=== PATIENT | female | born 1965 | race Caucasian/White ===

== ENCOUNTER 2016-06-09 10:11 | Day surgery (SDC) ==
[2016-06-09] MEDS ORDERED: NS 1,000 ML ONE (10:53)
[2016-06-09] MEDS ORDERED: MYLICON DROPS (DOSE) MISC ONE (14:16)
[2016-06-09] MEDS ORDERED: DIPRIVAN 1% ONE (14:39)
[2016-06-09] MEDS ORDERED: FENTANYL ONE (14:40)
[2016-06-09] MEDS ORDERED: VERSED ONE (14:40)
[2016-06-09] MEDS ORDERED: DEMEROL IV ONE (14:48)
[2016-06-09] MEDS ORDERED: DEMEROL ONE (14:49)
[2016-06-09 15:13] VITALS: BP 123/65
--- NOTE | 2016-06-09 15:57 | OPERATIVE NOTE ---
PROCEDURE DATE: 06/09/2016 DATE OF PROCEDURE: 06/09/2016. PROCEDURE: Colonoscopy and polypectomy. PREOPERATIVE DIAGNOSES: 1. Change in bowel habits. 2. Constipation. 3. Abdominal pain. 4. Weight loss. POSTOPERATIVE DIAGNOSIS: Colon polyp with polypectomy performed. HISTORY: This is a 51-year-old white female who had noticed some change in her bowel habits. She has been constipated. She has also been complaining of diffuse abdominal pain associated with some weight loss. Colonoscopy was done for diagnostic, as well as therapeutic purposes. DESCRIPTION OF PROCEDURE: Informed consent was obtained from the patient. The procedure, risks, benefits, alternatives were explained in layman's terms. She understood and all the pertinent questions were answered. The patient was brought to the endoscopy unit and was premedicated as per anesthesia. After adequate sedation while she was lying in left lateral position, digital rectal exam was done which was normal. The scope was then gently introduced into the rectum and advanced under direct vision through the parts of colon all the way up to the cecum. The cecum was identified by ileocecal valve and the appendiceal orifice. The scope was then withdrawn, paying careful attention to details. Preparation was good. The visualized portion of the colon revealed a polyp in the sigmoid colon around 35 cm from the anal verge. The polyp was sessile, smooth surfaced, and was about 6-8 mm in size. Polypectomy was performed by snare cautery without difficulty. I did not see any polyps, tumors, cancers, or any other pathology in the rest of the colon. The rectum was examined both in straight and retroflexed view, which revealed no pathology either. The scope was then removed. Patient tolerated the procedure well. No complication was noted. The patient was then transferred to the recovery area in a stable condition. IMPRESSION: Colon polyp with polypectomy performed, otherwise normal colon. RECOMMENDATION: I would continue her on Amitiza, but add Movantik 1 p.o. b.i.d. or once a day. I recommended her to continue high-fiber, high-residue diet, and drink plenty of water daily. Follow up with the biopsy report in 2 weeks. Follow up in the office in 4-6 weeks. Advised to follow up with Dr. Griffin as scheduled.
== END 2016-06-09 15:30 | disposition home or self-care (01) ==
LOC: ENDO 10:11
PROVIDERS: ATTEND Internal Medicine Gastroenterology
DX: D12.5 Benign neoplasm of sigmoid colon (principal); E11.9 Type 2 diabetes mellitus without complications; Z95.810 Presence of automatic (implantable) cardiac defibrillator; F17.210 Nicotine dependence, cigarettes, uncomplicated; I50.9 Heart failure, unspecified
CPT/HCPCS: 82948; 88305; 88313; J2175; J2250; J3010; J7030

== ENCOUNTER 2016-09-06 18:27 | Observation (INO) ==
[2016-09-06] MEDS ORDERED: VANCOMYCIN IV PER PHARMACY MISC SCH (19:00)
[2016-09-06] MEDS ORDERED: ZOFRAN IV PRN (19:11)
[2016-09-06 19:35] LABS: MANUAL DIFF NEEDED? NO
[2016-09-06 19:43] LABS: BASO% 0.2 % (0.0-0.8); EOS# 0.15 X1000 (0.0-0.7); EOS% 1.5 % (0.0-10.0); HEMATOCRIT 37.2 % (37.0-47.0); HEMOGLOBIN 13.2 g/dL (12.0-16.0); IMM GRAN# 0.03 X1000 (0.0-0.04); IMM GRAN% 0.3 % (0.0-0.5); LYMPH# 3.28 X1000 (1.2-3.4); LYMPH% 33.1 % (20.5-51.1); MCHC 35.5 g/dL (33-37); MCV 87.3 FL (81-99); MONO# 0.78 X1000 (0.11-0.59); MONO% 7.9 % (1.7-9.3); MPV 9.7 FL (7.4-10.4); PLT 271 X1000 (130-400); RBC 4.26 XMIL (4.2-5.4)
[2016-09-06 20:24] LABS: ALBUMIN 3.9 g/dL (3.5-5.0); CALCIUM 9.2 mg/dL (8.8-10.2); DIGOXIN 1.7 ng/mL (0.9-2.0); POTASSIUM 3.5 mmol/L (3.5-5.1); TOTAL BILIRUBIN 0.3 mg/dL (0.20-1.00); TOTAL PROTEIN 7.1 g/dL (6.3-8.3)
[2016-09-06 20:45] LABS: SED RATE 74 mm/hr (0-20)
[2016-09-06] MEDS ORDERED: NS 500 ML ONE (21:53)
[2016-09-06] MEDS ORDERED: VANCOMYCIN 1 GM/NS 1 GM/250 ML IVPB IV ONE (22:00)
[2016-09-06] MEDS: HUMALOG DOSE (PARKWAY) SUBQ SCH (22:47)
[2016-09-06] MEDS: LEVAQUIN 500 MG/D5W 500 MG/100 ML IVPB IV SCH (22:48)
[2016-09-06] MEDS: MONISTAT 7 VAG SCH (22:49)
[2016-09-06] MEDS: NORCO-5 PO PRN (23:08)
[2016-09-06] MEDS: NICODERM PATCH TD PRN (23:15)
[2016-09-07] MEDS: FLAGYL 500 MG/NS 500 MG/100 ML IVPB IV SCH ×4 (00:45→22:27)
[2016-09-07] MEDS ORDERED: VANCOMYCIN 1 GM/NS 1 GM/250 ML IVPB IV ONE ×3 (03:00→08:00)
[2016-09-07] MEDS: NORCO-5 PO PRN ×4 (03:52→21:25)
[2016-09-07] MEDS: HUMALOG DOSE (PARKWAY) SUBQ SCH ×4 (06:37→21:51)
--- NOTE | 2016-09-07 07:42 | Diag Imaging Result Document ---
PROCEDURE NAME: LOWER LEG-LEFT - 09/07/2016 LEFT TIB/FIB, FOUR VIEWS: FINDINGS: There is a small osteochondroma arising from the proximal medial tibia. No fracture. No dislocation. No periosteal reaction. No lytic lesion. IMPRESSION: No plain film evidence of osteomyelitis. If clinical suspicion persists then a 3- phase bone scan or MRI is recommended.
[2016-09-07] MEDS: MONISTAT 7 VAG SCH ×2 (08:17→21:14)
[2016-09-07 09:47] LABS: HEMOGLOBIN A1C 11.7 % (4.8-6.0)
[2016-09-07 17:27] LABS: AGAP 11; BUN 13 mg/dL (8-22); CHLORIDE 89 mmol/L (98-107); COSMO 273; POTASSIUM 3.9 mmol/L (3.5-5.1); SODIUM 129 mmol/L (136-145); TCO2 28 mmol/L (25-35)
[2016-09-07] MEDS: LEVAQUIN 500 MG/D5W 500 MG/100 ML IVPB IV SCH (21:14)
[2016-09-07] MEDS: NICODERM PATCH TD PRN (21:55)
[2016-09-08] MEDS ORDERED: VANCOMYCIN 1,500 MG in NS 250 ML IV SCH (02:00)
[2016-09-08] MEDS: FLAGYL 500 MG/NS 500 MG/100 ML IVPB IV SCH (05:05)
[2016-09-08] MEDS: HUMALOG DOSE (PARKWAY) SUBQ SCH (06:25)
[2016-09-08 06:29] LABS: HEMATOCRIT 35.2 % (37.0-47.0); HEMOGLOBIN 12.3 g/dL (12.0-16.0); MCH 30.8 PG (27-31); MCHC 34.9 g/dL (33-37); MPV 9.9 FL (7.4-10.4)
[2016-09-08 06:32] VITALS: BP 147/64
[2016-09-08 06:41] LABS: AGAP 9; ALBUMIN 3.3 g/dL (3.5-5.0); ALKALINE PHOSPHATASE 119 U/L (32-104); BUN 11 mg/dL (8-22); CALCIUM 8.8 mg/dL (8.8-10.2); CHLORIDE 93 mmol/L (98-107); COSMO 272; GOT 15 U/L (10-30); GPT 13 U/L (10-36); POTASSIUM 3.9 mmol/L (3.5-5.1); SODIUM 133 mmol/L (136-145); TCO2 31 mmol/L (25-35); TOTAL PROTEIN 5.7 g/dL (6.3-8.3)
[2016-09-08] MEDS: MONISTAT 7 VAG SCH (09:48)
--- NOTE | 2016-09-08 10:08 | HISTORY AND PHYSICAL ---
PRIMARY CARE PHYSICIAN: Dr. Rommel Tejada. CHIEF COMPLAINT: Ulcer left foot. HISTORY OF PRESENT ILLNESS: This is a 51-year-old female with a history of diabetes mellitus, high cholesterol, congestive heart failure, peripheral neuropathy. She presents as a direct admit from Dr. Rommel Tejada's office for nonhealing diabetic ulcer to her left great toe with failed outpatient treatment. PAST MEDICAL HISTORY: Diabetes mellitus, high cholesterol, congestive heart failure with EF of 35 to 40% on echo April 2016, ischemic cardiomyopathy, CAD. PAST SURGICAL HISTORY: Heart catheterization. SOCIAL HISTORY: She lives with her . She continues to smoke daily. She denies alcohol or illicit drug use. ALLERGIES: No known drug allergies. HOME MEDICATIONS: Lasix 80 mg daily, digoxin 250 mcg daily, Robaxin 750 b.i.d., Cozaar 25 daily, Levemir FlexTouch 50 units b.i.d., [place] 10/325 q.6 hours p.r.n., Lyrica 50 mg b.i.d., potassium chloride 10 mEq daily, carvedilol 3.125 b.i.d., Lipitor 40 mg daily, temazepam 30 mg daily, Gralise 600 mg daily, Keflex 500 mg p.o. q.6 hours for 2 weeks. REVIEW OF SYSTEMS: A 14 point review of systems is discussed with the patient with pertinent positives being left foot pain, left foot ulcer. She did denies chest pain, palpitations, dizziness, syncope, any cough, fever, chills, PND, orthopnea, nausea, vomiting, diarrhea, black or bloody vomitus, black or bloody stools, hematuria, dysuria, frequency, urgency. PHYSICAL EXAMINATION: GENERAL: This is a 51-year-old female who is sitting up in the bed with no distress. VITAL SIGNS: Blood pressure is 115/67, with a heart rate of 24, respirations are 69, temperature is 97.6 degrees axillary, with room air saturation of 100%. HEENT: Head is normocephalic, atraumatic. Pupils equal, round, react to light. EOMs are intact. Sclerae anicteric. Mucous membranes are moist. NECK: Supple. Trachea midline. CARDIOVASCULAR: Regular rate and rhythm. S1 and S2 appreciated. PULMONARY: Breath sounds are clear with no increased work of breathing noted. GASTROINTESTINAL: Abdomen is soft, nontender, nondistended with bowel sounds in all 4 quadrants. BACK: No CVAT. No spine tenderness. MUSCULOSKELETAL: Good range of motion of joints. EXTREMITIES: No clubbing, cyanosis, or edema to upper extremities or right lower extremity. Left lower extremity does have a dressing intact to the foot. Pulses are palpable x4. NEUROLOGIC: She is alert and oriented x3. Cranial nerves 2 through 12 grossly intact. ASSESSMENT: 1. Nonhealing diabetic ulcer to her left great toe, failed outpatient treatment. 2. Diabetes mellitus, uncontrolled with a hemoglobin A1c of 11. 3. Hyperglycemia. 4. Congestive heart failure, history of. 5. Ischemic cardiomyopathy. 6. Tobacco use and abuse. PLAN: She will be admitted to the hospital. We will obtain CBC, CMP, hemoglobin A1c, sedimentation rate, CRP, digoxin level. Dr. Amborsio has been contacted. X-ray of the left lower extremity has been ordered. Further x-rays or testing will be per his expertise. Vancomycin and Levaquin at present will be given for antibiotic coverage. Will verify and continue her home medications. Arterial Dopplers will be performed for bilateral lower extremities. Further treatments pending hospital course. Dictated by MERT Strong for Eran Wisdom MD cc: MERT Strong MD
--- NOTE | 2016-09-08 11:54 | DISCHARGE SUMMARY ---
ADMISSION DATE: 09/06/2016 DISCHARGE DATE: 09/08/2016 DIAGNOSES: 1. Nonhealing diabetic ulcer to the left great toe. 2. Dry gangrene left great toe. 3. Diabetes mellitus. 4. Ischemic cardiomyopathy with an EF of 25% in April 2016. 5. Hyperlipidemia. 6. Tobacco use. DIAGNOSTICS: Lower extremity x-ray revealed no plain film evidence of osteomyelitis. No fracture. No dislocation. No lytic lesion. CONSULTS: Dr. Ambrosio in Orthopedics. HOSPITAL COURSE: Ms. Patel presented as a direct admit from Dr. Rommel Tejada [facility] with a gangrenous nonhealing wound to her left great toe. Antibiotic coverage per vancomycin and Levaquin were given. Plain films revealed no osteomyelitis. Arterial indices were obtained. She was evaluated by Dr. Ambrosio in Orthopedics. He does recommend she be discharged on Keflex q.6 hours and follow with him in the wound center with her 1st appointment being . DISCHARGE PHYSICAL EXAMINATION: Cardiovascular: Regular rate and rhythm S1, S2 appreciated. Pulmonary: Breath sounds are clear. No increased work of breathing noted. Gastrointestinal: Abdomen is soft, nontender, nondistended with bowel sounds in all 4 quadrants. Extremities: No clubbing, cyanosis, or edema. Calves nontender. Pulses are palpable. DISCHARGE MEDICATIONS: 1. Furosemide 80 mg daily, digoxin 250 mcg daily, Robaxin 750 b.i.d., Cozaar 25 daily, [place] 10/325 q.6 hours p.r.n. 2. Lyrica 50 b.i.d., potassium 10 mEq daily, carvedilol 3.125 b.i.d. 3. Lipitor 40 daily, temazepam 30 daily. 4. Gralise 600 mg daily. 5. Keflex 500 mg p.o. q.6 hours. FOLLOWUP: He is to see Dr. Ambrosio in the wound center . DISCHARGE ACTIVITY: As tolerated. DISCHARGE DIET: Diabetic. DISPOSITION: She is being discharged home in stable condition with family members. TIME SPENT: This is a greater than 30 minute discharge. Dictated by MERT Strong for Eran Wisdom MD cc: MERT Strong MD
--- NOTE | 2016-09-08 14:29 | CONSULTATION ---
DATE OF CONSULTATION: 09/08/2016 CHIEF COMPLAINT: Ulcer on her left big toe. HISTORY OF THE PRESENT ILLNESS: This is a 51-year-old white female with a history of diabetes, CHF, and peripheral neuropathy. She was admitted to Dr. Tejada due to a nonhealing diabetic ulcer on her left great toe. Orthopedics had been consulted for evaluation of this ulcer. ALLERGIES: Not allergic to any medications. PAST MEDICAL HISTORY: Serious illnesses: Diabetes, congestive heart failure, cardiomyopathy. PAST SURGERIES: Heart catheterization. REGULAR MEDICATIONS: Lasix 80 one a day; digitalis 250 one a day; Robaxin 750 twice a day; Cozaar 25 one a day; Levemir 50 units twice a day; [place] 10 p.r.n. pain; Lyrica 50 twice a day; potassium 10 mEq a day; carvedilol 125 twice a day; Lipitor 40 once a day; temazepam 30 once a day; Gralise 600 once a day; Keflex 500 q.6 hours. REVIEW OF SYSTEMS: HEENT: No history of migraines, dizziness, loss of conscious, or CVA. Respiratory: No history of asthma or emphysema. She is a daily smoker. Heart: Has history of congestive heart failure, ejection fraction of 35% to 40%, with some ischemic cardiomyopathy. Abdomen: No history of ulcers or digestive disorders. PHYSICAL EXAMINATION: General: This is a 51-year-old female, alert and oriented. Vital Signs: Blood pressure 115/67, heart rate 64, respirations 24, temperature 97.6 degrees. HEENT: Pupils equal, round, and reactive. Neck: Good range motion, without adenopathy. Respiratory: Respirations equal and unlabored. Clear bilaterally. Heart: Regular rate and rhythm. Abdomen: Soft, nontender. Bowel sounds present. Extremities: She has ulcer to her left great toe, with some redness and swelling. Complains of severe pain. IMPRESSION: Nonhealing diabetic ulcer on her left great toe. PLAN: She will be discharged on Keflex and she is to follow up at the Wound Center this . cc: Gaetano Ambrosio MD
--- NOTE | 2016-09-08 17:50 | VASCULAR LAB ---
PROCEDURE NAME: Arterial Bilateral Legs - 09/07/2016 BILATERAL LOWER EXTREMITY ARTERIAL STUDY: COLLEGE ADMISSIONS COUNSELOR: Tammy Aggarwal. REFERRING PHYSICIAN: Eran Wisdom MD INDICATION: Patient has had coronary artery stent placement. She is a diabetic. Smoker. She has had 2 nonhealing wounds involving the top of her left foot. ICD 10 L97.509. FINDINGS: The systolic brachial blood pressure on the right is 135 mmHg, on the left 123 mmHg. Right high thigh 165 mmHg, left high thigh 171 mmHg. Right low thigh 153 mmHg, left low thigh 168 mmHg. Right calf 122 mmHg, left calf is 217 mmHg. The right ankle 101 mmHg, left ankle 130 mmHg. There is pulsatile flow in both feet and both great toes at rest. The right ankle-brachial index is 0.75. The left ankle-brachial index is 0.96. INTERPRETATION: The patient has what appears to be normal pulse waveforms throughout both lower extremities. There appears to be some small-vessel disease involving the right lower extremity, but it is mild. I do feel she has enough arterial flow to heal wounds involving her left foot. cc: MD Earn Brand MD
== END 2016-09-08 10:00 | disposition home or self-care (01) ==
LOC: INTOOBSV 18:27 → P.DIRADM 18:27 → P.MEDSURG 18:32
PROVIDERS: ATTEND Family Medicine

== ENCOUNTER 2016-10-27 13:59 | Inpatient (IN) ==
--- NOTE | 2016-10-27 15:38 | Diag Imaging Result Doc PS360 ---
EXAM: FOOT COMPLETE LEFT HISTORY: infection TECHNIQUE: Three views COMMENT: There is apparent soft tissue air around the first metatarsal particularly between the great toe and the second toe. This centers around the metatarsal phalangeal joints. There is apparently is generalized soft tissue swelling in the forefoot. There is plantar and dorsal spurring of the calcaneus. There is been previous amputation of distal phalanx of the great toe. There are no previous studies. IMPRESSION: Soft tissue swelling and a possible soft tissue gas as described. No definite evidence of acute bony disease. The possibility of acute osteomyelitis cannot be excluded. Electronically signed by Benny Tello 10/27/2016 3:36 PM
[2016-10-27 15:40] LABS: MANUAL DIFF NEEDED? NO
[2016-10-27 15:54] LABS: BASO% 0.3 % (0.0-0.8); EOS# 0.03 X1000 (0.0-0.7); EOS% 0.2 % (0.0-10.0); HEMATOCRIT 39.1 % (37.0-47.0); HEMOGLOBIN 13.6 g/dL (12.0-16.0); IMM GRAN# 0.06 X1000 (0.0-0.04); IMM GRAN% 0.5 % (0.0-0.5); LYMPH# 2.33 X1000 (1.2-3.4); LYMPH% 17.8 % (20.5-51.1); MCH 31.1 PG (27-31); MCHC 34.8 g/dL (33-37); MCV 89.3 FL (81-99); MONO# 1.14 X1000 (0.11-0.59); MONO% 8.7 % (1.7-9.3); MPV 10.2 FL (7.4-10.4); NEUT% 72.5 % (42.2-75.2); PLT 408 X1000 (130-400); RBC 4.38 XMIL (4.2-5.4)
[2016-10-27] MEDS ORDERED: NS 2,000 ML ONE (16:02)
[2016-10-27] MEDS ORDERED: ZOSYN 3.375 GM/NS 3.375 GM/50 ML IVPB IV ONE (16:08)
[2016-10-27] MEDS ORDERED: VANCOMYCIN 1 GM/NS 1 GM/250 ML IVPB IV ONE (16:08)
[2016-10-27] MEDS ORDERED: TYLENOL PO ONE (16:08)
[2016-10-27 16:26] LABS: ALBUMIN 3.8 g/dL (3.5-5.0); CALCIUM 9.4 mg/dL (8.8-10.2); POTASSIUM 3.5 mmol/L (3.5-5.1); TOTAL BILIRUBIN 0.49 mg/dL (0.20-1.00); TOTAL PROTEIN 8.7 g/dL (6.3-8.3)
[2016-10-27] MEDS ORDERED: HUMULIN R IV ONE (16:27)
[2016-10-27] MEDS: NS 1,000 ML IV ONE ×2 (16:29→16:32)
[2016-10-27 16:52] LABS: ALLEN TEST YES; BE 2.2 mmoll (-3.0-3.0); BLOOD TYPE ARTERIAL; DRAW SITE L RADIAL; METHB 1.3 % (0.0-1.5); PCO2(98.6) 34 mmHg (35-45); PO2(98.6) 91 mmHg (60-100); SAMPLE BLOOD; SAO2 98.8 % (95.0-100.0); THB 13.4 g/dL (11.5-17.4); pH(98.6) 7.48 (7.35-7.45)
[2016-10-27 16:55] LABS: MODALITY ROOM AIR
--- NOTE | 2016-10-27 17:17 | PROVIDER DOCUMENTATION ---
This chart was entered by Ginny Courtney, acting as scribe for Joe Jacob MD. HPI-Fever - General Chief Complaint: Possible Sepsis-D Stated Complaint: POST OP COMPLAINT Time Seen by Provider: 10/27/16 14:53 Source: patient, family Allergies/Adverse Reactions: Patient Allergies Allergy/AdvReac Type Severity Reaction Status Date / Time No Known Allergies Allergy Verified 06/08/16 09:28 Home Medications: Home Medication List Medication Instructions Recorded Confirmed Last Taken Type Digoxin [Digox] 250 mcg PO DAILY 04/02/16 10/18/16 10/15/16 History Furosemide 80 mg PO DAILY 04/02/16 10/18/16 10/18/16 05:00 History Hydrocodone/Acetaminophen [[place] 1 each PO Q6-8H PRN PRN 04/02/16 10/18/1610/18 05:00 History 10-325 Tablet] Insulin Detemir [Levemir Flextouch] 50 unit SQ BID 04/02/16 10/18/16 10/17/16 09 :00 History Losartan [Cozaar] 25 mg PO DAILY 04/02/16 10/18/16 10/17/16 History Methocarbamol [Robaxin-750] 750 mg PO BID PRN 04/02/16 10/18/16 10/11/16 History Potassium Chloride 10 meq PO DAILY 04/02/16 10/18/16 10/18/16 05:00 History Atorvastatin Calcium [Lipitor] 40 mg PO DAILY 09/07/16 10/18/16 10/18/16 05:00 History Carvedilol 3.125 mg PO BID 09/07/16 10/18/16 10/18/16 05:00 History Temazepam 30 mg PO DAILY 09/07/16 10/18/16 10/15/16 History Gabapentin [Gralise] 600 mg PO BID 10/15/16 10/18/16 10/17/16 20:00 History Cyclobenzaprine [Flexeril] 10 mg PO TID PRN 10/18/16 10/18/16 10/17/16 History Oxycodone HCl/Acetaminophen 1 each PO Q4-6H PRN PRN #40 tablet 10/18/16 Unknown Rx [Percocet 5-325 mg Tablet] - History of Present Illness-Fever Nature of Presenting Problem: pt is a 51 year old female present to the ER with a cc of And ulcer that was on her left big toes that has increased in redness and pain since her surgery x10 days ago. Pt states that she has had this ulcer for over 1 year now and she got it amputated 10 [address] pt states Dr. Ziegler did the amputation of her toe and the color of the tip of the toe was white following surgery. Pt family at bedside. Family states last dressing change was the day of surgery. Fever Severity/Quality: reports: no fever Onset/Duration: reports: other (x10 days) Timing: reports: getting worse Severity: reports: moderate Context: reports: none Recent Illness?: reports: none Cognitive Baseline: alert, oriented x3 Modifying Factors: improves with: nothing Similar Symptoms Previously?: Yes Recently seen or treated by another doctor?: Yes - Gl[place]ow Coma Score Best Eye Response ([place]): (4) open spontaneously Best Verbal Response ([place]): (5) oriented Best Motor Response ([place]): (6) obeys commands [place] Total: 15 Review of Systems - Adult - REVIEW OF SYSTEMS - ADULT Constitutional: reports: no symptoms reported Eyes: reports: no symptoms reported Ears, Nose, Mouth & Throat: denies: ear discharge, hearing loss Cardiovascular: denies: no symptoms reported Respiratory: reports: no symptoms reported Gastrointestinal: denies: abdominal pain, difficulty swallowing, frequent heartburn Genitourinary: denies: dysuria, discharge, frequency Musculoskeletal: reports: bone pain. denies: back pain, joint pain, joint swelling Integumentary: reports: skin sores/ulcer (Left big toe), other (Increased redness on Big toe of left foot). denies: itching, mole changes, nail changes Neurological: denies: dizziness/vertigo, headache/migraines, loss of balance, numbness, seizure Psychiatric: reports: no symptoms reported Endocrine: reports: no symptoms reported Hematologic/Lymphatic: reports: no symptoms reported Allergic/Immunologic: reports: no symptoms reported All Other Systems: Reviewed and Negative Past History - Adult - PAST MEDICAL HISTORY-ADULT Review of Records: reports: Nursing Assessment Review Major Childhood Illnesses: reports: denies history Cardiovascular: reports: CAD, CHF, hyperlipidemia, other (ACID) Respiratory: reports: denies history Gastrointestinal: reports: denies history Obstetrical/Gynecological: reports: denies history Genitourinary: reports: denies history Musculoskeletal: reports: cancer (cervical) Neurological: reports: denies history Endocrine/Immune: reports: Diabetes Other Conditions: reports: denies history - PRIOR SURGERIES/PROCEDURES Surgical/Procedure History: reports: hysterectomy, other (ACID/BREAST REDUCTION/ CERVICAL FUSION) - IMMUNIZATION STATUS Childhood Immunizations: See Nurse Assessment Flu Vaccine: See Nurse Assessment - FAMILY HISTORY Family History: reviewed, not pertinent Physical Exam-General - PHYSICAL EXAM-ADULT Initial Vital Signs Reviewed: Yes - CONSTITUTIONAL General Appearance: appears well, alert, mild distress - EYES Eyes: PERRL/EOMI, pink conjunctivae - HEAD, EARS, NOSE, MOUTH & THROAT HENMT: moist mucous membranes, normal ENT inspection, TMs normal, pharynx normal - NECK Neck: non-tender, full range of motion - RESPIRATORY Respiratory: chest non-tender, lungs clear, normal breath sounds, no pleuratic chest pain, no respiratory distress, no accessory muscle use - CARDIOVASCULAR Cardiovascular: no gallop, no JVD, no murmur, tachycardia - GASTROINTESTINAL (ABDOMEN) Abdominal Exam: normal bowel sounds, non tender, soft - MUSCULOSKELETAL Back Exam: normal inspection, no CVA tenderness Extremity: normal range of motion, non-tender, normal gait, normal inspection, erythema (Redness on anterior portion of foot from big toe to mid area of foot.) , tenderness (TTP Big toe Left foot) - SKIN Integumentary: other (Big toe left foot gangreb) - NEUROLOGIC Neurologic: grossly normal, no motor/sensory deficits - PSYCHIATRIC Psych/Mental Status: normal mood/affect, normal thought content, normal thought process, oriented x 3 Progress - PLAN OF CARE/RESULTS Progress/Plan/Lab Results: Vital Signs - 8 hr 10/27/16 14:16 Temperature 99.3 F Pulse Rate 107 H Respiratory Rate 20 Blood Pressure 100/73 O2 Sat by Pulse Oximetry 100 Laboratory Results - last 24 hr 10/27/16 10/27/16 10/27/16 14:45 14:45 14:45 WBC 13.08 H RBC 4.38 Hgb 13.6 Hct 39.1 MCV 89.3 MCH 31.1 H MCHC 34.8 RDW Std Deviation 12.9 Plt Count 408 H MPV 10.2 Immature Gran % (Auto) 0.5 Neut % (Auto) 72.5 Lymph % (Auto) 17.8 L [place] % (Auto) 8.7 Eos % (Auto) 0.2 Baso % (Auto) 0.3 Immature Gran # (Auto) 0.06 H Neut # (Auto) 9.48 H Lymph # (Auto) 2.33 [place] # (Auto) 1.14 H Eos # (Auto) 0.03 Baso # (Auto) 0.04 Specimen Type Sample Site pH pCO2 pO2 HCO3 Base Excess Oxyhemoglobin ABG O2 Sat (Calculated) ABG O2 Saturation ABG Carboxyhemoglobin ABG Methemoglobin Lyndon Test A-a O2 Difference Total Hemoglobin Lactate Blood Gas Modality FiO2 % Sodium 123 L Potassium 3.5 Chloride 77 L Carbon Dioxide 24 L Anion Gap 22 BUN 8 Creatinine 1.4 H Estimated GFR/1.73 m2 40 BUN/Creatinine Ratio 6 Glucose 622 H* Calculated Osmolality 275 Calcium 9.4 Total Bilirubin 0.49 AST 17 ALT 9 L Alkaline Phosphatase 162 H Total Protein 8.7 H Albumin 3.8 Globulin 4.9 Albumin/Globulin Ratio 0.8 Plasma Lactate 4.6 H 10/27/16 16:38 WBC RBC Hgb Hct MCV MCH MCHC RDW Std Deviation Plt Count MPV Immature Gran % (Auto) Neut % (Auto) Lymph % (Auto) [place] % (Auto) Eos % (Auto) Baso % (Auto) Immature Gran # (Auto) Neut # (Auto) Lymph # (Auto) [place] # (Auto) Eos # (Auto) Baso # (Auto) Specimen Type ARTERIAL Sample Site L RADIAL pH 7.48 H pCO2 34 L pO2 91 HCO3 26.4 H Base Excess 2.2 Oxyhemoglobin 89.8 L* ABG O2 Sat (Calculated) 17.0 ABG O2 Saturation 98.8 ABG Carboxyhemoglobin 7.80 H* ABG Methemoglobin 1.3 Lyndon Test YES A-a O2 Difference 16.0 Total Hemoglobin 13.4 Lactate 2.70 H Blood Gas Modality ROOM AIR FiO2 % 21.0 Sodium Potassium Chloride Carbon Dioxide Anion Gap BUN Creatinine Estimated GFR/1.73 m2 BUN/Creatinine Ratio Glucose Calculated Osmolality Calcium Total Bilirubin AST ALT Alkaline Phosphatase Total Protein Albumin Globulin Albumin/Globulin Ratio Plasma Lactate Orders Category Date Time Status CHEST-PORTABLE [RAD] Stat Exams 10/27/16 16:11 Taken FOOT COMPLETE LEFT [RAD] Stat Exams 10/27/16 14:54 Completed ABG [RESP] Routine Lab 10/27/16 16:38 Completed BLOOD CULTURE [BLDCUL] Stat Lab 10/27/16 14:48 Results CBC WITH ELECTRONIC DIFF [HEME] Stat Lab 10/27/16 14:45 Completed COMPREHENSIVE METABOLIC PANEL [CHEM] Stat Lab 10/27/16 14:45 Completed LACTATE, PLASMA [CHEM] Stat Lab 10/27/16 14:45 Completed LACTATE, PLASMA [CHEM] Timed Lab 10/27/16 17:45 Uncollected UA NIMS W/REFLEX CULT [URINALYSIS] Stat Lab 10/27/16 16:11 Uncollected 0.9% Sodium Chloride Inj [Ns] 1,000 ml Med 10/27/16 16:27 Active IV 999 mls/hr 0.9% Sodium Chloride Inj [Ns] 2,000 ml Med 10/27/16 16:02 Discontinued .ROUTE As Directed Acetaminophen [Tylenol] Med 10/27/16 16:08 Discontinued 1,000 mg PO NOW ONE Insulin Human Regular [Humulin R] Med 10/27/16 16:27 Discontinued 10 unit IV NOW ONE Piperacil/Tazobact 3.375 gm/Ns [Zosyn 3.375 gm/Ns] Med 10/27/16 16:08 Discontinued 3.375 gm in 50 ml IV NOW Vancomycin 1 gm/Ns Med 10/27/16 16:08 Discontinued 1 gm in 250 ml IV NOW Result Diagrams: 10/27/16 14:45 10/27/16 14:45 - XRAY 1 XRAY: Left XRAY Study: Foot Impression: Abnormal (Soft tissue swelling and a possiblr soft tissue gas as described. No definite evidence of acute bony disease. The possibilty of acute acute osteomylitis cannot be excluded ([place])) - CONSULTS/PCP/HOSPITALIST Notification #1 *Consult/PCP/Hospitalist*: Dr. Pryor Time Discussed: 16:35 Reason/Comments: Ampuation/Sepsis Consult Disposition: Admit (admit to hospitalist, Dr Ambrosio on vacation no one will do amputation, if hospitalist needs to amputation call vascular surgeon as needed for amputation evaluation) Time Discussed: 17:15 Reason/Comments: Dr. Burks - will consult both Konstantin and Surgery Consult Disposition: Admit Departure - Departure Time of Disposition Decision: 17:16 DIAGNOSIS: Hyperglycemia Sepsis Qualifiers: Sepsis type: sepsis due to unspecified organism Qualified Code(s): A41.9 - Sepsis, unspecified organism Cellulitis Qualifiers: Site of cellulitis: extremity Site of cellulitis of extremity: toe Laterality: left Qualified Code(s): L03.032 - Cellulitis of left toe Disposition: ADMITTED INPATIENT 09 Certified Medical Emergency: Emergent Condition: Serious Referrals and Follow-Ups: Rommel Tejada MD [Primary Care Provider] - - Critical Care Note This patient required my direct & personal management of CC.: No This chart was documented by the indicated scribe, (Ginny Courtney) and accurately reflects the services I performed and decisions made by me, Joe Jacob MD, as attested by the provider's signature.
--- NOTE | 2016-10-27 18:07 | Diag Imaging Result Doc PS360 ---
EXAM: CHEST-PORTABLE HISTORY: Fever TECHNIQUE: AP portable erect chest at 1647 COMMENT: There is a pacemaker on the left. The appearance of the chest has not changed appreciably since previous study of 04/02/2016. IMPRESSION: Stable chest. Electronically signed by Benny Tello 10/27/2016 6:05 PM
--- NOTE | 2016-10-27 19:38 | HISTORY AND PHYSICAL ---
PRIMARY CARE PHYSICIAN: Rommel Tejada MD. CHIEF COMPLAINT: Pain and ulcer in the right foot. HISTORY OF PRESENT ILLNESS: This is a 51-year-old, female with history of diabetes, CHF, high cholesterol, who recently had an amputation on the right big toe [address] Ambrosio, who presents to the emergency department complaining that she started having more reddening, pain and low-grade temperature. The patient reports that since she left the hospital, she was given Keflex oral that she is still using. She reported a few days after, she noticed reddening around the big toe that was getting worse and worse and since today she was feeling warmth, feeling chills with general malaise, she decided to come to the emergency department. So, she was found here to have a leukocytosis with low-grade temperature. So we were called for admission. PAST MEDICAL HISTORY: 1. Uncontrolled diabetes mellitus with hemoglobin A1c last checked that was 11.4. 2. Hypercholesterolemia. 3. Congestive heart failure with ejection fraction of 30% on April 2016. 4. Ischemic cardiomyopathy. 5. Status post angioplasty with 2 stents placed on February 2015. 6. Status post defibrillator placement in October 2015. PAST SURGICAL HISTORY: Recent right toe amputation done 10 days ago. SOCIAL HISTORY: Patient lives with . Smokes 1 pack per day. Denies drinking alcohol or using illicit drugs. ALLERGIES: Patient denies drug allergies. REVIEW OF SYSTEMS: Eleven systems were reviewed and all symptoms are related to H and P. PHYSICAL EXAMINATION: VITALS: Temperature 99.3, heart rate 89, respiratory rate 18, blood pressure 142/63, O2 saturation 96% on room air. GENERAL EXAMINATION: This is a 51-year-old female lying in bed, in no acute distress. HEENT: Head is normocephalic, atraumatic. Anicteric sclerae and pale conjunctivae. Mucous membranes moist. NECK: Supple. No JVD noted. No carotid bruits. No lymphadenopathy. No thyromegaly. CARDIOVASCULAR: S1, S2 heard. No murmurs, gallops, or rubs. Regular rate and rhythm. RESPIRATORY: Clear bilaterally to auscultation. No work of breathing or using accessory muscles. ABDOMEN: Soft, nontender to palpation. Bowel sounds present. No organomegaly. EXTREMITIES: Right toe partially amputated with reddening along all the toes that goes to the anterior portion of the left foot. It seems that there is some crepitation is next to the right toe and painful and warm to touch. Peripheral pulses present, but faint. NEUROLOGICAL: Patient alert and oriented x3. Able to move 4 extremities. Cranial nerves 2 though 12 grossly normal. LABORATORY DATA: White cell count 13.08, sodium 123, glucose 622. ASSESSMENT: 1. Right toe cellulitis/osteomyelitis. 2. Sepsis secondary to right toe infection. 3. Uncontrolled diabetes mellitus. 4. Ischemic cardiomyopathy. PLAN: 1. The patient is going to be admitted to the hospital for these infections. We are going to use at this time, broad-spectrum antibiotics in this case. Zosyn and because of renal dysfunction and because of the patient using atorvastatin, we can use daptomycin and I prefer to not use vancomycin because of renal dysfunction. So, will be given 600 mg every 12 hours. We are going to continue with all medications for this heart condition including digoxin. We are going to check digoxin levels. 2. Regarding diabetes, we are going to increase the doses of Levemir from 50-65 b.i.d. Considering that this patient had this infection. Her insulin use will go up as well. 3. Regarding congestive heart failure. She is not on any exacerbation. Lungs are completely clean. 4. We are going to consult surgery for possible need for amputation, and we are going to consult also Dr. Mas to help us in the management of antibiotics. 5. Further recommendations to follow for the clinical situation of the patient. cc: Boubacar Elaine MD
[2016-10-27 19:47] LABS: URINE MICRO REVIEW NEEDED? NO; URINE SOURCE CLEAN CATCH
[2016-10-27 19:52] LABS: BILIRUBIN URINE NEGATIVE (NEGATIVE); BLOOD URINE SMALL (NEGATIVE); COLOR YELLOW; GLUCOSE URINE >1000 mg/dL (NEGATIVE); LEUKOCYTES URINE SMALL (NEGATIVE); NITRITE URINE NEGATIVE (NEGATIVE); PROTEIN URINE NEGATIVE (NEGATIVE); SP GRAVITY URINE 1.009; TURBIDITY URINE HAZY (CLEAR); UROBILINOGEN URINE NORMAL (NORMAL)
[2016-10-27 19:53] LABS: UR EPITHELIAL CELLS >10 /HPF (<10); URINE BACTERIA 2+ /HPF; URINE CULTURE NEEDED? YES
[2016-10-27] MEDS ORDERED: ZOFRAN IV PRN (20:41)
[2016-10-27] MEDS ORDERED: NORCO-10 PO PRN (20:41)
[2016-10-27] MEDS ORDERED: TEFLARO 600 MG in NS 250 ML IV SCH (21:00)
[2016-10-27 22:02] LABS: HEMOGLOBIN A1C 12.8 % (4.8-6.0)
[2016-10-27] MEDS: LOVENOX SUBQ SCH (22:10)
[2016-10-27] MEDS: COREG PO SCH (22:10)
[2016-10-27] MEDS: RESTORIL PO SCH (22:10)
[2016-10-27] MEDS: LEVEMIR SUBQ SCH (22:16)
[2016-10-27] MEDS: GRALISE PO SCH (22:22)
[2016-10-27] MEDS: ZOSYN 3.375 GM/NS 3.375 GM/50 ML IVPB IV SCH (23:59)
[2016-10-28] MEDS ORDERED: D50W SYRINGE IV PRN (00:38)
[2016-10-28] MEDS: NORCO-10 PO PRN ×3 (03:34→18:13)
[2016-10-28] MEDS: D50W SYRINGE IV PRN (05:51)
[2016-10-28] MEDS: ZOSYN 3.375 GM/NS 3.375 GM/50 ML IVPB IV SCH ×3 (05:51→21:36)
[2016-10-28 06:27] LABS: MANUAL DIFF NEEDED? NO
[2016-10-28 06:42] LABS: BASO% 0.3 % (0.0-0.8); EOS# 0.04 X1000 (0.0-0.7); EOS% 0.4 % (0.0-10.0); HEMATOCRIT 33.4 % (37.0-47.0); HEMOGLOBIN 11.6 g/dL (12.0-16.0); IMM GRAN# 0.03 X1000 (0.0-0.04); IMM GRAN% 0.3 % (0.0-0.5); LYMPH# 1.97 X1000 (1.2-3.4); LYMPH% 17.3 % (20.5-51.1); MCH 30.9 PG (27-31); MCHC 34.7 g/dL (33-37); MCV 89.1 FL (81-99); MONO# 0.85 X1000 (0.11-0.59); MONO% 7.5 % (1.7-9.3); MPV 9.7 FL (7.4-10.4); NEUT% 74.2 % (42.2-75.2); PLT 331 X1000 (130-400); RBC 3.75 XMIL (4.2-5.4)
[2016-10-28 06:50] LABS: CALCIUM 8.7 mg/dL (8.8-10.2); POTASSIUM 2.9 mmol/L (3.5-5.1)
[2016-10-28] MEDS ORDERED: POTASSIUM CHLORIDE 60 MEQ in NS 500 ML IV ONE (08:10)
--- NOTE | 2016-10-28 08:10 | CONSULTATION ---
DATE OF CONSULTATION: 10/28/2016 CONCLUSION: A 51-year-old female who is status post amputation of her left great toe performed by Dr. Ambrosio. The patient now is admitted to the hospital with gangrenous cellulitis of the remaining left great toe as well as the distal foot. The patient also appears to have a urinary tract infection because of the finding in the urinalysis of bacteria and white blood cells. RECOMMENDATIONS: There is some purulent drainage coming from the toe. I collected this with a swab and have sent it to the microbiology lab for a culture. I have discontinued ceftaroline and instead placed the patient on daptomycin. I have also discontinued Lipitor because there is a possible interaction between Lipitor and daptomycin for an enhanced risk of muscle toxicity. PRESENT ILLNESS: The patient reports that she, approximately a week ago, had surgery on her left great toe. The toe has become progressively more swollen and erythematous and cyanotic, and gangrenous changes have appeared. Also, the area of cellulitis is extending up the patient's foot. The laboratory studies thus far show a CBC with white count of 13,080, hemoglobin 13.6, and platelet count 408,000. Patient's blood gases show a pH of 7.48, a PO2 of 91, and a pCO2 of 34. The creatinine is 1.4. The GFR is 40. Liver function studies are normal except for an alkaline phosphatase of 162. Urinalysis shows white cells and bacteria. Blood and urine cultures are pending. Chest x-ray shows clear lung walden and the presence of a left-sided pacemaker. X-ray of the left foot shows soft tissue swelling and possible gas. PAST MEDICAL HISTORY/REVIEW OF SYSTEMS: Eyes and Ears: She has good hearing and vision. Neck: No stiffness. Respiratory: No cough or shortness of breath. Cardiovascular: No chest pain or palpitations. GI: No nausea, vomiting, or diarrhea. : No dysuria or flank pain. Endocrine: The patient is a diabetic but she has not had good control of her diabetes. Unfortunately, her diabetes is not under good control as manifested by the fact that her A1c is 11.4. Patient does not have thyroid disease. Hematologic: She does not have a history of anemia or bleeding tendency. ASSESSMENT AND PLAN: I have taken a culture from the patient's left foot. I have substituted daptomycin for ceftaroline. I agree with continuing Zosyn. The patient's comorbidity is diabetes and unfortunately the patient does not keep her glucose under good control. PREVIOUS HOSPITALIZATIONS AND OPERATIONS: Intestinal surgery, breast biopsy, breast reduction, cervical spine surgery, knee surgery, hysterectomy and bladder surgery. MEDICAL DISEASES: Diabetes mellitus, hyperlipidemia, congestive heart failure, ischemic cardiomyopathy. INFECTIOUS DISEASES: Urinary tract infection. FAMILY HISTORY: Positive for diabetes mellitus, hypertension, congestive heart failure, and cancer. SOCIAL HISTORY: The patient lives in the [facility]. She is . She smokes 1 pack of cigarettes a day. She does not drink alcoholic beverages or abuse drugs. She has dogs and cats for pets. She is disabled due to congestive heart failure. ALLERGIES: There are no known drug allergies on this patient. HOME MEDICATIONS: Include temazepam, potassium, oxycodone, Robaxin, Cozaar, insulin, gabapentin, Lasix, cyclobenzaprine, carvedilol, and atorvastatin. PHYSICAL EXAM: See later dictation. Thank you for the consult. cc: Omid Mas MD MTDD
[2016-10-28] MEDS: PRILOSEC PO SCH (08:38)
[2016-10-28] MEDS ORDERED: LIPITOR PO SCH (09:00)
[2016-10-28] MEDS: CUBICIN IV SCH (09:00)
[2016-10-28] MEDS: NS IV SCH (09:00)
[2016-10-28] MEDS: COREG PO SCH ×2 (09:33→21:36)
[2016-10-28] MEDS: COZAAR PO SCH (09:33)
[2016-10-28] MEDS: GRALISE PO SCH ×2 (09:34→21:35)
[2016-10-28] MEDS: KLOR-CON PO SCH (09:34)
[2016-10-28] MEDS: LANOXIN PO SCH (09:52)
[2016-10-28] MEDS: LASIX PO SCH (09:53)
[2016-10-28] MEDS: LEVEMIR SUBQ SCH ×2 (09:54→21:34)
--- NOTE | 2016-10-28 14:13 | PROGRESS NOTE ---
DATE: 10/28/2016 SUBJECTIVE: The patient reports he is still feeling pain and left toe cellulitis. Denies any fever, chills. OBJECTIVE: Vitals: Temperature 98.8 degrees, heart rate 87, respiratory rate 16, blood pressure 118/62, O2 saturation 100% on room air. General Examination: This is a 51-year-old female, lying in bed in no acute distress. HEENT: Head is normocephalic, atraumatic. Anicteric sclerae and pale conjunctivae. Neck: Supple. No JVD noted. Cardiovascular exam: S1, S2 heard. No murmurs, gallops, or rubs. Regular rate and rhythm. Respiratory exam: Clear bilaterally to auscultation. No work of breathing or using accessory muscles. Abdomen: Soft, nontender to palpation. Bowel sounds present. No organomegaly. Extremities: No clubbing, cyanosis, or edema. There is a left great toe partially amputated with signs of erythema around the left toe with no purulent drainage. Neurological exam: Patient alert and oriented x3. Able to move 4 extremities. Cranial nerves 2-12 grossly normal. ASSESSMENT: 1. Left toe cellulitis/osteomyelitis. 2. Sepsis secondary to condition #1. 3. Uncontrolled diabetes mellitus. 4. Ischemic cardiomyopathy. PLAN: The patient has been admitted to the hospital for cellulitis/osteomyelitis of the left foot. General surgery has been consulted, as well as infectious disease. The patient currently is on daptomycin and Zosyn as per Dr. Omid Mas. We are still waiting for recommendations from general surgery regarding what will be the next step in the management of this patient. For uncontrolled diabetes mellitus, we have rechecked hemoglobin A1c which is 12.4. We have ordered Levemir 65 units b.i.d., but because this patient had low glucose last night, we preferred to skip the doses in the morning of Levemir and restart it in the night. She is able to eat a diabetic diet. cc: Boubacar Elaine MD
--- NOTE | 2016-10-28 14:49 | CONSULTATION ---
DATE OF CONSULTATION: 10/28/2016 ADDENDUM PHYSICAL EXAMINATION: Vital Signs: Temperature is 98.8 degrees, pulse 87, respirations 16, blood pressure 118/62. Patient weighs 170 pounds. General: This is an ill-appearing middle-aged female. She is having chills. Head, eyes, ears, nose, and throat: She can hear my spoken words and see near objects. No drainage noted from the nose or ears. Neck: No meningismus. Lungs: Clear to auscultation. Cardiovascular: Heart rate is regular. Peripheral pulses are palpable. There is no leg edema. Abdomen: Soft and nontender. Extremities: The patient's left great toe is erythematous and gangrenous. The erythema is spreading up the patient's foot. On the great toe there was a bullous area that I squeezed and seropurulent fluid came out. This was sent for culture. Neurologic: Patient is awake. She can move her extremities. She is chilling but she does not have an actual tremor. Her sensation was intact to touch. Her memory, as regarding her medical history was intact. Integument: There was no rash. Thank you for the consult. cc: Omid Mas MD
--- NOTE | 2016-10-28 19:40 | CONSULTATION ---
DATE OF CONSULTATION: 10/28/2016 PRIMARY CARE PHYSICIAN: Rommel Tejada MD REASON FOR CONSULTATION: Cellulitis to the left foot status post recent partial toe amputation. HISTORY OF PRESENT ILLNESS: This is a 51-year-old female with a history of uncontrolled diabetes who recently underwent a partial left big toe amputation [address] Ambrosio. She presented to the emergency department complaining that she started to have increasing redness, pain, and was running a low-grade temperature. She was seen in Dr. Ambrosio's office 1 week postop where she was started on oral antibiotic, Keflex, and was encouraged to call if the redness continued or worsened. A few days after her office visit, she reports that she noticed increasing redness, pain, and drainage to the toe. The redness spread to her forefoot and midfoot. She started having chills and fever and also general malaise, so she decided to come to the emergency department. Upon admission to the ER, she was found to have leukocytosis with a low-grade fever, and Orthopedics has been consulted in relation to her recent amputation done by Dr. Ambrosio. PAST MEDICAL HISTORY: 1. Uncontrolled diabetes mellitus with a hemoglobin A1c last checked of 11.4. 2. Hypercholesterolemia. 3. Congestive heart failure. 4. Ischemic cardiomyopathy. 5. Status post defibrillator placement in October 2015. PAST SURGICAL HISTORY: Recent left toe partial amputation done 11 days ago. ALLERGIES: The patient denies any drug allergies. REVIEW OF SYSTEMS: An 11-point review of systems was completed and all were negative except for mentioned above in the history of present illness and the physical exam. PHYSICAL EXAMINATION: Vital signs: Temperature max 98.8 degrees. Her pulse is 70s to 80s. Blood pressure is 118/62. O2 is 100% on room air. General: She is currently lying in the bed in no acute distress and answering all questions appropriately. Neurologic: She is alert and oriented x3. She is able to move all of her extremities with good strength. She had good sensation to her right foot. Left foot sensation is diminished. Musculoskeletal: She has good strength to all extremities. Her left toe flap does have some necrosis as well as eschar. She has a very weak pedal pulse, poor capillary refill to the left foot. Her left foot is very tender all the way to the ankle. On the dorsal surface she has significant erythema and she does have some notable drainage from the amputation site. LABORATORY DATA: Her white count is 11.39. Her hemoglobin and hematocrit are 11.6 and 33.4. Her platelet count is 331. Her sodium is 137. Her potassium is 2.9. Her BUN is 9. Her creatinine is 1. A urinalysis does show some leukocytes and bacteria. Currently blood cultures, urine culture, and culture of the left big toe drainage are all pending. ASSESSMENT: Left toe cellulitis status post partial amputation. PLAN: Certainly we agree with starting IV antibiotics on the patient. We do appreciate ID following the patient and adjusting antibiotics accordingly. We will plan to allow the IV antibiotics time to treat this cellulitis and allow time for the toe flap to declare itself. Hopefully we will see a reduction in the erythema with IV antibiotics at which time we will be able to decide whether further amputation or debridement is needed. General Surgery is also following. Dr. Ambrosio will plan to see the patient Tuesday evening or Tuesday morning. Regarding her diabetes, we do agree with trying to keep stricter control on her blood glucose levels. Further recommendations to follow depending on response to antibiotic therapy. Dictated by MERT Roberts for Tom Pryor MD cc: MERT Roberts MD [facility]
[2016-10-28] MEDS: LOVENOX SUBQ SCH (21:35)
[2016-10-28] MEDS: RESTORIL PO SCH (21:35)
[2016-10-29] MEDS: ZOSYN 3.375 GM/NS 3.375 GM/50 ML IVPB IV SCH ×4 (03:13→21:09)
[2016-10-29] MEDS: NORCO-10 PO PRN ×3 (03:43→20:48)
[2016-10-29 05:50] LABS: MANUAL DIFF NEEDED? NO
[2016-10-29 05:55] LABS: BASO% 0.3 % (0.0-0.8); EOS# 0.08 X1000 (0.0-0.7); EOS% 0.7 % (0.0-10.0); HEMATOCRIT 31.7 % (37.0-47.0); HEMOGLOBIN 10.8 g/dL (12.0-16.0); IMM GRAN# 0.02 X1000 (0.0-0.04); IMM GRAN% 0.2 % (0.0-0.5); LYMPH# 2.14 X1000 (1.2-3.4); LYMPH% 18.9 % (20.5-51.1); MCH 30.9 PG (27-31); MCHC 34.1 g/dL (33-37); MCV 90.8 FL (81-99); MONO# 0.96 X1000 (0.11-0.59); MONO% 8.5 % (1.7-9.3); NEUT% 71.4 % (42.2-75.2); PLT 291 X1000 (130-400); RBC 3.49 XMIL (4.2-5.4)
[2016-10-29] MEDS: PRILOSEC PO SCH (06:04)
[2016-10-29 06:20] LABS: AGAP 12; BUN 8 mg/dL (8-22); CALCIUM 8.7 mg/dL (8.8-10.2); CHLORIDE 94 mmol/L (98-107); COSMO 265; POTASSIUM 3.7 mmol/L (3.5-5.1); SODIUM 132 mmol/L (136-145); TCO2 26 mmol/L (25-35)
[2016-10-29] MEDS ORDERED: INSULIN PEN NEEDLES ONE (07:02)
[2016-10-29] MEDS: NS IV SCH (08:37)
[2016-10-29] MEDS: LANOXIN PO SCH (08:37)
[2016-10-29] MEDS: CUBICIN IV SCH (08:37)
[2016-10-29] MEDS: COZAAR PO SCH (08:38)
[2016-10-29] MEDS: KLOR-CON PO SCH (08:38)
[2016-10-29] MEDS: LASIX PO SCH (08:38)
[2016-10-29] MEDS: GRALISE PO SCH ×2 (08:38→21:09)
[2016-10-29] MEDS: LEVEMIR SUBQ SCH ×2 (08:39→21:09)
[2016-10-29] MEDS: COREG PO SCH ×2 (08:39→21:09)
--- NOTE | 2016-10-29 09:53 | PROGRESS NOTE ---
DATE: 10/29/2016 PRESENT ILLNESS: The patient has gangrenous cellulitis of the left great toe. It was extending up the foot. MEDICATIONS: The patient is receiving a combination of daptomycin and Zosyn. PHYSICAL EXAMINATION: Vital Signs: Temperature is 98.5 degrees, pulse 84, respirations 18, blood pressure 109/53. General: This is an ill-appearing, middle-aged female. She is complaining of having a lot of muscle spasms in her left leg. Lungs: Clear to auscultation. Cardiovascular: Regular heart rate. Abdomen: Soft and nontender. Extremities: The patient's left foot is much less erythematous. It is also less swollen. The distal part of the remaining toe is gangrenous, however. It is a dry gangrene. LAB AND X-RAY: The patient's CBC shows a white count of 11,310, hemoglobin 10.8, and platelet count 291,000. Patient's creatinine has improved. It currently is 0.9 with a GFR of greater than 60. The patient's urine is growing yeast. A culture I obtained from the patient's great toe is growing a gram-negative isaias. ASSESSMENT AND PLAN: Patient has gangrenous cellulitis and probable osteomyelitis of the remaining left great toe. My plan is to continue the current antibiotics, namely daptomycin and Zosyn pending culture results. The patient is also complaining of muscle spasms. I have ordered Zanaflex for her. COMORBIDITIES: She has diabetes mellitus and congestive heart failure with ischemic cardiomyopathy. cc: Omid Mas MD
[2016-10-29] MEDS: ZANAFLEX PO SCH ×3 (10:34→21:09)
--- NOTE | 2016-10-29 11:47 | PROGRESS NOTE ---
DATE: 10/29/2016 SUBJECTIVE: The patient reports that she is still hurting on the left toe, but denies fever or chills, and denies nausea and vomiting, although she is not having a good appetite. OBJECTIVE: Vitals Signs: Temperature 98.5, heart rate 84, respiratory rate 18, blood pressure 109/53, O2 saturation 98% on room air. General Examination: This is a 51-year-old female lying in bed, in no acute distress. HEENT: Head is normocephalic, atraumatic. Anicteric sclerae and pale conjunctivae. Mucous membranes moist. Neck: Supple. No JVD noted. No carotid bruits. No lymphadenopathy. No thyromegaly. Cardiovascular Exam: S1, S2 heard. No murmurs, gallops, or rubs. Heart: Regular rate and rhythm. Respiratory Exam: Clear bilaterally to auscultation. No work of breathing or using accessory muscles. Extremities: Left foot looks less erythematous and less painful and less swollen. The distal part of the toe looks still gangrenous but is dry. Peripheral pulses present in legs. Neurological Exam: Patient is alert and oriented x3, able to move 4 extremities. LABORATORY DATA: White cell count 11.31. BMP shows sodium 132. ASSESSMENT AND PLAN: 1. Gangrene and cellulitis of the left great toe. 2. Sepsis secondary to condition #1. 3. Uncontrolled diabetes mellitus. 4. Ischemic cardiomyopathy. PLAN: 1. The patient currently is on daptomycin and Zosyn. Dr. Mas from Infectious Disease is following this patient. Apparently from Orthopedic standpoint, they think that they will do antibiotics until Dr. Ambrosio, who is the primary orthopedic surgeon who performed the surgery a couple of weeks ago, he will be back next Tuesday or Tuesday, so we will see what he has to say. In the meantime, as we mentioned before, we will continue with antibiotics. 2. The rest of the medical conditions, those are stable and will continue with home medications. cc: Boubacar Elaine MD
--- NOTE | 2016-10-29 12:54 | CONSULTATION ---
DATE OF CONSULTATION: 10/29/2016 HISTORY OF PRESENT ILLNESS: Ms. Viviana Patel is a 51-year-old white female, patient of Dr. Gaetano Ambrosio, on 10/18/2016. He performed a partial amputation of her left great toe for chronic ulcer. He followed her in his outpatient offices, but she presented to the emergency department on 10/27/2016 because of increasing swelling, pain and cellulitis involving this left great toe. Dr. Pryor was called and asked vascular surgery be called about this patient. The patient has been followed by Dr. Amborsio in the wound clinic. She has had a noninvasive vascular study in September of this year which showed pulsatile waveforms to her feet bilaterally, but she did have some peripheral vascular disease. PHYSICAL EXAM: Extremities: She has loss of a posterior flap involving the partial amputation of her left great toe with cellulitis and swelling involving this great toe and extending onto her foot. There did not appear to be any undrained purulence. Her peel pulses on the left foot are not easily palpable, but besides the distal part of her left great toe, there is no evidence of acute ischemia involving the left foot. PLAN: I have discussed this case with Dr. Nino. I do agree with IV antibiotics and local wound care. Dr. Ambrosio is on vacation and evidently is returning next week as per the orthopedic consultation. I would expect ortho to follow the patient until Dr. Ambrosio has returned, and further revision or surgery will be necessary involving this left great toe. cc: Candy Martin MD
[2016-10-29] MEDS ORDERED: NS 1,000 ML ONE (14:03)
[2016-10-29] MEDS: RESTORIL PO SCH (21:09)
[2016-10-29] MEDS: LOVENOX SUBQ SCH (21:09)
[2016-10-30] MEDS: ZOSYN 3.375 GM/NS 3.375 GM/50 ML IVPB IV SCH ×4 (03:58→21:35)
[2016-10-30] MEDS: ZANAFLEX PO SCH ×3 (04:00→21:35)
[2016-10-30] MEDS: NORCO-10 PO PRN ×3 (04:01→13:50)
[2016-10-30 05:33] LABS: MANUAL DIFF NEEDED? NO
[2016-10-30 05:47] LABS: BASO% 0.3 % (0.0-0.8); EOS# 0.11 X1000 (0.0-0.7); EOS% 1.1 % (0.0-10.0); HEMATOCRIT 31.9 % (37.0-47.0); HEMOGLOBIN 10.7 g/dL (12.0-16.0); IMM GRAN# 0.02 X1000 (0.0-0.04); IMM GRAN% 0.2 % (0.0-0.5); LYMPH# 2.71 X1000 (1.2-3.4); LYMPH% 27.6 % (20.5-51.1); MCH 30.7 PG (27-31); MCHC 33.5 g/dL (33-37); MCV 91.7 FL (81-99); MONO# 0.73 X1000 (0.11-0.59); MONO% 7.4 % (1.7-9.3); MPV 9.7 FL (7.4-10.4); NEUT% 63.4 % (42.2-75.2); PLT 299 X1000 (130-400); RBC 3.48 XMIL (4.2-5.4)
[2016-10-30 06:08] LABS: AGAP 11; BUN 7 mg/dL (8-22); CALCIUM 8.5 mg/dL (8.8-10.2); CHLORIDE 95 mmol/L (98-107); COSMO 263; POTASSIUM 3.3 mmol/L (3.5-5.1); SODIUM 133 mmol/L (136-145); TCO2 27 mmol/L (25-35)
[2016-10-30] MEDS: PRILOSEC PO SCH (06:18)
[2016-10-30] MEDS: CUBICIN (FOR INPATIENT USE) 500 MG in NS 100 ML IV SCH (08:56)
[2016-10-30] MEDS: GRALISE PO SCH ×2 (08:57→21:35)
[2016-10-30] MEDS: LEVEMIR SUBQ SCH ×2 (08:57→21:43)
[2016-10-30] MEDS: LANOXIN PO SCH (08:57)
[2016-10-30] MEDS: KLOR-CON PO SCH (08:57)
[2016-10-30] MEDS: COZAAR PO SCH (08:58)
[2016-10-30] MEDS: COREG PO SCH ×2 (08:58→21:35)
[2016-10-30] MEDS: LASIX PO SCH (08:59)
[2016-10-30] MEDS ORDERED: KLOR-CON PO SCH (09:21)
[2016-10-30] MEDS ORDERED: KLOR-CON PO ONE ×2 (09:45→10:00)
--- NOTE | 2016-10-30 11:52 | PROGRESS NOTE ---
DATE: 10/30/2016 SUBJECTIVE: Patient reports that he is still hurting in the left toe. No fever or chills. OBJECTIVE: Vital Signs: Temperature 98.1 degrees, heart rate 70, respiratory rate 18, blood pressure 124/59, O2 saturation 95% on room air. General: This is a 51-year-old female lying in bed, in no acute distress. HEENT: Head is normocephalic, atraumatic. Neck: Supple. No JVD noted. No carotid bruits. No lymphadenopathy. No thyromegaly. Cardiovascular: S1, S2 heard. No murmurs, gallops, or rubs. Regular rate and rhythm. Respiratory: Clear bilaterally to auscultation. No work of breathing or using accessory muscles. Abdomen: Soft, nontender to palpation. Bowel sounds present. No organomegaly. Extremities: The distal part of the left toe looks still gangrenous but dry. Peripheral pulses present in both legs. Neurological: Patient is alert and oriented x3. Able to move 4 extremities. LABORATORY DATA: Reviewed. ASSESSMENT AND PLAN: 1. Gangrene and cellulitis of left great toe. 2. Sepsis secondary to condition #1. 3. Uncontrolled diabetes mellitus. 4. Ischemic cardiomyopathy. PLAN: The patient has been evaluated by General surgery and Orthopedics. They prefer to keep this patient on antibiotics as it seems that she is improving slowly. Tomorrow, or the day after, Dr. Ambrosio will be back and we will see what he has to say. Regarding antibiotics the patient is on daptomycin and Zosyn. Dr. Mas from infectious disease is following this patient. We will follow his recommendations. For diabetes, we will continue with sliding scale insulin. For ischemic cardiomyopathy, patient is stable. No chest pain reported. cc: Boubacar Elaine MD
[2016-10-30] MEDS: OXYCONTIN PO SCH (20:02)
--- NOTE | 2016-10-30 20:30 | CONSULTATION ---
DATE OF CONSULTATION: 10/30/2016 HISTORY OF PRESENT ILLNESS: Ms Patel is a 51-year-old female who well known in our foot and ankle service presented to the emergency department a few days back with increasing erythema to the dorsum of the foot. I have been following her in the wound center for a while for these nonhealing ulcers and she ended up ulcerating the very tip of this left great toe and exposed the bone. We discussed about a partial left great toe amputation which we proceed to the OR on 10/18/2016 to do just that. Had actually a really good looking flap. Her 1st postop visit though she was already starting to get some necrosis to that flap and a little bit of erythema around that area so ended up putting her on Keflex and discussed with her that if the erythema does increase then will need to get her into the hospital for IV antibiotics. Unfortunately that is the path that this process has taken and she was admitted to the hospitalist service. Dr. Mas has seen here for infectious disease and has switched her antibiotics around to cover her enterococcus bacteria. PAST MEDICAL HISTORY: 1. Uncontrolled diabetes. 2. Hypercholesterolemia. 3. Congestive heart failure. 4. Ischemic cardiomyopathy. 5. Peripheral vascular disease. PAST SURGICAL HISTORY: Defibrillator placement October 2015, angioplasty with 2 stents back in February 2015 and recent partial right great toe amputation 10/18/2016. ALLERGIES: No known drug allergies. SOCIAL HISTORY: She lives with her . Smokes a pack a day. MEDICATIONS: Per the electronic medical record. REVIEW OF SYSTEMS: Positive for above-mentioned procedures. All other systems are essentially negative. PHYSICAL EXAMINATION: General: Well-developed, well-nourished female in mild distress. HEENT: Head and neck normocephalic, atraumatic. Respirations: Nonlabored. Cardiovascular: Regular rate. Abdomen: Nondistended. Extremity: Left lower extremity exam. The left great toe is black on the tip and that discoloration does extend down on the lateral aspect of the great toe and there is a really clear demarcation line between the necrotic black tissue and the erythematous tissue that still has good blood supply. There is some slight erythema that goes to the forefoot distally on the dorsum. None of it extends past the midfoot and there is no swelling at the ankle and there is no erythema up at the ankle or hindfoot. There is no purulent drainage on exam today. Everything looks fairly dry but it is very tender to palpation in that area. ASSESSMENT: Left great toe necrosis with dry gangrene. PLAN: I discussed Ms. Patel that I really think this is more of a vasculopathy then anything else. I just think she lost the blood supply to the flap that we created on the partial toe amputation and that has subsequently became infected. She currently is on IV antibiotics per Dr. Mas' request and will continue those. I would like to see the erythema improve some before we do a definitive amputation. I think we do need to amputate a little bit more of that great toe and really come back probably to the metatarsophalangeal joint. I the skin stays where it is as far as now where it is demarcated out then we can used the medial skin and tissue to flap over to the lateral side that will have to cut out. Will plan on giving it maybe 1 or 2 more days to see if that erythema will resolve even more before surgical intervention and she is okay with this. I did change her pain medicine around a little bit tonight and went from hydrocodone to oxycodone and then went to a long-acting oxycodone as well. That will be scheduled so that we can avoid any IV medication because of her blood pressure issues and I will check on her tomorrow. cc: Gaetano Ambrosio MD
[2016-10-30] MEDS: LOVENOX SUBQ SCH (21:35)
[2016-10-30] MEDS: PERCOCET-10 PO PRN (21:42)
[2016-10-31] MEDS: RESTORIL PO SCH ×3 (01:05→22:05)
[2016-10-31] MEDS: ZOSYN 3.375 GM/NS 3.375 GM/50 ML IVPB IV SCH ×3 (04:02→17:52)
[2016-10-31] MEDS: ZANAFLEX PO SCH ×3 (04:06→22:06)
[2016-10-31 05:40] LABS: BASO% 0.3 % (0.0-0.8); EOS# 0.06 X1000 (0.0-0.7); EOS% 0.5 % (0.0-10.0); HEMATOCRIT 34.3 % (37.0-47.0); HEMOGLOBIN 11.4 g/dL (12.0-16.0); IMM GRAN# 0.03 X1000 (0.0-0.04); IMM GRAN% 0.2 % (0.0-0.5); LYMPH# 3.41 X1000 (1.2-3.4); LYMPH% 28.1 % (20.5-51.1); MANUAL DIFF NEEDED? YES; MCH 30.6 PG (27-31); MCHC 33.2 g/dL (33-37); MONO# 1.15 X1000 (0.11-0.59); MONO% 9.5 % (1.7-9.3); MPV 9.3 FL (7.4-10.4); NEUT% 61.4 % (42.2-75.2); PLT 361 X1000 (130-400); RBC 3.73 XMIL (4.2-5.4)
[2016-10-31 06:09] LABS: AGAP 11; BUN 8 mg/dL (8-22); CALCIUM 9.3 mg/dL (8.8-10.2); CHLORIDE 95 mmol/L (98-107); COSMO 270; POTASSIUM 3.8 mmol/L (3.5-5.1); SODIUM 136 mmol/L (136-145); TCO2 30 mmol/L (25-35)
[2016-10-31] MEDS: PRILOSEC PO SCH (06:35)
[2016-10-31 07:16] LABS: BANDS 2 % (0-1); EOS 2 % (1-10); LYMPHS 30 % (21-51); MONO 4 % (1-9)
[2016-10-31] MEDS: CUBICIN (FOR INPATIENT USE) 500 MG in NS 100 ML IV SCH (10:11)
[2016-10-31] MEDS: GRALISE PO SCH ×2 (10:12→22:06)
[2016-10-31] MEDS: COREG PO SCH ×2 (10:12→22:06)
[2016-10-31] MEDS: KLOR-CON PO SCH (10:12)
[2016-10-31] MEDS: LEVEMIR SUBQ SCH ×2 (10:13→22:06)
[2016-10-31] MEDS: COZAAR PO SCH (10:13)
[2016-10-31] MEDS: LASIX PO SCH (10:13)
[2016-10-31] MEDS: LANOXIN PO SCH (10:13)
[2016-10-31] MEDS: PERCOCET-10 PO PRN ×2 (10:14→17:53)
[2016-10-31] MEDS: OXYCONTIN PO SCH ×2 (10:39→22:04)
--- NOTE | 2016-10-31 12:48 | PROGRESS NOTE ---
DATE: 10/31/2016 SUBJECTIVE: Patient reports still hurting in the left toe. Medications are being adjusted by Dr. Ambrosio . OBJECTIVE: Vital Signs: Temperature 98.2 degrees, heart rate 94, respiratory rate 18, blood pressure 119/60, O2 saturation 95% on room air. General: This is a 51-year-old female lying in bed, in no acute distress. HEENT: Head is normocephalic, atraumatic. Anicteric sclerae and pale conjunctivae. Mucous membranes moist. Neck: Supple. No JVD noted. No carotid bruits. No lymphadenopathy. No thyromegaly. Cardiovascular: S1, S2 heard. No murmurs, gallops, or rubs. Regular rate and rhythm. Respiratory: Clear bilaterally to auscultation. No work of breathing or using accessory muscles. Abdomen: Soft, nontender to palpation. Bowel sounds present. No organomegaly. Extremities: No clubbing, cyanosis, or edema. The distal part of the left toe looks gangrenous. Peripheral pulses present in both legs. Neurological: Patient is alert and oriented x3. Moves 4 extremities. LABORATORY DATA: Reviewed. ASSESSMENT: 1. Gangrene and cellulitis of left great toe. 2. Sepsis secondary to condition #1. 3. Uncontrolled diabetes mellitus type 2. 4. Ischemic cardiomyopathy. 5. Hypertension. PLAN: Patient has been evaluated but his primary surgeon, Dr. Ambrosio, yesterday. He plans to continue with antibiotics for a few days until we see an improvement. He is planning to extend the level of amputation. Will follow his recommendations. Dr. Mas is also following this patient. The patient is on daptomycin and Zosyn. We will continue with the same management. For diabetes, we will continue with the sliding scale insulin. We have increased the dose of Levemir here considering his infection. For ischemic cardiomyopathy, the patient is stable, not complaining of any chest pain at all. cc: Boubacar Elaine MD
--- NOTE | 2016-10-31 20:12 | PROGRESS NOTE ---
DATE: 10/31/2016 SUBJECTIVE: Ms. Patel is lying in bed this evening. Overall pain may be a little better. We did switch her medications last night and it may have helped out some, but still having pain and some spasms in this left lower extremity. OBJECTIVE: Left lower extremity exam, the black necrotic area is still the same. There was a little area of blistering on the dorsal lateral aspect of that great toe that did drain a little bit of some serous fluid. Nothing looked purulent on exam today. The erythema looked about the same. It had not increased at all and as far as intensity, it is still sort of faint to the dorsum of that forefoot around the great toe. All the lesser toes look fine. There is no erythema extending into those at all. ASSESSMENT: 1. Left great toe vasculopathy with necrosis. 2. Left foot cellulitis. PLAN: I think we should continue the plan and we set out yesterday to give it another full day of intravenous antibiotics to see if we can get some of the erythema to clear up around that necrotic area and then we will plan a definitive amputation at around the 1st metatarsophalangeal joint on Tuesday and I will plan on placing a wound VAC at that time to try to encourage some blood flow to the side of the amputation. I discussed all this with Ms. Patel this evening and she has expressed understanding and wished to proceed. So, we will give it all day tomorrow for IV antibiotics and then we will plan on surgery on Tuesday. She will need to be nothing per oral after midnight Tuesday evening. cc: Gaetano Ambrosio MD
[2016-10-31] MEDS: LOVENOX SUBQ SCH (22:04)
[2016-11-01] MEDS: PERCOCET-10 PO PRN ×4 (04:28→19:06)
[2016-11-01] MEDS: ZANAFLEX PO SCH ×3 (04:28→20:59)
[2016-11-01] MEDS: ZOSYN 3.375 GM/NS 3.375 GM/50 ML IVPB IV SCH ×4 (04:30→20:59)
[2016-11-01 05:39] LABS: BASO% 0.4 % (0.0-0.8); EOS# 0.07 X1000 (0.0-0.7); EOS% 0.7 % (0.0-10.0); HEMATOCRIT 31.8 % (37.0-47.0); HEMOGLOBIN 10.7 g/dL (12.0-16.0); IMM GRAN# 0.02 X1000 (0.0-0.04); IMM GRAN% 0.2 % (0.0-0.5); LYMPH# 3.06 X1000 (1.2-3.4); LYMPH% 32.2 % (20.5-51.1); MANUAL DIFF NEEDED? YES; MCH 30.9 PG (27-31); MCHC 33.6 g/dL (33-37); MCV 91.9 FL (81-99); MONO# 0.92 X1000 (0.11-0.59); MONO% 9.7 % (1.7-9.3); MPV 9.2 FL (7.4-10.4); NEUT% 56.8 % (42.2-75.2); PLT 345 X1000 (130-400); RBC 3.46 XMIL (4.2-5.4)
[2016-11-01 05:52] LABS: AGAP 12; BUN 8 mg/dL (8-22); CALCIUM 8.9 mg/dL (8.8-10.2); CHLORIDE 95 mmol/L (98-107); COSMO 266; POTASSIUM 3.7 mmol/L (3.5-5.1); SODIUM 135 mmol/L (136-145); TCO2 28 mmol/L (25-35)
[2016-11-01 06:29] LABS: LYMPHS 36 % (21-51); MONO 4 % (1-9)
[2016-11-01] MEDS: PRILOSEC PO SCH (06:43)
[2016-11-01] MEDS: OXYCONTIN PO SCH ×2 (08:56→20:59)
[2016-11-01] MEDS: GRALISE PO SCH ×2 (08:57→20:59)
[2016-11-01] MEDS: COREG PO SCH ×2 (08:58→20:59)
[2016-11-01] MEDS: KLOR-CON PO SCH (08:58)
[2016-11-01] MEDS: LASIX PO SCH (08:58)
[2016-11-01] MEDS: COZAAR PO SCH (08:58)
[2016-11-01] MEDS: LANOXIN PO SCH (08:59)
[2016-11-01] MEDS: CUBICIN (FOR INPATIENT USE) 500 MG in NS 100 ML IV SCH (08:59)
[2016-11-01] MEDS: LEVEMIR SUBQ SCH ×2 (09:00→21:00)
--- NOTE | 2016-11-01 14:17 | PROGRESS NOTE ---
DATE: 11/01/2016 PRESENT ILLNESS: The patient has gangrenous cellulitis of the left great toe. The distal part of the toe has dry gangrene; however, the area of erythema is receding. MEDICATIONS: The patient is receiving a combination of daptomycin and Zosyn. This is day 5 of the treatment with the 2 antibiotics. PHYSICAL EXAMINATION: Vital Signs: Temperature is 98.5 degrees, pulse 74, respirations 14, blood pressure 130/65. General: This is a somewhat chronically ill-appearing middle-aged female. She is in no acute distress. Lungs: Clear to auscultation. Cardiovascular: Regular heart rate. Abdomen: Soft and nontender. Extremities: The left great toe had dry gangrene distally. The area of erythema has receded as mentioned above. LABORATORY AND X-RAY: CBC for today shows a white count of 9510, hemoglobin 10.5, and platelet count 345,000. Creatinine is 0.8. GFR is greater than 60. A culture taken from the patient's toe is growing Enterobacter. The urine is growing yeast. ASSESSMENT AND PLAN: The patient has gangrenous cellulitis of the left great toe with probable osteomyelitis as well. It is my understanding that Dr. Ambrosio is going to perform surgery on the patient tomorrow and do what sounds like a ray amputation of the left great toe. For right now, I am going to continue Zosyn, but discontinue daptomycin. ASSESSMENT AND PLAN: The patient has gangrenous cellulitis of the toe. I am going to continue with Zosyn. I have discontinued daptomycin. Tomorrow the patient is scheduled to have amputation of the left great toe. COMORBIDITIES: Include diabetes mellitus, congestive heart failure with ischemic cardiomyopathy. cc: Omid Mas MD
--- NOTE | 2016-11-01 14:34 | PROGRESS NOTE ---
DATE: 11/01/2016 SUBJECTIVE: The patient is feeling about the same. Still having pain on her right toes where the gangrene and cellulitis. Her was at the bedside. All questions were invited and entertained. OBJECTIVE: Vital signs: Blood pressure 130/65, pulse of 74, respirations 14, temperature 98.5 degrees, saturations 98% room air. General appearance: Thin white female in no acute distress. HEENT: Anicteric. Clear conjunctivae. Neck: Supple. No JVD. No bruit. Cardiovascular: S1, S2. Normal rate and rhythm. No murmur, rubs, or gallops. Pulmonary: Clear to auscultation bilaterally. GI: Soft, nontender, nondistended. Normoactive bowel sounds. Musculoskeletal: She has a left great toe necrotic at the tip of her toes with cellulitis extending into both the plantar and the dorsal surfaces of the left foot. LABORATORY: White count 9.51, hemoglobin 10.7, hematocrit 31.8, platelets 345,000. Chemistry, sodium 135, potassium 3.7, chloride 95, bicarb 28, BUN 8, creatinine 0.8, glucose of 62 ranging from 54-120. The patient asymptomatic. Her A1c is 12.8. ASSESSMENT AND PLAN: 1. This is a 51-year-old white female with uncontrolled diabetes presented with diabetic foot ulcer. Most likely osteomyelitis of the affected toes. General Surgery is planning to take her to the OR tomorrow to remove her toes and probably doing further resections if the bones appear to be infected. The patient is on Zosyn currently. 2. Uncontrolled diabetes. Her blood sugars much better control with the Levemir 65 units twice a day and sliding scale insulin. 3. Hypertension. Continue Coreg, losartan, Lasix. 4. Deep vein thrombosis prophylaxis. The patient on Lovenox. 5. The patient also on daptomycin for her cellulitis as well. ID is following. 6. Gastrointestinal prophylaxis. Will continue PPI. 7. Pain. Will continue oxycodone. 8. Tobacco abuse. The patient is convinced that she can go downstairs and go outside for fresh air. We are afraid the patient continue to smoke. At this point will monitor the patient in- house. Surgery is going to follow her tomorrow.
[2016-11-01] MEDS: LOVENOX SUBQ SCH (20:58)
[2016-11-02] MEDS: RESTORIL PO SCH ×2 (01:44→21:39)
[2016-11-02] MEDS: ZOSYN 3.375 GM/NS 3.375 GM/50 ML IVPB IV SCH ×4 (02:49→21:39)
[2016-11-02] MEDS: PERCOCET-10 PO PRN ×4 (02:54→23:53)
[2016-11-02] MEDS: PRILOSEC PO SCH ×2 (02:54→06:06)
[2016-11-02] MEDS: D50W SYRINGE IV PRN (03:42)
[2016-11-02 05:47] LABS: BASO% 0.3 % (0.0-0.8); EOS# 0.03 X1000 (0.0-0.7); EOS% 0.3 % (0.0-10.0); HEMATOCRIT 33.1 % (37.0-47.0); HEMOGLOBIN 11.1 g/dL (12.0-16.0); IMM GRAN# 0.05 X1000 (0.0-0.04); IMM GRAN% 0.5 % (0.0-0.5); LYMPH# 2.17 X1000 (1.2-3.4); LYMPH% 20.8 % (20.5-51.1); MANUAL DIFF NEEDED? YES; MCH 31.1 PG (27-31); MCHC 33.5 g/dL (33-37); MCV 92.7 FL (81-99); MONO# 1.29 X1000 (0.11-0.59); MONO% 12.4 % (1.7-9.3); MPV 9.1 FL (7.4-10.4); NEUT% 65.7 % (42.2-75.2); PLT 365 X1000 (130-400); RBC 3.57 XMIL (4.2-5.4)
[2016-11-02] MEDS: ZANAFLEX PO SCH ×3 (06:05→19:53)
[2016-11-02 06:23] LABS: CALCIUM 9.1 mg/dL (8.8-10.2); POTASSIUM 3.7 mmol/L (3.5-5.1)
--- NOTE | 2016-11-02 06:41 | PROGRESS NOTE ---
DATE: 11/02/2016 SUBJECTIVE: Ms. Patel is Lying in bed this morning. A little bit nervous about surgery today. OBJECTIVE: Left lower extremity exam, the erythema actually has increased some. The last time I saw her it was improving really well but now it is actually increased a little bit to the forefoot, and that area of necrotic left great toe has demarcated well at this point. ASSESSMENT: Left necrotic great toe. PLAN: Will plan for complete left great toe amputation at the metatarsophalangeal joint today with irrigation, debridement and possible placement of a wound VAC. She is NPO for surgery. We will get everything set up today. cc: Gaetano Ambrosio MD
[2016-11-02 06:50] LABS: LYMPHS 26 % (21-51); MONO 8 % (1-9)
--- NOTE | 2016-11-02 08:15 | PROGRESS NOTE ---
DATE: 11/02/2016 HISTORY OF PRESENT ILLNESS: The patient has gangrenous cellulitis of the left great toe. MEDICATION: The patient has been on Zosyn for 6 days. PHYSICAL EXAMINATION: Vital Signs: Temperature is 98.2 degrees, pulse 72, respirations 18, blood pressure is 113/60. Generally: This is a somewhat chronically ill-appearing, middle-aged female. She is in no acute distress. She does have the odor of cigarettes on her breath. Lungs: Clear to auscultation. Cardiovascular: Regular heart rate. Abdomen: Soft and nontender. Extremities: The patient's left great toe has dry gangrene, as well as proximally erythema. LAB AND X-RAY: The CBC for today shows a white count 81251, hemoglobin 11.1, and platelet count 365,000. Creatinine is 1.0. GFR is 50. The patient's culture from her toe grew Enterobacter. ASSESSMENT AND PLAN: The patient is to have surgery today. I plan to keep the Zosyn going. The patient does have a gangrenous cellulitis of the left great toe and I suspect there is some a osteomyelitis as well. The plan will be to continue the antibiotics and she is having surgery today. COMORBIDITIES: The comorbidities in this patient are diabetes mellitus, cigarette smoking, congestive heart failure and ischemic cardiomyopathy. cc: Omid Mas MD MTDD
[2016-11-02] MEDS ORDERED: VERSED ONE (11:52)
--- NOTE | 2016-11-02 11:56 | PROGRESS NOTE ---
DATE: 11/02/2016 SUBJECTIVE: The patient is in pain. Denies having any nausea or vomiting. Pain is coming from the affected foot. OBJECTIVE: Vital Signs: Blood pressure 104/68, pulse of 74, respirations 20, temperature of 97.4 degrees, saturation 100% on room air. General Appearance: Thin, white female in moderate distress due to pain. HEENT: Anicteric sclerae. Clear conjunctivae. Neck: Supple. No JVD. No bruit. Cardiovascular: S1 and S2. Normal rate and rhythm. No murmur, rubs, or gallops. Pulmonary: Clear to auscultation bilaterally. GI: Soft, nontender, nondistended. Normoactive bowel sounds. Musculoskeletal: No clubbing, cyanosis, or edema. There is the left foot with great toe gangrene and cellulitis on both sides of the foot. Laboratory: Her white count today is 10.43, hemoglobin 11.1, hematocrit 33.1, platelets of 365,000. Chemistry: Sodium 136, potassium 3.7, chloride 94, bicarb 29, BUN 11, creatinine 1, glucose 142. ASSESSMENT AND PLAN: 1. This is a 51-year-old, white female admitted to the hospital for left toe gangrene and cellulitis on the foot. She is scheduled for toe amputations with possible more debridement today with orthopedics. We will add Dilaudid for pain control. Oral pain medication does not seem to get the patient's pain under control. We will continue with Zosyn for now. 2. Hypertension. We will continue Lasix and Cozaar. 3. Diabetes. We will continue Levemir 65 units twice a day and sliding scale insulin. 4. Congestive heart failure, systolic, not in exacerbation. We will continue Coreg and digoxin along with her Lasix. We will monitor her renal functions. We will add sliding scale insulin. We will continue to monitor the patient closely.
[2016-11-02] MEDS ORDERED: ZOFRAN ONE (13:28)
[2016-11-02] MEDS ORDERED: EPHEDRINE ONE (13:29)
[2016-11-02] MEDS ORDERED: XYLOCAINE-MPF 2% ONE (13:29)
[2016-11-02] MEDS ORDERED: LR 2,000 ML ONE (13:29)
[2016-11-02] MEDS ORDERED: FENTANYL ONE (13:30)
[2016-11-02] MEDS ORDERED: DIPRIVAN 1% ONE (13:31)
[2016-11-02] MEDS: DEMEROL ONE ×2 (13:46→13:52)
[2016-11-02] MEDS: PHENERGAN ONE ×2 (13:52→14:26)
[2016-11-02] MEDS: DILAUDID ONE ×2 (14:05→14:11)
[2016-11-02] MEDS: OXYCONTIN PO SCH ×2 (17:27→19:53)
[2016-11-02] MEDS: COREG PO SCH ×2 (17:28→19:53)
[2016-11-02] MEDS: HUMULIN R SUBQ SCH ×2 (17:29→21:00)
[2016-11-02] MEDS: LEVEMIR SUBQ SCH ×2 (17:29→21:00)
[2016-11-02] MEDS: LANOXIN PO SCH (17:30)
[2016-11-02] MEDS: LASIX PO SCH (17:30)
[2016-11-02] MEDS: GRALISE PO SCH ×2 (17:31→19:53)
[2016-11-02] MEDS: KLOR-CON PO SCH (17:31)
[2016-11-02] MEDS: COZAAR PO SCH (17:32)
[2016-11-02] MEDS: DILAUDID IV PRN ×3 (17:47→23:52)
--- NOTE | 2016-11-02 17:52 | OPERATIVE NOTE ---
PROCEDURE DATE: 11/02/2016 PREOPERATIVE DIAGNOSIS: Left great toe necrosis with cellulitis. POSTOP DIAGNOSES: 1. Left great toe necrosis with cellulitis. 2. Left foot abscess. PROCEDURE: 1. Left great toe amputation at the metatarsophalangeal joint. 2. Left irrigation and debridement to bone of the foot. 3. Left application of wound vacuum-assisted closure to the foot. SURGEON: Dr. Gaetano Ambrosio. TELEPHONE LINEMAN: ALEXANDRIA Pardo. ANESTHESIA: General with LMA. BLOOD LOSS: About 10 mL. TOURNIQUET: None. IMPLANTS: None other than the wound VAC. DISPOSITION: To PACU, hemodynamically stable. INDICATION FOR PROCEDURE: Ms. Patel, 51-year-old female who developed osteomyelitis in her distal phalanx of the great toe ended up undergoing an IP joint amputation of left great toe about 2 weeks ago. Unfortunately the flap ended up becoming necrotic and she got cellulitis, was admitted to the hospital. Started on IV antibiotics. We had a few days to try to let the erythema clear up and it was clearing up but then sort of took a turn and got more erythematous as seen this morning so we plan on surgeries today. So we proceeded to the OR for left great toe amputation and irrigation, debridement and application of wound VAC. DESCRIPTION OF THE PROCEDURE: Ms. Patel was identified in the preoperative holding area. The left foot was marked as correct surgical site. She was then wheeled to the operating room, placed supine on the operating table. All bony prominences well padded. She was induced general anesthesia. LMA was placed. No tourniquet was placed at all to the thigh or to the leg. Left lower extremity was then prepped with Betadine solution and draped in normal sterile fashion. Surgical pause was performed. We identified the correct patient, the correct side, and the correct procedure. Preop antibiotics had already been given as she has had IV antibiotics given already on the hospital floor. I started with an incision to cut out that whole necrotic area that was black and we started right next to that area and that is where we made our incision. Ended up having to take it back a little bit further because the tissue underneath was very liquified. Ended up shelling out that entire proximal phalanx of the great toe to get back to the MTP joint and then once we got that out then discarded the toe. We did culture the toe and sent off those to the lab and then sent to Pathology. I did notice that some of that liquified tissue did go in that 1st web space and getting curette and there was an area of abscess in that 1st web space that extended up to about the proximal metatarsals of the 1st and 2nd so opened up that whole area, curetted it out and then I debrided more skin as well trying to get back to more of some bleeding tissue but unfortunately even though we had no tourniquet up or anything she did not have much bleeding at all at the end of the toe. Ended up taking off the cartilage on the 1st metatarsal so hopefully the tissue could scar down to it. There was a little bit of bleeding from the bone and we did get back to a little bit of bleeding but not any good brisk bleeding like we needed. Once we debrided everything very well then irrigated everything copiously with normal saline until everything looked clean. There is no purulent material anywhere. I then put a black sponge up that abscess tract and then over the tip and then placed my wound VAC over that great toe amputation site. Before I actually placed the main part of the wound VAC I did sew tissue over the bone to cover it and all the bone was completely covered at the end of the case and I used a PDS suture for that. After I got the wound VAC and everything on and hooked it to suction and looked like everything was good and there was no leak in the wound VAC. We then put a soft dressing on and a hard sole shoe and she was awoken from general anesthesia, moved in her own bed and taken to PACU in stable condition. Postoperatively she will be transferred back to the floor. She will remain on IV antibiotics and I will see her in the morning. cc: Gaetano Ambrosio MD
[2016-11-02] MEDS: LOVENOX SUBQ SCH (19:52)
[2016-11-02] MEDS: PERIDEX MT SCH (19:53)
[2016-11-03] MEDS: GRALISE PO SCH ×3 (01:58→19:57)
[2016-11-03] MEDS: COREG PO SCH ×4 (01:58→22:35)
[2016-11-03] MEDS: ZANAFLEX PO SCH ×4 (02:00→19:58)
[2016-11-03] MEDS: PERIDEX MT SCH ×2 (02:00→11:11)
[2016-11-03] MEDS: ZOSYN 3.375 GM/NS 3.375 GM/50 ML IVPB IV SCH ×4 (03:45→21:30)
[2016-11-03 05:37] LABS: MANUAL DIFF NEEDED? NO
[2016-11-03 05:46] LABS: BASO% 0.3 % (0.0-0.8); EOS# 0.05 X1000 (0.0-0.7); EOS% 0.5 % (0.0-10.0); HEMATOCRIT 31.2 % (37.0-47.0); HEMOGLOBIN 10.2 g/dL (12.0-16.0); IMM GRAN# 0.02 X1000 (0.0-0.04); IMM GRAN% 0.2 % (0.0-0.5); LYMPH# 2.13 X1000 (1.2-3.4); MCH 30.5 PG (27-31); MCHC 32.7 g/dL (33-37); MCV 93.4 FL (81-99); MONO# 1.12 X1000 (0.11-0.59); MONO% 10.5 % (1.7-9.3); MPV 8.9 FL (7.4-10.4); NEUT% 68.5 % (42.2-75.2); PLT 369 X1000 (130-400); RBC 3.34 XMIL (4.2-5.4)
[2016-11-03 06:07] LABS: AGAP 15; BUN 7 mg/dL (8-22); CALCIUM 8.7 mg/dL (8.8-10.2); CHLORIDE 96 mmol/L (98-107); COSMO 270; SODIUM 136 mmol/L (136-145); TCO2 25 mmol/L (25-35)
--- NOTE | 2016-11-03 07:05 | PROGRESS NOTE ---
DATE: 11/03/2016 SUBJECTIVE: Ms. Patel is resting in bed this morning. She was not complaining of much pain this morning. OBJECTIVE: Left Lower Extremity Examination: Dressing is clean, dry, and intact. Wound VAC is hooked up to suction and we will maintain suction at 125 mmHg. ASSESSMENT: Status post left great toe amputation with irrigation, debridement, and application of wound VAC. PLAN: Ms. Patel will continue on the IV antibiotics. We took cultures yesterday from the wound again. We are awaiting those final culture results. At this point, we will Dr. Mas's lead on antibiotics. She is going to have her wound VAC changed tomorrow by the wound team. We will continue to monitor this left foot. cc: Gaetano Ambrosio MD
--- NOTE | 2016-11-03 08:19 | PROGRESS NOTE ---
DATE: 11/03/2016 PRESENT ILLNESS: The patient has left great toe necrotizing cellulitis. Yesterday she underwent amputation of the left great toe at the metatarsophalangeal joint. MEDICATIONS: The patient is receiving Zosyn as a single agent. PHYSICAL EXAMINATION: Vital Signs: Temperature is 97.8 degrees, pulse 82, respirations 16, blood pressure 127/61. General: This is a somewhat ill-appearing, middle-aged female. She is in no acute distress. Lungs: Clear to auscultation. Cardiovascular: Regular heart rate. Abdomen: Soft and nontender. Extremities: The left foot had a large dressing around it. The dressing is intact. LAB AND X-RAY: The [place] [address], hemoglobin 10.2, and platelet count 369,000. Creatinine is 0.8. GFR is greater than 60. Yesterday Dr. Ambrosio took cultures from the patient's toe at surgery. The results are pending. ASSESSMENT AND PLAN: The patient is status post amputation of a left great toe necrotizing cellulitis. For now, I am going to continue Zosyn that she has been receiving pending the results of the cultures taken at surgery yesterday. COMORBIDITIES: 1. Diabetes mellitus. 2. Cigarette smoking. 3. Congestive heart failure. 4. Ischemic cardiomyopathy. I discussed with the patient again how important it would be to stop cigarette smoking. She did not indicate that she was willing to stop her cigarette smoking. cc: Omid Mas MD
--- NOTE | 2016-11-03 10:24 | Diag Imaging Result Doc PS360 ---
EXAM: GASTRIC EMPTYING HISTORY: persistent nausea TECHNIQUE: 525 uCi technetium sulfur colloid in egg sandwich COMPARISON: None. FINDINGS: Imaging through two hours performed. The T1/2 equals 59 minutes. This falls within the normal range. IMPRESSION: Normal gastric emptying Electronically signed by Valerio Adan 11/03/2016 10:21 AM
[2016-11-03] MEDS: HUMULIN R SUBQ SCH ×3 (11:03→21:00)
[2016-11-03] MEDS: OXYCONTIN PO SCH ×2 (11:07→19:58)
[2016-11-03] MEDS: COZAAR PO SCH (11:08)
[2016-11-03] MEDS: LANOXIN PO SCH (11:08)
[2016-11-03] MEDS: KLOR-CON PO SCH (11:08)
[2016-11-03] MEDS: LASIX PO SCH (11:11)
[2016-11-03] MEDS: LEVEMIR SUBQ SCH ×2 (11:12→21:00)
[2016-11-03] MEDS: DILAUDID IV PRN ×2 (12:31→18:40)
--- NOTE | 2016-11-03 13:24 | PROGRESS NOTE ---
DATE: 11/03/2016 SUBJECTIVE: The patient is feeling better today. She has amputation of her left toe yesterday and has been tolerating the pain well. Has a wound VAC in place. No complaint. OBJECTIVE: Vital Signs: Blood pressure 127/61, pulse of 82, respirations 16, temperature 97.9 degrees, satting 100% on 2 L nasal cannula. General Appearance: Well-developed, well-nourished, thin white female in no acute distress. HEENT: Anicteric sclerae. Clear conjunctivae. Neck: Supple. No JVD. No bruit. Cardiovascular: S1, S2. Normal rate and rhythm. No murmur, rubs, or gallops. Pulmonary: Clear to auscultation bilaterally. GI: Soft, nontender, nondistended. Normoactive bowel sounds. Musculoskeletal: No clubbing, cyanosis, or edema. LABORATORY: WBC 10.65, hemoglobin 10.2, hematocrit of 31.2, platelets of 369. Sodium 136, potassium 4.0, chloride 96, bicarbonate 25, BUN 7, creatinine 0.8, glucose of 92. ASSESSMENT AND PLAN: This is a 51-year-old white female with diabetes, hypertension, who presented to the emergency room with left lower foot gangrene and necrosis of the first toe. 1. Cellulitis and gangrene of the left foot, status post great toe amputation with wound VAC in place. She is doing well. We will continue on the broad-spectrum antibiotics. Culture grew out gram-negative rods so far. The patient on Zosyn; that should cover it. Orthopedics are following. They may do a dressing takedown within the next 24-48 hours, and community mental health social worker has been consulted for discharge plan. 2. Hypertension. We will continue losartan and Coreg. 3. History of heart failure. Asystolic. Not in acute exacerbation. We will continue Coreg, digoxin and Lasix, as well as losartan. 4. Continue pain control. 5. Diabetes. Will continue sliding scale insulin. CODE STATUS: The patient is a full code.
[2016-11-03] MEDS: PRILOSEC PO SCH (13:31)
[2016-11-03] MEDS: PERCOCET-10 PO PRN ×2 (16:43→22:36)
[2016-11-03] MEDS: LOVENOX SUBQ SCH (19:59)
[2016-11-03] MEDS: RESTORIL PO SCH (22:35)
[2016-11-04] MEDS: GRALISE PO SCH ×3 (00:57→20:36)
[2016-11-04] MEDS: ZANAFLEX PO SCH ×4 (00:57→20:36)
[2016-11-04] MEDS: PERCOCET-10 PO PRN ×2 (04:07→13:54)
[2016-11-04] MEDS: ZOSYN 3.375 GM/NS 3.375 GM/50 ML IVPB IV SCH (04:08)
[2016-11-04 05:24] LABS: MANUAL DIFF NEEDED? NO
[2016-11-04 05:34] LABS: BASO% 0.2 % (0.0-0.8); EOS# 0.09 X1000 (0.0-0.7); HEMATOCRIT 29.8 % (37.0-47.0); HEMOGLOBIN 9.8 g/dL (12.0-16.0); IMM GRAN# 0.03 X1000 (0.0-0.04); IMM GRAN% 0.3 % (0.0-0.5); LYMPH# 3.12 X1000 (1.2-3.4); LYMPH% 35.1 % (20.5-51.1); MCH 30.6 PG (27-31); MCHC 32.9 g/dL (33-37); MCV 93.1 FL (81-99); MONO# 1.17 X1000 (0.11-0.59); MONO% 13.1 % (1.7-9.3); MPV 8.9 FL (7.4-10.4); NEUT% 50.3 % (42.2-75.2); PLT 373 X1000 (130-400)
[2016-11-04 06:08] LABS: AGAP 11; BUN 7 mg/dL (8-22); CALCIUM 8.7 mg/dL (8.8-10.2); CHLORIDE 95 mmol/L (98-107); COSMO 269; POTASSIUM 3.4 mmol/L (3.5-5.1); SODIUM 135 mmol/L (136-145); TCO2 29 mmol/L (25-35)
[2016-11-04] MEDS: PRILOSEC PO SCH (06:47)
[2016-11-04] MEDS: HUMULIN R SUBQ SCH ×4 (07:39→20:36)
[2016-11-04] MEDS: LANOXIN PO SCH (08:34)
[2016-11-04] MEDS: LASIX PO SCH (08:34)
[2016-11-04] MEDS: KLOR-CON PO SCH (08:35)
[2016-11-04] MEDS: OXYCONTIN PO SCH ×2 (08:35→20:36)
[2016-11-04] MEDS: COZAAR PO SCH (08:35)
[2016-11-04] MEDS: COREG PO SCH ×2 (08:35→20:34)
[2016-11-04] MEDS: LEVEMIR SUBQ SCH ×2 (08:37→20:39)
--- NOTE | 2016-11-04 09:01 | PROGRESS NOTE ---
DATE: 11/04/2016 PRESENT ILLNESS: The patient is status post amputation of the left great toe necrotizing cellulitis at the metatarsal phalangeal joint. MEDICATION: The patient is on Zosyn. This is day 2 of treatment with Zosyn following the last surgery on the patient's toe. PHYSICAL EXAMINATION: Vital Signs: Temperature is 98.1 degrees, pulse 72, respirations 18, blood pressure 103/61. General: This is a somewhat chronically ill-appearing, middle-aged female. She is in no acute distress. Lungs: Clear to auscultation. Cardiovascular: Regular heart rate. Abdomen: Soft and nontender. Extremities: The left foot has a dressing around it. The dressing is intact. LAB AND X-RAY: CBC for today shows a white count of 8900, hemoglobin 9.8, and platelet count 373,000. Creatinine 0.8. GFR is greater than 60. A culture from the left great toe is growing a gram-negative isaias. Previously, the patient grew Enterobacter from her culture. ASSESSMENT AND PLAN: My plan now is to continue with Zosyn. Even though only Enterobacter was grown, I think that there are probably multiple organisms, including anaerobes, that are contributing to the infection. I have requested that a PICC be placed and I put a consult for [facility] to supply Zosyn at home. I have changed the dose to 4.5 g IV every 8 hours. I am going to treat the patient for 6 weeks from the last surgery which was 2 days ago. Because the patient smokes and is a diabetic, I am going to treat her for a prolonged period of time. Her infection does involve bone, some of which has been surgically removed. I have put in a consult to get a PICC placed and also I have consulted [facility] to supply the patient's home intravenous antibiotic, namely Zosyn 4.5 grams intravenous every 8 hours for 6 weeks. COMORBIDITIES: The patient's comorbidities include diabetes mellitus, cigarette smoking, congestive heart failure, and ischemic cardiomyopathy. cc: Omid Mas MD
[2016-11-04 10:02] LABS: INR 1.03; PROTIME 10.8 Seconds (9.2-11.7)
[2016-11-04] MEDS: ZOSYN 4.5 GM/NS 4.5 GM/100 ML IVPB IV SCH ×2 (10:07→18:41)
[2016-11-04] MEDS ORDERED: NS 250 ML ONE (10:45)
--- NOTE | 2016-11-04 13:15 | PROGRESS NOTE ---
DATE: 11/04/2016 SUBJECTIVE: The patient is feeling well. She wants to go home. Denies having any fever or chills. Denies having any nausea, vomiting, or diarrhea. Her pain in her left foot is under control. OBJECTIVE: Vital Signs: Blood pressure 117/53, pulse 78, respirations 18, temperature 98.1 degrees, and saturation 100% on room air. General appearance: A thin white female in no acute distress. HEENT: Anicteric. Clear conjunctivae. Neck: Supple. No JVD. No bruit. Cardiovascular: Normal S1 and S2. Normal rate and rhythm. No murmur, rubs, or gallops. Pulmonary: Clear to auscultation bilaterally. Gastrointestinal: Soft, nontender, nondistended. Normoactive bowel sounds. Musculoskeletal: No clubbing, cyanosis, or edema. LABORATORY: Her white cell count is 8.99, hemoglobin 9.8, hematocrit of 29.8, and platelets of 373,000. Chemistry: Sodium 135, potassium 3.4, chloride 95, bicarbonate 29, BUN 7, creatinine 0.8, glucose 124. Her culture grew out multiple organisms. ASSESSMENT AND PLAN: This is a 51-year-old white female with diabetes, admitted for diabetic foot ulcer and gangrene. 1. Diabetic foot ulcer and gangrene, status post amputation of the affected toes. Infectious Disease is managing the antibiotics and Dr. Mas wants to put a PICC line for 6 weeks of IV antibiotics. 2. Uncontrolled diabetes. Education provided. Her blood sugar is well controlled in the hospital: 3. Hypokalemia. We will replete her potassium today. 4. Tobacco abuse. Education provided. 5. History of heart failure. We will continue Coreg, digoxin, Lasix, and Cozaar. 6. Diabetes, type 2. Sliding scale insulin and Levemir 65 units twice a day. 7. Deep vein thrombosis prophylaxis. The patient is on Lovenox. CODE STATUS: The patient is a full code.
[2016-11-04] MEDS: DILAUDID IV PRN ×2 (14:23→19:11)
[2016-11-04] MEDS ORDERED: LOVENOX SUBQ SCH (20:00)
[2016-11-04] MEDS: RESTORIL PO SCH (23:34)
[2016-11-05] MEDS: ZOSYN 4.5 GM/NS 4.5 GM/100 ML IVPB IV SCH ×2 (01:39→08:59)
[2016-11-05] MEDS: ZANAFLEX PO SCH ×3 (07:03→21:00)
[2016-11-05] MEDS: PRILOSEC PO SCH (07:03)
[2016-11-05] MEDS: PERCOCET-10 PO PRN ×2 (07:03→17:28)
[2016-11-05] MEDS: HUMULIN R SUBQ SCH ×4 (07:34→21:02)
[2016-11-05 08:40] LABS: AGAP 13; BUN 8 mg/dL (8-22); CALCIUM 9.1 mg/dL (8.8-10.2); CHLORIDE 92 mmol/L (98-107); COSMO 267; POTASSIUM 3.7 mmol/L (3.5-5.1); SODIUM 133 mmol/L (136-145); TCO2 28 mmol/L (25-35)
[2016-11-05] MEDS: KLOR-CON PO SCH (08:44)
[2016-11-05] MEDS: OXYCONTIN PO SCH ×2 (08:44→21:01)
[2016-11-05] MEDS: GRALISE PO SCH ×2 (08:45→21:00)
[2016-11-05] MEDS: COREG PO SCH ×2 (08:45→21:00)
[2016-11-05] MEDS: LANOXIN PO SCH (08:45)
[2016-11-05] MEDS: COZAAR PO SCH (08:45)
[2016-11-05] MEDS: LASIX PO SCH (08:46)
[2016-11-05] MEDS: LEVEMIR SUBQ SCH ×2 (08:58→21:02)
[2016-11-05] MEDS ORDERED: VANCOMYCIN IV PER PHARMACY MISC SCH (11:00)
--- NOTE | 2016-11-05 11:20 | PROGRESS NOTE ---
DATE: 11/05/2016 PRESENT ILLNESS: The patient has a badly infected left foot infection. She is status post amputation of the left great toe, necrotizing cellulitis and I also think there was osteomyelitis present at the metatarsophalangeal joint. MEDICATIONS: This is day 3 of treatment with Zosyn. PHYSICAL EXAMINATION: Vital Signs: Temperature is 98.3 degrees, pulse 81, respirations 16, blood pressure 118/71. General: This is a chronically ill-appearing, middle-aged female. She is in no acute distress. Lungs: Clear to auscultation. Cardiovascular: Regular heart rate. Abdomen: Soft and nontender. Extremities: The left foot has a VAC on it. There is a picture in the chart of the foot before the VAC was put on it. It shows that the wound has purulent drainage and that the dorsum of the patient's foot is erythematous. LAB AND X-RAY: The patient's culture from her foot grew methicillin-resistant Staph aureus and Enterobacter. Patient's creatinine is 0.8. GFR is greater than 60. CBC shows a white count of 8900, hemoglobin 9.8, and platelet count 373,000. ASSESSMENT AND PLAN: The plan now is to send the patient home on a combination of vancomycin IV and Levaquin p.o. [facility] has been consulted to supply the patient's vancomycin at home. The patient's comorbidities include diabetes mellitus, cigarette smoking, congestive heart failure and ischemic cardiomyopathy. I plan to see the patient in the office at 3 weeks and then again at 6 weeks and hopefully at that time, we can remove the patient's PICC and either put her on oral antibiotics or stop them all together. COMORBIDITY: Diabetes, cigarette smoking, congestive heart failure. cc: [facility]mid Mas [facility]
--- NOTE | 2016-11-05 11:36 | PROGRESS NOTE ---
DATE: 11/05/2016 SUBJECTIVE: The patient is feeling better. She very anxious about going home. She denied having any fever or chills. Denies having any nausea, vomiting, or diarrhea. OBJECTIVE: Vital signs: Blood pressure is 118/71, pulse of 88, respiration 18 , temperature 98.3 degrees, saturation of 95% on room air. General Appearance: Thin, white female in no acute distress. HEENT: Anicteric. Clear conjunctivae. Neck: Supple. No JVD. No bruit. Cardiovascular: S1, S2 normal rate and rhythm. No murmur, rubs, or gallops. Pulmonary: Clear to auscultation bilaterally. GI: Soft, nontender, nondistended. Normoactive bowel sounds. Musculoskeletal: No clubbing, cyanosis, or edema. Her left foot with wound VAC in place. LABORATORY: White count 8.90, hemoglobin 9.8, hematocrit of 29.8, platelets of 373,000. Chemistry: Sodium 133, potassium 3.7, chloride 92, BUN 8, creatinine 0.8, glucose 138. ASSESSMENT AND PLAN: This is a 51-year-old white female admitted to the hospital for left toe cellulitis and diabetic foot ulcer. Status post left great toe amputation. 1. Cellulitis and diabetic foot status post left toe amputation. Talked to Dr. Ambrosio, who wanted to keep her until Tuesday. He is going to change the wound vacuum on Tue and again on Tuesday before she goes home. The patient's culture grew out enterococcus and staphylococcus. Dr. Mas is following. We started the patient on vancomycin today and we will do p.o. Levaquin for the other. 2. Diabetes. Not controlled at home. Much better controlled here. We will need to send the patient home with Lantus 65 units bid and perhaps with pre meal insulin. 3. Tobacco abuse. The patient really needs to quit smoking. Education provided but she is trying. 4. She has developed evidence of peripheral vascular disease according to the surgeon's note, when he did the surgery on her. 5. Peripheral neuropathy. Continue gabapentin. 6. Code Status. The patient is a full code. We will continue with the current care. [facility]
--- NOTE | 2016-11-05 11:50 | Diag Imaging Result Doc PS360 ---
EXAM: ANGIOGRAM/AORTA W/RUNOFF INDICATION: decreased blood flow COMPARISON: Conventional CT abdomen and pelvis with contrast dated 04/02/2016 FINDINGS: There is patchy moderate atherosclerotic calcification involving the distal aorta and and common iliac arteries. There is extensive internal iliac artery atherosclerotic calcification. There is only mild calcification at the origins of the external iliac arteries. There is no evidence of abdominal aortic aneurysm. There is only trace calcification involving the SMA. The celiac trunk is patent. There is moderate calcification of the proximal portion of the FERCHO. However, it remains patent. There are two left renal arteries and one right renal artery. The main left renal artery exhibits trace calcification at its origin. There remains widely patent. The accessory left renal artery and the right renal artery are widely patent. There is no evidence of acute pathology involving the abdomen or pelvis. Right: There is fairly mild atherosclerotic disease involving the right common femoral artery with only minimal narrowing. It remains patent. There is extensive atherosclerotic calcification involving the superficial femoral artery with regions of moderate stenosis at the mid and distal thigh. However, it remains patent. There is extensive popliteal artery atherosclerotic disease with severe stenosis distally. It becomes occluded distal to the takeoff of the anterior tibial artery. There is extensive atherosclerotic disease throughout the anterior tibial artery with areas of apparent occlusion or near occlusion with reconstitution. It does, however, appear to provide limited runoff to the foot. After the occlusion of the popliteal artery, the posterior tibial artery and peroneal artery becomes reconstituted. After reconstitution near its origin, the peroneal artery appears to provide runoff to the foot. There is mild patchy atherosclerotic calcification involving the posterior tibial artery. However, it appears to provide at least limited runoff to the foot. Left: There is mild to moderate atherosclerotic stenosis involving the left common femoral artery. There is extensive atherosclerotic disease involving the anterior tibial artery with regions of moderate stenosis. However, it remains patent. There is extensive atherosclerotic disease with significant stenosis involving the distal popliteal artery. However, it does appear to remain patent. There is extensive calcification involving the anterior tibial artery. It is largely occluded. However, it does appear to reconstitute at about the level of the ankle. There is patchy atherosclerotic calcification involving the proximal peroneal artery. However, it appears to remain patent providing runoff to the foot. The posterior tibial artery appears to be occluded throughout its course. IMPRESSION: Moderate aortoiliac atherosclerotic disease and extensive bilateral lower extremity atherosclerotic disease as detailed above. Electronically signed by Tom Joya 11/05/2016 11:47 AM
[2016-11-05] MEDS: LEVAQUIN PO SCH (12:28)
[2016-11-05] MEDS ORDERED: VANCOMYCIN 2,300 MG in NS 500 ML IV ONE (13:00)
--- NOTE | 2016-11-05 14:32 | PROGRESS NOTE ---
DATE: 11/05/2016 SUBJECTIVE: Ms Patel lying in bed this morning. Unfortunately, she did not have a very good day yesterday. She found out she was isolation room and seemed like there was a little bit of miscommunication there on telling her that she was isolation and they moved her to a single room. She has also been without smoking for several days and this is really tough on her. She is getting a little bit depressed about it, a little bit anxious. OBJECTIVE: Right lower extremity exam. Wound VAC is in good position. Still has some erythema to the dorsum of the foot. ASSESSMENT: Status post 1st metatarsophalangeal joint amputation with irrigation, debridement, application of wound vacuum-assisted closure. PLAN: Went over with Ms. Patel about everything. Sounds like there was a little bit of miscommunication yesterday on the whole process so went over with her pretty much everything again. I do believe it is more of a vascular problem with the foot and the toes and then our flap could not heal because of vascular reasons so we came and amputated a little bit further and I discussed with her also why amputating little by little try to save as much of the foot as possible. I did discuss with her that we are still not out of the olivier yet. This could still get worse and not heal and I would just keep a really close eye on things and get one of our vascular guys take a look at her as well. I know they did a duplex a few weeks back and it showed she had actually good blood flow to the foot so we will keep her on antibiotics, I know Dr. Mas changed things yesterday. I would like to see her erythema improve before we send her home. We are going to change the wound VAC tomorrow and then on Tuesday as well. Hopefully if everything is looking a lot better on Tuesday we can look to be discharging home that day. cc: Gaetano Ambrosio MD
[2016-11-05] MEDS: LOVENOX SUBQ SCH (21:04)
[2016-11-06] MEDS: RESTORIL PO SCH ×2 (03:06→22:43)
[2016-11-06 05:37] LABS: BASO% 0.3 % (0.0-0.8); EOS# 0.08 X1000 (0.0-0.7); EOS% 1.1 % (0.0-10.0); HEMATOCRIT 29.6 % (37.0-47.0); HEMOGLOBIN 9.9 g/dL (12.0-16.0); LYMPH# 2.86 X1000 (1.2-3.4); LYMPH% 40.5 % (20.5-51.1); MANUAL DIFF NEEDED? NO; MCHC 33.4 g/dL (33-37); MCV 92.8 FL (81-99); MONO% 8.5 % (1.7-9.3); NEUT% 49.6 % (42.2-75.2); PLT 376 X1000 (130-400); RBC 3.19 XMIL (4.2-5.4)
[2016-11-06] MEDS: ZANAFLEX PO SCH ×4 (06:22→22:43)
[2016-11-06] MEDS: HUMULIN R SUBQ SCH ×4 (06:22→22:43)
[2016-11-06] MEDS: PRILOSEC PO SCH (06:22)
[2016-11-06 06:41] LABS: AGAP 13; BUN 7 mg/dL (8-22); CALCIUM 8.5 mg/dL (8.8-10.2); CHLORIDE 96 mmol/L (98-107); COSMO 274; POTASSIUM 3.8 mmol/L (3.5-5.1); SODIUM 135 mmol/L (136-145); TCO2 26 mmol/L (25-35)
[2016-11-06] MEDS: LASIX PO SCH (09:19)
[2016-11-06] MEDS: OXYCONTIN PO SCH ×2 (09:19→19:53)
[2016-11-06] MEDS: KLOR-CON PO SCH (09:20)
[2016-11-06] MEDS: LEVAQUIN PO SCH (09:21)
[2016-11-06] MEDS: COZAAR PO SCH (09:22)
[2016-11-06] MEDS: COREG PO SCH ×3 (09:22→22:44)
[2016-11-06] MEDS: GRALISE PO SCH ×3 (09:22→22:42)
[2016-11-06] MEDS: LANOXIN PO SCH (09:22)
[2016-11-06] MEDS: LEVEMIR SUBQ SCH ×2 (09:23→22:44)
--- NOTE | 2016-11-06 11:40 | PROGRESS NOTE ---
DATE: 11/06/2016 SUBJECTIVE: The patient is feeling well. She still wants to go home, of course. No fever, no chills, no nausea or vomiting or diarrhea. OBJECTIVE: Vital signs: Blood pressure 98/60, pulse of 60, respirations 17, temperature 97.1, saturation of 92 on room air. General appearance: Well-developed, thin white female in no acute distress. HEENT: Anicteric sclerae and conjunctivae. Neck: Supple, no JVD, no bruit. Cardiovascular: S1, S2, normal rate and rhythm, no murmur, rubs, or gallop. Pulmonary: Clear to auscultation bilaterally. GI: Soft, nontender, nondistended, normoactive bowel sounds. Musculoskeletal: No clubbing, cyanosis, or edema. LABORATORY: WBC 7.06, hemoglobin 9.9, hematocrit 29.6, platelets 376. Chemistry: Sodium 135, potassium 3.9, chloride 96, bicarbonate 26, BUN 7, creatinine 0.8, glucose of 212. ASSESSMENT AND PLAN: This is a 51-year-old white female admitted to the hospital for diabetic foot ulcer. 1. Diabetic foot ulcer status post left great toe amputation by Orthopedics. Orthopedics wanted to keep the patient until Tuesday for a dressing takedown and to evaluate her wound again. She still has some cellulitis on the top of the foot. Her culture grew out enterococcus and staph aureus. Dr. Mas wanted to keep the patient on Levaquin p.o. and vancomycin. [facility] will consult. The patient has a PICC line in place. Will discharge the patient whenever Orthopedics clears for her to go. 2. Hypertension. Blood pressure running low today. Cut down her Lasix to 40 from 80 and losartan from 25 to 12.5. Will monitor the patient in house. Asymptomatic. 3. Diabetes, uncontrolled. Education provided. Continue Lantus 65 units b.i.d. and sliding scale insulin for now. 4. Gastroesophageal reflux disease. Continue Prilosec. 5. Pain control. Oxycodone p.r.n. or morphine. DISPOSITION: Home on Tuesday.
[2016-11-06] MEDS: VANCOMYCIN 2,000 MG in NS 500 ML IV SCH (13:24)
[2016-11-06] MEDS: LOVENOX SUBQ SCH ×2 (19:54→22:42)
[2016-11-07] MEDS: PERCOCET-10 PO PRN (05:04)
[2016-11-07 05:46] LABS: MANUAL DIFF NEEDED? NO
[2016-11-07 05:51] LABS: BASO% 0.3 % (0.0-0.8); EOS# 0.15 X1000 (0.0-0.7); HEMOGLOBIN 10.2 g/dL (12.0-16.0); IMM GRAN# 0.02 X1000 (0.0-0.04); IMM GRAN% 0.3 % (0.0-0.5); LYMPH# 3.08 X1000 (1.2-3.4); LYMPH% 42.1 % (20.5-51.1); MCH 30.5 PG (27-31); MCHC 32.9 g/dL (33-37); MCV 92.8 FL (81-99); MONO# 0.64 X1000 (0.11-0.59); MONO% 8.7 % (1.7-9.3); NEUT% 46.6 % (42.2-75.2); PLT 373 X1000 (130-400); RBC 3.34 XMIL (4.2-5.4)
[2016-11-07] MEDS: PRILOSEC PO SCH (06:14)
[2016-11-07] MEDS: ZANAFLEX PO SCH ×3 (06:14→20:56)
[2016-11-07 06:15] LABS: AGAP 15; BUN 6 mg/dL (8-22); CALCIUM 9.4 mg/dL (8.8-10.2); CHLORIDE 98 mmol/L (98-107); COSMO 277; POTASSIUM 3.6 mmol/L (3.5-5.1); SODIUM 140 mmol/L (136-145); TCO2 27 mmol/L (25-35)
[2016-11-07] MEDS: HUMULIN R SUBQ SCH ×4 (06:22→20:57)
[2016-11-07] MEDS: COREG PO SCH ×2 (08:52→20:56)
[2016-11-07] MEDS: COZAAR PO SCH (08:52)
[2016-11-07] MEDS: LEVAQUIN PO SCH (08:52)
[2016-11-07] MEDS: OXYCONTIN PO SCH ×2 (08:52→20:56)
[2016-11-07] MEDS: LANOXIN PO SCH (08:52)
[2016-11-07] MEDS: KLOR-CON PO SCH (08:53)
[2016-11-07] MEDS: GRALISE PO SCH ×2 (08:53→20:57)
[2016-11-07] MEDS: LEVEMIR SUBQ SCH ×2 (08:53→20:55)
[2016-11-07] MEDS: LASIX PO SCH (08:53)
--- NOTE | 2016-11-07 09:10 | PROGRESS NOTE ---
DATE: 11/07/2016 SUBJECTIVE: Ms. Patel is resting in bed this morning. OBJECTIVE: Left Lower Extremity Examination: Wound VAC is intact. The skin right around where we did our amputation site does not look great. It sort of whitish in appearance. It does not look like it has a really good blood supply. A lot of erythema to the sort of midfoot area has decreased. ASSESSMENT: Left first toe amputation for necrosis and infection. PLAN: I discussed with Ms. Patel that the skin still does not look great. We did end up doing a CT angiogram of bilateral lower extremities and it showed a lot of atherosclerotic disease throughout both legs and so I am going to get one of our vascular guys to try to take a look at things and see if we can open up some of those arteries and get her some better blood flow. In the meantime, we will continue to do the wound VAC changes. We will continue with IV antibiotics per Dr. Mas's request and I will see her in the morning. cc: Gaetano Ambrosio MD
[2016-11-07] MEDS: VANCOMYCIN 2,000 MG in NS 500 ML IV SCH (13:15)
--- NOTE | 2016-11-07 16:14 | PROGRESS NOTE ---
DATE: 11/07/2016 SUBJECTIVE: The patient is feeling well. She still wants to go home. No fever. No chills. No nausea, vomiting, or diarrhea. OBJECTIVE: Vital signs: Blood pressure 120/59, pulse of 72, respirations 17, temperature 98.7 degrees, saturation of 97% on room air. General: Thin, white female in no acute distress. HEENT: Anicteric. Clear conjunctivae. Neck: Supple. No JVD. No bruit. Cardiovascular: S1, S2. Normal rate and rhythm. No murmur, rubs, or gallops. Pulmonary: Clear to auscultation bilaterally. GI: Soft, nontender, nondistended. Normoactive bowel sounds. Musculoskeletal: No clubbing, cyanosis, or edema. LABORATORY: White count 7.32, hemoglobin 10.2, hematocrit 31.0, platelets of 373,000. Sodium 140, potassium 3.6, chloride 98, bicarb 27, BUN 6, creatinine 0.7, glucose 106. ASSESSMENT AND PLAN: This is a 51-year-old white female with tobacco abuse and uncontrolled diabetes presented with left great toe ulcer. 1. Left great toe diabetic foot ulcer status post amputation by orthopedics. The patient has a wound VAC in place. Dr. Ambrosio is going to change the dressing again tomorrow and the patient can go home. Culture grew out enterococcus and Staph. Dr. Mas saw the patient and put her on p.o. Levaquin and IV vancomycin. He consulted [facility] for IV vancomycin. 2. Tobacco abuse. Education provided. 3. Diabetes, uncontrolled. We will continue Lantus and will continue get her diabetes under control. 4. Hypertension. We keep the patient on losartan. 5. History of heart failure. We will continue digoxin. The patient is not in acute exacerbation at this point. We will continue to follow.
[2016-11-07] MEDS: LOVENOX SUBQ SCH (20:57)
[2016-11-07] MEDS: RESTORIL PO SCH (22:15)
[2016-11-08 08:15] LABS: AGAP 13; BUN 7 mg/dL (8-22); CALCIUM 9.3 mg/dL (8.8-10.2); CHLORIDE 94 mmol/L (98-107); COSMO 274; SODIUM 136 mmol/L (136-145); TCO2 29 mmol/L (25-35)
[2016-11-08] MEDS: LEVEMIR SUBQ SCH ×2 (09:08→20:29)
[2016-11-08] MEDS: COREG PO SCH ×2 (09:11→20:26)
[2016-11-08] MEDS: LASIX PO SCH (09:11)
[2016-11-08] MEDS: GRALISE PO SCH ×2 (09:12→20:26)
[2016-11-08] MEDS: LEVAQUIN PO SCH (09:12)
[2016-11-08] MEDS: OXYCONTIN PO SCH ×2 (09:12→22:05)
[2016-11-08] MEDS: KLOR-CON PO SCH (09:12)
[2016-11-08] MEDS: COZAAR PO SCH (09:13)
[2016-11-08] MEDS: LANOXIN PO SCH (09:13)
--- NOTE | 2016-11-08 09:16 | PROGRESS NOTE ---
DATE: 11/08/2016 PRESENT ILLNESS: The patient has a severe left foot infection. She has had an amputation of the left great toe. There appears to be a possibility of osteomyelitis still in the patient's foot. MEDICATIONS: The patient had been on Zosyn, but now is on a combination of vancomycin and fluconazole. I plan to treat the patient for 6 weeks with this combination. PHYSICAL EXAMINATION: Vital Signs: Temperature is 98.1, pulse 60, respirations 16, blood pressure of 127/65. Generally: This is a thin middle-aged female. She is in no acute distress. Lungs: Clear to auscultation. Cardiovascular: Regular heart rate. Abdomen: Soft and nontender. Left foot has the VAC in place. There is no odor to the foot. I did not see any erythema surrounding the VAC. Extremities: The patient's left arm has a PICC in it. The site is not erythematous or swollen. LAB AND X-RAY: The CBC for today shows a white count of 7320, hemoglobin 10.2, and platelet count 373,000. Creatinine 0.8. GFR is greater than 60. The patient's CBC shows a white count of 7320, hemoglobin 10.2, platelet count 373,000, creatinine 0.8. GFR is greater than 60. There is no need for radiographic study today. There is no new radiographic study. ASSESSMENT AND PLAN: The patient has a severe foot infection. The plan is to continue her with a total of 6 weeks of IV vancomycin and p.o. Levaquin. The patient should be leaving today. I plan to see her back in the office in 3 weeks and then again at 6 weeks. At the 6 week treatment we most likely will stop her antibiotics. COMORBIDITIES: 1. Diabetes. 2. Cigarette smoking. 3. Congestive heart failure. I again urged the patient to stop smoking in order to not compromise anymore of the blood supply to her foot and also for her general health. cc: Omid Mas MD
[2016-11-08] MEDS: HUMULIN R SUBQ SCH ×4 (11:26→21:57)
[2016-11-08] MEDS: ZANAFLEX PO SCH ×3 (13:30→21:56)
[2016-11-08] MEDS: VANCOMYCIN 2,000 MG in NS 500 ML IV SCH (13:31)
[2016-11-08] MEDS: DILAUDID IV PRN (13:51)
--- NOTE | 2016-11-08 15:41 | PROGRESS NOTE ---
DATE: 11/08/2016 VITAL SIGNS: Temperature 98.2, pulses 60, respiratory rate of 16, blood pressure is 123/59. O2 saturation is 97% on room air. SUBJECTIVE: Ms. Patel states she is feeling better. OBJECTIVE: Neurologic: She is alert and oriented x3. Lungs: Respirations are even and unlabored. Extremities: Her left lower extremity, the wound VAC that was covering has been removed by the wound-care nurse. On assessment she does have lots of emaciation that I debrided back some. Her bone is starting to get a little discolored. The area around it looks dusky and lane. She has very poor pedal pulses and she does still have some erythema to the midfoot. LABORATORY: Her last blood sugar was 283. IMPRESSION AND PLAN: Left 1st toe amputation for necrosis and infection. I talked to Ms. Patel. Her skin still did not look very good. Not much healing is evident, if any. Again the area does have some emaciation as well as a dusky lane color. For now I have asked them to leave the wound VAC off and apply a wet-to-dry dressing. We are going to consult Dr. Martin with vascular surgery. I am going leave that dressing on there until Dr. Martin has a chance to come access it. We will continue IV antibiotics per Dr. Mas' request and further plan will depend on consultation from vascular. Dictated by MERT Roberts for Gaetano Ambrosio MD cc: MERT Roberts MD [facility]
--- NOTE | 2016-11-08 16:51 | PROGRESS NOTE ---
DATE: 11/08/2016 SUBJECTIVE: Today Ms. Patel refers to be doing a whole lot better. She is actually just awaiting Dr. Martin's evaluation to see if she can be discharged. I met the wound care nurse and she showed me a picture of her foot. It looks extremely awful. The wound seems to have some necrotic, purulent material on the base with a lot of erythematous changes around the edges. I read the Orthopedics note and it seems slight they also recognize that the wound looks infected, and they have consulted Dr. Martin to evaluate her. OBJECTIVE: Vitals: Blood pressure is 124/56, pulse of 67, respirations 18, temperature 98.1 degrees. Physical exam is completely unchanged from prior days. The left leg is completely wrapped up in sterile gauze. LABORATORY DATA: Has also been reviewed. Chemistry is completely normal. Glucose is a little high at 337 this afternoon. ASSESSMENT: 1. Left great toe infection status post amputation. The wound continues to look remarkably awful, at least in the picture that I was shown. There is a culture for enterococcus and Staphylococcus. Patient is being seen by Dr. Mas, currently on IV vancomycin and Levaquin, but looking at the picture I think there will still be need for further debridement of the wound because it does not look good. We will be pending Dr. Martin' evaluation to see if he would want to do anything else. 2. Tobacco abuse. Patient has been counseled. 3. Diabetes mellitus. Patient will continue with her insulin regimen. 4. Hypertension. 5. History of heart failure. Patient is on digoxin. Currently not in any exacerbation. So in general, I think Ms. Patel wants to go home. However, her wound looks pretty bad and there is a consult for Dr. Martin to see her. Depending on his recommendations, patient has already been set up for IV antibiotics. Would continue. If it is okay with Dr. Martin, the patient can be discharged home. If they plan to do any further interventions, then we will keep her for that. cc: Mateo Hernandez MD
[2016-11-08] MEDS: PERCOCET-10 PO PRN (18:02)
[2016-11-08] MEDS: RESTORIL PO SCH (20:27)
[2016-11-08] MEDS: LOVENOX SUBQ SCH (20:27)
[2016-11-08] MEDS: PRILOSEC PO SCH (21:56)
[2016-11-09] MEDS: DILAUDID IV PRN ×2 (04:10→22:43)
[2016-11-09] MEDS: ZANAFLEX PO SCH ×3 (04:11→21:34)
[2016-11-09] MEDS: HUMULIN R SUBQ SCH ×4 (06:02→21:34)
[2016-11-09] MEDS: PRILOSEC PO SCH (06:02)
--- NOTE | 2016-11-09 06:58 | PROGRESS NOTE ---
DATE: 11/09/2016 SUBJECTIVE: Mr. Patel is lying in bed this morning. Wound care changed her dressings yesterday and we are taking a little bit of a break from the wound VAC today to allow everything to sort of dry out. OBJECTIVE: Left Lower Extremity Examination: Dressing is clean, dry, and intact. There does not seem to be as much erythema to the dorsum of the foot. There is no drainage on the dressing. ASSESSMENT: 1. Status post left 1st toe amputation. 2. Left forefoot infection with cellulitis. PLAN: Dr. Ortega is going to see the patient this morning to assess for revascularization to see if we can get a little more blood flow down into the legs. I have discussed with Ms. Patel all along, getting blood flow is going to be the big willard here. It is going to be really difficult to heal without good blood flow so I am going to see what Dr. Ortega says today. We will continue the dressing changes. Wound care team will be by today and will see how she is doing. cc: Gaetano Ambrosio MD
--- NOTE | 2016-11-09 09:05 | PROGRESS NOTE ---
DATE: 11/09/2016 PRESENT ILLNESS: The patient has severe left foot infection with methicillin-resistant Staph aureus and Enterobacter. MEDICATIONS: The patient yesterday was switched to a combination of vancomycin and Levaquin. PHYSICAL EXAMINATION: Vital Signs: Temperature is 98.8, pulse 60, respirations 16, blood pressure 109/41. Generally: This is a thin, middle-aged female. She is in no acute distress. Lungs: Clear to auscultation. Cardiovascular: Regular heart rate. Abdomen: Soft and nontender. Extremities: The patient's left foot has a dressing on it. The dressing is intact. The patient's left arm has a PICC in it. The site is not draining or tender. LAB AND X-RAY: There is no new lab or x-ray for today. ASSESSMENT AND PLAN: The patient has severe foot infection. I plan to continue for a total of 6 weeks the IV vancomycin and p.o. Levaquin. COMORBIDITIES: Include diabetes mellitus, cigarette smoking, and congestive heart failure. cc: Omid Mas MD
[2016-11-09] MEDS: COREG PO SCH ×2 (10:19→21:34)
[2016-11-09] MEDS: LEVAQUIN PO SCH (10:19)
[2016-11-09] MEDS: GRALISE PO SCH ×2 (10:19→21:34)
[2016-11-09] MEDS: KLOR-CON PO SCH (10:19)
[2016-11-09] MEDS: OXYCONTIN PO SCH ×2 (10:19→21:34)
[2016-11-09] MEDS: COZAAR PO SCH (10:20)
[2016-11-09] MEDS: LASIX PO SCH (10:20)
[2016-11-09] MEDS: LANOXIN PO SCH (10:21)
[2016-11-09] MEDS: LEVEMIR SUBQ SCH ×2 (10:24→21:36)
[2016-11-09] MEDS: PERCOCET-10 PO PRN ×2 (11:30→16:40)
[2016-11-09] MEDS: VANCOMYCIN 2,000 MG in NS 500 ML IV SCH (13:25)
--- NOTE | 2016-11-09 15:37 | PROGRESS NOTE ---
DATE: 11/09/2016 SUBJECTIVE: Today Ms. Patel referred to be doing fine. She is just within evaluation from surgery on her feet. OBJECTIVE: Vital signs: Blood pressure 130/63, pulse of 64, respiration is 16, temperature is 98.7 degrees. General: Ms. Patel is a 51-year-old female. She is in bed and did not seem to be in any distress. HEENT: Mucosa is pink and moist. Anicteric and acyanotic. Neck: Supple. Chest: Clear. Cardiovascular: Regular rate and rhythm. Abdomen: Soft. Extremities: The left lower extremity is in a sterile dressing. Pulses are remarkably reduced. LABORATORY DATA: None for today. ASSESSMENT: 1. Left great toe infection status post amputation. The patient is being evaluated by Vascular Surgery today because of severe atherosclerotic burden. 2. Severe peripheral vascular disease. 3. Tobacco abuse. 4. Diabetes mellitus. We went up on the patient glargine to 70 b.i.d. 5. Osteomyelitis of the left big toe status post amputation. The wound still looks a little sloughy. There is a concern that it might not heal very adequately, and patient is being evaluated for revascularization. She is getting IV antibiotics and is being seen by Infectious Disease. 6. Hypertension, stable. 7. History of congestive heart failure. Not in any exacerbation. So in general, I think Ms. Patel is relatively stable. We are going to continue with the current IV antibiotics. I went up on her insulin because of uncontrolled diabetes. Patient presented with an A1c of 12.8, consistent with the fact that it was grossly uncontrolled even at home. cc: Mateo Hernandez MD
[2016-11-09] MEDS: LOVENOX SUBQ SCH (21:35)
[2016-11-09] MEDS: RESTORIL PO SCH (22:45)
[2016-11-10] MEDS: ZANAFLEX PO SCH ×3 (04:21→22:30)
[2016-11-10] MEDS: PRILOSEC PO SCH (06:20)
[2016-11-10] MEDS: HUMULIN R SUBQ SCH ×4 (06:22→22:31)
[2016-11-10] MEDS: DILAUDID IV PRN (06:25)
--- NOTE | 2016-11-10 07:10 | PROGRESS NOTE ---
DATE: 11/10/2016 SUBJECTIVE: Mr. Patel is lying in bed this morning. Pain seems well controlled. OBJECTIVE: Left lower extremity exam: Dressing was taken down. Erythema to the top of the foot is a lot better. Still a little bit of erythema to the plantar aspect underneath the 1st metatarsal; not as intense as it was though. Looking at the wound, itself, there is a little bit of area of darkening tissue. It is not completely black at this point, and then the exposed subcutaneous tissue and deep tissues are a little bit lane. There is no exposed bone though. She does have though deformed packing in. ASSESSMENT: Left diabetic foot ulceration, status post great toe amputation. PLAN: I talked with Dr. Ortega this morning. He plans on an arthrectomy tomorrow in the OR and to try to increase a little bit of blood flow to the foot. I think unless we get increased blood flow, she is going to have a lot of problems healing this wound. She is going to continue on IV antibiotics and daily wound dressings, and we will see how she responds after surgery. cc: Gaetano Ambrosio MD
[2016-11-10] MEDS: KLOR-CON PO SCH (09:51)
[2016-11-10] MEDS: GRALISE PO SCH ×2 (09:51→22:30)
[2016-11-10] MEDS: COZAAR PO SCH (09:51)
[2016-11-10] MEDS: COREG PO SCH ×2 (09:51→22:30)
[2016-11-10] MEDS: LASIX PO SCH (09:52)
[2016-11-10] MEDS: OXYCONTIN PO SCH ×2 (09:52→22:30)
[2016-11-10] MEDS: LEVAQUIN PO SCH (09:52)
[2016-11-10] MEDS: LEVEMIR SUBQ SCH ×3 (09:55→22:31)
[2016-11-10] MEDS: LANOXIN PO SCH (09:55)
--- NOTE | 2016-11-10 10:24 | PROGRESS NOTE ---
DATE: 11/10/2016 PRESENT ILLNESS: Patient has a severe left foot infection, from which methicillin-resistant Staph aureus and Enterobacter were isolated. The patient also has arterial insufficiency in the same leg. MEDICATIONS: The patient is on a combination now of vancomycin and Levaquin. The patient has been on antibiotics now for her foot infection for 12 days. PHYSICAL EXAMINATION: Vital Signs: The temperature is 97.8 degrees, pulse 80, respirations 14, blood pressure 113/69. General: This is a somewhat ill-appearing, middle-aged female. She is very thin. Lungs: Clear to auscultation. Cardiovascular: Heart rate is regular. Abdomen: Soft and nontender. Extremities: Patient has a dressing around the left foot. The dressing is in place. LAB AND X-RAY: There is no new lab or x-ray today. The patient yesterday had vascular studies, and she has a blockage in her arterial system in the left leg. ASSESSMENT AND PLAN: My plan is to continue her current antibiotics. Tomorrow , Dr. Ortega is going to be operating on the patient to improve the arterial perfusion in the leg. COMORBIDITIES: Diabetes mellitus, cigarette smoking, and a history of congestive heart failure. cc: Omid Mas MD MTDD
[2016-11-10] MEDS: PERCOCET-10 PO PRN (11:43)
[2016-11-10] MEDS: VANCOMYCIN 2,000 MG in NS 500 ML IV SCH (13:43)
--- NOTE | 2016-11-10 15:51 | PROGRESS NOTE ---
DATE: 11/10/2016 SUBJECTIVE: Today, Ms. Patel referred to be doing fine. She did not actually have any complaints. She has been evaluated by vascular surgeons and there is a plan to do atherectomy with angioplasty hopefully tomorrow. OBJECTIVE: Vital signs: Blood pressure is 133/73, pulse 68, respiration 14, temperature 98.5 degrees. General: Ms. Patel is a 51-year-old, female. She is in bed, no distress. HEENT: Mucosa is pink and moist. Anicteric. Acyanotic. Neck: Supple. Chest: Good air entry bilateral. No crepitations. No rhonchi. Cardiovascular: Regular rate and rhythm. Abdomen: Soft. Extremities: No pedal edema. The left lower extremity is in sterile dressing and there has been a new demarcation of the artery on the lower extremity. On the chest wall the patient has an AICD pocket on the anterior chest wall. LABORATORY DATA: The glucose is 156. ASSESSMENT/PLAN: 1. Left great toe infection status post amputation. This was done by Dr. Ambrosio 11/02/2016. Today is actually day 8 postop. There has been evaluation of the wound and there is the concern that it is not going to heal adequately if the effusion is not improved in her legs. Vascular surgeon, Dr. Ortega has evaluated the patient and has a plan for atherectomy and possible balloon angioplasty of the superficial femoral artery to get blood to the wound for better wound healing. 2. Severe peripheral vascular disease noted on CTA. Patient will be going for atherectomy on the left superficial femoral artery with possible balloon angioplasty. 3. Tobacco abuse. Patient has been counseled. 4. Diabetes mellitus. Presenting A1c was 12.8. Insulin 70/30. Was increased to 70 b.i.d. since yesterday and glucose seems to be a little bit better today. We will continue with the current regimen. 5. Osteomyelitis of the left big toe status pause amputation. Wound care is involved and patient is going to have a revascularization surgery tomorrow. Patient will continue with the current antibiotics and is being seen by Dr. Mas as well. 6. Congestive heart failure. Not in exacerbation. Patient has an AICD. 7. Hypertension stable. cc: Mateo Hernandez MD
--- NOTE | 2016-11-10 22:19 | VASCULAR LAB ---
DATE: 11/09/2016 STUDY: Left great saphenous vein mapping study, preop left lower extremity bypass. INDICATIONS: Preoperative examination, ICD10 Z01.818. FINDINGS: The left great saphenous vein was compressible throughout its length. It was measured in mm in diameter along its length. At the saphenofemoral junction, it measured 7.4 mm in diameter. In the midthigh it measured 3.5 mm in diameter, at the knee 3.4 mm in diameter, in the calf 2.3 to 2.6 mm in diameter. At the ankle it measured 2.6 mm in diameter. INTERPRETATION: Intact and compressible left great saphenous vein without evidence of scarring or clot throughout its length. Measurements seem that it was adequate for arterial bypass grafting. cc: MD Temo Brand MD
[2016-11-10] MEDS: RESTORIL PO SCH (22:29)
[2016-11-10] MEDS: LOVENOX SUBQ SCH (22:31)
[2016-11-11] MEDS: ZANAFLEX PO SCH ×3 (05:04→21:33)
[2016-11-11 05:56] LABS: MANUAL DIFF NEEDED? NO
[2016-11-11 06:03] LABS: BASO% 0.5 % (0.0-0.8); EOS# 0.11 X1000 (0.0-0.7); EOS% 1.3 % (0.0-10.0); HEMATOCRIT 29.6 % (37.0-47.0); HEMOGLOBIN 9.8 g/dL (12.0-16.0); LYMPH# 3.18 X1000 (1.2-3.4); LYMPH% 37.3 % (20.5-51.1); MCH 30.4 PG (27-31); MCHC 33.1 g/dL (33-37); MCV 91.9 FL (81-99); MONO# 0.92 X1000 (0.11-0.59); MONO% 10.8 % (1.7-9.3); MPV 9.6 FL (7.4-10.4); NEUT% 50.1 % (42.2-75.2); PLT 277 X1000 (130-400); RBC 3.22 XMIL (4.2-5.4)
[2016-11-11 06:46] LABS: CALCIUM 9.4 mg/dL (8.8-10.2); POTASSIUM 4.5 mmol/L (3.5-5.1)
[2016-11-11] MEDS: HUMULIN R SUBQ SCH ×4 (07:41→21:33)
[2016-11-11] MEDS: PRILOSEC PO SCH (07:42)
[2016-11-11] MEDS ORDERED: NS 2,000 ML ONE (08:14)
[2016-11-11] MEDS ORDERED: HEPARIN ONE ×3 (08:14→10:44)
[2016-11-11] MEDS: LANOXIN PO SCH (08:15)
[2016-11-11] MEDS: COZAAR PO SCH (08:15)
[2016-11-11] MEDS: COREG PO SCH ×2 (08:18→21:33)
[2016-11-11] MEDS ORDERED: VERSED ONE (08:51)
[2016-11-11 09:52] LABS: URINE MICRO REVIEW NEEDED? NO; URINE SOURCE CATH
[2016-11-11] MEDS ORDERED: PAPAVERINE ONE (09:55)
[2016-11-11 09:59] LABS: BILIRUBIN URINE NEGATIVE (NEGATIVE); BLOOD URINE NEGATIVE (NEGATIVE); COLOR YELLOW; GLUCOSE URINE NEGATIVE (NEGATIVE); LEUKOCYTES URINE NEGATIVE (NEGATIVE); NITRITE URINE NEGATIVE (NEGATIVE); PROTEIN URINE TRACE mg/dL (NEGATIVE); SP GRAVITY URINE 1.012; TURBIDITY URINE CLEAR (CLEAR); UROBILINOGEN URINE NORMAL (NORMAL)
[2016-11-11 10:00] LABS: UR EPITHELIAL CELLS <10 /HPF (<10); URINE BACTERIA NEGATIVE /HPF; URINE RBC <10 /HPF (<10); URINE WBC <10 /HPF (<10)
[2016-11-11] MEDS ORDERED: DIPRIVAN 1% ONE (10:31)
[2016-11-11] MEDS ORDERED: ZOFRAN ONE (10:44)
[2016-11-11] MEDS ORDERED: EPHEDRINE ONE (10:44)
[2016-11-11] MEDS ORDERED: XYLOCAINE-MPF 2% ONE (10:44)
[2016-11-11] MEDS ORDERED: NEO-SYNEPHRINE ONE (10:44)
[2016-11-11] MEDS ORDERED: NEOSTIGMINE ONE (10:44)
[2016-11-11] MEDS ORDERED: ZEMURON ONE (10:44)
[2016-11-11] MEDS ORDERED: ROBINUL ONE (10:44)
[2016-11-11] MEDS ORDERED: QUELICIN (DOSE) ONE (10:44)
[2016-11-11] MEDS ORDERED: SODIUM CHLORIDE 0.9% 20 ML ONE (10:44)
[2016-11-11] MEDS ORDERED: NS 250 ML ONE (10:45)
[2016-11-11] MEDS ORDERED: LR 1,000 ML ONE (10:45)
--- NOTE | 2016-11-11 10:50 | OPERATIVE NOTE ---
PROCEDURE DATE: 11/11/2016 PROCEDURE PERFORMED: Ultrasound-guided left common femoral artery access; left peroneal atherectomy with the TurboHawk SS-C catheter. SURGEON: Temo Ortega MD. ASSISTANTS: Elva and Dayami. PREOPERATIVE DIAGNOSIS: Nonhealing left great toe amputation site; PVD with ulceration. POSTOPERATIVE DIAGNOSIS: Nonhealing left great toe amputation site: PVD with ulceration and with serial peroneal artery stenoses. DESCRIPTION OF PROCEDURE: Satisfactory general endotracheal anesthesia was achieved. The right groin, left groin, left leg, and left foot were prepped and draped in a sterile fashion. With ultrasound guidance, we accessed the left common femoral artery, antegrade approach, and passed the wire into the SFA, followed by a 7-Indonesian catheter. We gave the patient 7000 units of heparin systemically. We passed the Glidewire under fluoroscopic guidance to the popliteal. We shot an arteriogram and this showed serial peroneal artery stenoses. We were able to traverse these stenoses with the Glidewire. We then passed a Trailblazer. After passing the Trailblazer, we shot another arteriogram to prove we were in the peroneal artery. We then used an 0.014 Nitrex wire. We then followed this with a TurboHawk SS-C catheter. We treated the serial stenoses with that catheter. Completion arteriography showed resolution of the stenoses with good in-line flow. We then shot a picture of the ankle which showed collateralization of the peroneal over to a very small posterior tibial artery below the malleolus and a more prominent dorsalis pedis artery in the dorsum of the foot. There appeared to be progress down toward an arch. We felt that we had treated the problem in the peroneal. I then subsequently gave the patient 2 mg of papaverine diluted to 10 mL down the artery. We also checked this proximal SFA and a minor stenosis was present there but not one that needed to be treated. We then used a Mynx closure plug to plug the puncture site. After that was deployed, we then placed a sterile gauze pressure dressing. She tolerated the procedure satisfactorily. There were 80 mL of contrast used. Less than 10 mL were lost. She was sent to the recovery room in satisfactory condition. cc: MD Gaetano Hernandez MD [facility]
[2016-11-11] MEDS ORDERED: PLAVIX PO ONE (11:08)
[2016-11-11] MEDS: LEVAQUIN PO SCH (11:42)
[2016-11-11] MEDS: KLOR-CON PO SCH (11:42)
[2016-11-11] MEDS: LASIX PO SCH (11:43)
[2016-11-11] MEDS: GRALISE PO SCH ×2 (11:43→21:32)
[2016-11-11] MEDS: LEVEMIR SUBQ SCH ×2 (11:49→21:36)
[2016-11-11] MEDS: OXYCONTIN PO SCH ×2 (11:49→21:33)
[2016-11-11] MEDS: VANCOMYCIN 2,000 MG in NS 500 ML IV SCH (12:45)
--- NOTE | 2016-11-11 15:06 | PROGRESS NOTE ---
DATE: 11/11/2016 SUBJECTIVE: Patient reports feeling better. No complaints at this time. OBJECTIVE: Vital Signs: Temperature 98 degrees, heart rate 62, respiratory rate 16, blood pressure 108/66, and O2 saturation 100% on 2L nasal cannula. General: This is a 51-year-old female, lying in bed in no acute distress. HEENT: Head is normocephalic, atraumatic. Anicteric sclerae and pale conjunctivae. Mucous membranes moist. Neck: Supple. No JVD noted. No carotid bruits. No lymphadenopathy. No thyromegaly. Cardiovascular: S1 and S2 heard. No murmurs, gallops, or rubs. Regular rate and rhythm. Respiratory: Clear bilaterally to auscultation. No work of breathing or using accessory muscles. Abdomen: Soft, nontender to palpation. Bowel sounds present. No organomegaly. Extremities: No clubbing, cyanosis, or edema. Peripheral pulses present in both legs. Neurologic: Patient is alert and oriented x3. Able to move 4 extremities. Cranial nerves 2-12 grossly normal. LABORATORY DATA: Reviewed. ASSESSMENT AND PLAN: 1. Left great toe infection, status post amputation. The patient had the surgery 9 days ago, but because of the concern that this wound is not going to heal, Dr. Ortega has been consulted and he performed revascularization surgery yesterday. We will follow recommendations of Dr. Ortega. 2. Severe peripheral vascular disease. Aware. 3. Alcohol abuse. Patient has been counseled to stop smoking. 4. Diabetes mellitus, type 2. At presentation, A1c was 12.8. Currently is on insulin 70/30, 70 units b.i.d. We will continue with the same management. 5. Osteomyelitis of the big toe. Aware. 6. Congestive heart failure. Patient is not in an exacerbation and has an AICD. cc: Boubacar Elaine MD
[2016-11-11] MEDS: PERCOCET-10 PO PRN (17:39)
--- NOTE | 2016-11-11 18:15 | PROGRESS NOTE ---
DATE: 11/11/2017 PRESENT ILLNESS: The patient has a severe left foot infection. Today she underwent an atherectomy of the leg to improve her circulation. MEDICATIONS: The patient is receiving vancomycin 2000 mg IV every 24 hours, and Levaquin 500 mg p.o. every 12 hours. The patient has been on antibiotics but I think I would like to count today as the actual first day because with her impaired circulation it is uncertain how much of the antibiotic actually made it to the infected area. PHYSICAL EXAMINATION: Vital Signs: Temperature is 98 degrees, pulse 60, respiration 16, blood pressure 116/63. General: The patient is a somewhat ill-appearing, she is middle-aged and she is very thin. Lungs: Clear to auscultation. Cardiovascular: Regular heart rate. Abdomen: Soft and nontender. Extremities: The patient has a PICC in her left arm. The PICC site is not erythematous or swollen. She has a dressing on her left foot and the dressing is intact. LAB AND X-RAY: There is no new lab or x-ray for today. ASSESSMENT AND PLAN: The plan is to continue the antibiotics for a total of 6 weeks. I have written a prescription for Levaquin, and [facility] has been following the patient and will supply her vancomycin when she goes home. She can be discharged from my point of view. I will be seeing her in the office at 3 weeks and then again at 6 weeks, at which time we will stop the antibiotics and I will remove her PICC. COMORBIDITIES: Include diabetes mellitus, cigarette smoking, and a history of congestive heart failure. cc: Omid Mas MD
[2016-11-11] MEDS: LOVENOX SUBQ SCH (21:33)
[2016-11-11] MEDS: RESTORIL PO SCH (21:35)
[2016-11-12 06:11] LABS: MANUAL DIFF NEEDED? NO
[2016-11-12 06:19] LABS: BASO% 0.3 % (0.0-0.8); EOS% 1.4 % (0.0-10.0); HEMATOCRIT 29.1 % (37.0-47.0); HEMOGLOBIN 9.4 g/dL (12.0-16.0); IMM GRAN# 0.02 X1000 (0.0-0.04); IMM GRAN% 0.3 % (0.0-0.5); LYMPH% 38.1 % (20.5-51.1); MCH 30.2 PG (27-31); MCHC 32.3 g/dL (33-37); MCV 93.6 FL (81-99); MONO# 0.69 X1000 (0.11-0.59); MONO% 9.4 % (1.7-9.3); MPV 9.7 FL (7.4-10.4); NEUT% 50.5 % (42.2-75.2); PLT 287 X1000 (130-400); RBC 3.11 XMIL (4.2-5.4)
[2016-11-12 06:42] LABS: CALCIUM 9.3 mg/dL (8.8-10.2); POTASSIUM 4.2 mmol/L (3.5-5.1)
[2016-11-12] MEDS: ZANAFLEX PO SCH (06:59)
[2016-11-12] MEDS: PRILOSEC PO SCH (06:59)
[2016-11-12] MEDS: PERCOCET-10 PO PRN (06:59)
[2016-11-12] MEDS: HUMULIN R SUBQ SCH ×2 (08:17→11:14)
[2016-11-12] MEDS ORDERED: ASPIRIN PO SCH (09:00)
[2016-11-12] MEDS ORDERED: PLAVIX PO SCH (09:00)
[2016-11-12] MEDS: DILAUDID IV PRN (11:01)
[2016-11-12] MEDS: OXYCONTIN PO SCH (11:08)
[2016-11-12] MEDS: LASIX PO SCH (11:11)
[2016-11-12] MEDS: LEVAQUIN PO SCH (11:11)
[2016-11-12] MEDS: KLOR-CON PO SCH (11:11)
[2016-11-12] MEDS: GRALISE PO SCH (11:11)
[2016-11-12] MEDS: COREG PO SCH (11:12)
[2016-11-12] MEDS: COZAAR PO SCH (11:12)
[2016-11-12] MEDS: LANOXIN PO SCH (11:13)
[2016-11-12] MEDS: LEVEMIR SUBQ SCH (11:14)
[2016-11-12 12:01] VITALS: BP 122/68
--- NOTE | 2016-11-12 12:33 | DISCHARGE SUMMARY ---
ADMISSION DATE: 10/27/2016 DISCHARGE DATE: 11/12/2016 CONSULTATIONS: 1. Dr. Martin with General Surgery. 2. Dr. Omid Mas with Infectious Disease. 3. Dr. Gaetano Ambrosio with Orthopedics. PERTINENT PROCEDURES: 1. Gastric emptying study was normal. 2. Foot x-ray showed soft tissue swelling and possible soft tissue gas. No definite evidence of acute bony disease. The possibility of acute osteomyelitis could not be excluded. 3. Left great toe amputation at the metatarsal phalangeal joint with irrigation and debridement of bone and foot . 4. Left application of wound VAC assisted closure to the foot performed by Dr. Salter. 5. Aorta CTA showed moderate aortoiliac atherosclerotic disease and extensive bilateral lower extremity atherosclerotic disease. 6. Saphenous vein mapping showed intact and compressible left great saphenous vein without evidence of scarring or clot throughout the length. Measurements seemed adequate for a 2-year- old bypass grafting, 7. Ultrasound-guided left common femoral artery access left atherectomy performed by Dr. Ortega. 8. Left popliteal atherectomy performed by Dr. Ortega. ASSESSMENT AND PLAN: 1. Left great toe infection status post amputation 10 days ago performed by Dr. Ambrosio. The patient underwent revascularization on 11/11/[address] Ortega. The patient will continue on IV antibiotics at home. She is being discharged home with home health as well as [facility]. 2. Nonhealing left great toe amputation site. 3. Peripheral vascular disease with ulceration with serial perineal artery stenosis, status post revascularization by Dr. Ortega. 4. Severe peripheral vascular disease status post revascularization. 5. Alcohol abuse. The patient has been counseled daily for abstinence. 6. Diabetes mellitus type 2. On presentation A1c was 12.8. Currently on 70/30 b.i.d. 7. Osteomyelitis of left great toe, aware. 8. Congestive heart failure without exacerbation. Patient has an AICD. HOSPITAL COURSE: Briefly, Ms. Patel is a 51-year-old female with history of uncontrolled diabetes, congestive heart failure, hyperlipidemia, ischemic cardiomyopathy, status post AICD placement. The patient recently had an amputation on the left big toe 10 days prior to admission by Dr. Ambrosio. He presented to the ED complaining that she started having more reddening pain and low-grade temperature. She reported that since she left the hospital she was given Keflex oral that she was still using, however reported after a few days she started to notice the reddening around the big toe that was getting worse and worse. It felt warm. She was having chills with general malaise. In the ED, patient was noted to have leukocytosis as well as a low-grade fever. She was admitted for right toe cellulitis and osteomyelitis and sepsis secondary to right toe infection. She was started on broad-spectrum antibiotics with a consult for General Surgery, Orthopedics, as well as Infectious Disease. The patient was closely monitored with her blood sugars. The patient did undergo a left great toe amputation at the metatarsophalangeal joint with irrigation and debridement of bone of the left foot, as well as application of a wound VAC to assist in closure of the foot by Dr. Ambrosio. Dr. Mas placed a PICC line for long-term antibiotics. They did do a runoff CTA that did show moderate aortoiliac atherosclerotic disease and extensive bilateral lower extremity atherosclerotic disease. Dr. Ambrosio spoke with the patient and explained to her that this was a vascular issue. She was still being followed by vascular services. She underwent saphenous vein mapping where she had adequate flow for an arterial bypass grafting, and on 11/11/2016 she underwent ultrasound -guided left common femoral artery access to the left perineal arthrectomy by Dr. Temo Ortega for her nonhealing left great toe amputation site. The patient tolerated the procedure well. She will be discharged with home IV antibiotics as well as home health with [facility], and IV antibiotics supplied by [facility]. PHYSICAL EXAMINATION: Vital signs: Temperature discharge 98.3 degrees, heart rate 60, respirations 16, blood pressure 139/61, O2 is 100% on room air. DISCHARGE DIET: Diabetic. DISCHARGE MEDICATIONS: 1. Aspirin 81 mg p.o. at bedtime. 2. Lipitor 40 mg p.o. daily. 3. Coreg 3.125 mg p.o. b.i.d. 4. Plavix 75 mg p.o. daily. 5. Flexeril 10 mg p.o. t.i.d. p.r.n. 6. Digoxin 250 mcg p.o. daily. 7. Lasix 80 mg p.o. daily. 8. Gabapentin 600 mg p.o. b.i.d. 9. Levemir 50 units subcutaneously b.i.d. 10. Levaquin 500 mg p.o. daily. 11. Cozaar 25 mg p.o. daily. 12. Robaxin 750 p.o. b.i.d. 13. Percocet 5/325, 1 each p.o. q.4 q.6 hours p.r.n. 14. Potassium chloride 10 mEq p.o. daily. 15. Temazepam 30 mg p.o. daily. The patient will continue on IV vancomycin per Dr. Omid Mas with Infectious Disease for a total of 6 weeks. FOLLOWUP: The patient is being discharged home with [facility] and continue home IV services. She will follow up with Dr. Omid Mas in 3 weeks. She will follow up with Dr. Ambrosio in 2 weeks, as well as Dr. Ortega in 1-2 weeks. The patient can continue to follow up with her primary care physician, Dr. Rommel Tejada, in 7-10 days. She can return to the ED for any worsening of symptoms. DISCHARGE TIME: Greater than 30 minutes. Dictated by MERT Jeffries for Boubacar Elaine MD cc: Boubacar Elaine MD [facility]
== END 2016-11-12 13:49 | disposition home health service (06) ==
LOC: ED 13:59 → 4N 20:08 → SUATTDRO 20:08 → 4N 11-04 10:43
PROVIDERS: ATTEND Internal Medicine

== ENCOUNTER 2018-06-13 16:08 | Inpatient (IN) ==
[2018-06-13 16:51] LABS: BASO# 0.04 X1000 (0.0-0.2); BASO% 0.7 % (0.0-0.8); EOS# 0.05 X1000 (0.0-0.7); EOS% 0.8 % (0.0-10.0); HEMATOCRIT 34.4 % (37.0-47.0); HEMOGLOBIN 11.3 g/dL (12.0-16.0); LYMPH% 30.4 % (20.5-51.1); MCH 31.3 PG (27-31); MCHC 32.8 g/dL (33-37); MCV 95.3 FL (81-99); MONO# 0.42 X1000 (0.11-0.59); MONO% 7.1 % (1.7-9.3); MPV 10.1 FL (7.4-10.4); NEUT# 3.61 X1000 (1.4-6.5); PLT 188 X1000 (130-400); RBC 3.61 XMIL (4.2-5.4); RDW 13.9 % (11.5-14.5); WBC 5.92 X1000 (4.8-10.8)
[2018-06-13 17:23] LABS: ALB/GLOB RATIO 1.2; ALBUMIN 3.7 g/dL (3.5-5.0); CALCIUM 9.2 mg/dL (8.8-10.2); CREATININE 1.3 mg/dL (0.5-0.9); POTASSIUM 4.8 mmol/L (3.5-5.1); TOTAL BILIRUBIN 0.84 mg/dL (0.20-1.00); TOTAL PROTEIN 6.7 g/dL (6.3-8.3)
[2018-06-13] MEDS ORDERED: LASIX IV ONE (21:37)
--- NOTE | 2018-06-13 21:53 | Diag Imaging Result Doc PS360 ---
EXAM: CHEST-2 VIEWS HISTORY: edema TECHNIQUE: Chest two views COMPARISON: 01/13/2018 FINDINGS: The lungs are well expanded. The heart is mildly prominent and there is a left-sided pacemaker. The vessels are not distended. There are no infiltrates or recurrent study. No pleural effusions. There has been surgery to the lower neck. IMPRESSION: Mild cardiomegaly. Electronically signed by Valerio Adan 06/13/2018 9:51 PM
[2018-06-14] MEDS ORDERED: ZOFRAN IV PRN (00:39)
[2018-06-14] MEDS ORDERED: HEPARIN SUBQ SCH (00:39)
[2018-06-14] MEDS ORDERED: TYLENOL PO PRN (00:39)
[2018-06-14] MEDS ORDERED: LASIX IV SCH (00:39)
[2018-06-14 01:12] LABS: URINE SOURCE CATH
[2018-06-14 01:40] LABS: BILIRUBIN URINE NEGATIVE (NEGATIVE); BLOOD URINE MODERATE (NEGATIVE); COLOR YELLOW; GLUCOSE URINE NEGATIVE (NEGATIVE); KETONE URINE NEGATIVE (NEGATIVE); LEUKOCYTES URINE NEGATIVE (NEGATIVE); NITRITE URINE NEGATIVE (NEGATIVE); PH URINE 6.5; PROTEIN URINE 100 mg/dL (NEGATIVE); SP GRAVITY URINE 1.008; TURBIDITY URINE CLEAR (CLEAR); UROBILINOGEN URINE NORMAL (NORMAL)
[2018-06-14 01:42] LABS: UR EPITHELIAL CELLS <10 /HPF (<10); URINE BACTERIA NEGATIVE /HPF; URINE RBC TNTC /HPF (<10); URINE WBC <10 /HPF (<10)
[2018-06-14 02:39] LABS: URINE CASTS NONE SEEN; URINE CRYSTALS NONE SEEN; URINE SMALL ROUND CELLS NONE SEEN; URINE YEAST NONE SEEN
[2018-06-14] MEDS: DUONEB (A & A) INH SCH ×4 (04:17→21:42)
[2018-06-14 05:46] LABS: BASO# 0.04 X1000 (0.0-0.2); BASO% 0.7 % (0.0-0.8); EOS# 0.07 X1000 (0.0-0.7); EOS% 1.2 % (0.0-10.0); HEMATOCRIT 33.7 % (37.0-47.0); HEMOGLOBIN 11.2 g/dL (12.0-16.0); LYMPH# 1.97 X1000 (1.2-3.4); LYMPH% 32.6 % (20.5-51.1); MCH 31.5 PG (27-31); MCHC 33.2 g/dL (33-37); MCV 94.9 FL (81-99); MONO# 0.52 X1000 (0.11-0.59); MONO% 8.6 % (1.7-9.3); MPV 10.6 FL (7.4-10.4); NEUT# 3.44 X1000 (1.4-6.5); NEUT% 56.9 % (42.2-75.2); PLT 179 X1000 (130-400); RBC 3.55 XMIL (4.2-5.4); RDW 13.8 % (11.5-14.5); WBC 6.04 X1000 (4.8-10.8)
--- NOTE | 2018-06-14 06:41 | HISTORY AND PHYSICAL ---
PRIMARY MEDICAL DOCTOR: Dr. Kelsey Davis. REASON FOR ADMISSION: Shortness of breath and swelling for the last two weeks. HISTORY: Ms. Viviana Patel is a 53-year-old lady with past medical history of systolic heart failure with EF of 15%-20%, type 2 diabetes, status post left hallux amputation , ischemic cardiomyopathy, coronary artery disease, hyperlipidemia and hypertension. The patient comes in today complaining of generalized swelling, weight gain and progressive shortness of breath. She states she overdosed on her Aldactone and this has not improved any increased urinary output. She states her urine output has been declining slowly and she has been short of breath. She went to see her pain physician today who referred her to the ER for further workup and possible admission. The patient admits to having a chronic cough productive of whitish sputum. No hemoptysis. She says since February to now her clothes have been getting tighter on her. Her last weight was in the 150s, today she is 193 pounds. She admits over the last couple of weeks she has been sleeping in her recliner because when she lays flat she gets short of breath. She attributes this to progressive abdominal swelling. Also has chronic lower extremity swelling, which she believes has gotten worse the last couple of weeks. She has been having some nonspecific chest pain, which is retrosternal with no relation to activity and lasts for a few minutes at a time. The pain does not radiate. Patient denies any fever, but admits to having subjective chills. REVIEW OF SYSTEMS: She denies any palpitations. Admits to having nonbloody diarrhea once-a-week. ALLERGIES: No known allergies. MEDICATIONS: Have not been reconciled. PAST SURGICAL HISTORY: ICD placement. Left big toe amputation. Hysterectomy. Lumpectomy. C- spine fusion. Breast reduction. Bladder attack. Vascular stenting in the left leg. FAMILY HISTORY: Heart disease. Renal failure. SOCIAL HISTORY: Smokes about one-half to one pack a day. She does not drink or use illicit drugs. She is . LABORATORY DATA: 1. EKG does show atrial paced rhythm. 2. Chest x-ray does show findings consistent with COPD. No infiltrate or increased vascular markings. Borderline cardiomegaly. 3. White count 5.0, hemoglobin and hematocrit 11 and 34, platelets 118,000. 4. Sodium 132, BUN 43, creatinine 1.3, glucose 180. 5. Alkaline phosphatase 174. Transaminases normal. Albumin 3.7. ProBNP 18, 000. 6. Urinalysis is pending. EXAMINATION: VITAL SIGNS: Blood pressure is 132/72, heart rate 65, respiratory rate 18, temperature 97.8 degrees Fahrenheit. She is 100% on room air. GENERAL: She is a middle-age woman who is in no acute distress. Alert and oriented x3. Normal mood and affect. HEENT: Head: Normocephalic and atraumatic. Eyes: She has infraorbital edema. Sclerae anicteric. No pallor. PERRL. EOMI. ENT: Grossly normal. NECK: Supple. Noticeable or possible hepatojugular reflex. No thyromegaly. CHEST: Clear when auscultated. Good air entry in both lung [place]. CARDIOVASCULAR: S1, S2 heard. No murmur, gallop, or rub. It is regular. ABDOMEN: Slightly distended. She has noticeable shift in dullness to percussion. Diffuse abdominal tenderness. No rebound or guarding. Bowel sounds are hypoactive. RECTAL: Deferred at this time. EXTREMITIES: The patient has decreased pulses distally all extremities, however she has about 1+ pitting edema up to the mid hall that is chronic in nature. This is due to the woody consistency of her extremities. She has a great left toe amputated with a chronic ulcer packed with dressing. She has Grade I clubbing and [id number] leukonychia. No peripheral cyanosis. NEUROLOGIC: No gross focal deficits. SKIN: Grossly normal. Although there is an area of induration in the left lower quadrant area. MUSCULOSKELETAL: Grossly normal. IMPRESSION: 1. Anasarca, probably secondary to underlying liver disease. 2. Chronic systolic heart failure. Not in acute failure per my exam. 3. Coronary artery disease. 4. Chronic obstructive pulmonary disease. 5. Type 2 diabetes. 6. Hyperlipidemia. PLAN: 1. We will repeat an echocardiogram to compare with the one done over 6-months- ago. 2. We will get an abdominal sonogram to assess the degree of ascites, and if possible do a diagnostic and/or therapeutic paracentesis. I am concerned the patient may have underlying cirrhotic disease. 3. We ordered a hepatitis panel. The patient says she does not engage in drinking. 4. I increased the dose of her Aldactone due to my suspicions of underlying cirrhosis. 5. The patient's urinalysis is pending to rule out nephrotic syndrome, although this is highly unlikely due to the fact that the patient's albumin is normal. 6. We also recommend starting the patient on scheduled breathing treatments, which are underlying COPD by her complaint and her chest film. This was done to see if this improves the patient's complaint of chronic dyspnea. cc: Kelsey Wilkinson MD [facility]ENTERArian
[2018-06-14 06:47] LABS: CALCIUM 9.2 mg/dL (8.8-10.2); CREATININE 1.2 mg/dL (0.5-0.9); MAGNESIUM 1.7 mg/dL (1.5-2.7); POTASSIUM 4.7 mmol/L (3.5-5.1)
--- NOTE | 2018-06-14 08:41 | EKG Report ---
Test Performed on : 06/13/2018 11:11:40 PM Test Reason : NO EKG ORDER FOR MUSE Blood Pressure : / mmHG Vent. Rate : 068 BPM Atrial Rate : 068 BPM P-R Int : 152 ms QRS Dur : 156 ms QT Int : 470 ms P-R-T Axes : 059 084 140 degrees QTc Int : 499 ms Atrial-sensed ventricular-paced rhythm Abnormal ECG No previous ECGs available Unconfirmed Result
[2018-06-14] MEDS ORDERED: ALDACTONE PO SCH (09:00)
[2018-06-14] MEDS: LASIX IV SCH ×2 (09:52→22:39)
--- NOTE | 2018-06-14 12:59 | Diag Imaging Result Doc PS360 ---
EXAM: US ABDOMEN-COMPLETE INDICATION: ascites cirrhosis COMPARISON: Renal artery Doppler dated 12/10/2014 FINDINGS: Small volume ascites is seen tracking around the liver and spleen. The gallbladder is contracted as the patient was not fasting before this study. The gallbladder wall is thickened. However, this can be attributable to the contraction as well as the surrounding ascites. No gallstones are identified. The common bile duct is normal in diameter. Sonographic Owen's sign was reported to be negative. The liver is grossly unremarkable. No hepatic mass is identified Portal venous flow is hepatopetal. The visualized pancreas is unremarkable. The aorta and IVC are grossly unremarkable. The spleen is unremarkable. The kidneys are grossly unremarkable. IMPRESSION: 1.Small volume ascites. 2.Thickening gallbladder wall that is assumed to be due to contraction as well as the ascites as discussed above. Electronically signed by Tom Joya 06/14/2018 12:57 PM
[2018-06-14] MEDS: DEMEROL PO PRN (17:43)
[2018-06-14] MEDS: NICODERM PATCH TD SCH (17:49)
--- NOTE | 2018-06-14 19:37 | ECHO REPORT ---
ORDER DATE: 06/14/2018 REQUESTING PHYSICIAN: Dr. Zeferino Wilkinson. INDICATION: Congestive heart failure. M-MODE MEASUREMENTS: Left ventricle end diastole: 3.0. Left ventricle end systole: 5.6. Posterior wall: 1.1. Interventricular septum: 1.1. Left atrium: 5.0. Aortic root: 3.3. SUMMARY OF 2-DIMENSIONAL IMAGIN. Left ventricular function appears to be significantly impaired. The chamber of the left ventricle is markedly dilated. 2. The end-diastolic volume is about 165 mL/m2 of body surface area. 3. The ejection fraction is estimated to be in the range of 20% to 25%. 4. The right ventricle is dilated. The left atrium is markedly dilated. The right atrium is also dilated. The inferior vena cava is moderately dilated. This is consistent with a dilated idiopathic cardiomyopathy. An AICD/pacemaker lead is noted within the right ventricle. 5. The aortic valve is normal. Color flow mapping indicates a mild degree of regurgitation. 6. The mitral valve shows a mild degree of regurgitation. 7. Pulsed wave Doppler of mitral inflow shows a pseudonormal pattern with a relatively tall E-wave and a shorter A-wave. The ratio is 1.2. 8. The average of the septal and lateral mitral annulus is 4.5 cm, indicating diastolic dysfunction. The E/E prime ratio is elevated. 9. The tricuspid valve shows a mild to moderate degree of regurgitation. The pulmonary systolic pressure is estimated at 53 to 58 mmHg. 10.The pulmonic valve is normal. Color flow mapping indicates a mild to moderate degree of regurgitation. 11.A pleural effusion is noted. There is a trace pericardial effusion. SUMMARY: 1. This study is consistent with a dilated cardiomyopathy with an ejection fraction of 20% to 25%, markedly dilated left ventricle and left atrium, also significant dilatation of the right ventricle and right atrium. 2. Pulmonary pressure is 53 to 58 mmHg. 3. Diastolic dysfunction present. 4. Pleural effusion is present. Clinical correlation recommended. cc: MD Zeferino Yoder MD
[2018-06-14] MEDS: COREG PO SCH (22:39)
[2018-06-14] MEDS: DESYREL PO SCH (22:39)
--- NOTE | 2018-06-15 00:28 | CONSULTATION ---
DATE OF CONSULTATION: 06/14/2018 REASON FOR CONSULTATION: Ascites, elevation of liver function tests. HISTORY OF PRESENT ILLNESS: This is a 53-year-old female with a history of congestive heart failure, following with Dr. Griffin. The patient reports onset of progressive swelling, weight gain, and shortness of breath. She has reported some swelling in the abdomen area along with lower extremity edema. She has had some decreased urine output. This had progressed that brought her into the emergency room for further evaluation. She has also reported a chronic cough with production of sputum. No hematemesis or nausea. The patient denies constipation. We had seen her last in our office in 2015, and she was treated for opioid induced constipation and was on Movantik. The patient states she has not had to take laxatives lately. She usually has a bowel movement daily but may miss a day or so. She has denied any visible blood in the stool. Her last colonoscopy in 2016 showed a colon polyp. The patient states she has had progressive shortness of breath. She has reported occasional chest pain. She has reported occasional dizziness, abdominal discomfort, and swelling. She had recently fallen and has a brace on her right wrist. PAST MEDICAL HISTORY: Congestive heart failure, ischemic cardiomyopathy, coronary artery disease, hyperlipidemia, hypertension, diabetes, history of cervical cancer. PAST SURGICAL HISTORY: Breast surgery, heart surgery, She has a defibrillator in place. She had an intestinal surgery at age 3, left great toe amputation, laparoscopic right knee surgery, neck surgery, hysterectomy, and repeat surgery for cervical cancer. ALLERGIES: No known drug allergies. HOME MEDICATIONS: Carvedilol 2 tablets twice a day, Plavix 75 mg daily, digoxin 250 mcg daily, Lasix 40 mg daily, Gralise 1800 mg every night and 600 mg in the morning, Belk 10/325 three times a day as needed, Glucophage 1000 mg daily, Robaxin 750 mg 3 times a day as needed, Entresto 1 tablet daily, Aldactone 25 mg daily, and trazodone 50 mg every night. SOCIAL HISTORY: She denies alcohol use. She reports tobacco use less than a pack a day. She is . She does not have children. She is on disability. FAMILY HISTORY: Reports of pancreatic cancer in an aunt. She also has heart disease and renal failure in her family. REVIEW OF SYSTEMS: HEENT: She has reported some dizziness. Cardiovascular: Occasional chest pain. Pulmonary: Shortness of breath. Cough with sputum production. Gastrointestinal: She has reported some abdominal discomfort and swelling. She has a history of constipation that is currently under control without laxatives. She has reported weight gain. Genitourinary: She has reported some decreased urine output but no dysuria or hematuria. Neurologic: No history of stroke or seizures. Musculoskeletal: She had recently fallen and injured her right wrist. She has a brace in place. PHYSICAL EXAMINATION: Vital Signs: Temperature 97.7 degrees, pulse 65, blood pressure 129/75. General: The patient is awake, alert, and in no acute distress. HEENT: Normocephalic, atraumatic. Pupils equal, round, reactive to light. Sclerae nonicteric. Cardiovascular: Regular rate and rhythm. Chest: Lungs sound essentially clear bilaterally. Abdomen: Soft. Very mild tenderness. Positive bowel sounds. I do not feel any significant ascites. Extremities: Bilateral pedal pulses present. Very mild edema, lower extremities. Neurological: Cranial nerves 2 through 12 grossly intact. The patient is awake and alert and oriented to person, place, and time. DIAGNOSTIC RESULTS: Laboratory -- Hematology: WBC 6.04, hemoglobin 11.2, hematocrit 33.7, MCV 94.9, platelet 179,000. Chemistry: Sodium 137, potassium 4.7, chloride 100, CO2 of 25, BUN 40, creatinine 1.2, glucose 106. Total bilirubin 0.84, GGT 287, AST 26, ALT 28, alkaline phosphatase 174. ProBNP 18,231. Albumin 3.7, total protein 6.7. Imaging -- Abdominal ultrasound showed small-volume ascites with thickened gallbladder wall, possibly related to ascites. There were no gallstones identified. The common bile duct was normal. The liver was grossly unremarkable. No hepatic masses seen. Portal venous flow hepatopetal. ASSESSMENT AND PLAN: 1. Congestive heart failure. Cardiology has been consulted. 2. Coronary artery disease. 3. Chronic obstructive pulmonary disease. 4. Swelling with some ascites noted on ultrasound. The patient has never been told she had liver disease. Her GGT is elevated. Alkaline phosphatase is mildly elevated. AST and ALT are normal. The patient has normal albumin, normal platelet count. Possibility of ascites related to cardiac/congestive heart failure. For definitive diagnosis, possibility of diagnostic paracentesis can be considered. Continue current management. Continue diuretics. We will get anticoagulation studies. Further plans to be made according to her progress. Cardiology consult has been placed. I have discussed this case with Dr. Cruz. Thank you for this consultation. Dictated by MERT Pena for Ganesh Cruz MD cc: MERT Sim MD [facility]
[2018-06-15] MEDS: DEMEROL PO PRN ×4 (00:29→21:31)
[2018-06-15] MEDS: DUONEB (A & A) INH SCH ×4 (03:42→21:15)
[2018-06-15 06:22] LABS: INR 1.13; PROTIME 15.5 Seconds (11.0-16.0)
[2018-06-15 06:23] LABS: PTT 28.6 Seconds (22.3-41.8)
[2018-06-15 07:03] LABS: ALB/GLOB RATIO 1.1; ALBUMIN 3.4 g/dL (3.5-5.0); CREATININE 1.2 mg/dL (0.5-0.9); POTASSIUM 4.4 mmol/L (3.5-5.1); TOTAL BILIRUBIN 0.75 mg/dL (0.20-1.00); TOTAL PROTEIN 6.5 g/dL (6.3-8.3)
--- NOTE | 2018-06-15 07:44 | Diag Imaging Result Doc PS360 ---
EXAM: CHEST-2 VIEWS 06/15/2018 HISTORY: pulmonary edema TECHNIQUE: PA and lateral chest COMMENT: There is cardiomegaly. Compared to 06/13/2018 there has been no significant change. IMPRESSION: Cardiomegaly. Electronically signed by Benny Tello 06/15/2018 7:41 AM
[2018-06-15] MEDS: LANOXIN PO SCH (09:10)
[2018-06-15] MEDS: COREG PO SCH ×2 (09:10→21:30)
[2018-06-15] MEDS: NICODERM PATCH TD SCH (09:11)
[2018-06-15] MEDS: LASIX IV SCH ×2 (09:11→21:33)
[2018-06-15] MEDS: PLAVIX PO SCH (09:11)
[2018-06-15 10:18] LABS: HEPATITIS PROFILE ACUTE SEE COMMENTS
[2018-06-15] MEDS: ENTRESTO 24 MG-26 MG TABLET PO SCH (10:40)
--- NOTE | 2018-06-15 14:55 | PROGRESS NOTE ---
DATE: 06/15/2018 INTERVAL HISTORY: Patient with significantly improved dyspnea and abdominal distention. Brisk diuresis with Lasix overnight. No acute events overnight. No new complaints. REVIEW OF SYSTEMS: A 12-point review of systems negative except as per interval history. LABS: INR 1.1. Sodium 137, potassium 4.4, chloride 98, bicarb 26, BUN 41, creatinine 1.2, glucose 167, bilirubin 0.75, alkaline phosphatase 141, AST 20, ALT 21, albumin 3.4, total bilirubin 0.75. IMAGIN. Abdominal ultrasound showing a small amount of ascites and slightly thickened gallbladder wall thought to be due to contraction and surrounding ascites. Biliary ducts appear normal. 2. Chest x-ray with cardiomegaly but otherwise unremarkable. VITAL SIGNS: T-max 98.7, pulse 66, respirations 16, blood pressure 113/62, O2 saturation 98% on room air. PHYSICAL EXAMINATION: General: No acute distress. Vital signs: As above. HEENT: Normocephalic, atraumatic. Moist mucous membranes. No cervical adenopathy. Cardiovascular: Regular rate and rhythm. Currently, no murmurs noted. Pulmonary: Lungs essentially clear to auscultation bilaterally. Abdomen: Soft, nontender, nondistended. Bowel sounds positive. Extremities: Peripheral pulses intact. 1+ bilateral lower extremity edema with some mild chronic venous stasis changes. Neurologic: Cranial nerves II-XII grossly intact. No focal motor or sensory deficits. Psychiatric: Normal mood and affect. Awake, alert, and oriented x3. Skin: No new rashes or lesions identified. ASSESSMENT AND PLAN: 1. Anasarca and mildly elevated liver function tests: Initial workup fairly unremarkable. Abdominal distention much improved with aggressive diuresis overnight. Some studies still pending, but favor liver congestion related to severe congestive heart failure and pulmonary hypertension as the cause, as well as previously known fatty liver, which may be contributing. Bilirubin within normal limits as is INR, so if she has cirrhosis it is very early and mild. Will continue with one more day of diuresis but if no other problem presents itself, then can likely be discharged tomorrow. 2. Chronic systolic and diastolic congestive heart failure: Last echo with ejection fraction approximately 20 with some diastolic heart failure as well. Also has significant pulmonary hypertension. Not in juice exacerbation but likely with some total body volume overload on admission. Is now minus five and a half liters of fluid for the hospitalization. Has had a brisk response to Lasix. Will continue Lasix one more day, as above. 3. Paroxysmal atrial fibrillation: Has been largely in normal sinus rhythm since she has been here. Continue home Coreg and digoxin. 4. Hypertension: Good control on home Coreg and Entresto as well as Lasix, as above. Continue to monitor. 5. Chronic obstructive pulmonary disease and tobacco abuse: No evidence of exacerbation at this time. Continue to monitor. 6. Chronic kidney disease 3: Creatinine is stable. Continue to monitor. 7. Hyponatremia: Improved, status post diuresis. Continue to monitor labs. 8. Ascites: Only minimal ascites on ultrasound and improved, per patient. Likely due to liver congestion related to heart failure and pulmonary hypertension. Monitor, but likely no need for acute intervention at this time. 9. Diabetes: Will place on sliding scale insulin and check hemoglobin A1c. 10. Deep venous thrombosis prophylaxis: Sequential compression devices. DISPOSITION: Liver workup largely unremarkable at this time, at this point. Abdominal distention and discomfort improved with diuresis. Will continue diuresis one more day and await further Cardiology recommendations, but I suspect she will be able to go home tomorrow if no other events occur.
[2018-06-15] MEDS: HUMALOG SUBQ SCH ×2 (15:34→21:40)
[2018-06-15] MEDS: DESYREL PO SCH (21:30)
--- NOTE | 2018-06-16 02:50 | PROGRESS NOTE ---
DATE: 06/15/2018 SUBJECTIVE: Ms. Cervantes was sitting up at that bedside, comfortable. She denied any GI symptoms. She tells me she feels much better. Has not had any symptoms of abdominal pain, nausea or vomiting. She is tolerating her diet well. OBJECTIVE: Vital Signs: Temperature is 97.6 degrees, pulse is 66 per minute, breathing 16, blood pressure 113/62. Abdomen: Flat, soft, and nontender. Bowel sounds are audible. LABORATORY DATA: Reviewed. IMPRESSION: Ascites and anasarca most likely cardiogenic. I do not think she has cirrhosis or liver issues. There is not much to add. I advised her to follow up with me in the office after discharge, or I will be available if needed. cc: Ganesh Cruz MD
[2018-06-16] MEDS: DUONEB (A & A) INH SCH (03:30)
[2018-06-16] MEDS: HUMALOG SUBQ SCH (06:30)
[2018-06-16 07:07] LABS: HEMOGLOBIN A1C 8.7 % (4.8-6.0)
[2018-06-16] MEDS: DEMEROL PO PRN (07:59)
[2018-06-16] MEDS: COREG PO SCH (08:01)
[2018-06-16] MEDS: NICODERM PATCH TD SCH (08:02)
[2018-06-16] MEDS: ENTRESTO 24 MG-26 MG TABLET PO SCH (08:03)
[2018-06-16] MEDS: PLAVIX PO SCH (08:03)
[2018-06-16] MEDS: LASIX IV SCH (08:04)
[2018-06-16] MEDS: LANOXIN PO SCH (08:08)
[2018-06-16 09:43] LABS: CALCIUM 9.1 mg/dL (8.8-10.2); CREATININE 1.3 mg/dL (0.5-0.9); POTASSIUM 4.5 mmol/L (3.5-5.1)
[2018-06-16 12:09] VITALS: BP 125/78
--- NOTE | 2018-06-17 06:09 | DISCHARGE SUMMARY ---
ADMISSION DATE: 06/13/2018 DISCHARGE DATE: 06/16/2018 CONSULTS: Gastroenterology. IMAGING: Initial chest x-ray with cardiomegaly, a left-sided pacemaker. Abdominal ultrasound with a small amount of ascites and otherwise essential unremarkable. Echocardiogram with EF of 20%-25%. Both atriums dilated. Inferior vena cava moderately dilated. Moderately elevated pulmonary pressures at mid 50, and diastolic dysfunction. SIGNIFICANT LABORATORIES: Admission BNP 18,231. Hepatitis panel negative. Hemoglobin A1c 8.7. CBC with no leukocytosis and stable mild anemia. Creatinine 1.2-1.3 and stable. DISCHARGE DIAGNOSES: 1. Mild acute on chronic combined systolic and diastolic congestive heart failure. 2. Pulmonary hypertension. 3. Fatty liver. 4. Hyperlipidemia. 5. Hypertension. 6. Chronic obstructive pulmonary disease. 7. Tobacco abuse. 8. Chronic kidney disease stage 3. 9. Diabetes. HOSPITAL COURSE: The patient presented initially complaining of generalized swelling, weight gain and dyspnea. She had attempted to take more of her home diuretic without any additional urine output or relief from her swelling. On initial evaluation, she was oxygenating sufficiently and chest x-ray was largely clear, but she did have marked lower extremity swelling , marked abdominal swelling with anasarca, and a markedly elevated BNP. Echocardiogram did show significant combined heart failure. She was given aggressive IV diuresis with good response and gradual improving lower extremity edema and abdominal distention. She had mildly elevated LFTs on admission with alkaline phosphatase 174, GGT 284, but normal AST and ALT at 25 and 28 respectively. Bilirubin was normal. Ultrasound of the liver was most consistent with congestion related to CHF rather than primary liver pathology although she has been noted to have fatty liver in the past. On day of discharge the patient's lower extremity swelling was almost resolved, and her abdominal distention had completely resolved and she was saturating well on room air with no dyspnea on exertion. Her home diuretics were adjusted slightly and she was discharged home to follow up with her regular doctors. On admission GI was consulted because of elevated LFTs and they also felt that this was likely related to her underlying congestive heart failure rather than a primary liver pathology. DISCHARGE VITAL SIGNS: Temperature 97.4 degrees, pulse 65, respirations 16, blood pressure 125/78, O2 saturation 100% on room air. DISCHARGE PHYSICAL EXAMINATION: General: No acute distress Vital Signs: As above. HEENT: Normocephalic, atraumatic. Moist mucous membranes. No cervical adenopathy. Cardiovascular: Regular rate and rhythm. No murmurs noted. Pulmonary: Lungs are clear to auscultation bilaterally. No wheezing, rales, or rhonchi. Abdomen: Soft, nontender, and nondistended. Bowel sounds positive. Extremities: Peripheral pulses intact. Trace to 1+ bilateral lower extremity edema with some mild chronic venous stasis changes. Neurologic: Cranial nerves II-XII grossly intact. No focal motor or sensory deficits. Psychiatric: Normal mood and affect. Awake, alert, and oriented x3. Skin: No new rashes or lesions identified. DISCHARGE DIET: Low-salt. DISCHARGE MEDICATIONS: Digoxin 250 mcg p.o. daily, gabapentin b.i.d. as previously prescribed at home, home [place] t.i.d. p.r.n., home metformin 1000 mg p.o. daily, Robaxin 750 mg p.o. t.i.d. p.r.n., Entresto 24-26 daily, trazodone 50 mg p.o. at bedtime p.r.n., Coreg 6.25 mg p.o. b.i.d., Plavix 75 mg p.o. daily, Lasix 40 mg p.o. b.i.d., nicotine patch 21 mg daily, spironolactone 25 mg p.o. daily. FOLLOW-UP AND PLAN: The patient to discharge home on a slightly increased dose of her home diuretic. The patient to weigh herself daily and call her PCP or coiler if weight trends up significantly over 2-3 days. The patient to follow up with her PCP and coiler for weight check, possible further adjustment of her diuretics and repeat labs. Greater than 30 minutes was spent arranging discharge and counseling the patient. [facility]
--- NOTE | 2018-06-19 21:15 | PROVIDER DOCUMENTATION ---
This chart was entered by Emy Gannon Scribe, acting as scribe for Darshan Campos MD. HPI-General Adult - General Chief Complaint: Edema Stated Complaint: PAIN CLINIC REF Time Seen by Provider: 06/13/18 21:01 Source: patient Allergies/Adverse Reactions: Patient Allergies Allergy/AdvReac Type Severity Reaction Status Date / Time No Known Allergies Allergy Verified 12/13/16 06:23 Home Medications: Home Medication List Medication Instructions Recorded Confirmed Last Taken Type Digoxin [Digox] 250 mcg PO DAILY 04/02/16 06/14/18 01/08/18 08:00 History Gabapentin [Gralise] 1,800 mg PO HS 10/15/16 06/14/18 01/08/18 21:00 History Clopidogrel [Plavix] 75 mg PO DAILY #30 tablet 11/12/16 06/14/18 01/08/18 08:00 Rx Hydrocodone/Acetaminophen [[place] 1 each PO TID PRN 12/13/16 06/14/18 01/09/18 13 :00 History 10-325 Tablet] Metformin [Glucophage] 1,000 mg PO DAILY 12/09/17 06/14/18 01/08/18 08:00 History Sacubitril/Valsartan [Entresto 24 1 each PO DAILY 12/09/17 06/14/18 01/08/18 21: 00 History mg-26 mg Tablet] Trazodone HCl 50 mg PO HS 12/09/17 06/14/18 01/08/18 21:00 History Spironolactone [Aldactone] 25 mg PO DAILY 30 Days #30 tab 12/12/17 06/14/1810/21 08:00 Rx Methocarbamol [Robaxin-750] 750 mg PO TID PRN 01/09/18 06/14/18 01/09/18 13:00 History Gabapentin [Gralise] 600 mg PO DAILY 06/14/18 06/14/18 Unknown History Carvedilol [Coreg] 6.25 mg PO Q12H #60 tab 06/16/18 Unknown Rx Furosemide 40 mg PO BID #60 tab 06/16/18 Unknown Rx Nicotine Patch [Nicoderm Patch] 21 mg TD DAILY patch.td24 06/16/18 Unknown Rx - History of Present Illness -Gen Adult Nature of Presenting Problems: pt is a 53 yr old female presenting with 2 month complaint of abdominal pain/ swelling/edema, 40lb weight gain, bilateral LE edema, pt also reports 10 day increased shortness of breath, increased spirolactone use to 2x daily without improvement. Location of Pain/Injury: reports: abdomen, lower extremity (ble) Pain Radiation: reports: no radiation Quality of Pain: reports: fullness, pressure, tightness Severity: reports: moderate Onset/Duration: reports: other (2 months) Timing: reports: getting worse Context/Activities at Onset: reports: light activity Modifying Factors: improves with: other medication (spirolactone use increased to 2x daily- no improvement) Associated Symptoms: reports: cough, genitourinary problems, shortness of breath , other (abdominal distention, edema BLE). denies: chest pain, fever/chills Similar Symptoms Previously?: No Recently seen or treated by another doctor?: No Review of Systems - Adult - REVIEW OF SYSTEMS - ADULT Constitutional: reports: weight gain (40lb x 2 months). denies: chills, fever Eyes: reports: no symptoms reported Ears, Nose, Mouth & Throat: reports: no symptoms reported Cardiovascular: reports: edema. denies: chest pain, palpitations, syncope Respiratory: reports: cough, dyspnea on exertion, shortness of breath Gastrointestinal: reports: abdominal pain Genitourinary: reports: frequency, hesitency, urinary retention Musculoskeletal: reports: no symptoms reported Integumentary: reports: no symptoms reported Neurological: reports: no symptoms reported Psychiatric: reports: no symptoms reported Endocrine: reports: no symptoms reported Hematologic/Lymphatic: reports: no symptoms reported Allergic/Immunologic: reports: no symptoms reported All Other Systems: Reviewed and Negative Past History - Adult - PAST MEDICAL HISTORY-ADULT Review of Records: reports: Old Records Reviewed, Nursing Assessment Review, Medications Reviewed, Social history reviewed & non-contributory. Major Childhood Illnesses: reports: denies history Cardiovascular: reports: CAD, CHF, hyperlipidemia, other (ACID) Respiratory: reports: COPD Gastrointestinal: reports: denies history Obstetrical/Gynecological: reports: denies history Genitourinary: reports: denies history Musculoskeletal: reports: cancer (cervical) Neurological: reports: denies history Endocrine/Immune: reports: Diabetes Other Conditions: reports: denies history - PRIOR SURGERIES/PROCEDURES Surgical/Procedure History: reports: hysterectomy, other (ACID/BREAST REDUCTION/ CERVICAL FUSION) - IMMUNIZATION STATUS Childhood Immunizations: See Nurse Assessment Flu Vaccine: See Nurse Assessment - FAMILY HISTORY Family History: reviewed, not pertinent - SOCIAL HISTORY Smoking: quit greater than 1 year Substance Use: denies Living Situation: family Physical Exam-General - PHYSICAL EXAM-ADULT Initial Vital Signs Reviewed: Yes - CONSTITUTIONAL General Appearance: alert, no apparent distress - EYES Eyes: PERRL/EOMI - HEAD, EARS, NOSE, MOUTH & THROAT HENMT: normocephalic/atraumatic, moist mucous membranes - NECK Neck: non-tender, full range of motion, supple, normal inspection - RESPIRATORY Respiratory: chest non-tender, lungs clear, normal breath sounds, no pleuratic chest pain, no respiratory distress, no accessory muscle use - CARDIOVASCULAR Cardiovascular: normal peripheral pulses, regular rate, rhythm. negative: no edema (ble edema 1+ pitting) - GASTROINTESTINAL (ABDOMEN) Abdominal Exam: normal bowel sounds, non tender, distended, other (+fluid wave) - LYMPHATIC Lymphatic: no adenopathy - MUSCULOSKELETAL Back Exam: normal inspection, no CVA tenderness, no vertebral tenderness Extremity: normal range of motion, non-tender, pedal edema (BLE 1+ pitting edema ) - SKIN Integumentary: normal color, normal turgor, warm/dry - NEUROLOGIC Neurologic: grossly normal, no motor/sensory deficits - PSYCHIATRIC Psych/Mental Status: normal mood/affect, normal thought content, normal thought process, oriented x 3 Progress - PLAN OF CARE/RESULTS Progress/Plan/Lab Results: Vital Signs - 8 hr 06/13/18 16:19 06/13/18 17:58 Temperature 98.0 F 97.8 F Pulse Rate 65 65 Respiratory Rate 18 18 Blood Pressure 125/62 132/72 O2 Sat by Pulse Oximetry 99 100 Laboratory Results - last 24 hr 06/13/18 06/13/18 06/13/18 16:27 16:27 16:27 WBC 5.92 RBC 3.61 L Hgb 11.3 L Hct 34.4 L MCV 95.3 MCH 31.3 H MCHC 32.8 L RDW Std Deviation 13.9 Plt Count 188 MPV 10.1 Immature Gran % (Auto) 0.0 Neut % (Auto) 61.0 Lymph % (Auto) 30.4 Baldwin % (Auto) 7.1 Eos % (Auto) 0.8 Baso % (Auto) 0.7 Immature Gran # (Auto) 0.00 Neut # (Auto) 3.61 Lymph # (Auto) 1.80 Baldwin # (Auto) 0.42 Eos # (Auto) 0.05 Baso # (Auto) 0.04 Sodium 132 L Potassium 4.8 Chloride 96 L Carbon Dioxide 24 L Anion Gap 12 BUN 43 H Creatinine 1.3 H Estimated GFR/1.73 m2 43 BUN/Creatinine Ratio 33 Glucose 180 H Calculated Osmolality 280 Calcium 9.2 Total Bilirubin 0.84 AST 26 ALT 28 Alkaline Phosphatase 174 H Ngt-G-Loyhfjlhycc Pept 21560 H Total Protein 6.7 Albumin 3.7 Globulin 3.0 Albumin/Globulin Ratio 1.2 Orders Category Date Time Status Garcia Cath Insertion ORDERED Care 06/13/18 21:37 Active Saline Loc NOW Care 06/13/18 21:36 Active CHEST-2 VIEWS [RAD] Stat Exams 06/13/18 21:02 Completed CBC WITH ELECTRONIC DIFF [HEME] Stat Lab 06/13/18 16:27 Completed COMPREHENSIVE METABOLIC PANEL [CHEM] Stat Lab 06/13/18 16:27 Completed UA [URINALYSIS W/POSS RFLX CULT] [URINALYSIS] Stat Lab 06/13/18 22:01 Uncollected pro-bnp [PRO B-NATRIURETIC PEPTIDE] Stat Lab 06/13/18 16:27 Completed Furosemide [Lasix] Med 06/13/18 21:37 Discontinued 80 mg IV NOW ONE Result Diagrams: 06/14/18 05:04 06/16/18 06:13 - XRAY 1 XRAY Study: Chest Impression: Abnormal (Signed EXAM: CHEST-2 VIEWS HISTORY: edema TECHNIQUE: Chest two views COMPARISON: 01/13/2018 FINDINGS: The lungs are well expanded. The heart is mildly prominent and there is a left-sided pacemaker. The vessels are not distended. There are no infiltrates or recurrent study. No pleural effusions. There has been surgery to the lower neck. IMPRESSION: Mild cardiomegaly. Electronically signed by Valerio Adan 2018 9:51 PM 06/13/18 [id number] Interpreting Physician: Valerio Adan MD Dictated Date/Time: 06/13/182149 cc: Darshan Campos MD; Kelsey Davis MD) Comparison with other Films: no changes (01/13/18) - CONSULTS/PCP/HOSPITALIST Notification #1 *Consult/PCP/Hospitalist*: Dr Wilkinson Time Discussed: 22:55 Reason/Comments: plan of care for pt admit Consult Disposition: Admit Departure - Departure Date of Disposition Decision: 06/13/18 Time of Disposition Decision: 23:16 DIAGNOSIS: Edema Disposition: ADMITTED INPATIENT 09 Certified Medical Emergency: Emergent Condition: Good - Critical Care Note This patient required my direct & personal management of CC.: No Attestation - Physician/ NANNETTE Attestation Patient care was provided by Advanced Practice Provider:: No The physician spent face to face time with patient:: Yes Advanced Practice Provider documentation review:: Supervising physician onsite and consulted in the evaluation and care of this patient. The physician did have a face to face encounter with the patient. This chart was documented by the indicated scribe, (Emy Gannon, [employer]) and accurately reflects the services I performed and decisions made by me, Darshan Campos MD, as attested by the provider's signature.
== END 2018-06-16 13:31 | disposition home or self-care (01) | DRG 291 ==
LOC: ED 16:08 → SUATTDRO 06-14 00:25 → EDIPHOLD 06-14 00:25 → 4N 06-14 18:12
PROVIDERS: ATTEND Internal Medicine
CPT/HCPCS: 36415; 51702; 71020; 71046; 76700; 80048; 80053; 80074; 81001; 82948; 82977; 83036; 83735; 83880; 85025; 85610; 85730; 93005; 93306; 94640; 94761; 96372; 96374; 96376; 99285; A9270; J1644; J1815; J1940; XXXXX

== ENCOUNTER 2018-08-17 00:38 | Inpatient (IN) ==
[2018-08-17] MEDS ORDERED: LASIX IV ONE (01:05)
[2018-08-17 01:42] LABS: BASO# 0.04 X1000 (0.0-0.2); BASO% 0.7 % (0.0-0.8); EOS# 0.06 X1000 (0.0-0.7); EOS% 1.1 % (0.0-10.0); HEMATOCRIT 37.1 % (37.0-47.0); HEMOGLOBIN 12.4 g/dL (12.0-16.0); LYMPH# 1.39 X1000 (1.2-3.4); LYMPH% 24.6 % (20.5-51.1); MCH 31.3 PG (27-31); MCHC 33.4 g/dL (33-37); MCV 93.7 FL (81-99); MONO# 0.54 X1000 (0.11-0.59); MONO% 9.5 % (1.7-9.3); MPV 10.4 FL (7.4-10.4); NEUT# 3.63 X1000 (1.4-6.5); NEUT% 64.1 % (42.2-75.2); PLT 259 X1000 (130-400); RBC 3.96 XMIL (4.2-5.4); RDW 15.5 % (11.5-14.5); WBC 5.66 X1000 (4.8-10.8)
[2018-08-17 02:01] LABS: ALB/GLOB RATIO 1.2; ALBUMIN 3.7 g/dL (3.5-5.0); CALCIUM 9.2 mg/dL (8.8-10.2); CREATININE 1.3 mg/dL (0.5-0.9); POTASSIUM 5.4 mmol/L (3.5-5.1); TOTAL BILIRUBIN 0.9 mg/dL (0.20-1.00); TOTAL PROTEIN 6.9 g/dL (6.3-8.3)
--- NOTE | 2018-08-17 02:45 | PROVIDER DOCUMENTATION ---
This chart was entered by Radha Avery Scribe, acting as scribe for Juan Pride MD. HPI-General Adult - General Stated Complaint: FLUID RETENION Time Seen by Provider: 08/17/18 01:05 Source: patient Allergies/Adverse Reactions: Patient Allergies Allergy/AdvReac Type Severity Reaction Status Date / Time No Known Allergies Allergy Verified 12/13/16 06:23 Home Medications: Home Medication List Medication Instructions Recorded Confirmed Last Taken Type Digoxin [Digox] 250 mcg PO DAILY 04/02/16 06/14/18 01/08/18 08:00 History Gabapentin [Gralise] 1,800 mg PO HS 10/15/16 06/14/18 01/08/18 21:00 History Clopidogrel [Plavix] 75 mg PO DAILY #30 tablet 11/12/16 06/14/18 01/08/18 08:00 Rx Hydrocodone/Acetaminophen [[place] 1 each PO TID PRN 12/13/16 06/14/18 01/09/18 13:00 History 10-325 Tablet] Metformin [Glucophage] 1,000 mg PO DAILY 12/09/17 06/14/18 01/08/18 08:00 History Sacubitril/Valsartan [Entresto 24 1 each PO DAILY 12/09/17 06/14/18 01/08/18 21:00 History mg-26 mg Tablet] Trazodone HCl 50 mg PO HS 12/09/17 06/14/18 01/08/18 21:00 History Spironolactone [Aldactone] 25 mg PO DAILY 30 Days #30 tab 12/12/17 06/14/18 01/08/18 08:00 Rx Methocarbamol [Robaxin-750] 750 mg PO TID PRN 01/09/18 06/14/18 01/09/18 13:00 History Gabapentin [Gralise] 600 mg PO DAILY 06/14/18 06/14/18 Unknown History Carvedilol [Coreg] 6.25 mg PO Q12H #60 tab 06/16/18 Unknown Rx Furosemide 40 mg PO BID #60 tab 06/16/18 Unknown Rx Nicotine Patch [Nicoderm Patch] 21 mg TD DAILY patch.td24 06/16/18 Unknown Rx - History of Present Illness -Gen Adult Nature of Presenting Problems: 53 yof presents to ED with SOB due to increased fluid retention over the last 2 weeks. Pt states she normally weighs 250lbs but weighed 291lbs on Tuesday. Pt has HX of CHF. Pt states she has a scheduled cardiology appointment on 08/29/18. Review of Systems - Adult - REVIEW OF SYSTEMS - ADULT Constitutional: reports: see HPI, fatique. denies: chills, fever Eyes: reports: no symptoms reported Ears, Nose, Mouth & Throat: reports: no symptoms reported Cardiovascular: reports: see HPI, edema Respiratory: reports: see HPI, shortness of breath Gastrointestinal: reports: no symptoms reported Genitourinary: reports: no symptoms reported Musculoskeletal: reports: no symptoms reported Integumentary: reports: no symptoms reported Neurological: reports: no symptoms reported Psychiatric: reports: no symptoms reported Endocrine: reports: no symptoms reported Hematologic/Lymphatic: reports: no symptoms reported Allergic/Immunologic: reports: no symptoms reported All Other Systems: Reviewed and Negative Past History - Adult - PAST MEDICAL HISTORY-ADULT Review of Records: reports: Old Records Reviewed, Nursing Assessment Review, Medications Reviewed Major Childhood Illnesses: reports: denies history Cardiovascular: reports: CAD, CHF, hyperlipidemia, other (ACID) Respiratory: reports: COPD Gastrointestinal: reports: denies history Obstetrical/Gynecological: reports: denies history Genitourinary: reports: denies history Musculoskeletal: reports: cancer (cervical) Neurological: reports: denies history Endocrine/Immune: reports: Diabetes Other Conditions: reports: denies history - PRIOR SURGERIES/PROCEDURES Surgical/Procedure History: reports: hysterectomy, other (ACID/BREAST REDUCTION/CERVICAL FUSION) - IMMUNIZATION STATUS Childhood Immunizations: See Nurse Assessment Flu Vaccine: See Nurse Assessment - FAMILY HISTORY Family History: reviewed, not pertinent - SOCIAL HISTORY Smoking: cigarettes, greater than 1 pack/day Provider spent 3-5 mins advising pt. on dangers of tobacco.: Discussed manners to quit use, and f/u contacts for add'l counseling. Physical Exam-General - CONSTITUTIONAL General Appearance: appears well - EYES Eyes: PERRL/EOMI - HEAD, EARS, NOSE, MOUTH & THROAT HENMT: normocephalic/atraumatic - NECK Neck: non-tender - RESPIRATORY Respiratory: crackles, rales - CARDIOVASCULAR Cardiovascular: regular rate, rhythm - GASTROINTESTINAL (ABDOMEN) Abdominal Exam: normal bowel sounds, non tender, soft - LYMPHATIC Lymphatic: no adenopathy - MUSCULOSKELETAL Back Exam: normal inspection Extremity: pedal edema - SKIN Integumentary: normal color - NEUROLOGIC Neurologic: crossband layer II-XII nml as tested - PSYCHIATRIC Psych/Mental Status: normal mood/affect Progress - PLAN OF CARE/RESULTS Progress/Plan/Lab Results: Laboratory Results - last 24 hr 08/17/18 00:51 POC Glucose 170 H Result Diagrams: 08/17/18 01:27 08/17/18 01:27 Departure - Departure Date of Disposition Decision: 08/17/18 Time of Disposition Decision: 01:05 DIAGNOSIS: Pleural effusion, NSTEMI (non-ST elevated myocardial infarction) Disposition: ADMITTED INPATIENT 09 Certified Medical Emergency: Emergent Condition: Stable Referrals and Follow-Ups: Kelsey Davis MD [Primary Care Provider] - Discharge Education: Tobacco Use Disorder - Critical Care Note This patient required my direct & personal management of CC.: No Attestation - Physician/ NANNETTE Attestation Patient care was provided by Advanced Practice Provider:: No The physician spent face to face time with patient:: Yes Advanced Practice Provider documentation review:: Supervising physician onsite and consulted in the evaluation and care of this patient. The physician did have a face to face encounter with the patient. This chart was documented by the indicated scribe, (Radha Avery Scribe) and accurately reflects the services I performed and decisions made by me, Juan Pride MD, as attested by the provider's signature.
[2018-08-17] MEDS ORDERED: ROBAXIN PO PRN (03:05)
[2018-08-17] MEDS ORDERED: COREG PO SCH (03:15)
[2018-08-17] MEDS: LOVENOX SUBQ SCH (03:15)
--- NOTE | 2018-08-17 04:11 | HISTORY AND PHYSICAL ---
PRIMARY CARE PHYSICIAN: Dr. Kelsey Davis. CHECKER AND PACKER: Dr. Bernardo Griffin. PRESENTING COMPLAINT: Excessive swelling and increase in weight. HISTORY OF PRESENTING COMPLAINT: Ms Patel is a 53-year-old female who is very well known to the hospitalist services, she has systolic congestive heart failure with ejection fraction of about 20%, type 2 diabetes mellitus, ischemic cardiomyopathy, dyslipidemia, hypertension. The patient came to the emergency department last night because of an increase of about 40 pounds in her weight. Ms. Patel refers that she is getting generalized swelling, especially in the lower extremities and around the abdominal wall. Ms. Patel is a very frequent patient here, she was last discharged from the hospital on 06/16/2018, after she spent about 3 days in the hospital. This will be her 2nd admission for the year so far. Ms. Patel refers to be taking her medications. I am not, however, very sure about her diet, especially her salt intake. Anyway, she presented to the ER and was evaluated by the ER physician, and we were consulted for admission because of what appears to be CHF exacerbation. PAST MEDICAL HISTORY: 1. Hypertension. 2. Coronary artery disease. 3. Congestive heart failure. 4. Ischemic cardiomyopathy. 5. Diabetes mellitus type 2. PAST SURGICAL HISTORY: 1. Pacemaker placement. 2. Left big toe amputation. 3. Vascular stenting in the left leg. 4. Breast reduction surgery. 5. Lumpectomy. 6. Hysterectomy. 7. C-spine fusion. FAMILY HISTORY: Positive for renal failure, diabetes, and heart failure. SOCIAL HISTORY: The patient smokes almost a pack a day and she has been doing that for the past 30 years. She denies any alcohol use or illicit drugs. Patient is . ALLERGIES: None. MEDICATIONS: Have been reviewed and have been reconciled. REVIEW OF SYSTEMS: Fourteen-point review of system conducted with Ms. Patel, is unremarkable except what we have in the HPI. Specifically, Ms. Patel denies any chest pain. Denies any diarrhea. No headaches. PHYSICAL EXAMINATION: VITAL SIGNS: Blood pressure is 144/82, pulse of 65, respirations 20, temperature 98.2 degrees. GENERAL: Ms. Patel is a 53-year-old female, she is in bed, no apparent distress. ENT: Mucosa is pink and moist. Anicteric. Acyanotic. NECK: Neck is supple. There is positive JVD. HEAD: Normocephalic and atraumatic. RESPIRATORY SYSTEM: Air entry is bilaterally reduced. There is diffuse bilateral crepitations. No accessory muscle use. CARDIOVASCULAR: Regular rate and rhythm. Did not hear any murmur, no rubs, no gallops. [place] beat is at the 6th intercostal space midclavicular to lateral clavicular line. GASTROINTESTINAL: Abdomen is soft, distended but nontender. Bowel sounds are present but hypoactive. EXTREMITIES: About 3+ pedal edema with changes in the lower extremities consistent with stasis dermatopathy. PETROPHYSICIST: Patient is awake, alert, oriented. There is no focal neurological deficit. Cranial nerves 2-12 have been grossly examined, unremarkable. Motor is 5/5 in all extremities. Sensation is intact. PSYCHIATRIC: Patient is very cooperative. IMAGING STUDIES: A chest x-ray shows diffuse interstitial infiltrates. The left heart border is not completely visualized. Pacemaker is in place. EKG shows a dual-chamber pacemaker rhythm. LABORATORY DATA: WBC is 5.66, hemoglobin is 12.4, platelet count of 259,000. Chemistry is also reviewed. ProBNP is 21,307. Troponin is minimally elevated is 0.176. The patient's diagnostic data from previous admission, an echocardiogram in June of this year shows an ejection fraction of 20% to 25%, with mildly dilated left ventricle, left atrium, dilation of the right ventricle and the right atrium as well. Pulmonary pressure was about 55 to 58. ASSESSMENT: Ms Patel is a 53-year-old female who is known to have congestive heart failure, presented because of increasing girth and weight. 1. Fluid overload with weight increase secondary to congestive heart failure exacerbation. We will continue with IV diuretic therapy. We are going to put in the Garcia catheter to be able to measure strict intake and outputs, and will consult Cardiology. 2. Severe dilated ischemic cardiomyopathy noted. We will start the patient on her home medications. 3. Diabetes mellitus. The patient normally takes metformin at home. This will be withheld and we will use sliding scale for now. 4. Hypertension, controlled. 5. Mildly elevated troponin, questionable for acute coronary syndrome. However, demand mismatch is also a possibility. We are going to be trending the troponin's. 6. Chronic kidney disease, stage IIIA, probably due to cardiorenal syndrome. We will continue addressing the fluid status. 7. Status post dual-chamber pacemaker, noted. PLAN: In general, Ms. Patel [facility]. We are going to put in a Garcia catheter to measure strict intakes and outputs. We will start the patient on IV diuretic therapy. We have also restarted her on her home medications. I have cut back the beta [place] (carvedilol) into half because patient is in acute exacerbation of her congestive heart failure. We will consult Cardiology and will give further recommendations during the hospital course. I have explained the entire plan to Ms. Patel and she is in agreement. Ms. Patel is also in agreement to have the Garcia catheter. cc: Mateo Hernandez MD
[2018-08-17 04:42] LABS: HEMOGLOBIN A1C 8.3 % (4.8-6.0)
[2018-08-17] MEDS: NORCO-10 PO PRN ×2 (06:47→17:55)
[2018-08-17] MEDS: HUMULIN R SUBQ SCH ×4 (07:00→21:29)
--- NOTE | 2018-08-17 07:35 | Diag Imaging Result Doc PS360 ---
CHEST-1 VIEW - 08/17/2018 INDICATION: pleural effusion, sob COMPARISON: 06/15/2018 FINDINGS: Stable biventricular pacemaker. Stable cardiomegaly. Pulmonary vascularity is normal. No infiltrates or edema. No pneumothorax or pleural effusion. IMPRESSION: Cardiomegaly. No change from prior. Electronically signed by Kelvin Cobos 08/17/2018 7:32 AM
--- NOTE | 2018-08-17 08:03 | EKG Report ---
Test Performed on : 08/17/2018 02:06:02 AM Test Reason : sob Blood Pressure : / mmHG Vent. Rate : 065 BPM Atrial Rate : 065 BPM P-R Int : 202 ms QRS Dur : 164 ms QT Int : 474 ms P-R-T Axes : 024 124 140 degrees QTc Int : 492 ms AV dual-paced rhythm Abnormal ECG When compared with ECG of 13-JUN-2018 23:11, Vent. rate has decreased BY 3 BPM Unconfirmed Result
[2018-08-17] MEDS: NICODERM PATCH TD SCH (09:00)
[2018-08-17] MEDS: LASIX IV SCH ×2 (09:00→17:47)
[2018-08-17] MEDS: PLAVIX PO SCH (09:00)
[2018-08-17] MEDS: LANOXIN PO SCH (11:38)
[2018-08-17] MEDS: ENTRESTO 24 MG-26 MG TABLET PO SCH (11:38)
[2018-08-17] MEDS: ALDACTONE PO SCH (11:39)
[2018-08-17] MEDS: GRALISE PO SCH ×2 (11:39→21:26)
[2018-08-17] MEDS: COREG PO SCH ×2 (11:39→21:25)
[2018-08-17 17:49] LABS: URINE SOURCE CATH
[2018-08-17] MEDS: ROBAXIN PO PRN (17:55)
[2018-08-17 18:02] LABS: BILIRUBIN URINE NEGATIVE (NEGATIVE); BLOOD URINE MODERATE (NEGATIVE); COLOR YELLOW; GLUCOSE URINE NEGATIVE (NEGATIVE); KETONE URINE NEGATIVE (NEGATIVE); LEUKOCYTES URINE NEGATIVE (NEGATIVE); NITRITE URINE NEGATIVE (NEGATIVE); PH URINE 5.5; PROTEIN URINE 70 mg/dL (NEGATIVE); SP GRAVITY URINE 1.009; TURBIDITY URINE CLEAR (CLEAR); UR EPITHELIAL CELLS <10 /HPF (<10); URINE BACTERIA NEGATIVE /HPF; URINE WBC <10 /HPF (<10); UROBILINOGEN URINE 2 mg/dL (NORMAL)
[2018-08-17] MEDS: DESYREL PO SCH (21:25)
[2018-08-18] MEDS: LASIX IV SCH ×3 (02:16→16:53)
[2018-08-18] MEDS: LOVENOX SUBQ SCH (02:16)
[2018-08-18 05:48] LABS: BASO# 0.03 X1000 (0.0-0.2); BASO% 0.6 % (0.0-0.8); EOS# 0.08 X1000 (0.0-0.7); EOS% 1.5 % (0.0-10.0); HEMATOCRIT 35.3 % (37.0-47.0); HEMOGLOBIN 11.7 g/dL (12.0-16.0); LYMPH# 1.49 X1000 (1.2-3.4); MCH 31.4 PG (27-31); MCHC 33.1 g/dL (33-37); MCV 94.6 FL (81-99); MONO# 0.56 X1000 (0.11-0.59); MONO% 10.5 % (1.7-9.3); MPV 9.9 FL (7.4-10.4); NEUT# 3.16 X1000 (1.4-6.5); NEUT% 59.4 % (42.2-75.2); PLT 221 X1000 (130-400); RBC 3.73 XMIL (4.2-5.4); RDW 15.5 % (11.5-14.5); WBC 5.32 X1000 (4.8-10.8)
[2018-08-18] MEDS: HUMULIN R SUBQ SCH ×4 (06:14→22:37)
[2018-08-18 06:28] LABS: ALBUMIN 3.1 g/dL (3.5-5.0); CALCIUM 7.9 mg/dL (8.8-10.2); CREATININE 1.4 mg/dL (0.5-0.9); MAGNESIUM 1.8 mg/dL (1.5-2.7); POTASSIUM 4.9 mmol/L (3.5-5.1); TOTAL BILIRUBIN 0.59 mg/dL (0.20-1.00); TOTAL PROTEIN 6.2 g/dL (6.3-8.3)
--- NOTE | 2018-08-18 08:11 | PROGRESS NOTE ---
DATE: 08/18/2018 SUBJECTIVE: The patient reports breathing better. We placed a Garcia catheter, and so far she has had a good urine output. She is not requiring any oxygen supplementation since admission. OBJECTIVE: Vital Signs: Temperature 98.7 degrees, heart rate 78, respiratory rate 17, blood pressure 137/73, and O2 saturation 100% on room air. General: This is a chronically ill-looking 53-year-old female lying in bed in no acute distress. HEENT: Head is normocephalic and atraumatic. Neck: No JVD noted. No carotid bruits. No lymphadenopathy. No thyromegaly. Cardiovascular: S1, S2 heard. No murmurs, gallops, or rubs. Regular rate and rhythm. Respiratory: Decreased air entry with mild crackles in both pulmonary bases, better in comparing with yesterday. Patient is not using any accessory muscles or having work of breathing. Abdomen: Soft. A little bit distended, but nontender to palpation. Bowel sounds present. No organomegaly. Extremities: 3+ pitting edema in both lower extremities. Neurological: The patient is awake, alert and moves 4 extremities. LABORATORY DATA: So far, CBC and BMP are stable. Creatinine is 1.4 today with glucose 188. ASSESSMENT/PLAN: 1. Acute systolic congestive heart failure exacerbation. That is the reason why the patient was admitted to the hospital. She has been started on Lasix 60 mg IV q.8 hours. She has had so far 2800 mL of urine since admission. At this point, we are going to continue with the same management. Cardiology has been consulted. We are awaiting recommendations. Tomorrow, we are going to check an x-ray PA and lateral. I think patient is stable to go to regular floor. We will continue to monitor. 2. Severe dilated ischemic cardiomyopathy as we mentioned above. 3. Diabetes mellitus type 2. The patient is on sliding scale insulin and Accu- Chek before meals. Patient usually takes metformin at home, but that medication has been held. 4. Hypertension. Blood pressure is under control. We will continue with same management. 5. Mildly elevated troponin's. Those have been trending down. We have checked it twice. I think that was demand mismatch, but she is not complaining of any chest pain. 6. Chronic kidney disease stage 3A. The creatinine is basically a little bit elevated. On checking her creatinine's from the last couple of years, that has been ranging from 1.1 to 1.3. Today is 1.4. I think we will need to continue with the Lasix. We will continue to check BMP daily. 7. Status post dual-chamber pacemaker, aware. 8. Disposition: As we mentioned before, the patient is able to go to a regular floor. Cardiology consult pending. We will follow recommendations. Will do an x-ray tomorrow morning PA and lateral. cc: Boubacar Elaine MD MTDD
[2018-08-18] MEDS: NICODERM PATCH TD SCH (09:01)
[2018-08-18] MEDS: ALDACTONE PO SCH (09:01)
[2018-08-18] MEDS: COREG PO SCH ×2 (09:01→22:33)
[2018-08-18] MEDS: PLAVIX PO SCH (09:01)
[2018-08-18] MEDS: LANOXIN PO SCH (09:01)
[2018-08-18] MEDS: ENTRESTO 24 MG-26 MG TABLET PO SCH (09:01)
[2018-08-18] MEDS: GRALISE PO SCH ×2 (11:41→22:34)
[2018-08-18] MEDS: ROBAXIN PO PRN (11:41)
[2018-08-18] MEDS: NORCO-10 PO PRN ×2 (11:42→22:36)
--- NOTE | 2018-08-18 13:16 | CARDIOLOGY CONSULTATION ---
DATE: 08/18/2018 IMPRESSION: 1. Acute on chronic systolic heart failure with major right-sided component. 2. Severe ischemic cardiomyopathy. Left ventricular ejection fraction approximately 20 TO 25%. 3. Poor compliance with sodium restriction. 4. Probable obstructive sleep apnea. 5. Hyperlipidemia. 6. Obesity. 7. Type 2 diabetes mellitus. RECOMMENDATIONS: 1. Diurese with intravenous Lasix. 2. Patient counseled. Will need to restrict sodium intake. 3. Smoking cessation strongly advised. 4. Ultimately patient needs to be screened for obstructive sleep apnea with sleep study. HISTORY: This 53-year-old white female with past history of severe ischemic cardiomyopathy, previous coronary angioplasty/stent procedure, previous implantable defibrillator, obesity, type 2 diabetes mellitus, hyperlipidemia, and chronic cigarette use, has had multiple admissions for congestive heart failure over the past 12 months. She presented with significant weight gain coupled with shortness of breath over several weeks. Symptoms have been progressing pretty much for the past month. She relates that her diuretic did not seem to help much. She had increasing abdominal fullness and started having some orthopnea prompting her to come on in. She has also had significant edema. She does not restrict her sodium intake, despite previous advice regarding this. She also continues to smoke cigarettes. PAST MEDICAL HISTORY: 1. Chronic congestive heart failure. 2. Severe ischemic cardiomyopathy with left ejection fraction approximately 20 to 25%. 3. Status post previous angioplasty/stent of the right coronary artery. 4. Status post implantable defibrillator. 5. Type 2 diabetes mellitus. 6. Obesity. 7. Hyperlipidemia. 8. Status post right toe amputation. 9. She has no known drug allergies. MEDICATIONS PRIOR TO ADMISSION: As listed. SOCIAL HISTORY: She lives with her . She is still smokes a pack of cigarettes daily. She does not use alcohol. FAMILY HISTORY: Positive for coronary disease. REVIEW OF SYSTEMS: Pulmonary: Noteworthy for dyspnea and orthopnea. Gastrointestinal: Negative/noncontributory. Constitutional: Noteworthy for progressive weight gain of over 30 pounds. Remainder of review of systems negative/noncontributory with 14 total systems reviewed. PHYSICAL EXAMINATION: General: This is an obese middle-aged female in no distress on room air. Vital signs: Blood pressure 132/75 heart rate 66, oxygen saturation 100% on room air. HEENT: Extraocular movements intact. Mucous membranes are moist. Neck: Supple with this significant jugular distention evident consistent with jugular venous pressure of greater than 14 cm. There are no carotid bruits auscultated. Chest: Reveals some diminished breath sounds at the bases bilaterally. Cardiac Exam: Reveals a regular rate and rhythm without appreciable murmur or gallop. Abdomen: Somewhat distended, nontender, bowel sounds are normal. Extremities: Demonstrate mild to moderate pretibial edema. Neurologic: Reveals her to be alert and fully oriented. Speech is fluent. She moves all 4 extremities equally well. Skin: Warm dry. Psychiatric: Reveals her mood to be appropriate. PERTINENT DATA: A 12-lead electrocardiogram demonstrates AV dual paced rhythm. LABORATORY DATA: Includes white blood cell count 5.32 hematocrit 35.3, hemoglobin 11.7, platelet count 221,000. Sodium 137, potassium 4.9, chloride 102, carbon dioxide 27, BUN 37, creatinine 1.4, glucose 188. Magnesium 1.8. Albumin 3.1. Troponin T 0.17, pro B-natriuretic peptide level 21,306. cc: Harsha Ballesteros MD
[2018-08-18] MEDS: DESYREL PO SCH (22:33)
[2018-08-19] MEDS: LASIX IV SCH ×3 (01:30→18:49)
[2018-08-19] MEDS: LOVENOX SUBQ SCH (02:58)
[2018-08-19 05:58] LABS: BASO# 0.03 X1000 (0.0-0.2); BASO% 0.6 % (0.0-0.8); EOS# 0.07 X1000 (0.0-0.7); EOS% 1.5 % (0.0-10.0); HEMATOCRIT 33.8 % (37.0-47.0); LYMPH# 1.37 X1000 (1.2-3.4); LYMPH% 28.7 % (20.5-51.1); MCH 30.5 PG (27-31); MCHC 32.5 g/dL (33-37); MCV 93.6 FL (81-99); MONO# 0.43 X1000 (0.11-0.59); NEUT# 2.87 X1000 (1.4-6.5); NEUT% 60.2 % (42.2-75.2); PLT 214 X1000 (130-400); RBC 3.61 XMIL (4.2-5.4); RDW 15.1 % (11.5-14.5); WBC 4.77 X1000 (4.8-10.8)
[2018-08-19] MEDS: HUMULIN R SUBQ SCH ×4 (06:27→22:39)
[2018-08-19 06:28] LABS: ALB/GLOB RATIO 1.1; ALBUMIN 3.4 g/dL (3.5-5.0); CALCIUM 8.6 mg/dL (8.8-10.2); CREATININE 1.2 mg/dL (0.5-0.9); POTASSIUM 4.6 mmol/L (3.5-5.1); TOTAL BILIRUBIN 0.75 mg/dL (0.20-1.00); TOTAL PROTEIN 6.4 g/dL (6.3-8.3)
[2018-08-19] MEDS: NICODERM PATCH TD SCH (09:50)
[2018-08-19] MEDS: LANOXIN PO SCH (09:54)
[2018-08-19] MEDS: PLAVIX PO SCH (09:56)
[2018-08-19] MEDS: ALDACTONE PO SCH (09:56)
[2018-08-19] MEDS: GRALISE PO SCH ×2 (09:56→22:38)
[2018-08-19] MEDS: COREG PO SCH ×2 (09:56→22:38)
[2018-08-19] MEDS: ENTRESTO 24 MG-26 MG TABLET PO SCH (10:03)
--- NOTE | 2018-08-19 10:57 | Diag Imaging Result Doc PS360 ---
CHEST-2 VIEWS - 08/19/2018 INDICATION: acute chf COMPARISON: 08/17/2018 FINDINGS: Stable biventricular pacemaker. Stable cardiomegaly. Pulmonary vascularity is grossly normal. There are probably trace pleural effusions. IMPRESSION: Cardiomegaly. Trace pleural effusions. Electronically signed by Kelvin Cobos 08/19/2018 10:54 AM
--- NOTE | 2018-08-19 13:15 | PROGRESS NOTE ---
DATE: 08/19/2018 SUBJECTIVE: The patient is resting comfortably in bed. She is sleepy, but arousable. She is answering my questions. She is breathing a little bit better, so far we have a negative balance of 6.6 L. We will continue with the same management. Cardiology Department on board. OBJECTIVE: Vital Signs: Temperature 97.9 degrees, pulse 65, respiratory rate 20, blood pressure 123/63, oxygen saturation 94% on room air. HEENT: Head normocephalic. No trauma. PERRLA. Neck: Supple. She does have a JVD, central trachea. Chest: Decreased breath sounds with some crackles at the bases. Abdomen: Soft. Nontender, nondistended. Some abdominal wall edema mostly on the sides. Extremities: 3+ pitting edema bilaterally, lower extremities. Neurological examination: This patient is sleepy, but arousable. She is following commands. LABORATORY: WBC 4.7, hemoglobin 11, hematocrit 33.8, platelets 214. Sodium 134, potassium 4.6, chloride 100, bicarbonate 26. BUN 35, creatinine 1.2, glucose 170, calcium 8.6. AST 15, ALT 8, alkaline phosphatase 145, albumin 3.4. ASSESSMENT AND PLAN: 1. Systolic congestive heart failure exacerbation. Will continue with Lasix three times a day. So far 6.6 L negative balance has been removed. I will continue with the same management since the kidney function is tolerating this well. Chest x-ray showed some pleural effusion, cardiomegaly. 2. Severely dilated ischemic cardiomyopathy, aware. Cardiology on board. 3. Type 2 diabetes. Continue with sliding scale insulin and pattern of blood sugar. 4. Hypertension, stable. 5. Mild elevation of troponins. She is not complaining of chest pain at this moment. I do not think she has an acute coronary syndrome. 6. Chronic kidney disease stage III-A, stable. I think this is her baseline. 7. Status post dual chamber pacemaker, aware. DISPOSITION: I will follow Cardiology recommendations. She is still having some fluid overload. She is still having some shortness of breath, but she is breathing better. We are still using IV Lasix. So far we have removed 6.6 L. She feels better. cc: Marcin Lozano MD
[2018-08-19] MEDS: DESYREL PO SCH (22:38)
[2018-08-19] MEDS: NORCO-10 PO PRN (22:51)
[2018-08-20] MEDS: LOVENOX SUBQ SCH (01:49)
[2018-08-20] MEDS: LASIX IV SCH (01:50)
[2018-08-20 06:01] LABS: BASO# 0.03 X1000 (0.0-0.2); BASO% 0.6 % (0.0-0.8); EOS# 0.06 X1000 (0.0-0.7); EOS% 1.1 % (0.0-10.0); HEMATOCRIT 31.6 % (37.0-47.0); HEMOGLOBIN 10.3 g/dL (12.0-16.0); LYMPH# 1.39 X1000 (1.2-3.4); LYMPH% 26.6 % (20.5-51.1); MCH 30.6 PG (27-31); MCHC 32.6 g/dL (33-37); MCV 93.8 FL (81-99); MONO# 0.62 X1000 (0.11-0.59); MONO% 11.9 % (1.7-9.3); MPV 9.9 FL (7.4-10.4); NEUT# 3.13 X1000 (1.4-6.5); NEUT% 59.8 % (42.2-75.2); PLT 204 X1000 (130-400); RBC 3.37 XMIL (4.2-5.4); RDW 15.2 % (11.5-14.5); WBC 5.23 X1000 (4.8-10.8)
[2018-08-20 06:33] LABS: ALB/GLOB RATIO 1.3; ALBUMIN 3.3 g/dL (3.5-5.0); CALCIUM 8.6 mg/dL (8.8-10.2); CREATININE 1.4 mg/dL (0.5-0.9); POTASSIUM 4.8 mmol/L (3.5-5.1); TOTAL BILIRUBIN 0.62 mg/dL (0.20-1.00); TOTAL PROTEIN 5.8 g/dL (6.3-8.3)
[2018-08-20] MEDS: HUMULIN R SUBQ SCH ×4 (06:53→22:22)
[2018-08-20] MEDS ORDERED: LASIX IV SCH (08:45)
[2018-08-20] MEDS: ENTRESTO 24 MG-26 MG TABLET PO SCH (11:03)
[2018-08-20] MEDS: GRALISE PO SCH ×2 (11:03→22:27)
[2018-08-20] MEDS: COREG PO SCH ×2 (11:03→22:28)
[2018-08-20] MEDS: PLAVIX PO SCH (11:03)
[2018-08-20] MEDS: LANOXIN PO SCH (11:03)
[2018-08-20] MEDS: ALDACTONE PO SCH (11:04)
[2018-08-20] MEDS: NICODERM PATCH TD SCH (11:04)
--- NOTE | 2018-08-20 13:32 | PROGRESS NOTE ---
DATE: 08/20/2018 SUBJECTIVE: No acute events overnight. Today, she is completely alert and oriented x3. She is not having chest pain or shortness of breath. So far we have removed around 10.1 L. I have decreased the dose and frequency of the Lasix because there is a slight increase on the BUN and creatinine. I have placed this patient on 40 IV twice a day of Lasix. OBJECTIVE: Vital Signs: Temperature 98.2 degrees, pulse [*], respiratory rate 16, blood pressure 134/77, oxygen saturation 98 on room air. HEENT: Head normocephalic, no trauma. PERRLA. Neck: Supple. No JVD. No masses. Central trachea. Chest: Decreased breath sounds with some crackles at the bases. Abdomen: Soft, nontender, nondistended. Some abdominal wall edema on her back. Extremity: 2 to 3+ lower extremity edema bilaterally. Neurological: The patient is alert and oriented x3. No focal deficits. LABORATORY: WBC 5.2, hemoglobin 10.3, hematocrit 31.6, platelets 204,000. Sodium 138, potassium 4.8, chloride 100, bicarbonate 29, BUN 39, creatinine 1.4, glucose 183, calcium 8.6. ProBNP 17,788. ASSESSMENT AND PLAN: 1. Systolic congestive heart failure exacerbation. Continue with Lasix which I have decreased the dose to 40 twice a day. So far, a little bit more than 10 L out. We will continue to monitor. Cardiology department on board. 2. Severe dilated ischemic cardiomyopathy. Aware. Cardiology on board. 3. Type 2 diabetes. Continue with sliding scale insulin and pattern of blood sugar. 4. Hypertension, stable. 5. Mild elevation of troponins. She is not complaining of chest pain at this moment. I do not think she has an acute coronary syndrome. She does have chronic kidney disease that also can be causing these elevated troponins. 6. Chronic kidney disease, stage 3A, stable. I think the this is her baseline. We will monitor. 7. Status post dual chamber pacemaker. Aware. cc: Marcin Lozano MD
[2018-08-20] MEDS: ROBAXIN PO PRN (22:28)
[2018-08-20] MEDS: DESYREL PO SCH (22:29)
[2018-08-20] MEDS: NORCO-10 PO PRN (22:29)
[2018-08-21] MEDS: HUMULIN R SUBQ SCH ×4 (06:11→22:13)
[2018-08-21] MEDS: LOVENOX SUBQ SCH (06:15)
--- NOTE | 2018-08-21 06:54 | EKG Report ---
Test Performed on : 08/19/2018 06:30:12 AM Test Reason : dyspnea Blood Pressure : / mmHG Vent. Rate : 065 BPM Atrial Rate : 065 BPM P-R Int : 224 ms QRS Dur : 166 ms QT Int : 462 ms P-R-T Axes : 027 134 138 degrees QTc Int : 480 ms AV dual-paced rhythm with prolonged AV conduction Abnormal ECG When compared with ECG of 17-AUG-2018 02:06, (Unconfirmed) No significant change was found Unconfirmed Result
[2018-08-21 07:13] LABS: ALB/GLOB RATIO 1.4; ALBUMIN 3.4 g/dL (3.5-5.0); CALCIUM 8.6 mg/dL (8.8-10.2); CREATININE 1.3 mg/dL (0.5-0.9); POTASSIUM 4.5 mmol/L (3.5-5.1); TOTAL BILIRUBIN 0.81 mg/dL (0.20-1.00); TOTAL PROTEIN 5.8 g/dL (6.3-8.3)
[2018-08-21] MEDS: GRALISE PO SCH ×2 (09:27→22:15)
[2018-08-21] MEDS: ENTRESTO 24 MG-26 MG TABLET PO SCH (09:27)
[2018-08-21] MEDS: PLAVIX PO SCH (09:27)
[2018-08-21] MEDS: ALDACTONE PO SCH (09:27)
[2018-08-21] MEDS: COREG PO SCH ×2 (09:27→22:15)
[2018-08-21] MEDS: NICODERM PATCH TD SCH (09:27)
[2018-08-21] MEDS: LANOXIN PO SCH (09:27)
[2018-08-21] MEDS: LASIX IV SCH ×2 (09:46→18:43)
[2018-08-21] MEDS: NORCO-10 PO PRN ×2 (11:53→19:40)
[2018-08-21] MEDS: ROBAXIN PO PRN ×2 (11:54→19:40)
--- NOTE | 2018-08-21 12:55 | PROGRESS NOTE ---
DATE: 08/21/2018 SUBJECTIVE: No acute events overnight. She is alert and oriented x3. She is not having chest pain. She is getting better. Mild shortness of breath. So far we have a negative balance of 12.5 L. Cardiology Department following this patient. We will continue to monitor. OBJECTIVE: Vital Signs: Temperature 97.8 degrees, pulse 64, respiratory rate 18, blood pressure 134/80, oxygen saturation 100% on room air. HEENT: Head normocephalic. No trauma. PERRLA. Neck: Supple. No JVD. No masses. Central trachea. Chest: Decreased breath sounds with some crackles at the bases. Abdomen: Soft, nontender, nondistended. Some abdominal wall edema mostly on her sides. Extremities: There is 2+ to 3+ lower extremity edema bilaterally. Neurological: The patient is alert and oriented x3. No focal deficits. LABORATORY: Sodium 136, potassium 4.5, chloride 97, bicarbonate 28, BUN 41, creatinine 1.3, glucose 173, calcium 8.6. Albumin 3.4. ASSESSMENT AND PLAN: 1. Systolic congestive heart failure exacerbation, continue with Lasix 40 IV twice a day. So far, she has a negative balance of 12.5 L. We will continue to monitor. Cardiology on board. I will follow their recommendations. 2. Severe dilated ischemic cardiomyopathy. Her last echocardiogram was done a couple of months ago and showed a dilated cardiomyopathy with an ejection fraction of 20 to 25 percent, markedly dilated left ventricle and left atrium, also significant dilation of the right ventricle and right atrium. Pulmonary pressure is 53 to 58 [*] diastolic dysfunction present as well as pleural effusion. 3. Type 2 diabetes. Continue with the same management. Stable. Sliding scale insulin and pattern of blood sugar. 4. Hypertension. Stable. 5. Mild elevation of the troponins. I do not think this patient has an acute coronary syndrome. Likely this is elevated due to her heart condition and chronic kidney disease. 6. Chronic kidney disease stage 3a. Stable. I think this is her baseline. We will monitor. 7. Status post dual chamber pacemaker, aware. 8. We will recommend a sleep study upon discharge. cc: Marcin Lozano MD
--- NOTE | 2018-08-21 16:52 | PROGRESS NOTE ---
DATE: 08/21/2018 SUBJECTIVE: The patient continues without shortness of breath or dyspnea. OBJECTIVE: Vital Signs: Blood pressure 134/80. Heart rate 64, oxygen saturation 100% on room air. Neck: There is no significant jugular venous distention. Chest: Clear to auscultation. Cardiac Exam: Reveals a regular rate and rhythm without appreciable murmur or gallop. Extremities: Demonstrate mild pretibial edema. LABORATORY DATA: Includes a sodium 136, potassium 4.5, chloride 97, carbon dioxide 28, BUN 41, creatinine 1.3, glucose 202. IMPRESSION: 1. Acute on chronic systolic heart failure with major right-sided component. 2. Severe ischemic cardiomyopathy with left ejection fraction 20%-25%. 3. Poor compliance with sodium restriction. 4. Probable obstructive sleep apnea. 5. Obesity. 6. Hyperlipidemia. 7. Type 2 diabetes mellitus. RECOMMENDATIONS: 1. Continue diuresis with intravenous Lasix. 2. The patient counseled regarding need to restrict sodium intake. 3. Smoking cessation strongly advised. 4. Ultimately, the patient needs to be screened for obstructive sleep apnea with sleep study. cc: Harsha Ballesteros MD
[2018-08-21] MEDS: DESYREL PO SCH (22:15)
[2018-08-22] MEDS: HUMULIN R SUBQ SCH ×4 (06:24→22:49)
[2018-08-22] MEDS: LOVENOX SUBQ SCH (06:24)
[2018-08-22 07:45] LABS: CREATININE 1.4 mg/dL (0.5-0.9); POTASSIUM 4.8 mmol/L (3.5-5.1)
[2018-08-22] MEDS: LASIX IV SCH ×2 (07:53→18:41)
[2018-08-22] MEDS: LANOXIN PO SCH (08:13)
[2018-08-22] MEDS: COREG PO SCH ×2 (08:13→20:39)
[2018-08-22] MEDS: ENTRESTO 24 MG-26 MG TABLET PO SCH (08:14)
[2018-08-22] MEDS: GRALISE PO SCH ×2 (08:15→20:39)
[2018-08-22] MEDS: NICODERM PATCH TD SCH (08:15)
[2018-08-22] MEDS: PLAVIX PO SCH (08:16)
[2018-08-22] MEDS: ALDACTONE PO SCH (08:24)
[2018-08-22] MEDS: ROBAXIN PO PRN (12:57)
[2018-08-22] MEDS: NORCO-10 PO PRN (13:00)
--- NOTE | 2018-08-22 14:23 | PROGRESS NOTE ---
DATE: 08/22/2018 SUBJECTIVE: This patient is feeling better. She is oriented x3. She is not complaining of chest pain. She is still having some shortness of breath, mostly with physical activity. So far a negative balance of 13.5 L. OBJECTIVE: Vital Signs: Temperature 97.9 degrees, pulse 65, respiratory rate 18, blood pressure 127/68, oxygen saturation 97% on room air. HEENT: Head normocephalic, no trauma. PERRLA. Neck: Supple. No JVD. No masses. Central trachea. Chest: Decreased breath sounds globally with some crackles at the bases. Abdomen: Soft, nontender, nondistended. Abdominal wall edema, mostly on her sides. Extremities: There is 2 to 3+ lower extremity edema bilaterally. No clubbing. No cyanosis. Neurological: The patient is alert and oriented x3. No focal deficits. LABORATORY: Sodium 131, potassium 4.8, chloride 93, bicarbonate 29, BUN 43, creatinine 1.4, glucose 201 calcium 9. ProBNP 12,916. ASSESSMENT AND PLAN: 1. Systolic congestive heart failure exacerbation. Continue with Lasix IV twice a day. So far, we have a negative balance of 13.5 L. We will continue to monitor. Cardiology on board. I will continue following their recommendations. They evaluated this patient yesterday and they recommended to continue with diuresis. 2. Severe dilated ischemic cardiomyopathy. Her last echocardiogram was done a couple months ago and showed dilated cardiomyopathy with an ejection fraction of 20 to 25%, markedly dilated left ventricular and left atrium, significant dilation of the right ventricle and right atrium as well. Pulmonary pressure is elevated. Diastolic dysfunction present as well as pleural effusion. 3. Type 2 diabetes. Continue with same management. Stable. 4. Hypertension, stable. 5. Mild elevation of the troponins, likely secondary to chronic kidney disease. I do not think she is having an acute coronary syndrome. 6. Chronic kidney disease stage 3A, stable. Baseline. 7. Status post dual-chamber pacemaker. Aware. 8. We will recommend a sleep study upon discharge. cc: Marcin Lozano MD
--- NOTE | 2018-08-22 15:52 | PROGRESS NOTE ---
DATE: 08/22/2018 CARDIOLOGY FOLLOWUP NOTE: SUBJECTIVE: Patient continues without chest discomfort or shortness of breath. She still relates some abdominal fullness and peripheral swelling. OBJECTIVE: Vital Signs: Blood pressure 127/68, heart rate 65, oxygen saturation 97% on room air. Neck: There is no significant jugular venous distention. Chest: Clear to auscultation. Cardiac: Exam reveals a regular rate and rhythm without appreciable murmur or gallop. Extremities: Demonstrate very mild pretibial edema. LABORATORY DATA: Includes a sodium 131, potassium 4.8, chloride 93, carbon dioxide 29, BUN 43, creatinine 1.4, glucose 201. IMPRESSION: 1. Acute on chronic systolic heart failure with major right-sided component. 2. Severe ischemic cardiomyopathy with left ventricular ejection fraction of 20-25%. 3. Poor compliance with sodium restriction. 4. Probable obstructive sleep apnea. 5. Obesity. 6. Hyperlipidemia. 7. Type 2 diabetes mellitus. RECOMMENDATIONS: 1. Continue diuresis with twice daily IV Lasix 1 more day. 2. Patient again counseled regarding need to restrict sodium intake and smoking cessation. 3. Ultimately, patient needs to be screened for obstructive sleep apnea following discharge. cc: Harsha Ballesteros MD
[2018-08-22] MEDS: DESYREL PO SCH (20:39)
[2018-08-23] MEDS: LOVENOX SUBQ SCH (05:56)
[2018-08-23] MEDS: LASIX IV SCH ×2 (06:55→18:35)
[2018-08-23] MEDS: HUMULIN R SUBQ SCH ×4 (07:10→21:16)
[2018-08-23 07:20] LABS: CALCIUM 8.5 mg/dL (8.8-10.2); CREATININE 1.4 mg/dL (0.5-0.9); POTASSIUM 4.8 mmol/L (3.5-5.1)
[2018-08-23] MEDS: ROBAXIN PO PRN ×2 (09:09→18:35)
[2018-08-23] MEDS: COREG PO SCH ×2 (09:09→21:16)
[2018-08-23] MEDS: GRALISE PO SCH ×2 (09:09→21:15)
[2018-08-23] MEDS: LANOXIN PO SCH (09:09)
[2018-08-23] MEDS: NICODERM PATCH TD SCH (09:09)
[2018-08-23] MEDS: NORCO-10 PO PRN ×2 (09:10→18:35)
[2018-08-23] MEDS: PLAVIX PO SCH (09:10)
[2018-08-23] MEDS: ALDACTONE PO SCH (09:10)
[2018-08-23] MEDS: ENTRESTO 24 MG-26 MG TABLET PO SCH (09:10)
--- NOTE | 2018-08-23 14:49 | PROGRESS NOTE ---
DATE: 08/23/2018 SUBJECTIVE: She has no complaint of chest pain or shortness of breath at this moment. She is oriented x3. So far, 15.7 L we have removed, negative balance. The plan is to continue with IV Lasix today, and hopefully tomorrow probably we can send this patient home if everything is okay. OBJECTIVE: Vital Signs: Temperature 97.7 degrees, pulse 65, respiratory rate 22, blood pressure 120/57, oxygen saturation 98 on room air. HEENT: Head normocephalic, no trauma. PERRLA. Neck: Supple. Mild JVD. Central trachea. Chest: Decreased breath sounds globally with some rales and crackles at the bases. Abdomen: Soft, nontender, nondistended. Abdominal wall edema mostly on the sides. Extremities: 2+ lower extremity edema bilaterally. No clubbing, no cyanosis. Neurological: The patient is alert and oriented x3. No focal deficits. LABORATORY: Sodium 129, potassium 4.8, chloride 94, bicarbonate 26, BUN 47, creatinine 1.4, glucose 112, calcium 8.5. ASSESSMENT AND PLAN: 1. Systolic congestive heart failure (CHF) exacerbation. Continue with Lasix twice a day as recommended by Cardiology department. So far we have a negative balance of 15.7 L. Continue to monitor. We will follow recommendations. 2. Severe dilated ischemic cardiomyopathy. Last echocardiogram done 2 months ago showed a dilated cardiomyopathy with an ejection fraction of 20% to 25%, markedly dilated left ventricle and left atrium, significant dilation of the right ventricle and right atrium as well, pulmonary pressure is elevated, diastolic dysfunction present as well as pleural effusion. 3. Type 2 diabetes. Continue with same management. Stable. 4. Hypertension, controlled. 5. Mild elevation of troponin, likely secondary to chronic kidney disease (CKD). I do not think this patient is having any kind of acute coronary syndrome. 6. Chronic kidney disease, stage 3A, stable. This is her baseline. 7. Status post dual-chamber pacemaker. Aware. We will recommend a sleep study upon discharge. cc: Marcin Lozano MD
--- NOTE | 2018-08-23 15:23 | PROGRESS NOTE ---
DATE: 08/23/2018 SUBJECTIVE: Patient continues without chest discomfort or shortness of breath. She has been in the habit of eating a lot of ice during her hospital stay. OBJECTIVE: Vital Signs: Blood pressure 120/57. Heart rate 65, oxygen saturation 98% on room air. Neck: There is no significant jugular venous distention. Chest: Clear to auscultation. Cardiac: Reveals a regular rate and rhythm without appreciable murmur, rub or gallop. Extremities: Mild edema. LABORATORY DATA: Includes a sodium 129, potassium 4.8, chloride 94, carbon dioxide 26, BUN 47, creatinine 1.4, glucose is 112. IMPRESSION: 1. Acute on chronic systolic heart failure, predominantly right-sided. 2. Severe ischemic cardiomyopathy. Left ventricular ejection fraction 20 to 25 percent. 3. Poor compliance with sodium restriction. 4. Emerging hyponatremia. 5. Probable obstructive sleep apnea. 6. Obesity. 7. Hyperlipidemia. 8. Type 2 diabetes mellitus. RECOMMENDATIONS: 1. Continue diuresis with plans to transition to oral Lasix tomorrow. 2. Patient counseled on need to restrict sodium intake and smoking cessation. 3. Fluid restrict given decline in sodium. Patient advised to discontinue ice consumption. 4. Ultimately, patient needs to be screened for obstructive sleep apnea following discharge. 5. Once sodium starts to rise, it would be reasonable for patient to be discharged to home as she has had considerable improvement with her congestive heart failure with diuresis of 15.7 L thus far. cc: Harsha Ballesteros MD
[2018-08-23] MEDS: DESYREL PO SCH (21:16)
[2018-08-24] MEDS: LOVENOX SUBQ SCH (06:34)
[2018-08-24] MEDS: HUMULIN R SUBQ SCH ×2 (06:36→10:50)
[2018-08-24 06:37] LABS: BASO# 0.03 X1000 (0.0-0.2); BASO% 0.7 % (0.0-0.8); EOS# 0.08 X1000 (0.0-0.7); EOS% 1.8 % (0.0-10.0); HEMOGLOBIN 10.2 g/dL (12.0-16.0); LYMPH# 1.58 X1000 (1.2-3.4); LYMPH% 36.4 % (20.5-51.1); MCH 30.6 PG (27-31); MCHC 32.9 g/dL (33-37); MCV 93.1 FL (81-99); MONO# 0.49 X1000 (0.11-0.59); MONO% 11.3 % (1.7-9.3); MPV 10.1 FL (7.4-10.4); NEUT# 2.16 X1000 (1.4-6.5); NEUT% 49.8 % (42.2-75.2); PLT 204 X1000 (130-400); RBC 3.33 XMIL (4.2-5.4); WBC 4.34 X1000 (4.8-10.8)
[2018-08-24 07:03] LABS: CALCIUM 8.9 mg/dL (8.8-10.2); CREATININE 1.4 mg/dL (0.5-0.9); POTASSIUM 4.7 mmol/L (3.5-5.1)
[2018-08-24] MEDS: NICODERM PATCH TD SCH (08:02)
[2018-08-24] MEDS: NORCO-10 PO PRN (08:02)
[2018-08-24] MEDS: GRALISE PO SCH (08:02)
[2018-08-24] MEDS: ENTRESTO 24 MG-26 MG TABLET PO SCH (08:02)
[2018-08-24] MEDS: ROBAXIN PO PRN (08:02)
[2018-08-24] MEDS: PLAVIX PO SCH (08:03)
[2018-08-24] MEDS: LANOXIN PO SCH (08:03)
[2018-08-24] MEDS: COREG PO SCH (08:03)
[2018-08-24] MEDS: LASIX PO SCH ×2 (08:03→08:11)
[2018-08-24] MEDS: ALDACTONE PO SCH (08:04)
[2018-08-24 12:06] VITALS: BP 124/67
--- NOTE | 2018-08-24 21:53 | DISCHARGE SUMMARY ---
ADMISSION DATE: 08/17/2018 DISCHARGE DATE: 08/24/2018 DISCHARGE DIAGNOSES: 1. Systolic congestive heart failure exacerbation, ejection fraction around 20% to 25%. 2. Severe dilated ischemic cardiomyopathy. 3. Pulmonary hypertension. 4. Diastolic dysfunction. 5. Type 2 diabetes. 6. Hypertension. 7. Elevated troponins. Acute coronary syndrome has been ruled out. 8. Chronic kidney disease stage 3A. 9. Status post dual-chamber pacemaker. PROCEDURES: 1. Chest x-ray dated 08/17/2018 impression: Cardiomegaly. 2. Chest x-ray dated 08/19/2018 impression: Cardiomegaly; trace pleural effusion. HOSPITAL COURSE: A 53-year-old female with a past medical history of systolic congestive heart failure, with an ejection fraction of 20% to 25%; type 2 diabetes; ischemic cardiomyopathy; dyslipidemia; hypertension. She presented to the emergency department and was admitted on 08/17/2018. She was complaining of increase of about 40 pounds in her weight, with swelling mostly at the level of the lower extremities and abdominal wall. Also, apparently she was having some shortness of breath. As per the patient, she had been taking her medication. It looked like she was not taking care of her diet, though, especially her salt intake. She had been admitted due to congestive heart failure exacerbation. She had been placed on Lasix IV. Cardiology Department evaluated this patient, who recommended to continue with the same management. She was feeling better on a daily basis. She has been losing a lot of fluid and weight as well. So far we removed 19.9 L. She was tolerating p.o. She was ambulating as well. Palliative Care already evaluated this patient, and for now this patient is Full Code. She will be discharged today. She is not complaining of chest pain or shortness of breath. Vital signs are stable as well as laboratory. PHYSICAL EXAMINATION: Temperature 97.7 degrees, pulse 66, respiratory rate 17, blood pressure 124/67, oxygen saturation 99% on room air. HEENT: Head normocephalic. No trauma. PERRLA. Neck supple. No JVD. No masses. Central trachea. Chest: Decreased breath sounds globally. Some rales at the bases. Abdomen is soft, nontender, nondistended. Abdominal wall edema, mostly on the sides, but is better compared with admission. Extremities: Lower extremity edema 1 to 2+ bilaterally. No clubbing, no cyanosis. Neurological: The patient is alert and oriented x3. No focal deficits. LABORATORY DATA: WBC 4.3, hemoglobin 10.2, hematocrit 31, platelets 204,000. Sodium 137, potassium 4.7, chloride 97, bicarbonate 23, BUN 51, creatinine 1.4, glucose 81, calcium 8.9. DISCHARGE MEDICATIONS: Digoxin 125 mcg p.o. daily; furosemide 40 mg p.o. twice a day; [place] 10 one tablet p.o. 3 times a day as needed for pain; gabapentin 300 mg p.o. at bedtime and 600 mg p.o. in the morning; Plavix 75 mg p.o. daily; metformin 1000 mg p.o. daily; Entresto 24 mg/26 mg tablet, 1 tablet p.o. daily; trazodone 50 mg p.o. at bedtime; spironolactone 25 mg p.o. daily; Robaxin 750 mg 3 times a day as needed; carvedilol 6.25 mg p.o. every 12 hours. FOLLOWUP: With Cardiology Department, Dr. Harsha Ballesteros in 2-3 weeks. Time discharging this patient was 35 minutes. cc: Marcin Lozano MD
== END 2018-08-24 16:07 | disposition home health service (06) | DRG 291 ==
LOC: ED 00:38 → 3N 00:39 → SUATTDRO 00:39 → EDIPHOLD 03:45 → 3S 10:46 → 4N 08-18 18:38
PROVIDERS: ATTEND Internal Medicine
CPT/HCPCS: 71010; 71020; 71045; 71046; 80048; 80053; 81001; 82948; 83036; 83735; 83880; 84484; 85025; 93005; 93010; 93306; 96374; 96375; 96376; 97161; 99285; A9270; J1650; J1940; XXXXX

== ENCOUNTER 2018-09-26 10:22 | Inpatient (IN) ==
[2018-09-26] MEDS ORDERED: D50W SYRINGE ONE (10:29)
[2018-09-26] MEDS ORDERED: D50W SYRINGE IV ONE (10:30)
[2018-09-26 10:57] LABS: BASO# 0.03 X1000 (0.0-0.2); BASO% 0.4 % (0.0-0.8); EOS# 0.07 X1000 (0.0-0.7); HEMATOCRIT 37.5 % (37.0-47.0); HEMOGLOBIN 11.9 g/dL (12.0-16.0); LYMPH# 1.34 X1000 (1.2-3.4); LYMPH% 19.8 % (20.5-51.1); MCH 30.5 PG (27-31); MCHC 31.7 g/dL (33-37); MCV 96.2 FL (81-99); MONO# 0.74 X1000 (0.11-0.59); MONO% 10.9 % (1.7-9.3); MPV 9.8 FL (7.4-10.4); NEUT# 4.58 X1000 (1.4-6.5); NEUT% 67.9 % (42.2-75.2); PLT 255 X1000 (130-400); RDW 16.6 % (11.5-14.5); WBC 6.76 X1000 (4.8-10.8)
--- NOTE | 2018-09-26 10:58 | Diag Imaging Result Doc PS360 ---
EXAM: CHEST-1 VIEW 09/26/2018 HISTORY: sob TECHNIQUE: AP portable upright at 1048 COMMENT: There is cardiomegaly. The inspiration is less optimal than on the previous study of 08/19/2018. Otherwise there has been no significant change. IMPRESSION: Cardiomegaly. Electronically signed by Benny Tello 09/26/2018 10:55 AM
[2018-09-26 11:04] LABS: INR 1.09; PTT 32.7 Seconds (22.3-41.8)
[2018-09-26 11:15] LABS: ALLEN TEST NO; BE -4.5 mmoll (-3.0-3.0); BLOOD TYPE ARTERIAL; HCO3-(ACT) 21.1 mmoll (20.0-26.0); METHB 0.8 % (0.0-1.5); O2(CT) 13.7 mL/dL (15.0-23.0); PO2(98.6) 56 mmHg (60-100); SAMPLE BLOOD; SAO2 89.1 % (95.0-100.0); THB 11.8 g/dL (11.5-17.4); pH(98.6) 7.26 (7.35-7.45)
[2018-09-26 11:19] LABS: PCO2(98.6) 51 mmHg (35-45)
[2018-09-26 11:20] LABS: MODALITY CANNULA; O2HB 82.3 % (95.0-99.0)
[2018-09-26 11:28] LABS: ALB/GLOB RATIO 1.2; ALBUMIN 3.6 g/dL (3.5-5.0); CREATININE 1.6 mg/dL (0.5-0.9); POTASSIUM 5.1 mmol/L (3.5-5.1); TOTAL BILIRUBIN 0.53 mg/dL (0.20-1.00); TOTAL PROTEIN 6.5 g/dL (6.3-8.3)
[2018-09-26] MEDS ORDERED: LASIX IV ONE ×2 (11:46→13:29)
[2018-09-26] MEDS ORDERED: SOLU-MEDROL IV ONE (11:53)
[2018-09-26] MEDS ORDERED: DUONEB (A & A) INH ONE (11:53)
[2018-09-26] MEDS ORDERED: TYLENOL PO PRN (12:11)
[2018-09-26] MEDS ORDERED: ZOFRAN IV PRN (12:11)
--- NOTE | 2018-09-26 12:11 | PROVIDER DOCUMENTATION ---
This chart was entered by Berenice Herrmann Scribe, acting as scribe for Chris Mendez MD. HPI-General Adult - General Chief Complaint: Low Blood Sugar Stated Complaint: HYPOGLYCEMIC ON CPAP Time Seen by Provider: 09/26/18 10:24 Source: patient Allergies/Adverse Reactions: Patient Allergies Allergy/AdvReac Type Severity Reaction Status Date / Time No Known Allergies Allergy Verified 09/26/18 10:53 Home Medications: Home Medication List Medication Instructions Recorded Confirmed Last Taken Type Gabapentin [Gralise] 600 mg PO HS 10/15/16 08/17/18 01/08/18 21:00 History Clopidogrel [Plavix] 75 mg PO DAILY #30 tablet 11/12/16 08/17/18 01/08/18 08:00 Rx Metformin [Glucophage] 1,000 mg PO DAILY 12/09/17 08/17/18 01/08/18 08:00 History Sacubitril/Valsartan [Entresto 24 1 each PO DAILY 12/09/17 08/17/18 01/08/18 21:00 History mg-26 mg Tablet] Trazodone HCl 50 mg PO HS 12/09/17 08/17/18 01/08/18 21:00 History Spironolactone [Aldactone] 25 mg PO DAILY 30 Days #30 tab 12/12/17 08/17/18 01/08/18 08:00 Rx Methocarbamol [Robaxin-750] 750 mg PO TID PRN 01/09/18 08/17/18 01/09/18 13:00 History Gabapentin [Gralise] 600 mg PO DAILY 06/14/18 08/17/18 Unknown History Carvedilol [Coreg] 6.25 mg PO Q12H #60 tab 06/16/18 08/17/18 Unknown Rx Digoxin [Lanoxin] 125 microgm PO DAILY #90 tab 08/24/18 Unknown Rx Furosemide [Lasix] 40 mg PO BID #120 tab 08/24/18 Unknown Rx Hydrocodone/APAP 10 mg/325 mg 1 ea PO TID PRN PRN #10 tab 08/24/18 Unknown Rx [[place]-10] - History of Present Illness -Gen Adult Nature of Presenting Problems: Patient is a 53 year old female who presents to the ED via EMS with low blood sugar and shortness of breath that started this morning. EMS states patient's FSBS was 44 on their arrival. Patient received an amp of D50 and blood sugar increased to 120. EMS reports patient's lowest O2 sat was 93% and she received 2 breathing treatments prior to arrival. Patient denies chest pain. Location of Pain/Injury: reports: none Pain Radiation: reports: no radiation Quality of Pain: reports: none Severity: reports: mild Onset/Duration: reports: this morning Timing: reports: still present Context/Activities at Onset: reports: light activity Associated Symptoms: reports: shortness of breath Similar Symptoms Previously?: No Recently seen or treated by another doctor?: No - Diabetes Related Context Context: reports: low blood sugar Review of Systems - Adult - REVIEW OF SYSTEMS - ADULT Constitutional: reports: no symptoms reported. denies: chills, fever, fatique Eyes: reports: no symptoms reported Ears, Nose, Mouth & Throat: reports: no symptoms reported Cardiovascular: reports: no symptoms reported. denies: chest pain, heart murmur, irregular heart rate Respiratory: reports: see HPI, shortness of breath. denies: cough, wheezing Gastrointestinal: reports: no symptoms reported. denies: diarrhea, nausea, vomiting Genitourinary: reports: no symptoms reported Musculoskeletal: reports: no symptoms reported Integumentary: reports: no symptoms reported Neurological: reports: no symptoms reported Psychiatric: reports: no symptoms reported Endocrine: reports: no symptoms reported Hematologic/Lymphatic: reports: no symptoms reported Allergic/Immunologic: reports: no symptoms reported All Other Systems: Reviewed and Negative Past History - Adult - PAST MEDICAL HISTORY-ADULT Review of Records: reports: Nursing Assessment Review, Medications Reviewed, Social history reviewed & non-contributory. Major Childhood Illnesses: reports: denies history Cardiovascular: reports: CAD, CHF, HTN, hyperlipidemia, other (ACID) Respiratory: reports: COPD Gastrointestinal: reports: denies history Obstetrical/Gynecological: reports: denies history Genitourinary: reports: denies history Musculoskeletal: reports: cancer (cervical) Neurological: reports: denies history Endocrine/Immune: reports: Diabetes Other Conditions: reports: denies history - PRIOR SURGERIES/PROCEDURES Surgical/Procedure History: reports: hysterectomy, other (ACID/BREAST REDUCTION/CERVICAL FUSION) - IMMUNIZATION STATUS Childhood Immunizations: See Nurse Assessment Flu Vaccine: See Nurse Assessment - FAMILY HISTORY Family History: reviewed, not pertinent - SOCIAL HISTORY Smoking: cigarettes, less than 1 pack/day Provider spent 3-5 mins advising pt. on dangers of tobacco.: Discussed manners to quit use, and f/u contacts for add'l counseling. Substance Use: denies Physical Exam-General - PHYSICAL EXAM-ADULT Initial Vital Signs Reviewed: Yes - CONSTITUTIONAL General Appearance: alert, no apparent distress. negative: lethargic, slow to respond - RESPIRATORY Respiratory: chest non-tender, wheezing (bilateral). negative: crackles, rhonchi - CARDIOVASCULAR Cardiovascular: normal peripheral pulses, regular rate, rhythm. negative: tachycardia, systolic murmur - GASTROINTESTINAL (ABDOMEN) Abdominal Exam: normal bowel sounds, non tender, soft. negative: guarding, rebound - MUSCULOSKELETAL Extremity: normal range of motion, non-tender. negative: deformity, erythema, swelling - SKIN Integumentary: normal color, normal turgor, warm/dry. negative: cyanosis, erythema, jaundice - NEUROLOGIC Neurologic: grossly normal. negative: aphasia, facial droop - PSYCHIATRIC Psych/Mental Status: normal mood/affect, oriented x 3. negative: anxious, paranoid Progress - PLAN OF CARE/RESULTS Progress/Plan/Lab Results: Vital Signs - 8 hr 09/26/18 10:46 Temperature 98.4 F Pulse Rate 65 Respiratory Rate 25 H Blood Pressure 137/81 O2 Sat by Pulse Oximetry 98 Orders Category Date Time Status cxr [CHEST-1 VIEW] [RAD] Stat Exams 09/26/18 10:35 Ordered ABG [RESP] Routine Lab 09/26/18 10:33 Ordered CBC WITH ELECTRONIC DIFF [HEME] Stat Lab 09/26/18 10:42 Received COMPREHENSIVE METABOLIC PANEL [CHEM] Stat Lab 09/26/18 10:42 Received PRO B-NATRIURETIC PEPTIDE Stat Lab 09/26/18 10:42 Received PT [PROTIME WITH INR] [COAG] Stat Lab 09/26/18 10:42 Received PTT [COAG] Stat Lab 09/26/18 10:42 Received TROPONIN T Stat Lab 09/26/18 10:42 Received Dextrose 50% Syringe [D50w Syringe] Med 09/26/18 10:29 Discontinued 50 ml .ROUTE .STK-MED ONE EKG [EKG] Stat Ther 09/26/18 10:33 Ordered Result Diagrams: 09/26/18 10:42 09/26/18 10:42 - XRAY 1 XRAY Study: Chest Impression: See EMR Report ( EXAM: CHEST-1 VIEW 09/26/2018 HISTORY: sob TECHNIQUE: AP portable upright at 1048 COMMENT: There is cardiomegaly. The inspiration is less optimal than on the previous study of 08/19/2018. Otherwise there has been no significant change. IMPRESSION: Cardiomegaly. Electronically signed by Benny Tello 09/26/2018 10:55 AM 09/26/18 1055 Interpreting Physician: Benny Tello MD Dictated Date/Time: 09/26/18 1055 cc: Chris Mendez MD; Kelsey Davis MD) - CONSULTS/PCP/HOSPITALIST Notification #1 *Consult/PCP/Hospitalist*: MERT Oleary for Hospitalist Time Discussed: 11:45 Reason/Comments: Dr. Mendez consulted with Mamta about patient. Consult Disposition: Will see in ED, Admit Departure - Departure Date of Disposition Decision: 09/26/18 Time of Disposition Decision: 11:44 DIAGNOSIS: CHF (congestive heart failure), Edema, Elevated troponin, Hypoglycemia, Renal insufficiency, Hypoxia, COPD exacerbation Disposition: ADMITTED INPATIENT 09 Certified Medical Emergency: Emergent Condition: Fair Referrals and Follow-Ups: Kelsey Davis MD [Primary Care Provider] - Discharge Education: Steps to Quit Smoking, [id number] - Critical Care Note This patient required my direct & personal management of CC.: No Attestation - Physician/ NANNETTE Attestation Patient care was provided by Advanced Practice Provider:: No The physician spent face to face time with patient:: Yes Advanced Practice Provider documentation review:: Supervising physician onsite and consulted in the evaluation and care of this patient. The physician did have a face to face encounter with the patient. This chart was documented by the indicated scribe, (Berenice Herrmann Scribe) and accurately reflects the services I performed and decisions made by me, Chris Mendez MD, as attested by the provider's signature.
[2018-09-26] MEDS: NICODERM PATCH TD SCH (12:24)
[2018-09-26] MEDS: ROCEPHIN 1 GM in NS 50 ML IV SCH (12:24)
--- NOTE | 2018-09-26 13:51 | Diag Imaging Result Doc PS360 ---
EXAM: CT THORAX/ABD/PELVIS W/O CON 09/26/2018 HISTORY: sob/hypoxia/abd dist/pain TECHNIQUE: This exam was performed using automated exposure control, adjustment of mA or kV according to patient size, and/or use of iterative reconstruction technique. COMMENT: Thorax: The current examination is compared with the previous study of 01/09/2018. There is generalized soft tissue edema. There are small bilateral pleural effusions more so on the right than the left. There are extensive coronary calcifications. There are pacemaker leads. There is some apparent atelectatic change in the costophrenic sulci. The small acinar opacities seen throughout both lungs time the previous study have improved slightly. The atelectasis has improved. The pleural effusion on the right is much smaller. There is a small bleb or cavity in the left apex which was also present previously. There is a nodule in the right lower lobe on image 71 which previously was present on image 1:30. This is increased slightly from just over nine two just under 10 mm in diameter. It is not clearly calcified but is likely a granuloma. ABDOMEN: The current examination is compared with the previous study of 06/29/2012. While the generalized soft tissue edema was present at the time the previous thoracic study of 01/09/2018 it was not present on 06/29/2012. There is ascites. There is periportal edema in the liver. The spleen is not enlarged. There is no evidence of hydronephrosis. There is apparent arteriosclerosis. The aorta is not distended. There is stool and gas in the colon including the rectum. The urinary bladder is not particularly distended. There is no evidence of bowel dilatation. The appendix is not clearly identifiable. Pelvis: There has been hysterectomy. There are no definite masses. There is no evidence of acute bony abnormality. IMPRESSION: 1. Anasarca. 2. Small pleural effusions. This has improved on the right since the previous study of 01/09/2018. 3. Ascites. Mild constipation. Electronically signed by Benny Tello 09/26/2018 1:49 PM
[2018-09-26] MEDS ORDERED: LASIX IV SCH ×2 (14:00→21:00)
--- NOTE | 2018-09-26 14:17 | HISTORY AND PHYSICAL ---
PRIMARY CARE PROVIDER: Dr. Kelsey Lemon. SPECIAL SHOPPER: Bernardo Griffin MD. CHIEF COMPLAINT: Low blood sugar, was verbally unresponsive this morning and gasping for air. HISTORY OF PRESENT ILLNESS: Ms. Viviana Patel is a 53-year-old female with a medical history of ischemic cardiomyopathy with systolic and diastolic heart failure, EF of 20%, diabetes mellitus type 2, dyslipidemia, coronary artery disease with history of myocardial infarction and 2 cardiac stents, presents today because this morning about 9 o'clock her tried to wake her up. She opened her eyes but was nonverbal. She was gasping for air. EMS was called and when they arrived she had a blood glucose level in the 40s, slight nosebleed as well but that resolved, and they put her on CPAP in route. She has got respiratory acidosis and signs of COPD exacerbation, wheezing. She also looks like she has a decent amount of diastolic heart failure given the anasarca. There is pitting edema all the way up to her abdomen. Her breathing is a little better. She is able to eat. Her blood glucose level after receiving dextrose in route is much better. She ate well. It is noted she even has facial puffiness, which she states comes and goes. She denies having any new medication changes but she stopped her spironolactone on her own and she cannot remember when she stopped it. Currently complaining of a headache and a stomachache with complaints of constipation. Her last bowel movement was yesterday and was soft and dark brown. She has had chills over the last few months. She denies having any complaints of breathing problems though prior to today. She does have a cough and coughs up clear phlegm. Please note that she has had an old left great toe amputation back in October of 2017, she states was by Dr. Ambrosio. The site appears to be infected with a foul smell, so we will work that up as well. We will send her to [facility] for closer observation. PAST MEDICAL HISTORY: 1. COPD. No home oxygen. 2. Ischemic cardiomyopathy with systolic and diastolic heart failure, EF of 20%. 3. Hypertension. 4. Coronary artery disease with history of myocardial infarction and 2 cardiac stents. 5. Diabetes mellitus type 2. 6. CKD stage 3. 7. Hyperlipidemia. 8. Left great toe amputation site she states has been this way since surgery and currently it appears to be infected but we are working that up. 9. Pulmonary hypertension. PAST SURGICAL HISTORY: 1. PTCA x2. 2. Dual-chambered pacemaker. 3. Left great toe amputation by Dr. Ambrosio, October 2017. 4. Vascular stenting in the left leg. 5. Breast reduction surgery. 6. Lumpectomy. 7. Hysterectomy. 8. C-spine fusion. 9. She states at age 3 she had some sort of colon complication where the colon collapsed and had to have some removed but she was not real clear with this information. SOCIAL HISTORY: She smokes less than a pack per day and has so for 30+ years. Denies any alcohol or illicit drug use. , and her is at the bedside. FAMILY HISTORY: Mother's side of the family: Congestive heart failure, hypertension, and CKD. She had a brother with brain cancer, a sister with pancreatic cancer, and her father congestive heart failure. ALLERGIES: No known drug allergies. HOME MEDICATIONS: 1. Coreg 6.25 mg p.o. twice daily. 2. Entresto 24-26 once p.o. daily. 3. Metformin 1000 mg p.o. daily. 4. Neurontin 600 mg in the morning and 1200 mg at night. 5. Robaxin 750 mg p.o. t.i.d. p.r.n. 6. Trazodone 50 mg p.o. nightly. 7. Aldactone 25 mg p.o. daily. 8. Digoxin 125 mcg p.o. daily. 9. Lasix 40 mg p.o. twice daily. 10.Snover 10 1 tablet p.o. t.i.d. p.r.n. 11.Plavix 75 mg p.o. daily. REVIEW OF SYSTEMS: A 14-point review of systems are complete and all were negative except for those mentioned above in HPI. PHYSICAL EXAMINATION: VITAL SIGNS: Temperature 98.4, heart rate 65, respiratory rate 28, blood pressure 111/81, O2 saturation 100% on 3 L nasal cannula. GENERAL: Ms. Viviana Patel is a 53-year-old female. She is currently in no acute distress. She is able to answer most questions appropriately. HEENT: Atraumatic, normocephalic. Pupils equal and reactive. Extraocular movements intact. Mucous membranes are moist. There is a lot of facial puffiness. NECK: Trachea midline. CARDIOVASCULAR: S1, S2, regular rate and rhythm. No rubs, gallops, or murmurs. She has got anasarca, edema on both extremities all the way up to the abdomen that is pitting at least 1-2+ mostly 1+. It is difficult to assess her JVD given her body habitus in her neck. She is negative for carotid bruits. PULMONARY: Coarse throughout anterior and posteriorly. Some mild expiratory wheezes. Tolerating 3 L. GASTROINTESTINAL: Soft, edematous with 1+ pitting edema, positive bowel sounds x4, nontender. Epigastric is a little bit tender. EXTREMITIES: Moves all extremities equally, decreased range of motion. She is about a 4/5 strength. She is a little shaky in the extremities. NEUROLOGIC: A and O x3, follows commands. Decreased sensory in the lower extremities bilaterally. SKIN: Warm, dry, intact, except for the left great toe amputation site. It is draining a foul smell, will need to evaluate that, and the color is light araujo to dark araujo color. LABORATORY DATA: White blood cells 6000, hemoglobin 11, hematocrit 37, platelet count 255. INR is 1.09. PTT is 32.7. The pH 7.26, pCO2 51, pO2 56, bicarb 21, base excess negative. Oxyhemoglobin 82%, carboxyhemoglobin 6.8, lactate 0.6, this is on 3 L nasal cannula. Sodium 136, potassium 5.1, BUN 39, creatinine is 1.6, glucose 165, calcium 8.0, bilirubin 0.53, AST 39, ALT 24. Troponin 0.156. CRP 1.03. ProBNP is 7013. Albumin 3.6. IMAGING: Chest x-ray: Cardiomegaly, no change since the one that was done a little over a month ago. EKG was not visualized, has not been uploaded, nor was it mentioned in the ER note, will review. It is likely a paced rhythm though. ASSESSMENT AND PLAN: 1. Chronic obstructive pulmonary disease exacerbation, wore CPAP in route. She is currently on 3 L but she is still very wheezy with respiratory acidosis. Will add her on BiPAP for a couple of hours, get an ABG, and likely wean her back down to 3 L through nebulizers and steroids and consult Pulmonary, and she will get routine antibiotic for COPD exacerbation. 2. [id number] systolic diastolic heart failure, ischemic cardiomyopathy, pretty low ejection fraction. She most recently had an echocardiogram 06/14/2018 and continued to show an ejection fraction of 20% to 25%. She takes Lasix at home and will start her on some IV Lasix. She does have anasarca that will need to try and assist with. We will have to watch her kidney function pretty closely. Will continue her Entresto and spironolactone, Coreg. Also continuing digoxin but will get a digoxin level in case we need to stop it or decrease dosing, and she is also on Plavix, will continue that as well. 3. Pulmonary hypertension. In June, her pulmonary systolic pressure was 53- 58 mmHg. 4. Diabetes mellitus type 2 with hypoglycemia. She got 1 dose of dextrose in route, brought her blood glucose levels back up to normal. Will do pattern blood glucoses and sliding scale insulin, diabetic diet, and will have p.r.n. dextrose in case her blood sugar drops back down. 5. Left great toe amputation site appears to have infection. She states she only cleans it and redresses it once a week but it has slight dark araujo foul smelling drainage. We are going to culture that, consult Wound Care, and get a bone scan of that left foot to evaluate for osteomyelitis. If we need to, we reconsult Dr. Ambrosio, who performed the surgery, or General Surgery if needed. Currently, no antibiotic coverage for that. White count is normal, but will follow up on the culture, and Wound Care will be seeing her. 6. Chronic kidney disease stage 3 currently at baseline. Will monitor daily. 7. Coronary artery disease with history of myocardial infarction and stent now with chronic troponinemia likely secondary to congestive heart failure but will continue with serial cardiac enzymes. Her CRP is normal. Repeat an EKG in the morning. Denies any chest pain. 8. Complains of abdominal achiness. She is going to have a CAT scan of the abdomen and pelvis. She complains of constipation as well. We will start her on [place]a-Colace. 9. Tobacco abuse. Cessation discussed. Nicotine patch ordered. 10.Deep venous thrombosis prophylaxis, subcutaneous heparin was ordered but she is on Plavix, will stop the heparin. Dictated by MERT Luciano for Reginald Forman MD cc: MERT Luciano MD Patient seen and evaluated by me. I agree with the assessment and plan of the MERT Forman. [facility]
[2018-09-26 14:26] LABS: ALLEN TEST NO; BE -1.8 mmoll (-3.0-3.0); BLOOD TYPE ARTERIAL; HCO3-(ACT) 23.5 mmoll (20.0-26.0); METHB 1.4 % (0.0-1.5); O2(CT) 14.7 mL/dL (15.0-23.0); O2HB 93.6 % (95.0-99.0); PCO2(98.6) 39 mmHg (35-45); PO2(98.6) 113 mmHg (60-100); SAMPLE BLOOD; SAO2 99.4 % (95.0-100.0); pH(98.6) 7.38 (7.35-7.45)
[2018-09-26 14:27] LABS: MODALITY BI PAP
[2018-09-26] MEDS ORDERED: LANOXIN IV ONE (14:40)
--- NOTE | 2018-09-26 14:50 | EKG Report ---
Test Performed on : 09/26/2018 2:46:42 PM Test Reason : CHF/h/o CAD Blood Pressure : / mmHG Vent. Rate : 065 BPM Atrial Rate : 065 BPM P-R Int : 156 ms QRS Dur : 158 ms QT Int : 488 ms P-R-T Axes : 024 -52 155 degrees QTc Int : 507 ms Atrial-sensed ventricular-paced rhythm Abnormal ECG When compared with ECG of 19-AUG-2018 06:30, No significant change was found Confirmed by Hermelinda FLORIAN, Rashi ([id number]) on 09/27/2018 8:50:47 AM
[2018-09-26 15:26] LABS: HEMOGLOBIN A1C 7.7 % (4.8-6.0)
[2018-09-26 15:28] LABS: URINE SOURCE CLEAN CATCH
--- NOTE | 2018-09-26 15:37 | CARDIOLOGY CONSULTATION ---
DATE: 09/26/2018 CHIEF COMPLAINT: Confusion. REASON FOR CONSULTATION: Edema, dyspnea and seemingly decompensation of congestive failure. HISTORY: This patient is a 53-year-old female who has had multiple hospital admissions since September 2017. She has been to the ER once then, October 01 then back between December 09 and December 12 to the hospital with CHF then between January 09 and January 13 again CHF, between May 07 that was an ER visit for hand injury, between June 13 through June 16 with anasarca, between August 17 and August 24 with CHF exacerbation. At this time the reason for her presentation is that she became a little unresponsive, very lethargic. documented hypoglycemia and they summoned the ambulance services. They said that the blood sugar was in the 40s. She was given an amp of D50 percent and the sugar increased. The patient was tested. They checked blood gases that shows a pCO2 of 51, pH of 7.26, pO2 56, carboxyhemoglobin was 6.8, oxygen saturation 89%. They put her on a BiPAP system. They have recheck blood gases, pH now is 7.38, pCO2 is 39, O2 saturation is 99.4%. Chest x-ray done at the time of initial presentation shows cardiomegaly. CT of the chest, abdomen and pelvis without contrast shows anasarca and small pleural effusions, ascites, mild constipation. EKG that we just did at 2:46 p.m. shows atrial sensed biventricular pacemaker. The patient appears to be somewhat lethargic, she is not very responsive when I ask her how she is doing. She denies having any pain at this time. Of note, her blood work indicates a proBNP of 7013. On a recent admission just a month ago her proBNP was much higher at 12,916. Her creatinine is a little higher than at the time of last discharge, her BUN is a little lower. Her troponin is 0.156 however on prior admission it was documented to be 0.176 and 0.170. The patient denies having syncope, she has persistent edema. Her weight recorded today in the emergency room is 218 pounds, the last weight in the hospital was 209 pounds, when she got admitted on August 17 a week prior to that was 212 pounds but we really do not know for sure what it is this patient's stable baseline weight. According to my office records the last time that she was there and saw Dr. Griffin on September 21 her weight was recorded at 218 pounds and the prior visit 04/04/2018 her weight was 156 pounds so in a matter of 6 months this woman has gained about 60 pounds or more. PAST HISTORY: Positive for severe coronary heart disease, prior inferior wall myocardial infarction. Back in February 2015 patient underwent rotational atherectomy of the right coronary artery. At that time the left coronary system was free of any major obstruction. She has diffuse diabetic arteriopathy noticeable in her angiogram. Her last echocardiogram which I read from June 2018 showed an ejection fraction of 20 to 25 percent however that echocardiogram compared with 1 from 2014 showed significantly better contractility, better cardiac output, less mitral regurgitation than in 2015. She has received a biventricular AICD per the [facility] team on 10/28/2015. She has hyperlipidemia and diabetes type 2, chronic kidney disease, prior pulmonary embolism. SURGICAL HISTORY: Includes lumpectomy, breast surgery, neck surgery, bladder surgery, colon surgery, hysterectomy. Details are not available to me at this time. SOCIAL HISTORY: She lives with unemployed. She is a tobacco user. Not a drinker. HOME MEDICATIONS: Listed at the time of the present admission included carvedilol 6.25 twice a day, clopidogrel 75 mg daily, digoxin 0.125 daily, furosemide 40 mg twice a day, gabapentin 1200 at bedtime and 600 mg in the morning, hydrocodone 3 times a day, metformin 1000 daily, methocarbamol 750 two times a day and Crestor 24/ b.i.d., spironolactone 25 daily, trazodone 50 at bedtime. REVIEW OF SYSTEMS: Chronically short of breath very little activity. She is functional class 3 to 4. She has swelling of the abdomen and legs. No other major positive. Multiple systems were checked. PHYSICAL EXAMINATION: Vital signs: Blood pressure is 111/81, pulse 65, temperature 98.4 degrees, respirations 16. She is chronically ill. Jugular venous pressure is increased. Chest: Reveals diminished breath sounds bilaterally. Heart: Sounds are distant, regular, I do not hear gallop or murmur. Abdomen: Distended, tense. There is abdominal wall edema. There is edema of the lower extremities with decreased pulses and decreased temperature. Neurological: She is lethargic, just shows generalized weakness. IMPRESSION: 1. Patient with hypoglycemic event which is the reason for her presentation to the hospital. 2. Lethargy, question of multiple drug effect including narcotics and other sedatives. 3. Long-term history of dilated cardiomyopathy which is out of proportion for her severe coronary heart disease. She only has disease of the right coronary artery, however her entire ventricle is dilated and hypokinetic. 4. Status post biventricular automated implantable cardioverter defibrillator. 5. Tobacco user. 6. Diabetes mellitus type 2. RECOMMENDATION: At this time I would suggest to decrease beta blockers. Her heart rate being 65 is completely abnormal for somebody who is in decompensated heart failure. I would suggest to minimize beta blockers on her and consider discussing with EP team as to whether or not it may be some value in increasing the baseline heart rate of her pacemaker. I would initiate some additional vasodilators including isosorbide dinitrate and hydralazine. Serious consideration may have to be given to doing a followup coronary arteriogram on her since there has been a clear decompensation according to records within the past 6 months. Further advice will be forthcoming. cc: Junior Worthington MD
[2018-09-26] MEDS: HUMULIN R SUBQ SCH ×2 (16:00→20:18)
[2018-09-26 16:20] LABS: BILIRUBIN URINE NEGATIVE (NEGATIVE); BLOOD URINE SMALL (NEGATIVE); COLOR YELLOW; GLUCOSE URINE NEGATIVE (NEGATIVE); KETONE URINE NEGATIVE (NEGATIVE); LEUKOCYTES URINE NEGATIVE (NEGATIVE); NITRITE URINE NEGATIVE (NEGATIVE); PROTEIN URINE TRACE mg/dL (NEGATIVE); SP GRAVITY URINE 1.006; TURBIDITY URINE CLEAR (CLEAR); UROBILINOGEN URINE NORMAL (NORMAL)
[2018-09-26] MEDS: DUONEB (A & A) INH SCH ×3 (16:25→23:10)
[2018-09-26] MEDS: D50W SYRINGE IV PRN ×2 (16:27→20:14)
[2018-09-26 16:28] LABS: UR EPITHELIAL CELLS <10 /HPF (<10); URINE BACTERIA NEGATIVE /HPF; URINE RBC <10 /HPF (<10); URINE WBC <10 /HPF (<10)
[2018-09-26] MEDS: LASIX IV SCH (17:00)
[2018-09-26] MEDS: SOLU-MEDROL IV SCH (18:00)
[2018-09-26] MEDS: PULMICORT INH SCH (19:17)
[2018-09-26] MEDS: DESYREL PO SCH (20:13)
[2018-09-26] MEDS: NORCO-10 PO PRN (20:13)
[2018-09-26] MEDS: PERICOLACE PO SCH (20:13)
[2018-09-26] MEDS: ROBAXIN PO PRN (20:13)
[2018-09-26] MEDS: COREG PO SCH (20:13)
[2018-09-26] MEDS: GRALISE PO SCH (20:14)
[2018-09-26] MEDS ORDERED: HEPARIN SUBQ SCH (21:00)
--- NOTE | 2018-09-26 21:07 | HISTORY AND PHYSICAL ---
Ms. Viviana Patel is a 53-year-old female who presents to the hospital because of shortness of breath as well as altered mental status. She was also noted to be hypoglycemic. PHYSICAL EXAMINATION: VITAL SIGNS: At time of presentation: Temperature 98.4 degrees, pulse 65, respiratory rate 28, blood pressure 111/81, oxygen saturation 100%. HEENT: Atraumatic, normocephalic. CARDIOVASCULAR: S1, S2. RESPIRATORY SYSTEM: Good entry bilaterally. ABDOMEN: Soft, nontender. No masses felt. EXTREMITIES: No significant edema in the lower extremities. CENTRAL NERVOUS SYSTEM: The patient is awake, able to follow commands and no obvious focal deficits. LABORATORY DATA: WBC 6.76, hematocrit is 37.5 with a platelet count of 255. INR is 1.07, ABG 7.38/39/115/9.4. Chemistry: Sodium 136, potassium 5.1, chloride 105, creatinine 1.6. IMAGING: CT scan of the thorax, abdomen and pelvis without contrast shows evidence of anasarca with small pleural effusions. There is also notation of ascites. ASSESSMENT AND PLAN: This is a 53-year-old female who presents to the hospital because of altered mental status as well as shortness of breath. She has been diagnosed as having chronic obstructive pulmonary disease exacerbation. She will need to be maintained on nebulized bronchodilators as well as steroids and cycle BiPAP. She does have a history of congestive heart failure with ejection fraction of about 20% to 25% and will require diuretics as needed. cc: Reginald Forman MD MTDD
[2018-09-27] MEDS: DUONEB (A & A) INH SCH ×6 (03:07→23:30)
[2018-09-27] MEDS: SANTYL OINT TOP SCH ×2 (03:44→10:02)
[2018-09-27] MEDS: LASIX IV SCH ×2 (04:15→17:47)
[2018-09-27] MEDS: SOLU-MEDROL IV SCH ×3 (04:15→17:47)
[2018-09-27 05:20] LABS: ALLEN TEST YES; BE -2.6 mmoll (-3.0-3.0); BLOOD TYPE ARTERIAL; HCO3-(ACT) 22.9 mmoll (20.0-26.0); O2(CT) 12.4 mL/dL (15.0-23.0); O2HB 94.9 % (95.0-99.0); PCO2(98.6) 34 mmHg (35-45); PO2(98.6) 132 mmHg (60-100); SAMPLE BLOOD; SAO2 95.7 % (95.0-100.0); THB 9.1 g/dL (11.5-17.4); pH(98.6) 7.41 (7.35-7.45)
[2018-09-27 05:21] LABS: MODALITY CANNULA
[2018-09-27] MEDS: HUMULIN R SUBQ SCH ×4 (06:12→19:26)
[2018-09-27] MEDS: PROTONIX PO SCH (06:13)
[2018-09-27 06:14] LABS: HEMATOCRIT 31.3 % (37.0-47.0); IMM GRAN# 0.02 X1000 (0.0-0.04); IMM GRAN% 0.4 % (0.0-0.5); LYMPH# 0.49 X1000 (1.2-3.4); LYMPH% 9.3 % (20.5-51.1); MCH 30.4 PG (27-31); MCHC 31.9 g/dL (33-37); MCV 95.1 FL (81-99); MONO# 0.08 X1000 (0.11-0.59); MONO% 1.5 % (1.7-9.3); NEUT% 88.8 % (42.2-75.2); PLT 198 X1000 (130-400); RBC 3.29 XMIL (4.2-5.4); RDW 16.3 % (11.5-14.5); WBC 5.29 X1000 (4.8-10.8)
[2018-09-27 06:24] LABS: ALBUMIN 2.9 g/dL (3.5-5.0); CALCIUM 8.2 mg/dL (8.8-10.2); CREATININE 1.7 mg/dL (0.5-0.9); POTASSIUM 5.4 mmol/L (3.5-5.1); TOTAL BILIRUBIN 0.54 mg/dL (0.20-1.00); TOTAL PROTEIN 5.8 g/dL (6.3-8.3)
[2018-09-27 07:04] LABS: LYMPHS 6 % (21-51); MONO 4 % (1-9); SEGS 90 % (42-75)
[2018-09-27] MEDS: PULMICORT INH SCH ×2 (07:11→23:31)
[2018-09-27 08:57] LABS: PREALBUMIN 16.4 mg/dL (20-40)
--- NOTE | 2018-09-27 09:41 | Diag Imaging Result Doc PS360 ---
EXAM: CHEST-2 VIEWS HISTORY: short of breath TECHNIQUE: Chest two views COMPARISON: 09/26/2018 FINDINGS: The lungs are well expanded. The heart is enlarged. There is a left-sided pacemaker. The vessels are not distended. There are no infiltrates. Tiny pleural effusions. There has been surgery to the lower neck. IMPRESSION: Cardiomegaly with tiny pleural effusions Electronically signed by Valerio Adan 09/27/2018 9:39 AM
--- NOTE | 2018-09-27 09:51 | CARDIOLOGY PROGRESS NOTE ---
DATE: 09/27/2018 CHIEF COMPLAINT: Confusion, lethargy, swelling. SUBJECTIVE: Ms. Patel is much more alert today. Her arterial blood gases on 3 L nasal cannula look really good, pO2 is 132, pCO2 34, pH 7.41, those are from this morning. She is fully awake. She denies having any chest pain. She said that she has good days and bad days. Some days, she hurts in the back and cannot do much. She has been taking narcotics at least twice a day, sometimes she has to take it 3 times a day. She also has migraine headaches that bother her and neck pain. She has been previously operated in the neck. Her swelling according to her has gotten progressively worse. Reviewing records, the patient acknowledges the fact that in March of 2018 she weighed 156 pounds when she went to see Dr. Griffin at the office and now she is 60 pounds over that. I had a long discussion with her and explained to her that being a heart patient with an ejection fraction of 20% that would be a terrible situation and may lead to the possibility of intractable and refractory heart failure. The patient had been taking metformin. The patient continues to smoke cigarettes about 15 cigarettes a day. She is not a drinker. PHYSICAL EXAMINATION: Vital signs: Her physical today, blood pressure 132/62, temperature 98.2, pulse 65, respirations 16. General: She is awake. She appears to be chronically ill. Her eyelids are puffed up. Her hands are swollen. She has swelling of the abdominal wall. She has swelling of the legs. She has really anasarca edema. Neck veins are slightly prominent. Chest shows diffusely diminished breath sounds. Heart sounds are regular and rhythmic. I do not hear gallop or murmur. Chest x-ray that was done in the ER showed cardiomegaly. Abdomen is somewhat tight at the abdominal wall. I cannot feel any hepatomegaly. Extremities showed decreased pulses. Neurologic exam: Follows commands, moves all extremities. She is definitely fully alert today. BLOOD WORK: Sodium 136, potassium 5.4, BUN 41, creatinine 1.7, AST is 25, ALT 19, alkaline phosphatase 144, albumin 2.9. Of note, her inflammatory markers were negative. IMPRESSION: 1. A patient who presented with episode of hypoglycemia with altered mental status that responded to infusion of dextrose. 2. Diabetes mellitus type 2, which is moderately controlled. Her A1c is 7.7%. 3. Chronic systolic heart failure. This is out of proportion for her coronary heart disease. She had an inferior scar, however, her ventricle is entirely hypokinetic and dilated. 4. Status post biventricular automatic implantable cardioverter-defibrillator. 5. Anasarca edema. This probably relates to a combination of situations possibly liver dysfunction, chronic kidney disease, and her congestive heart failure. 6. Tobacco user. RECOMMENDATION: 1. The patient has been counseled extensively against tobacco use. 2. She may need to be referred for chronic pain management. 3. Get dietary counseling. 4. Obtain 24 hour urine and creatinine clearance and protein determination. 5. We will do daily weights on a standing scale. 6. Further advice will be forthcoming. I am going to check a prealbumin level and also a direct LDL level. 7. Her prognosis I think is poor at this time. 8. This patient is really a very poor candidate for aggressive management. cc: Junior Worthington MD
[2018-09-27] MEDS: ROBAXIN PO PRN (10:00)
[2018-09-27] MEDS: PLAVIX PO SCH (10:00)
[2018-09-27] MEDS: NICODERM PATCH TD SCH (10:00)
[2018-09-27] MEDS: PERICOLACE PO SCH ×2 (10:00→20:22)
[2018-09-27] MEDS: COREG PO SCH ×3 (10:01→20:22)
[2018-09-27] MEDS: NORCO-10 PO PRN (10:01)
[2018-09-27] MEDS: ENTRESTO 24 MG-26 MG TABLET PO SCH (10:01)
[2018-09-27] MEDS: GRALISE PO SCH ×2 (10:02→20:22)
[2018-09-27] MEDS: ALDACTONE PO SCH (10:02)
[2018-09-27] MEDS: LANOXIN PO SCH (10:16)
--- NOTE | 2018-09-27 16:32 | Diag Imaging Result Doc PS360 ---
3 PHASE BONE SCAN - 09/27/2018 INDICATION: r/o osteo of left foot; great toe location TECHNIQUE: Three phase bone scan of the feet. 27.5 mCi of MDP was administered. COMPARISON: None FINDINGS: There are no x-rays of the feet since 2017. There is normal perfusion, blood pool phase, and delayed phase activity of the feet. IMPRESSION: No focal abnormality to indicate osteomyelitis. There have been no x-rays of the feet since 2017. Electronically signed by Kelvin Cobos 09/27/2018 4:29 PM
--- NOTE | 2018-09-27 17:01 | PROGRESS NOTE ---
DATE: 09/27/2018 SUBJECTIVE: Patient resting in bed. OBJECTIVE: Vital signs: Temperature 98.2 degrees, pulse 64, respiratory rate 17, blood pressure 144/65, oxygen saturation is 100%. HEENT: Atraumatic, normocephalic. Cardiovascular System: S1, S2. Respiratory system has evidence of good air entry bilaterally. Abdomen is soft, nontender. No masses felt. Extremities: Positive for edema. Central nervous system: No obvious focal deficits noted. LABORATORIES: WBC is 5.29, hematocrit is 31.3, with a platelet count of 198,000. Sodium is 136, potassium 4.4, chloride is 104, bicarbonate is 20, BUN is 41, creatinine is 1.7. ABG 7.41/32/64/132/95.7%. X-ray of her chest shows cardiomegaly with [*]. ASSESSMENT AND PLAN: 1. Chronic obstructive pulmonary disease exacerbation. Maintain patient on nebulized bronchodilators and steroids, as well as antibiotics. Continue to follow up on patient's respiratory status. 2. Acute systolic heart failure. Maintain patient on diuretics. Follows up on intakes and outputs as well as daily weights. Continue Coreg, Entresto as well as spironolactone. 3. Pulmonary hypertension. Aware. 4. Diabetes mellitus. Continue blood sugar monitoring as well as sliding scale insulin. 5. Chronic kidney disease. Follow up on renal function. Avoid nephrotoxic agent. Medication dosage will need to be adjusted for renal function. 6. Coronary artery disease. Stable. cc: Reginald Forman MD
[2018-09-27] MEDS: ROCEPHIN 1 GM in NS 50 ML IV SCH (17:44)
--- NOTE | 2018-09-27 19:37 | CONSULTATION ---
DATE OF CONSULTATION: 09/27/2018 REQUESTING PROVIDER: MERT Luciano. REASON FOR CONSULTATION: COPD. HISTORY OF PRESENT ILLNESS: This is a 53-year-old female with a medical history of questionable COPD, ongoing tobacco abuse, pulmonary hypertension, congestive heart failure, diabetes, severe dilated ischemic cardiomyopathy, coronary artery disease, chronic troponinemia, hyperlipidemia, hypertension, chronic kidney disease, fatty liver and cervical cancer. She is very well known to our facility for recurrent acute on chronic congestive heart failure since 12/2017. She presented to the ER yesterday morning via EMS with low blood sugar and SOB. Initial workup in the ER revealed COPD exacerbation, acute on chronic combined systolic and diastolic heart failure, probable infected left great toe amputation and diabetes mellitus type 2 with hypoglycemia. She has been admitted to the [facility] for further evaluation and management. At the time of my examination, patient is sitting on the bedside with no acute distress. She reports chills, palpitations, facial or pedal edema and occasional dull or acting-type chest pain. She also reports shortness of breath and occasional cough with clear phlegm. She reports no fever, wheezing or nausea. PAST MEDICAL HISTORY: 1. Questionable COPD with ongoing tobacco abuse, not using any inhaler at home. 2. Pulmonary hypertension. 3. Congestive heart failure, combined systolic and diastolic. Left ventricular ejection fraction approximately 20-25% based on the echocardiogram on 06/14/2018. 4. Diabetes mellitus type 2. Non-insulin dependent. 5. Severe dilated ischemic cardiomyopathy. 6. Coronary artery disease with history of myocardial infarction. 7. Chronic troponinemia. 8. Hyperlipidemia. 9. Hypertension. 10. Chronic kidney disease stage 3A. 11. Fatty liver. 12. History of cervical cancer status post surgery x 2. PAST SURGICAL HISTORY: 1. Biventricular AICD placement in 10/2015. 2. Stent placement times x 2 to the right coronary artery in 02/2015. 3. Left big toe amputation by Dr. Ambrosio in 10/2016. 4. Hysterectomy. 5. Lumpectomy. 6. C-spine fusion. 7. Breast reduction. 8. Bladder tack. 9. Vascular stenting in the left leg. 10. Intestinal surgery at age 3. 11. Laparoscopic right knee surgery. 12. Cervical surgery x 2. SOCIAL HISTORY: The patient is and lives with her . She has no child. She is on disability. She smokes about half to 1 pack per day for over 35 years. She has no history of alcohol or illicit drug use. FAMILY HISTORY: Positive for brain cancer, pancreatic cancer, uterine cancer, heart failure, diabetes and renal failure. ALLERGIES: No known drug allergies. REVIEW OF SYSTEMS: A 10-point review of systems was conducted and the pertinent is listed within the HPI. Otherwise, noncontributory. PHYSICAL EXAMINATION: Vital Signs: Temperature 98.2, blood pressure 132/62, pulse 65, respiratory rate 16, oxygen saturation 98% on room air. General: Chronically ill, depressive but cooperative, in no active distress. Complained of chills at this time. Puffed eyes with right eye worse than the left eye. HEENT: Atraumatic, trachea midline. Mucosa pink and moist. Respiratory: Even and unlabored. Symmetrical excursion. Auscultation reveals diminished breathing sounds and early inspiratory crackles bibasilarly. Cardiovascular: Regular rate and rhythm. Gastrointestinal: Bowel sounds present in all 4 quadrants. semi-firm, nontender and swelling. Extremities: Bilateral upper extremity and left lower extremity pitting edema 1+, yellow thick drainage noted on the left great toe amputation site. A small healing wound noted on the left 5th toe and right 2nd toe. Neurologic: Alert, oriented x 3. Speech fluent, follows commands. LAB DATA: White blood cell 5.29, hemoglobin 10.0, hematocrit 31.3, platelet 198,000. Sodium 136, potassium 5.4, chloride 104, carbon dioxide 20, BUN 41, creatinine 1.7 glucose 318. ABG: pH 7.41, pCO2 34, PO2 132, HC03 22.9, base excess -2.6, and oxyhemoglobin 94.9. IMAGING DATA: Chest x-ray revealed cardiomegaly with tiny pleural effusions. ASSESSMENT: This is a 53-year-old female with a medical history of questionable COPD with ongoing tobacco abuse, pulmonary hypertension, congestive heart failure, diabetes, severe dilated ischemic cardiomyopathy, coronary artery disease, Chronic troponinemia, hyperlipidemia, hypertension, chronic kidney disease, fatty liver and cervical cancer. She has been admitted to the [facility] with COPD exacerbation, acute on chronic combined systolic and diastolic heart failure, probable infected left great toe amputation and diabetes mellitus type 2 with hypoglycemia. 1. Acute hypoxemic respiratory failure, improved. The patient is on room air now. Continue supplemental oxygen as needed. 2. Acute on chronic combined systolic and diastolic congestive heart failure. Dr. Chapa is on board. 3. Questionable COPD with exacerbation. The patient states she was once told that she had COPD, but she never uses any inhaler at home. Continue antibiotics, steroid, and bronchodilators. Continue short acting bronchodilators at discharge. Recommend outpatient robotics technician followup. 4. Anasarca edema. 5. Ongoing tobacco abuse. Highly recommend patient to quit smoking. Educated the patient on the importance and means of smoking cessation. 6. Diabetes mellitus type 2. 7. Continue GI and DVT prophylaxis. 8. Further recommendation pending hospital course. Thank you for the courtesy of this consult. Dictated by MERT Bagley for Alejandra Fragoso MD cc: MERT Bagley MD [facility]
[2018-09-27] MEDS: DESYREL PO SCH (20:21)
[2018-09-27] MEDS ORDERED: HUMULIN R SUBQ ONE (20:45)
[2018-09-27 21:34] LABS: ALLEN TEST YES; BE -3.9 mmoll (-3.0-3.0); BLOOD TYPE ARTERIAL; HCO3-(ACT) 21.9 mmoll (20.0-26.0); METHB 0.6 % (0.0-1.5); O2(CT) 13.9 mL/dL (15.0-23.0); O2HB 96.6 % (95.0-99.0); PCO2(98.6) 35 mmHg (35-45); PO2(98.6) 79 mmHg (60-100); SAMPLE BLOOD; SAO2 100.2 % (95.0-100.0); THB 10.2 g/dL (11.5-17.4); pH(98.6) 7.38 (7.35-7.45)
[2018-09-27 21:37] LABS: MODALITY ROOM AIR
[2018-09-27 22:08] LABS: CALCIUM 8.7 mg/dL (8.8-10.2); CREATININE 1.8 mg/dL (0.5-0.9); PHOSPHORUS 5.1 mg/dL (2.7-4.5); POTASSIUM 5.4 mmol/L (3.5-5.1)
[2018-09-28] MEDS: NORCO-10 PO PRN ×3 (00:35→21:58)
[2018-09-28] MEDS: ROBAXIN PO PRN ×4 (00:36→21:58)
[2018-09-28] MEDS: DUONEB (A & A) INH SCH ×5 (03:20→18:41)
[2018-09-28] MEDS: LASIX IV SCH ×2 (05:22→17:27)
[2018-09-28] MEDS: PROTONIX PO SCH ×2 (05:23→07:37)
[2018-09-28] MEDS: SOLU-MEDROL IV SCH ×2 (05:23→17:27)
[2018-09-28] MEDS: HUMULIN R SUBQ SCH ×4 (06:25→20:33)
[2018-09-28] MEDS: PULMICORT INH SCH ×2 (08:13→18:41)
[2018-09-28] MEDS ORDERED: NICODERM PATCH ONE (08:16)
[2018-09-28] MEDS: NICODERM PATCH TD SCH (08:24)
--- NOTE | 2018-09-28 08:24 | CARDIOLOGY PROGRESS NOTE ---
DATE: 09/27/2018 CHIEF COMPLAINT: Shortness of breath, swelling. SUBJECTIVE: Ms. Patel is still feeling unwell. She is still very swollen. Face is swollen. Legs and arms are swollen. She has diffuse anasarca edema. She has some cramping pain in the legs. She has no chest pain. OBJECTIVE: Blood pressure is 115/52, temperature 98 degrees, pulse 65, respirations 17. She was weighed today and she weighs 225 pounds and 219 pounds. On admission, her weight was 218 pounds, today bed scale gives us a number of 225 pounds, which absolutely does not make any sense because the patient has been given diuretics and her creatinine and BUN are going up. I just asked the nurse to obtain a standing scale weight on this patient. Her face is puffed up, swollen. Her breath sounds are diminished at bases. Heart sounds are distant, regular. I do not hear a gallop or murmur. Her abdomen is tense due to swelling of the abdominal wall. I cannot feel any hepatomegaly. Extremities showed diffuse swelling. Pulses are diminished. The temperature of the legs is a little better than yesterday. Neurological exam: She is awake, follows commands. BLOOD WORK: White cell count 5290, hemoglobin 10 g, hematocrit 31.3%. Sodium 131, potassium 5.4, BUN 54, creatinine 1.8. Pro BNP 7013 from yesterday. Prealbumin was low at 16.4. LDL cholesterol was very low at 18 mg/dL. That raises concern for possibly liver dysfunction. The patient has not been on a statin according to the medication list. IMPRESSION: 1. Patient who presented with diffuse anasarca edema. I believe this is multifactorial. I believe there is evidence that the patient has multiorgan involvement including renal dysfunction manifested by elevation of BUN and creatinine, liver dysfunction manifested by low albumin, low prealbumin, as well as very low cholesterol. 2. Original admission due to hypoglycemic event, which is another hint that she could have significant liver dysfunction. 3. Long-term history of dilated cardiomyopathy with coronary heart disease. I believe she has 2 separate heart conditions. 4. She is status post biventricular automatic implantable cardioverter- defibrillator. 5. She is a tobacco user. 6. Long-term history of diabetes mellitus. RECOMMENDATIONS: At this time, I would continue with diuretic program. I think we need to get the tufting creeler in this case. I have recommended a 24 hour creatinine clearance and protein in urine. I believe her prognosis is really poor. We will be following her. cc: Junior Worthington MD MTDD
[2018-09-28] MEDS: LANOXIN PO SCH (08:25)
[2018-09-28] MEDS: GRALISE PO SCH ×2 (08:25→20:32)
[2018-09-28] MEDS: ENTRESTO 24 MG-26 MG TABLET PO SCH (08:25)
[2018-09-28] MEDS: ALDACTONE PO SCH (08:25)
[2018-09-28] MEDS: COREG PO SCH ×2 (08:26→20:33)
[2018-09-28] MEDS: PERICOLACE PO SCH ×2 (08:26→20:33)
[2018-09-28] MEDS: PLAVIX PO SCH (08:26)
[2018-09-28] MEDS: SANTYL OINT TOP SCH (08:27)
[2018-09-28 11:28] LABS: CREATININE 1.8 mg/dL (0.7-1.2); UR CREATININE 49.3 mg/dL (11-20); UR CREATININE TOTAL 887.4 mg/24 (600-1600); UR PROTEIN 28.6 mg/dL
--- NOTE | 2018-09-28 18:19 | PROGRESS NOTE ---
DATE: 09/28/2018 SUBJECTIVE: Patient resting in bed. Not in any obvious distress. OBJECTIVE: Vital Signs: As follows: Temperature 98.3, pulse 67, respirations 18, blood pressure 135/71, oxygen saturation is 100%. HEENT: Atraumatic, normocephalic. Cardiovascular: S1, S2. Respiratory: Has evidence of good air entry bilaterally. Abdomen: Full, nontender. No masses felt. Extremities: 2+ edema in the lower extremities with erythematous changes involving both feet. She does have a wound on the left foot site of amputated left great toe. She also has a wound noted on dorsum of the right 2nd toe. LABS: Blood sugar 224. ASSESSMENT AND PLAN: 1. Chronic obstructive pulmonary disease exacerbation. Maintain patient on nebulized bronchodilators, steroids, as well as antibiotics. Continue to follow up on patient's respiratory status. 2. Acute systolic heart failure. Maintain patient on diuretics. Monitor intakes and outputs, as well as daily weights. Continue Coreg and Crestor as well as spironolactone as well. 3. Pulmonary hypertension. Aware. 4. Diabetes mellitus. Continue blood sugar monitoring as well as sliding scale insulin. 5. Chronic kidney disease. Follow up on renal function. Avoid nephrotoxic agent. Medication dose will need to be adjusted for renal function. 6. Coronary artery disease. Stable. 7. Diabetic foot infection. The patient does have a large ulcer on the left foot site of the amputated left grade 2 and also has an ulcer on the dorsum of the right 2nd toe. The patient will require local wound care and also will obtain wound cultures and maintain her on antibiotics. DISPOSITION: Patient can now be transferred to the floor for further management. She is more stable at this time. cc: Reginald Forman MD
[2018-09-28] MEDS: ZOSYN 2.25 GM in NS 50 ML IV SCH (20:31)
[2018-09-28] MEDS: ZYVOX PO SCH (20:33)
[2018-09-28] MEDS: DESYREL PO SCH (20:33)
[2018-09-29] MEDS: DUONEB (A & A) INH SCH ×6 (00:10→19:49)
[2018-09-29] MEDS: ZOSYN 2.25 GM in NS 50 ML IV SCH ×4 (03:04→21:08)
[2018-09-29] MEDS: LASIX IV SCH ×2 (05:56→17:25)
[2018-09-29] MEDS: SOLU-MEDROL IV SCH ×2 (05:57→17:25)
[2018-09-29] MEDS: PROTONIX PO SCH (05:59)
[2018-09-29] MEDS: HUMULIN R SUBQ SCH ×4 (05:59→21:07)
[2018-09-29] MEDS: PULMICORT INH SCH ×2 (07:40→19:49)
[2018-09-29 07:44] LABS: HEMATOCRIT 31.7 % (37.0-47.0); HEMOGLOBIN 10.1 g/dL (12.0-16.0); IMM GRAN# 0.02 X1000 (0.0-0.04); IMM GRAN% 0.2 % (0.0-0.5); LYMPH# 0.64 X1000 (1.2-3.4); LYMPH% 7.3 % (20.5-51.1); MCH 30.1 PG (27-31); MCHC 31.9 g/dL (33-37); MCV 94.3 FL (81-99); MONO# 0.48 X1000 (0.11-0.59); MONO% 5.5 % (1.7-9.3); MPV 9.9 FL (7.4-10.4); NEUT# 7.59 X1000 (1.4-6.5); PLT 176 X1000 (130-400); RBC 3.36 XMIL (4.2-5.4); RDW 15.9 % (11.5-14.5); WBC 8.73 X1000 (4.8-10.8)
[2018-09-29 08:11] LABS: ALBUMIN 3.3 g/dL (3.5-5.0); CALCIUM 8.6 mg/dL (8.8-10.2); POTASSIUM 5.2 mmol/L (3.5-5.1); TOTAL BILIRUBIN 0.59 mg/dL (0.20-1.00); TOTAL PROTEIN 6.5 g/dL (6.3-8.3)
[2018-09-29] MEDS: NORCO-10 PO PRN ×3 (09:30→21:14)
[2018-09-29] MEDS: LANOXIN PO SCH (09:31)
[2018-09-29] MEDS: PERICOLACE PO SCH ×2 (09:32→21:06)
[2018-09-29] MEDS: ALDACTONE PO SCH (09:32)
[2018-09-29] MEDS: SANTYL OINT TOP SCH (09:32)
[2018-09-29] MEDS: ZYVOX PO SCH ×2 (09:32→21:06)
[2018-09-29] MEDS: COREG PO SCH ×2 (09:32→21:06)
[2018-09-29] MEDS: ENTRESTO 24 MG-26 MG TABLET PO SCH (09:34)
[2018-09-29] MEDS: PLAVIX PO SCH (09:34)
[2018-09-29] MEDS: NICODERM PATCH TD SCH (09:34)
[2018-09-29] MEDS: GRALISE PO SCH ×2 (09:34→21:07)
[2018-09-29] MEDS: ROBAXIN PO PRN ×2 (14:42→21:12)
[2018-09-29] MEDS ORDERED: KAYEXALATE PO ONE (15:21)
--- NOTE | 2018-09-29 16:14 | PROGRESS NOTE ---
DATE: 09/29/2018 SUBJECTIVE: The patient is resting comfortably in bed. OBJECTIVE: Vital signs: Vital signs are as follows: Temperature 97.4 degrees, pulse 65, respiratory rate 16, blood pressure 130/68, oxygen saturation is 100%. HEENT: Atraumatic, normocephalic. Cardiovascular system: S1, S2. Respiratory system: Has evidence of good air entry bilaterally. Abdomen: Soft, nontender. No masses felt. Extremities: Has edema noted in both lower extremities. Central nervous system: No obvious focal deficit noted. LABS: WBC is 8.73, hematocrit is 31.7 with a platelet count of 176. Sodium is 132, potassium 5.2, chloride is 101, bicarbonate is 22. BUN is 65, creatinine is 2.0. ASSESSMENT AND PLAN: 1. Chronic obstructive pulmonary disease exacerbation. Continue nebulized bronchodilators, steroids, antibiotics. 2. Acute systolic heart failure. Continue diuretics. Monitor intakes and outputs, as well as daily weights. 3. Pulmonary hypertension. Aware. 4. Diabetes mellitus. Continue blood sugar monitoring, as well as sliding scale insulin. 5. Chronic kidney disease. Follow up on renal function. Avoid nephrotoxic agents. Medication dose will need to be adjusted for renal function. Consult with Nephrology. 6. Coronary artery disease, stable. 7. Diabetic foot infection. The patient does have a large ulcer on the left foot site of the amputated left great toe, and also on the dorsum of the right second toe. Wound care consulted and also will follow up on culture reports. 8. Deep vein thrombosis prophylaxis. Heparin. 9. Gastrointestinal prophylax. Proton pump inhibitor. cc: Reginald Forman MD
[2018-09-29] MEDS: HEPARIN SUBQ SCH (21:06)
[2018-09-29] MEDS: DESYREL PO SCH (21:07)
[2018-09-30] MEDS: DUONEB (A & A) INH SCH ×4 (00:03→10:47)
[2018-09-30] MEDS: ZOSYN 2.25 GM in NS 50 ML IV SCH ×2 (03:07→09:33)
[2018-09-30] MEDS: LASIX IV SCH (05:37)
[2018-09-30] MEDS: SOLU-MEDROL IV SCH (05:37)
[2018-09-30] MEDS: PROTONIX PO SCH (06:08)
[2018-09-30] MEDS: HUMULIN R SUBQ SCH ×2 (06:09→11:16)
[2018-09-30] MEDS: PULMICORT INH SCH (07:20)
--- NOTE | 2018-09-30 07:38 | Diag Imaging Result Doc PS360 ---
EXAM: CHEST-1 VIEW INDICATION: SOB TECHNIQUE: One view COMPARISON: 09/27/2018 FINDINGS: The lungs are grossly clear. No new consolidations are identified. There is stable cardiomegaly. Central vasculature may be slightly prominent suggesting mild pulmonary venous congestion. IMPRESSION: Mildly prominent central vasculature suggesting mild pulmonary venous congestion. Electronically signed by Tom Joya 09/30/2018 7:36 AM
[2018-09-30 08:06] LABS: HEMATOCRIT 31.7 % (37.0-47.0); HEMOGLOBIN 10.5 g/dL (12.0-16.0); IMM GRAN# 0.02 X1000 (0.0-0.04); IMM GRAN% 0.3 % (0.0-0.5); LYMPH# 0.76 X1000 (1.2-3.4); LYMPH% 9.8 % (20.5-51.1); MCH 30.7 PG (27-31); MCHC 33.1 g/dL (33-37); MCV 92.7 FL (81-99); MONO# 0.45 X1000 (0.11-0.59); MONO% 5.8 % (1.7-9.3); MPV 9.6 FL (7.4-10.4); NEUT# 6.52 X1000 (1.4-6.5); NEUT% 84.1 % (42.2-75.2); PLT 185 X1000 (130-400); RBC 3.42 XMIL (4.2-5.4); RDW 15.3 % (11.5-14.5); WBC 7.75 X1000 (4.8-10.8)
[2018-09-30 08:43] LABS: ALB/GLOB RATIO 1.3; ALBUMIN 3.4 g/dL (3.5-5.0); CALCIUM 8.6 mg/dL (8.8-10.2); CREATININE 1.8 mg/dL (0.5-0.9); TOTAL BILIRUBIN 0.58 mg/dL (0.20-1.00); TOTAL PROTEIN 6.1 g/dL (6.3-8.3)
[2018-09-30 09:08] VITALS: BP 135/66
[2018-09-30] MEDS: GRALISE PO SCH (09:34)
[2018-09-30] MEDS: PERICOLACE PO SCH (09:34)
[2018-09-30] MEDS: PLAVIX PO SCH (09:34)
[2018-09-30] MEDS: ALDACTONE PO SCH (09:34)
[2018-09-30] MEDS: ZYVOX PO SCH (09:34)
[2018-09-30] MEDS: COREG PO SCH (09:34)
[2018-09-30] MEDS: NICODERM PATCH TD SCH (09:34)
[2018-09-30] MEDS: ENTRESTO 24 MG-26 MG TABLET PO SCH (09:34)
[2018-09-30] MEDS: HEPARIN SUBQ SCH (09:34)
[2018-09-30] MEDS: SANTYL OINT TOP SCH (09:35)
[2018-09-30] MEDS: LANOXIN PO SCH (09:36)
--- NOTE | 2018-09-30 11:35 | NEPHROLOGY CONSULTATION ---
DATE: 09/30/2018 REASON FOR CONSULTATION: Acute kidney injury. HISTORY OF PRESENT ILLNESS: Ms. Patel is a 53-year-old white female with severe cardiomyopathy with LVEF of 15% to 20% as of 12/2017, also with severe pulmonary hypertension. She was admitted to the hospital for hypoglycemia, by her report, but she had severe ascites and edema and has been treated with IV diuretics since admission. She is net negative 11 L since admission, and she states she is better and needs to go home today. She denies chest pain. She is on room air. No shortness of breath currently. She is not aware of kidney disease. She does have peripheral vascular disease and an amputation that she attributes to her diabetes. No known retinopathy. She has been diabetic for 20 years. She also has a history of COPD, hypertension. Her cardiac history is listed above. She also has an implantable defibrillator. PAST MEDICAL HISTORY: As above. HOME MEDICATIONS: Gabapentin, clopidogrel, metformin, Entresto, trazodone, spironolactone, methocarbamol, gabapentin, digoxin, furosemide, hydrocodone, carvedilol. ALLERGIES: None. SOCIAL HISTORY: She is and lives with her . Continues to smoke. No alcohol or tobacco. FAMILY HISTORY: Positive for heart disease and CKD. REVIEW OF SYSTEMS: Otherwise noncontributory. PHYSICAL EXAMINATION: Blood pressure is 135/66, heart rate 65, respirations 18, afebrile. General: Sitting erect, in no acute distress. Skin is warm and dry. Conjunctivae are pink. Oropharynx has normal tongue, normal teeth. Neck is supple. Trachea is midline. Neck veins are not appreciated in the erect position. Heart is regular. No murmurs. Lungs are equal with a few scattered crackles. Decreased breath sounds in the bases. Abdomen is distended and soft. Bowel sounds are present. Nontender. Extremities have 3+ edema extending up to the mid abdomen and up to the mid forearm. No clubbing or cyanosis. Neurologic: Grossly nonfocal. IMPRESSION: Chronic kidney disease stage. Likely has moderate diabetic nephropathy. She has 500 mg of proteinuria for 24 hours, and her serum protein was 3.4 today. Her creatinine has risen rather consistently over the last 18 months. Certainly the addition of Entresto may amplify her creatinine and creatinine rise related to diuretics. At any rate, she still needs aggressive diuretic therapy. If she is discharged, then I would send her home on Lasix 80 in the morning and 40 in the afternoon plus Zaroxolyn as needed to continue volume loss. Strict salt and water restriction. We will be glad to follow her as an outpatient. cc: Garfield Jay MD
--- NOTE | 2018-09-30 14:09 | DISCHARGE SUMMARY ---
ADMISSION DATE: 09/26/2018 DISCHARGE DATE: 09/30/2018 DISPOSITION: Home. FOLLOW-UP: 1. Dr. Kelsey Davis. 2. Dr. Jay. 3. Dr. Griffin. 4. Dr. Fragoso. CONSULTATIONS DURING THIS ADMISSION: 1. Pulmonary was consulted. Patient was seen by Dr. Fragoso. 2. Nephrology was consulted. Patient was seen by Dr. Jay. INVASIVE PROCEDURES DONE DURING ADMISSION: None. IMAGING STUDIES OF SIGNIFICANCE: 1. A chest x-ray did reveal cardiomegaly. A CT scan of the chest, abdomen, and pelvis show anasarca, small pleural effusions, and ascites. 2. A bone scan of the left foot shows no focal abnormality to indicate osteomyelitis. 3. A repeat chest x-ray this morning shows mildly prominent central vasculature suggesting mild pulmonary venous congestion. ADMISSION DIAGNOSES: 1. Chronic obstructive pulmonary disease in exacerbation. 2. Acute on chronic systolic heart failure. 3. Pulmonary hypertension. 4. Diabetes mellitus. 5. Chronic kidney disease stage 3. DIAGNOSES AT TIME OF DISCHARGE: 1. Anasarca secondary to systolic heart failure decompensation. 2. Acute on chronic systolic heart failure with ejection fraction of about 20%. 3. Severe dilated ischemic cardiomyopathy. 4. Diabetes mellitus. 5. Left great toe amputation with a site infection. Cultures positive for Enterobacter cloacae complex. The patient is currently on IV Zosyn, and will be switched to p.o. cefdinir, which is sensitive. 6. History of coronary artery disease status post stents. 7. Noncompliance with diet, especially low-salt. DISCHARGE MEDICATIONS: 1. Clopidogrel 75 mg daily. 2. Entresto 1 tablet daily. 3. Trazodone 50 mg at bedtime. 4. Aldactone 25 mg p.o. daily. 5. Robaxin 750 3 times per day. 6. Gabapentin 600 p.o. daily. 7. Digoxin 125 p.o. daily. 8. Carvedilol 6.25 b.i.d. 9. Metolazone 10 mg p.o. daily. 10. Irlanda-Colace. 11. Cefdinir 300 mg daily. 12. Furosemide 80 mg b.i.d. PRESENTING COMPLAINT: Blood sugar not responding. HISTORY OF PRESENTING COMPLAINT: Ms. Patel is a 53-year-old female with a known history of severe ischemic cardiomyopathy, systolic heart failure with ejection fraction of 20%, and also diabetic who is on insulin and metformin was found to have low blood sugars at home, was brought into the emergency department because of minimal responsiveness. The patient was found to have a glucose of 952 at some point, and was subsequently admitted for glycemic control. HOSPITAL COURSE: During the hospital course, patient was also found to have anasarca and diuretic therapy was instituted. She had been diuresing well. She is still pre-volume overload, but the patient is very adamant that she wants to go home. She is currently negative balance of 11,765. We are going to up titrate her diuretic needs and get her home. I have discussed this case with Nephrology, and they recommended the Lasix 80 mg b.i.d., metolazone 10 mg, and let her continue also on her spironolactone. Let her follow up with them early next week. I have communicated this as well to the patient. Ms. Patel is also advised on low-salt diet, which she does not seem to be very compliant with. This morning, her vitals show her blood pressure is 136/66, pulse 65, respiration is 18, and temperature 97.5 degrees. She is fairly stable for discharge. All of the discharge instructions have been discussed with her, and she voiced understanding. TIME SPENT: Time spent for discharge is 37 minutes. cc: MD Dr. Kelsey Segovia MD Ashish K. Basu, MD Dr. Najjar MTDD
== END 2018-09-30 13:59 | disposition home health service (06) | DRG 637 ==
LOC: SUPCPDRO → ED 10:22 → SUATTDRO 12:45 → EDIPHOLD 12:45 → 3S 18:59 → 3N 09-28 22:06
PROVIDERS: ATTEND Internal Medicine
CPT/HCPCS: 51702; 71010; 71020; 71045; 71046; 71250; 74176; 78315; 80048; 80053; 80162; 81001; 81050; 82550; 82575; 82805; 82948; 83036; 83721; 83735; 83880; 84100; 84134; 84156; 84484; 85025; 85610; 85730; 86140; 87040; 87070; 87077; 87186; 93005; 94640; 94660; 94761; 94799; 96365; 96375; 96376; 99285; A9270; A9503; J0696; J1160; J1644; J1940; J2543; J2920; J2930; XXXXX

== ENCOUNTER 2018-12-14 18:03 | Inpatient (IN) ==
[2018-12-14] MEDS ORDERED: LASIX IV ONE (20:16)
[2018-12-14 21:01] LABS: BASO% 0.7 % (0.0-0.8); EOS# 0.07 X1000 (0.0-0.7); EOS% 1.2 % (0.0-10.0); HEMATOCRIT 32.3 % (37.0-47.0); HEMOGLOBIN 10.7 g/dL (12.0-16.0); LYMPH# 1.25 X1000 (1.2-3.4); LYMPH% 21.4 % (20.5-51.1); MCH 31.7 PG (27-31); MCHC 33.1 g/dL (33-37); MCV 95.6 FL (81-99); MONO# 0.64 X1000 (0.11-0.59); MONO% 10.9 % (1.7-9.3); MPV 10.7 FL (7.4-10.4); NEUT# 3.85 X1000 (1.4-6.5); NEUT% 65.8 % (42.2-75.2); PLT 215 X1000 (130-400); RBC 3.38 XMIL (4.2-5.4); RDW 15.3 % (11.5-14.5); WBC 5.85 X1000 (4.8-10.8)
[2018-12-14 21:02] LABS: BASO# 0.04 X1000 (0.0-0.2)
[2018-12-14 21:11] LABS: INR 1.2; PROTIME 16.2 Seconds (11.0-16.0)
[2018-12-14 21:36] LABS: POTASSIUM 4.2 mmol/L (3.5-5.1)
[2018-12-14 21:37] LABS: ALB/GLOB RATIO 1.5; ALBUMIN 3.8 g/dL (3.5-5.0); CALCIUM 9.3 mg/dL (8.8-10.2); CREATININE 1.6 mg/dL (0.5-0.9); TOTAL BILIRUBIN 1.19 mg/dL (0.20-1.00); TOTAL PROTEIN 6.4 g/dL (6.3-8.3)
--- NOTE | 2018-12-14 21:40 | Diag Imaging Result Doc PS360 ---
EXAM: CHEST-2 VIEWS - 12/14/2018 HISTORY: CHF TECHNIQUE: Chest two views COMPARISON: 10/08/2018 portable chest FINDINGS: There is cardiomegaly similar to prior. There is transvenous cardiac pacemaker again seen. The lungs appear clear. There is no vascular congestion, pleural effusion, or pneumothorax identified. IMPRESSION: Cardiomegaly. No other evidence of acute disease. Electronically signed by Ranjeet Paulino 12/14/2018 9:38 PM
--- NOTE | 2018-12-14 21:49 | EKG Report ---
Test Performed on : 12/14/2018 6:13:54 PM Test Reason : CHF Blood Pressure : / mmHG Vent. Rate : 065 BPM Atrial Rate : 065 BPM P-R Int : 204 ms QRS Dur : 160 ms QT Int : 484 ms P-R-T Axes : 001 -46 136 degrees QTc Int : 503 ms AV dual-paced rhythm Abnormal ECG When compared with ECG of 08-OCT-2018 17:17, No significant change was found Unconfirmed Result
--- NOTE | 2018-12-14 22:06 | PROVIDER DOCUMENTATION ---
This chart was entered by Emy Gannon Scribe, acting as scribe for Leanna Tinsley MD. HPI-General Adult - General Chief Complaint: Edema Stated Complaint: RETAINING FLUID Time Seen by Provider: 12/14/18 19:39 Source: patient Allergies/Adverse Reactions: Patient Allergies Allergy/AdvReac Type Severity Reaction Status Date / Time No Known Allergies Allergy Verified 09/26/18 10:53 Home Medications: Home Medication List Medication Instructions Recorded Confirmed Last Taken Type Clopidogrel [Plavix] 75 mg PO DAILY #30 tablet 11/12/16 09/26/18 01/08/18 08:00 Rx Sacubitril/Valsartan [Entresto 24 1 each PO DAILY 12/09/17 09/26/18 01/08/18 21:00 History mg-26 mg Tablet] Trazodone HCl 50 mg PO HS 12/09/17 09/26/18 01/08/18 21:00 History Spironolactone [Aldactone] 25 mg PO DAILY 30 Days #30 tab 12/12/17 09/26/18 01/08/18 08:00 Rx Methocarbamol [Robaxin-750] 750 mg PO TID PRN 01/09/18 09/26/18 01/09/18 13:00 History Digoxin [Lanoxin] 125 microgm PO DAILY #90 tab 08/24/18 09/26/18 Unknown Rx Hydrocodone/APAP 10 mg/325 mg 1 ea PO TID PRN PRN #10 tab 08/24/18 09/26/18 Unknown Rx [Miller-10] Carvedilol [Coreg] 6.25 mg PO BID 09/26/18 09/26/18 Unknown History Cefdinir 300 mg PO DAILY #10 cap 09/30/18 Unknown Rx Furosemide [Lasix] 80 mg PO BID #60 tab 09/30/18 Unknown Rx Gabapentin [Gralise] 600 mg PO HS #0 09/30/18 09/26/18 01/08/18 21:00 Rx Metolazone 10 mg PO DAILY #60 tab 09/30/18 Unknown Rx Sennosides/Docusate Sodium 1 ea PO BID #120 tab 09/30/18 Unknown Rx [Pericolace] - History of Present Illness -Gen Adult Nature of Presenting Problems: pt is a 53 yr old female presenting with 3 weeks increased shortness of breath and fluid retention, pt reports hx of CHF, was referred to the CHF clinic at [facility], at todays appointment they attempted to admit for fluid over load and pt refused [facility] admit, pt reports she wanted to be here at [facility], closer to home. pt denies chest pain, pt reports she can only lie flat for short periods, pt is sitting upright during exam. She is supposed to be put on the transplant list soon but has not been smoke free for more than 6 months. She has a defibrillator. She has been ahving her diuretics adjusted recently. Location of Pain/Injury: reports: none Quality of Pain: reports: none Severity: reports: moderate Onset/Duration: reports: other (3+weeks) Timing: reports: changing over time, getting worse Context/Activities at Onset: reports: rest Modifying Factors: improves with: other medication (lasix-min relief, Turosemide-9lb wt loss) Associated Symptoms: reports: shortness of breath, other (edema). denies: chest pain Similar Symptoms Previously?: No Recently seen or treated by another doctor?: No Review of Systems - Adult - REVIEW OF SYSTEMS - ADULT Constitutional: reports: fatique, weight gain. denies: fever Eyes: reports: no symptoms reported Ears, Nose, Mouth & Throat: reports: no symptoms reported Cardiovascular: reports: edema. denies: palpitations, syncope Respiratory: reports: cough, dyspnea on exertion, shortness of breath Gastrointestinal: denies: abdominal pain, diarrhea, nausea, vomiting Genitourinary: reports: no symptoms reported Musculoskeletal: denies: back pain, joint pain, neck pain Integumentary: reports: no symptoms reported Neurological: denies: dizziness/vertigo, headache/migraines, syncope Psychiatric: reports: no symptoms reported Endocrine: reports: no symptoms reported Hematologic/Lymphatic: reports: no symptoms reported Allergic/Immunologic: reports: no symptoms reported All Other Systems: Reviewed and Negative Past History - Adult - PAST MEDICAL HISTORY-ADULT Review of Records: reports: Old Records Reviewed, Nursing Assessment Review, Medications Reviewed, Social history reviewed & non-contributory. Major Childhood Illnesses: reports: denies history Cardiovascular: reports: CAD, CHF, HTN, hyperlipidemia, pacemaker, other (ACID) Respiratory: reports: COPD Gastrointestinal: reports: denies history Obstetrical/Gynecological: reports: denies history, other (cervical cancer) Genitourinary: reports: denies history Musculoskeletal: reports: cancer (cervical) Neurological: reports: denies history Endocrine/Immune: reports: Diabetes Other Conditions: reports: denies history, MRSA - PRIOR SURGERIES/PROCEDURES Surgical/Procedure History: reports: pacemaker, hysterectomy, orthopedic (extremity) (arthroscopy), other (ACID/BREAST REDUCTION/CERVICAL FUSION; L 1st toe amputation) - IMMUNIZATION STATUS Childhood Immunizations: See Nurse Assessment Flu Vaccine: See Nurse Assessment - FAMILY HISTORY Family History: reviewed, not pertinent - SOCIAL HISTORY Smoking: cigarettes Provider spent 3-5 mins advising pt. on dangers of tobacco.: Discussed manners to quit use, and f/u contacts for add'l counseling. Living Situation: family Physical Exam-General - PHYSICAL EXAM-ADULT Initial Vital Signs Reviewed: Yes - CONSTITUTIONAL General Appearance: alert, obese - EYES Eyes: PERRL/EOMI - HEAD, EARS, NOSE, MOUTH & THROAT HENMT: normocephalic/atraumatic, moist mucous membranes - NECK Neck: non-tender, full range of motion, supple - RESPIRATORY Respiratory: chest non-tender, no pleuratic chest pain, no respiratory distress, no accessory muscle use, crackles (diffuse crackles) - CARDIOVASCULAR Cardiovascular: normal peripheral pulses, regular rate, rhythm, other ( 2- 3+pitting edema bilateral legs to mid thigh, pitting edema lower abdomen) - GASTROINTESTINAL (ABDOMEN) Abdominal Exam: normal bowel sounds, non tender, soft, other (2-3+pitting edema low abdomen) - LYMPHATIC Lymphatic: no adenopathy - MUSCULOSKELETAL Back Exam: normal inspection Extremity: normal range of motion, non-tender - SKIN Integumentary: normal color, normal turgor, warm/dry, other ( 2-3+pitting edema bilateral legs to mid thigh, pitting edema lower abdomen) - NEUROLOGIC Neurologic: grossly normal - PSYCHIATRIC Psych/Mental Status: normal mood/affect, oriented x 3 Progress - PLAN OF CARE/RESULTS Progress/Plan/Lab Results: Vital Signs - 8 hr 12/14/18 18:07 Temperature 99.7 F H Pulse Rate 64 Respiratory Rate 18 Blood Pressure 124/76 O2 Sat by Pulse Oximetry 96 Orders Category Date Time Status CHEST-2 VIEWS [RAD] Stat Exams 12/14/18 20:16 Ordered CBC WITH ELECTRONIC DIFF [HEME] Stat Lab 12/14/18 20:15 Uncollected COMPREHENSIVE METABOLIC PANEL [CHEM] Stat Lab 12/14/18 20:16 Uncollected PRO B-NATRIURETIC PEPTIDE Stat Lab 12/14/18 20:16 Uncollected PROTIME WITH INR [COAG] Stat Lab 12/14/18 20:17 Uncollected TROPONIN T Stat Lab 12/14/18 20:16 Uncollected Furosemide [Lasix] Med 12/14/18 20:16 Discontinued 60 mg IV NOW ONE EKG [EKG] Stat Ther 12/14/18 20:17 Ordered Patient with pitting edema up bilateral LE and into lower abdomen. Crackles throughout lung exam. Sitting up in bed, cannot lay flat. Spoke to Dr Wilkinson, trailer sections assembler for hospitalist who accepted patient for admission. Further orders to be placed by their team. Result Diagrams: 12/14/18 20:30 12/14/18 20:30 - EKG 1 Time of EKG reading by physician:: 18:15 EKG Read and Signed by:: Mansoor Ward EKG Interpretation (*Must complete 3 of following elements*): Abnormal Rate: 65 Rhythm: av dual pased rhythm Prior EKG Comparison: unchanged from prior (10/08/18) - XRAY 1 XRAY Study: Chest Impression: Abnormal (Signed EXAM: CHEST-2 VIEWS - 12/14/2018 HISTORY: CHF TECHNIQUE: Chest two views COMPARISON: 10/08/2018 portable chest FINDINGS: There is cardiomegaly similar to prior. There is transvenous cardiac pacemaker again seen. The lungs appear clear. There is no vascular congestion, pleural effusion, or pneumothorax identified. IMPRESSION: Cardiomegaly. No other evidence of acute disease. Electronically signed by Ranjeet Paulino 12/14/2018 9:38 PM 12/14/[id number] Interpreting Physician: Ranjeet Paulino MD Dictated Date/Time: 12/14/182136 cc: Leanna Tinsley MD; Kelsey Davis MD) Comparison with other Films: no changes (10/08/18) - CONSULTS/PCP/HOSPITALIST Notification #1 *Consult/PCP/Hospitalist*: Dr Wilkinson Time Discussed: 21:45 Consult Disposition: Admit Departure - Departure Date of Disposition Decision: 12/14/18 Time of Disposition Decision: 21:45 DIAGNOSIS: CHF (congestive heart failure) Disposition: ADMITTED INPATIENT 09 Certified Medical Emergency: Emergent Condition: Stable Referrals and Follow-Ups: Kelsey Davis MD [Primary Care Provider] - - Critical Care Note This patient required my direct & personal management of CC.: No Attestation - Physician/ NANNETTE Attestation Patient care was provided by Advanced Practice Provider:: No The physician spent face to face time with patient:: Yes Advanced Practice Provider documentation review:: Supervising physician onsite and consulted in the evaluation and care of this patient. The physician did have a face to face encounter with the patient. This chart was documented by the indicated scribe, (Emy Gannon, Solomon) and accurately reflects the services I performed and decisions made by me, Leanna Tinsley MD, as attested by the provider's signature.
[2018-12-14] MEDS ORDERED: NORCO-7.5 PO ONE (23:32)
--- NOTE | 2018-12-15 02:16 | HISTORY AND PHYSICAL ---
PHYSICIANS: Dr. Kelsey Davis and Dr. Griffin. REASON FOR ADMISSION: Chronic dyspnea for over a month. HISTORY OF PRESENT ILLNESS: Ms. Viviana Patel is a 53-year-old woman with past medical history of chronic systolic heart failure with an EF of 15% to 20%, cardiac cirrhosis, type 2 diabetes, ischemic cardiomyopathy, hyperlipidemia, hypertensive heart disease, COPD, prior history of cervical cancer. She comes in today for admission at the behest of her heart failure specialist in [facility], of concern that she may be in florid CHF. When we questioned this patient who is rather a poor historian, she states that she has not had any severe PND or orthopnea. She has chronic abdominal and lower extremity swelling, which has not really worsened. She admits to having a cough productive of yellowish-whitish sputum, but no fever or chills. She states that about a month ago, her weight was 208, and it spiked to 234 a few weeks ago, now it is 223 today. She admits to having easy satiety with meals. Her last meal yesterday was some urdu fries. She denies any overt GI or complaints. No polyuria or polydipsia. She now complains of pain in the chest, abdomen, and legs, which is chronic, but neither of these have progressed or worsened. She says she has been having some more increased chest discomfort for the last 2 to 3 hours. She cannot give a specific quality of the pain, but says it is 9/10. No documentation of radiation or factors associated with this pain. REVIEW OF SYSTEMS: A 12-system review was done with no additional findings, except for the findings noted in the HPI. ALLERGIES: No known allergies. HOME MEDICATIONS: Have not been reconciled at this time, but she does remember she takes 7.5 mg of [place] with Robaxin. She also says she takes torsemide. She stopped taking metformin because she thinks her diabetes has improved. SOCIAL HISTORY: Smokes about a half to 1 pack a day. No alcohol or illicit drug use. She is , lives with her . SURGICAL HISTORY: Implantable cardioverter defibrillator placement, left toe amputation, vascular stenting of the left leg, left knee scope, bladder tack, breast reduction, C- spine fusion, lumpectomy, and left hallux amputation. FAMILY HISTORY: Notable for heart and kidney disease, diabetes. A sister has a history of uterine cancer. LABORATORY AND DIAGNOSTIC DATA: White count 5000, hemoglobin and hematocrit 10 and 32, platelets 215,000, normal differential. BUN is 30, creatinine 1.6, which is her usual baseline. Glucose 161. Total bilirubin is 1.1, which is up from baseline of 0.8. Alkaline phosphatase 178. Troponin 0.159, which probably is from myonecrosis, last one was 0.078. ProBNP 15,000, last one was 16,000. PT is 16, INR 1.2. Chest film just shows mild cardiomegaly with no evidence of increased vascular marking or infiltrate. EKG, dual-pacing, AV-pacing, spikes noted. PHYSICAL EXAMINATION: VITAL SIGNS: Blood pressure 124/76, temperature 99.7 degrees, heart rate is 64, respirations 18, saturating 96% on room air. GENERAL: A middle-aged, woman, who is not in acute distress. She is A O x3. Normal mood and affect. HEENT: Head is normocephalic, atraumatic. Eyes, PERRL, EOMI. She is anicteric and not pale. ENT and oropharynx exam is grossly normal. NECK: Supple. There is noticeable JVD. No bruit appreciated. No hepatojugular reflux. No visual thyromegaly noted. CHEST: Surprisingly is clear when auscultated. CARDIOVASCULAR: First and second heart sounds heard. No gallops, murmurs, rubs. Rhythm is regular. ABDOMEN: Distended, soft, with tenderness confined to the right upper quadrant and epigastric areas. There is fullness in this area and there is notable hepatomegaly about 50-60 cm below the right costal margin. Area is tender to touch. Bowel sounds are hypoactive. RECTAL: Exam deferred at this time. EXTREMITIES: Patient has 2+ chronic edema up to the knees. Distal pulse volumes bilaterally regular, symmetrical. No clubbing or peripheral cyanosis noted. She has a Band-Aid dressing over the area where her left hallux used to be. I did not remove it for inspection. She also has mild exfoliation of the skin on the plantar surface of both feet and thickened nail beds of some of her toes. NEUROLOGICAL: No gross focal deficits. SKIN: Intact with no overt breakdown. She does have chronic pitting edema over the anterior abdominal wall consistent with anasarca. MUSCULOSKELETAL: Exam grossly normal. ASSESSMENT: 1. Mild acute on chronic systolic heart failure. 2. Cardiac cirrhosis. 3. Coronary artery disease. 4. Hypertensive heart disease. 5. Type 2 diabetes mellitus. 6. Tobacco use. PLAN: Patient will be admitted for short-term aggressive diuresis to hopefully achieve her weight. Her dry weight is closer to around 210, 215. I explained to the patient this may come at the cost of renal compromise. The patient's diet leaves a lot to be desired, especially since she volunteered a history of eating fries. We will consult dietitian to see her so that she can be on the right low-sodium diet, which may help her overall fluid status. We will consult Dr. Griffin to see patient for further modification of her heart medication. The patient does not appear to be, in my opinion, in overt heart failure, and hopefully in the 24 hours, 48 hours tops, she can be discharged home. Smoking cessation was reiterated. Will start on a NicoDerm patch. The patient will not be a good candidate for heart transplant if she does not quit smoking. Also, the patient does have a vascular stent in her left leg, which indicates she has peripheral arterial disease which puts her at risk for future amputations. She is anemic and iron studies will be done. If she is iron deficient, she may benefit from intravenous iron, which has been shown to be beneficial in this subgroup of patients. cc: MD Bernardo Santana MD Dr. Martha Reid MTDD
[2018-12-15] MEDS ORDERED: ZOFRAN IV PRN (02:35)
[2018-12-15] MEDS ORDERED: TYLENOL PO PRN (02:35)
[2018-12-15] MEDS ORDERED: LASIX IV SCH (02:35)
[2018-12-15 05:09] LABS: BASO% 0.5 % (0.0-0.8); EOS% 1.3 % (0.0-10.0); HEMATOCRIT 32.2 % (37.0-47.0); HEMOGLOBIN 10.6 g/dL (12.0-16.0); LYMPH# 1.45 X1000 (1.2-3.4); LYMPH% 26.4 % (20.5-51.1); MCH 31.5 PG (27-31); MCHC 32.9 g/dL (33-37); MCV 95.5 FL (81-99); MONO% 10.2 % (1.7-9.3); MPV 9.8 FL (7.4-10.4); NEUT# 3.39 X1000 (1.4-6.5); NEUT% 61.6 % (42.2-75.2); PLT 207 X1000 (130-400); RBC 3.37 XMIL (4.2-5.4); RDW 15.4 % (11.5-14.5)
[2018-12-15 05:10] LABS: BASO# 0.03 X1000 (0.0-0.2); EOS# 0.07 X1000 (0.0-0.7); MONO# 0.56 X1000 (0.11-0.59)
[2018-12-15 05:28] LABS: CALCIUM 9.4 mg/dL (8.8-10.2); CREATININE 1.6 mg/dL (0.5-0.9); POTASSIUM 4.3 mmol/L (3.5-5.1)
[2018-12-15 05:46] LABS: FERRITIN 103 ng/mL (13-150)
[2018-12-15] MEDS: ENTRESTO 24 MG-26 MG TABLET PO SCH (10:44)
[2018-12-15] MEDS: LASIX IV SCH ×2 (10:45→20:08)
[2018-12-15] MEDS: LOVENOX SUBQ SCH (10:50)
[2018-12-15] MEDS ORDERED: ROBAXIN PO PRN (11:19)
[2018-12-15] MEDS ORDERED: ALDACTONE PO SCH (11:30)
[2018-12-15] MEDS: ZAROXOLYN PO SCH (11:50)
[2018-12-15] MEDS: COREG PO SCH ×2 (11:50→21:00)
[2018-12-15] MEDS: LANOXIN PO SCH (11:50)
[2018-12-15] MEDS: DOBUTAMINE 500/D5W 500 MG/250 ML IV.SOLN IV SCH (11:50)
--- NOTE | 2018-12-15 12:25 | CARDIOLOGY CONSULTATION ---
DATE: 12/15/2018 REASON FOR CONSULTATION: Congestive heart failure diagnosis. HISTORY OF PRESENT ILLNESS: Ms. Patel is a 53-year-old lady with history of ischemic cardiomyopathy, congestive heart failure, severe COPD, and ongoing tobacco abuse. Presents with increasing pedal edema, shortness of breath and ascites. She was recently evaluated at the [facility]plant [facility] in [facility], and she was offered admission there for diuresis and further evaluation with cardiac catheterization; however, the patient wanted to be near home. Came to the emergency room and was admitted here for diuresis. As far as symptoms are concerned, she has chronic stage IV heart failure which is severe. She denies chest pain. She is orthopneic, currently associated with increasing pedal edema and ascites which has worsened. There are no palpitations. There is no syncope. REVIEW OF SYSTEM: A 14-point review of systems was done.GI: There is no history of nausea, vomiting, diarrhea. There is no history of hematemesis or melena. Central nervous system: No focal weakness to suggest a CVA or TIA. Genitourinary: There is no dysuria or hematuria. Respiratory System: There is no history of fevers, chills or cough with expectoration. PAST MEDICAL HISTORY: 1. Nonischemic cardiomyopathy with concomitant coronary artery disease. 2. Class 3 congestive heart failure. 3. Acute myocardial infarction in the past with stent placement. 4. AICD placement. 5. Pulmonary arterial hypertension. 6. Hypertension. 7. Hyperlipidemia. 8. Diabetes. 9. Peripheral neuropathy. 10. Peripheral vascular disease. 11. Renal insufficiency in the past. 12. History of abscess in the thigh in the past. DIAGNOSTIC DATA: Cardiac catheterization 02/24/2015 showed RCA [id number] critical stenosis treated with rotational atherectomy and drug-eluting stents at that time. Last cardiac catheterization 06/14/2018 revealed ejection fraction of 20% to 25%, severely dilated left ventricle with diastolic dysfunction. There was pulmonary arterial hypertension, PA pressure varying from 53 to 58 mmHg. There was a trace pericardial effusion. HOME MEDICATIONS: Plavix 75 mg a day, Entresto 1 tablet twice daily, trazodone 50, spironolactone 25 mg b.i.d., methocarbamol, digoxin 0.125 mg a day, hydrocodone as needed, Coreg 6.25 mg twice daily, metolazone 10 mg a day, Lasix 80 mg p.o. b.i.d. , Gabapentin 600 mg a day. ALLERGIES: She is not known to be allergic to any medications. SOCIAL HISTORY: She continues to smoke. There is no history of alcohol abuse. PHYSICAL EXAMINATION: Vital Signs: Blood pressure was 134/89. Neck: Jugular venous pressure was elevated. Cardiovascular: First and second heart sounds were heard. There was a systolic murmur. Respiratory: Normal air entry. There were bibasilar inspiratory crepitations. Abdomen: Soft. Ascites was noted. Bowel sounds were heard. Central nervous system: Alert, and was moving all 4 extremities. Extremities: Revealed bilateral pitting pedal edema to her knees. ASSESSMENT: Ms. Viviana Patel is a 53-year-old lady who has: 1. Ischemic and nonischemic cardiomyopathy. 2. Severe LV dysfunction, ejection fraction of 20% to 25%, status post AICD placement. 3. Diabetes. 4. Ongoing tobacco abuse. PLAN: 1. Was evaluated in [place] at [facility]. She was recommended admission for diuresis, and the plan was to be further evaluated by right and left heart catheterization at [facility] in about 2-3 weeks. Currently patient is in heart failure. This has been chronic. We will start her on IV Lasix in addition to IV dobutamine and see how she progresses on this. 2. I have reconciled and continued all her home medications. 3. Once she is more euvolemic, we will discharge the patient home so that she can be followed up at [facility] for her planned right and left heart catheterizations as planned, as part of transplant workup in the next 2 to 3 weeks, or when she has an appointment for the cardiac catheterizations. 4. For her diabetes, continue with her home medication. 5. She has had cervical cancer in 2004 and underwent a hysterectomy. 6. Hypertension. Blood pressure is under control. Thank for the consult. We will follow hospital course. cc: Bernardo Griffin MD
[2018-12-15] MEDS: NORCO-10 PO PRN (18:44)
[2018-12-15] MEDS: ROBAXIN PO PRN (19:38)
[2018-12-15] MEDS: DESYREL PO SCH (21:00)
[2018-12-15] MEDS: GRALISE PO SCH (21:00)
[2018-12-15] MEDS: ALDACTONE PO SCH (21:00)
[2018-12-15] MEDS: PLAVIX PO SCH (21:00)
--- NOTE | 2018-12-15 21:46 | PROGRESS NOTE ---
DATE: 12/15/2018 INTERVAL HISTORY: Ms. Patel was admitted for acute on chronic systolic congestive heart failure exacerbation, with worsening abdominal ascites and bilateral lower extremity edema. At the time of my evaluation, she is complaining of abdominal pain, which is chronic because of her ascites. She is denying any chest pain or shortness of breath. We discussed about medication changes. She is supposed to follow up with her technical assoc at [facility] next month. VITAL SIGNS: Temperature 97.9 degrees, pulse 79, respiratory rate 16, blood pressure 135/89, saturating 100% room air. PHYSICAL EXAMINATION: General: Not in any acute distress. Oral Cavity: Moist. Lungs: Air entry bilaterally equal. No wheeze or rhonchi. Bilateral infrascapular inspiratory crackles. Heart: S1, S2 normal. She has a paced rhythm on bedside telemetry. No murmur or gallop. Abdomen: Distended. She has massive ascites with dullness to percussion over flanks. She has extensive bilateral lower extremity edema extending up to the thigh level. LABS: Suggestive of normocytic anemia. Normal platelet count. Chronic kidney disease stage 3. Her TSH is elevated. She is not listed to be taking any thyroid supplements. ASSESSMENT AND PLAN: 1. Gradual progressive weight gain with bilateral lower extremity worsening edema and ascites, in the setting of acute on chronic systolic congestive heart failure exacerbation with ejection fraction of 20%, due to dietary indiscretion and inadequate Lasix intake. Continue intravenous Lasix and intravenous dobutamine as per cardiology recommendation. Continue her home spironolactone, Entresto, and carvedilol. 2. History of coronary artery disease, requiring stent in 2014. Continue home clopidogrel. She is also taking metolazone for congestive heart failure. 3. Others. Continue home digoxin; home gabapentin and [place] with methocarbamol for chronic pain; and trazodone for insomnia. 4. She is status post automatic implantable cardiac defibrillator placement. Her essential hypertension is currently in acceptable range. 5. She also have prior history of cardiac cirrhosis, peripheral neuropathy, and chronic kidney disease stage 3, which are stable. I will follow up with TSH, free T4, and free T3 tomorrow to evaluate her thyroid function testing, and based on that, will consider adding levothyroxine to her regimen. 6. Plan of care discussed with her. All of her questions have been answered. cc: Lincoln Juarez MD MTDD
[2018-12-15] MEDS: NICODERM PATCH TD SCH (22:01)
[2018-12-16] MEDS: NORCO-10 PO PRN ×3 (06:12→21:00)
[2018-12-16] MEDS: ROBAXIN PO PRN ×3 (06:13→21:00)
[2018-12-16 06:44] LABS: CALCIUM 8.8 mg/dL (8.8-10.2); CREATININE 1.4 mg/dL (0.5-0.9); MAGNESIUM 1.2 mg/dL (1.5-2.7); POTASSIUM 3.8 mmol/L (3.5-5.1)
[2018-12-16 06:49] LABS: FREE T4 1.35 ng/dL (0.93-1.70)
[2018-12-16 06:57] LABS: TSH 6.84 uIUmL (0.27-4.20)
[2018-12-16] MEDS: ALDACTONE PO SCH ×2 (08:32→21:00)
[2018-12-16] MEDS: ZAROXOLYN PO SCH (08:32)
[2018-12-16] MEDS: ENTRESTO 24 MG-26 MG TABLET PO SCH (08:32)
[2018-12-16] MEDS: PLAVIX PO SCH (08:32)
[2018-12-16] MEDS: COREG PO SCH ×2 (08:33→21:00)
[2018-12-16] MEDS: LANOXIN PO SCH (08:33)
[2018-12-16] MEDS: LASIX IV SCH ×2 (08:36→20:43)
[2018-12-16] MEDS: LOVENOX SUBQ SCH (08:37)
--- NOTE | 2018-12-16 11:14 | PROGRESS NOTE ---
DATE: 12/16/2018 SUBJECTIVE: Patient reports breathing better, but still noticing, of course, some neck swelling. No other issues noted as per nursing staff overnight. OBJECTIVE: Vital Signs: Temperature 98.1 degrees, heart rate 64, respiratory rate 19, blood pressure 125/62, O2 saturation 96% on room air. General: This is a chronically ill appearing 53-year-old female lying in bed in no acute distress. HEENT: Head is normocephalic, atraumatic. Neck: No JVD noted. No carotid bruits. No lymphadenopathy. No thyromegaly. Cardiovascular: S1, S2 heard. The patient has a paced rhythm based on telemetry. No murmurs, gallops or rubs noted. Respiratory: Clear bilaterally to auscultation. Minimal inspiratory crackles in both pulmonary bases. Patient is not using any accessory muscles or having work of breathing. Abdomen: Soft. Nontender to palpation. Bowel sounds present. No organomegaly. Extremities: 2+ pitting edema still noted in both lower extremities. Peripheral pulses present in both legs. Neurological: Patient is alert and oriented x3. Moves 4 extremities. There is massive ascites with dullness of percussion over flanks. No signs of peritoneal irritation. Extremities: 2+ pitting edema in both lower extremities. Peripheral pulses present in both legs. Neurological: Patient is awake, alert, moves 4 extremities. LABORATORY DATA: Reviewed. ASSESSMENT AND PLAN: 1. Acute on chronic systolic congestive heart failure. The patient is on Lasix and dobutamine IV. Cardiology is following this patient. Will continue with the same management. The patient reports clinically feeling better. 2. History of coronary artery disease requiring stents in 2014. Will continue with Plavix and metolazone. 3. Patient has cirrhosis. Will continue to monitor. 4. Chronic kidney disease stage 3. The patient's creatinine is at baseline. We will continue to monitor. 5. Disposition. Will continue following recommendations from Cardiology. cc: Boubacar Elaine MD
[2018-12-16] MEDS: DOBUTAMINE 500/D5W 500 MG/250 ML IV.SOLN IV SCH ×2 (12:33→12:42)
[2018-12-16] MEDS ORDERED: MAGNESIUM SULFATE 2 GM/S.W.I. 2 GM/50 ML IVPB IV ONE (13:27)
--- NOTE | 2018-12-16 14:20 | CARDIOLOGY PROGRESS NOTE ---
DATE: 12/16/2018 SUBJECTIVE: The patient reports cramps today. She has no other complaints. PHYSICAL EXAMINATION: Vital Signs: She is afebrile. Heart rate 65, blood pressure 136/70. General: She is in no acute distress. Cardiovascular: She sounds to be in a regular rate and rhythm. She has no murmurs, no S3. She has 1+ bilateral lower extremity edema. Lungs: She has clear breath sounds bilaterally. No increased work of breathing. Abdomen: Soft, nontender. PERTINENT DATA: I's and O's are -3.8 L for the course of the hospitalization. Sodium 136, potassium 3.8, BUN 30, creatinine 1.4. Yesterday's creatinine was 1.6. Her magnesium level is 1.2. Her proBNP on presentation was 15,486. ASSESSMENT: Ms. Patel is a 53-year-old female with a history of ischemic cardiomyopathy. PLAN: We will continue to diurese her and continue on dobutamine. She seems to be diuresing well. I have repleted her magnesium. Continue on current medications for the time being. cc: Dennis Jnoes MD
[2018-12-16] MEDS: NICODERM PATCH TD SCH (21:00)
[2018-12-16] MEDS: DESYREL PO SCH (21:00)
[2018-12-16] MEDS: GRALISE PO SCH (21:01)
[2018-12-17] MEDS: DUONEB (A & A) INH PRN ×4 (03:50→19:01)
[2018-12-17 05:54] LABS: CALCIUM 8.9 mg/dL (8.8-10.2); CREATININE 1.4 mg/dL (0.5-0.9); MAGNESIUM 1.5 mg/dL (1.5-2.7); POTASSIUM 3.9 mmol/L (3.5-5.1)
[2018-12-17] MEDS: NORCO-10 PO PRN ×3 (06:47→20:30)
[2018-12-17] MEDS: ROBAXIN PO PRN ×3 (06:47→20:30)
[2018-12-17] MEDS: PLAVIX PO SCH (09:15)
[2018-12-17] MEDS: ENTRESTO 24 MG-26 MG TABLET PO SCH (09:15)
[2018-12-17] MEDS: COREG PO SCH ×2 (09:15→20:31)
[2018-12-17] MEDS: ZAROXOLYN PO SCH (09:15)
[2018-12-17] MEDS: ALDACTONE PO SCH ×2 (09:15→20:31)
[2018-12-17] MEDS: LANOXIN PO SCH (09:16)
[2018-12-17] MEDS: LASIX IV SCH ×2 (09:16→20:53)
[2018-12-17] MEDS: LOVENOX SUBQ SCH (09:16)
[2018-12-17 09:48] LABS: CALCIUM 8.8 mg/dL (8.8-10.2); CREATININE 1.4 mg/dL (0.5-0.9); MAGNESIUM 1.4 mg/dL (1.5-2.7); POTASSIUM 3.9 mmol/L (3.5-5.1)
[2018-12-17] MEDS ORDERED: MAGNESIUM SULFATE 2 GM/S.W.I. 2 GM/50 ML IVPB IV ONE (10:00)
--- NOTE | 2018-12-17 11:15 | PROGRESS NOTE ---
DATE: 12/17/2018 SUBJECTIVE: Patient reports doing better. Denies any fever or chills. Leg swelling is still present. OBJECTIVE: Vital Signs: Temperature 98.2 degrees, heart rate 64, respiratory rate 12, blood pressure 122/59, O2 saturation 95% on room air. Ins and outs indicate urine output in the last 24 hours of 4.4 L. General Examination: This is a chronically ill-appearing, 53-year-old, female lying in bed, in no acute distress. Cardiovascular Examination: S1 and S2 heard. No murmurs, gallops, or rubs. Regular rate and rhythm. Respiratory Examination: Minimal inspiratory crackles noted in both pulmonary bases. Patient is not using any accessory muscles or having work of breathing. Abdomen: Soft. Nontender to palpation. Bowel sounds present. No organomegaly. Extremities: There is 2+ pedal edema in both lower extremities, unchanged in comparing with yesterday. Peripheral pulses present in both legs. Neurological Examination: The patient is alert and oriented x3. Moves 4 extremities. ASSESSMENT AND PLAN: 1. Acute on chronic systolic congestive heart failure. The patient continues to be on Lasix and a dobutamine drip. Clinically, this patient is feeling better. She is having good urine output. Cardiology is following this patient. At this point, we will continue with the same management. 2. History of coronary artery disease requiring stents in 2014. The patient is on Plavix. We will continue with the same management. No complaints of chest pain. 3. Cardiac cirrhosis, stable. We will continue to monitor. The patient has ascites. 4. Chronic kidney disease stage 3. The patient's creatinine continues to be at her baseline. We will continue to monitor. 5. Disposition. At this point, we will continue to monitor this patient closely and follow recommendations from cardiology. cc: Boubacar Elaine MD
[2018-12-17] MEDS ORDERED: DOBUTAMINE 500/D5W 500 MG/250 ML IV.SOLN IV SCH (11:45)
[2018-12-17] MEDS: DOBUTAMINE 500/D5W 500 MG/250 ML IV.SOLN IV SCH (12:28)
--- NOTE | 2018-12-17 15:06 | CARDIOLOGY PROGRESS NOTE ---
DATE: 12/17/2018 SUBJECTIVE: Ms. Patel reports basically stable symptoms. She denies any orthopnea. She continues to have some leg discomfort. PHYSICAL EXAM: She is afebrile. Heart rate is 64, blood pressure 122/59. Her I's and O's have been markedly negative at 8.1 L net negative. Poor intake is recorded. General: She is in no acute distress. Cardiovascular: She sounds to be in a regular rate and rhythm. I do not hear any obvious murmurs. She continues to have 1+ lower extremity edema and warm and well perfused extremities. Chest: Sounds clear bilaterally. She has no increased work of breathing. Abdomen: Soft, nontender. PERTINENT DATA: Sodium is 135, potassium 3.9, BUN 29, creatinine is 1.4, her magnesium level is 1.4, her proBNP is 17,000 which is up from 15,000. ASSESSMENT: Ms. Patel is a 53-year-old female with a ischemic cardiomyopathy. PLAN: We will continue on current medications. I will replete her magnesium. I would tend to continue her on the dobutamine for the time being. She is running a negative fluid balance. cc: Dennis Jones MD
[2018-12-17] MEDS: DESYREL PO SCH (20:31)
[2018-12-17] MEDS: GRALISE PO SCH (20:35)
[2018-12-17] MEDS: NICODERM PATCH TD SCH (20:53)
[2018-12-18] MEDS: NORCO-10 PO PRN ×3 (04:51→21:14)
[2018-12-18] MEDS: ROBAXIN PO PRN ×3 (04:51→21:15)
[2018-12-18 05:46] LABS: HEMATOCRIT 28.3 % (37.0-47.0); HEMOGLOBIN 9.3 g/dL (12.0-16.0); MCH 31.1 PG (27-31); MCHC 32.9 g/dL (33-37); MCV 94.6 FL (81-99); MPV 10.3 FL (7.4-10.4); RBC 2.99 XMIL (4.2-5.4); RDW 14.7 % (11.5-14.5); WBC 5.25 X1000 (4.8-10.8)
[2018-12-18 05:47] LABS: CALCIUM 8.6 mg/dL (8.8-10.2); CREATININE 1.6 mg/dL (0.5-0.9); MAGNESIUM 1.6 mg/dL (1.5-2.7); POTASSIUM 4.4 mmol/L (3.5-5.1)
[2018-12-18] MEDS: ALDACTONE PO SCH ×2 (08:38→20:49)
[2018-12-18] MEDS: ZAROXOLYN PO SCH (08:38)
[2018-12-18] MEDS: LOVENOX SUBQ SCH (08:38)
[2018-12-18] MEDS: COREG PO SCH ×2 (08:38→20:49)
[2018-12-18] MEDS: ENTRESTO 24 MG-26 MG TABLET PO SCH (08:38)
[2018-12-18] MEDS: PLAVIX PO SCH (08:38)
[2018-12-18] MEDS: LANOXIN PO SCH (08:38)
[2018-12-18] MEDS: LASIX IV SCH ×3 (08:39→20:50)
--- NOTE | 2018-12-18 09:08 | Diag Imaging Result Doc PS360 ---
EXAM: CHEST-2 VIEWS 12/18/2018 HISTORY: CHF TECHNIQUE: PA and lateral chest COMMENT: There is cardiomegaly. There is no evidence of acute cardiac or pulmonary disease. There is a pacemaker. Compared to 12/14/2018 there has been no significant change in the appearance of the chest. IMPRESSION: No evidence of acute disease. Electronically signed by Benny Tello 12/18/2018 9:05 AM
--- NOTE | 2018-12-18 09:44 | PROGRESS NOTE ---
DATE: 12/18/2018 SUBJECTIVE: Patient reports feeling fine. There is less leg swelling bilaterally. No shortness of breath. OBJECTIVE: Vital Signs: Temperature 98.1 degrees, heart rate 65, respiratory rate 15, blood pressure 125/54, O2 saturation 92% on room air. General Examination: This is a chronically ill- appearing, 53-year-old, female, lying in bed, in no acute distress. Cardiovascular Examination: S1 and S2 heard. No murmurs, gallops, or rubs. Regular rate and rhythm. Respiratory Examination: Minimal inspiratory crackles noted in both pulmonary bases. Definitely much better in comparing with previous days. Patient is not using any accessory muscles or having work of breathing. Abdomen: Soft, nontender to palpation. Bowel sounds present. No organomegaly. Extremities: There is 1+ pedal edema in both lower extremities. Definitely better in comparing with a couple of days. Peripheral pulses present in both legs. Neurological Examination: The patient is alert and oriented x3. Moves 4 extremities. Laboratory Data: White cell count 5.25, hemoglobin 9.3, hematocrit 28.3, platelets 189,000. BMP remarkable for creatinine of 1.6. ASSESSMENT AND PLAN: 1. Acute on chronic systolic congestive heart failure. The patient is on Lasix 80 mg intravenous every 12 hours and also a dobutamine drip. Clinically, this patient continues to improve. Cardiology is following this patient. At this point, we will see for how long cardiology is planning to keep this patient on dobutamine. We will follow recommendations. 2. History of coronary artery disease requiring stents in 2014. Patient continues to be on Plavix. No chest pain reported. We will continue with the same management. 3. Cardiac cirrhosis, stable. We will continue to monitor. Patient has also ascites. 4. Chronic kidney disease stage 3. The patient's creatinine continues to be at her baseline. We will continue to monitor BMP daily. 5. Disposition. At this point, following the lead from cardiology, patient will be released whenever she is cleared by them. cc: Boubacar Elaine MD
[2018-12-18] MEDS: DOBUTAMINE 500/D5W 500 MG/250 ML IV.SOLN IV SCH (12:15)
[2018-12-18] MEDS: DUONEB (A & A) INH PRN (16:05)
[2018-12-18] MEDS: NICODERM PATCH TD SCH (20:48)
[2018-12-18] MEDS: DESYREL PO SCH (20:49)
[2018-12-18] MEDS: GRALISE PO SCH (20:49)
[2018-12-19 06:03] LABS: HEMATOCRIT 28.5 % (37.0-47.0); HEMOGLOBIN 9.3 g/dL (12.0-16.0); MCH 31.7 PG (27-31); MCHC 32.6 g/dL (33-37); MCV 97.3 FL (81-99); MPV 10.3 FL (7.4-10.4); RBC 2.93 XMIL (4.2-5.4); RDW 14.7 % (11.5-14.5); WBC 5.21 X1000 (4.8-10.8)
[2018-12-19 06:26] LABS: CALCIUM 9.3 mg/dL (8.8-10.2); CREATININE 1.6 mg/dL (0.5-0.9); MAGNESIUM 1.6 mg/dL (1.5-2.7); POTASSIUM 4.6 mmol/L (3.5-5.1)
[2018-12-19] MEDS: ZAROXOLYN PO SCH (08:32)
[2018-12-19] MEDS: ALDACTONE PO SCH ×2 (08:32→21:54)
[2018-12-19] MEDS: ENTRESTO 24 MG-26 MG TABLET PO SCH (08:32)
[2018-12-19] MEDS: COREG PO SCH ×2 (08:32→21:54)
[2018-12-19] MEDS: PLAVIX PO SCH (08:32)
[2018-12-19] MEDS: LANOXIN PO SCH (08:33)
[2018-12-19] MEDS: LOVENOX SUBQ SCH (08:34)
[2018-12-19] MEDS: LASIX IV SCH ×2 (09:09→21:53)
[2018-12-19] MEDS: DOBUTAMINE 500/D5W 500 MG/250 ML IV.SOLN IV SCH (11:34)
--- NOTE | 2018-12-19 11:36 | PROGRESS NOTE ---
DATE: 12/19/2018 SUBJECTIVE: Patient reports feeling fine. No shortness of breath. Leg swelling bilaterally is getting better. OBJECTIVE: Vital Signs: Temperature 98.5, heart rate 64, respiratory 16, blood pressure 131/67. O2 saturation 99% on room air. General: This is a chronically ill-looking 53-year-old female lying in bed, in no acute distress. Cardiovascular: S1, S2 heard. No murmurs, gallops, or rubs. Regular rate and rhythm. Respiratory: Decreased breath sounds globally, but I do not hear any crackles today. The patient using accessory muscles and having work of breathing. Abdomen: Soft, nontender to palpation. Bowel sounds present. No organomegaly. Extremities: 1+ pitting edema in both lower extremities. Continue to improve. Peripheral pulses present in both legs. Neurological: Patient is alert and oriented x3. Moves 4 extremities. LABORATORY DATA: White cell count 5.21, hemoglobin 9.3, hematocrit 28.5, and platelets 177,000. BMP that reveals creatinine 1.6. Glucose 129. ASSESSMENT AND PLAN: 1. Acute on chronic systolic heart failure. Clinically, patient is better. I do not hear any crackles in the lungs. Bilateral lower extremity edema is getting better. Currently, she continues to be on Lasix 80 mg IV q.12 hours, and also dobutamine drip. At this point, we will continue with the same management. We will see what Cardiology has to say today. 2. History of coronary artery disease requiring stents in 2014. Patient is on Plavix. No chest pain reported. We will continue with the same management. 3. Cardiac cirrhosis, stable. We will continue to monitor. 4. Chronic kidney disease stage 3. Even though the patient is receiving high doses of Lasix, her creatinine continues to be at her baseline. We will continue to monitor BMP daily. 5. Disposition. At this point, we are following the lead from Cardiology, and will go whenever she is cleared by them. cc: Boubacar Elaine MD
[2018-12-19] MEDS: NORCO-10 PO PRN ×2 (15:47→22:16)
[2018-12-19] MEDS: ROBAXIN PO PRN ×2 (15:47→22:17)
[2018-12-19] MEDS: DESYREL PO SCH (21:54)
[2018-12-19] MEDS: NICODERM PATCH TD SCH (21:55)
[2018-12-19] MEDS: GRALISE PO SCH ×2 (21:55→22:16)
[2018-12-20 05:37] LABS: HEMATOCRIT 27.8 % (37.0-47.0); HEMOGLOBIN 9.1 g/dL (12.0-16.0); MCHC 32.7 g/dL (33-37); MCV 97.9 FL (81-99); MPV 10.3 FL (7.4-10.4); RBC 2.84 XMIL (4.2-5.4); RDW 14.9 % (11.5-14.5); WBC 4.9 X1000 (4.8-10.8)
[2018-12-20 06:01] LABS: POTASSIUM 4.6 mmol/L (3.5-5.1)
[2018-12-20 06:02] LABS: CALCIUM 9.1 mg/dL (8.8-10.2); CREATININE 1.6 mg/dL (0.5-0.9); MAGNESIUM 1.6 mg/dL (1.5-2.7)
[2018-12-20 08:07] VITALS: BP 123/56
[2018-12-20] MEDS: COREG PO SCH (09:14)
[2018-12-20] MEDS: PLAVIX PO SCH (09:14)
[2018-12-20] MEDS: ALDACTONE PO SCH (09:14)
[2018-12-20] MEDS: ZAROXOLYN PO SCH (09:14)
[2018-12-20] MEDS: LASIX IV SCH (09:14)
[2018-12-20] MEDS: ENTRESTO 24 MG-26 MG TABLET PO SCH (09:14)
[2018-12-20] MEDS: LANOXIN PO SCH (09:15)
--- NOTE | 2018-12-20 23:13 | DISCHARGE SUMMARY ---
ADMISSION DATE: 12/15/2018 DISCHARGE DATE: 12/20/2018 PRIMARY CARE PHYSICIAN: Dr. Kelsey Davis. PIT MANAGER: Dr. Griffin. ADMISSION DIAGNOSES: 1. A mild acute on chronic systolic heart failure. 2. Cardiac cirrhosis. 3. Coronary artery disease. 4. Hypertensive heart disease. 5. Diabetes type 2. 6. Tobacco abuse. DISCHARGE DIAGNOSES: 1. Acute on chronic systolic heart failure, improved. 2. History of coronary artery disease. 3. Cardiac cirrhosis. 4. Chronic kidney disease stage 3. CONSULTATIONS: Cardiology. SUMMARY OF FINDINGS: This is a 53-year-old female who presented to the ER after recommendations of her heart failure specialist and [facility] concerned that she may be in a florid CHF. The patient was a poor historian. Has had chronic abdominal and lower extremity swelling, but it had not really worsened. Had a productive cough of yellow whitish sputum. No fever, chills. About a month ago she states her weight was 208 and it spiked to 234 a few weeks ago. On arrival, it was 223. States that she had been having more increased chest discomfort for 2 to 3 hours prior to arriving but could not give a specific quality of the pain, but rated it a 9/10 with no radiating or associated factors. She was admitted, placed on diuresis. She has poor dietary habits states. She has been eating a lot of [place] fries recently, so they consulted the dietitian to see her for a low-sodium diet to help with her overall fluid status. She is scheduled to have a right and left heart catheterization at [facility] in 2 to 3 weeks. She diuresed well. Her weight is down to 182 pounds and it is now felt that she can safely be discharged home. DISCHARGE MEDICATIONS: Include Plavix 75 mg p.o. daily, digoxin 125 mcg p.o. daily, gabapentin 600 mg p.o. at bedtime, [place] 10 one p.o. t.i.d. p.r.n., Robaxin 750 mg p.o. t.i.d. p.r.n., metolazone 10 mg p.o. daily, nicotine patch 21 mg transdermally daily, Entresto 24/26 mg 1 p.o. daily, spironolactone 25 mg p.o. daily, trazodone 50 mg p.o. at bedtime, Coreg 12.5 mg p.o. q.12 hours, Lasix 80 mg p.o. b.i.d. FOLLOWUP: She has a follow up with her primary care physician on 01/01/2019 at 2:15 p.m. and with her remote sensing scientist, Dr. Griffin, on 01/10/2019 at 10:30 a.m. All discharge instructions have been reviewed with the patient and she verbalized understanding. TIME SPENT: This is a 33 minute discharge. Dictated by MERT Avina for Boubacar Elaine MD Addendum: Patient seen and examined by myself. Agree with MERT note. It reflects my assessment and plan. Patient is being discharged in stable condition. Will be seen by primary remote sensing scientist in 2-3 weeks. cc: MERT Avina MD Martha Read Ashish K. Basu, MD [facility]
== END 2018-12-20 11:45 | disposition hospice, inpatient (51) | DRG 291 ==
LOC: ED 18:03 → SUATTDRO 12-15 00:37 → EDIPHOLD 12-15 00:37 → 3S 12-15 10:50
PROVIDERS: ATTEND Internal Medicine
CPT/HCPCS: 71020; 71046; 80048; 80053; 82607; 82728; 82746; 82948; 83036; 83540; 83735; 83880; 84439; 84443; 84481; 84484; 85025; 85027; 85610; 93005; 94640; 94761; 96374; 99285; A9270; J1250; J1650; J1940; J3475; XXXXX

== ENCOUNTER 2019-03-06 18:44 | Inpatient (IN) ==
[2019-03-06] MEDS ORDERED: NS 1,000 ML IV ONE (19:14)
--- NOTE | 2019-03-06 19:30 | PROVIDER DOCUMENTATION ---
HPI-Chest Pain - General Chief Complaint: B/P Problems Stated Complaint: LOW BP Time Seen by Provider: 03/06/19 19:13 Source: patient Allergies/Adverse Reactions: Patient Allergies Allergy/AdvReac Type Severity Reaction Status Date / Time No Known Allergies Allergy Verified 09/26/18 10:53 Home Medications: Home Medication List Medication Instructions Recorded Confirmed Last Taken Type Clopidogrel [Plavix] 75 mg PO DAILY #30 tablet 11/12/16 12/15/18 01/08/18 08:00 Rx Sacubitril/Valsartan [Entresto 24 1 each PO DAILY 12/09/17 12/15/18 01/08/18 21:00 History mg-26 mg Tablet] Trazodone HCl 50 mg PO HS 12/09/17 12/15/18 01/08/18 21:00 History Spironolactone [Aldactone] 25 mg PO DAILY 30 Days #30 tab 12/12/17 12/15/18 01/08/18 08:00 Rx Methocarbamol [Robaxin-750] 750 mg PO TID PRN 01/09/18 12/15/18 01/09/18 13:00 History Digoxin [Lanoxin] 125 microgm PO DAILY #90 tab 08/24/18 12/15/18 Unknown Rx Hydrocodone/APAP 10 mg/325 mg 1 ea PO TID PRN PRN #10 tab 08/24/18 12/15/18 Unknown Rx [[place]-10] Furosemide [Lasix] 80 mg PO BID #60 tab 09/30/18 12/15/18 Unknown Rx Gabapentin [Gralise] 600 mg PO HS #0 09/30/18 12/15/18 01/08/18 21:00 Rx Carvedilol [Coreg] 12.5 mg PO Q12HR #60 tab 12/20/18 Unknown Rx Metolazone [Zaroxolyn] 5 mg PO DAILY #90 tab 12/20/18 Unknown Rx Nicotine Patch [Nicoderm Patch] 21 mg TD Q24H patch.td24 12/20/18 Unknown Rx - History of Present Illness-CP Nature of Presenting Problem: 54 yr old F, hx of HF, ESRD, presenting with a 2 wk hx of diarrhea and vomiting, as well as a several day hx of chest pressure, dizziness with standing, and weakness. Symptoms have been ongoing for several days; pt was recently hospitalized. She reports feeling as though "a small elephant is sitting on my chest", also notes some shortness of breath. Regarding her diarrhea, she and her report at least 5 episodes daily, no blood noted. She denies recent a ntibiotic use. Location: reports: central Quality of Pain: reports: pressure Severity in ED: moderate Onset/Duration: 6 days ago Timing: still present Context/Activities at Onset: reports: none Modifying Factors: improves with: nothing Nitro Today/Relief: no nitro taken today Aspirin Treatment Today: 325 mg x 1, provided by ED Review of Systems - Adult - REVIEW OF SYSTEMS - ADULT Constitutional: reports: no symptoms reported Eyes: reports: no symptoms reported Ears, Nose, Mouth & Throat: reports: no symptoms reported Cardiovascular: reports: see HPI Respiratory: reports: see HPI, cough, shortness of breath Gastrointestinal: reports: diarrhea Musculoskeletal: reports: no symptoms reported Neurological: reports: dizziness/vertigo Past History - Adult - PAST MEDICAL HISTORY-ADULT Review of Records: reports: Old Records Reviewed, Nursing Assessment Review Major Childhood Illnesses: reports: denies history Cardiovascular: reports: CAD, CHF, HTN, hyperlipidemia, pacemaker, other (ACID) Respiratory: reports: COPD Gastrointestinal: reports: denies history Obstetrical/Gynecological: reports: denies history, other (cervical cancer) Genitourinary: reports: denies history Musculoskeletal: reports: cancer (cervical) Neurological: reports: denies history Endocrine/Immune: reports: Diabetes Other Conditions: reports: denies history, MRSA - PRIOR SURGERIES/PROCEDURES Surgical/Procedure History: reports: pacemaker, hysterectomy, orthopedic (extremity) (arthroscopy), other (ACID/BREAST REDUCTION/CERVICAL FUSION; L 1st toe amputation) - IMMUNIZATION STATUS Childhood Immunizations: See Nurse Assessment Flu Vaccine: See Nurse Assessment - FAMILY HISTORY Family History: reviewed, not pertinent Physical Exam-General - PHYSICAL EXAM-ADULT Initial Vital Signs Reviewed: Yes - CONSTITUTIONAL General Appearance: alert, moderate distress - EYES Eyes: PERRL/EOMI - HEAD, EARS, NOSE, MOUTH & THROAT HENMT: normocephalic/atraumatic, moist mucous membranes - RESPIRATORY Respiratory: chest non-tender, other (coarse breathign sounds) - CARDIOVASCULAR Cardiovascular: regular rate, rhythm - GASTROINTESTINAL (ABDOMEN) Abdominal Exam: normal bowel sounds, non tender, soft - SKIN Integumentary: warm/dry - NEUROLOGIC Neurologic: grossly normal - PSYCHIATRIC Psych/Mental Status: oriented x 3, depressed affect - HEART Score HEART Score: History: Moderately Suspicious HEART Score: ECG: Non-Specific Repolarization Disturbance/LBBB/PM HEART Score: Age: 45-65 Years HEART Score: Risk Factors for Atherosclerotic Disease: > or = 3 Risk Factors or History of Atherosclerotic Disease HEART Score: Troponin: 1-3x Normal Limit Total HEART Score:: 6 Progress - PLAN OF CARE/RESULTS Progress/Plan/Lab Results: Vital Signs - 8 hr 03/06/19 19:01 Temperature 97.3 F L Pulse Rate 75 Respiratory Rate 16 Blood Pressure 78/47 O2 Sat by Pulse Oximetry 99 Laboratory Results - last 24 hr 03/06/19 03/06/19 03/06/19 20:18 20:18 20:18 WBC RBC Hgb Hct MCV MCH MCHC RDW Std Deviation Plt Count MPV Immature Gran % (Auto) Neut % (Auto) Lymph % (Auto) [place] % (Auto) Eos % (Auto) Baso % (Auto) Immature Gran # (Auto) Neut # (Auto) Lymph # (Auto) [place] # (Auto) Eos # (Auto) Baso # (Auto) PT 14.2 INR 1.09 PTT (Actin FS) 28.9 Sodium Potassium Chloride Carbon Dioxide Anion Gap BUN Creatinine Estimated GFR/1.73 m2 BUN/Creatinine Ratio Glucose Calculated Osmolality Calcium Total Bilirubin AST ALT Alkaline Phosphatase Creatine Kinase 181 H Creatine Kinase Index 4.8 H CK-MB (CK-2) 8.76 H Troponin T 1.350 H* Xxq-L-Uikkxzclntb Pept Total Protein Albumin Globulin Albumin/Globulin Ratio Plasma Lactate 03/06/19 03/06/19 03/06/19 20:18 20:18 20:18 WBC 9.68 RBC 3.57 L Hgb 11.5 L Hct 32.3 L MCV 90.5 MCH 32.2 H MCHC 35.6 RDW Std Deviation 13.0 Plt Count 285 MPV 9.4 Immature Gran % (Auto) 0.0 Neut % (Auto) 71.2 Lymph % (Auto) 19.1 L [place] % (Auto) 8.4 Eos % (Auto) 0.8 Baso % (Auto) 0.5 Immature Gran # (Auto) 0.00 Neut # (Auto) 6.89 H Lymph # (Auto) 1.85 [place] # (Auto) 0.81 H Eos # (Auto) 0.08 Baso # (Auto) 0.05 PT INR PTT (Actin FS) Sodium 130 L Potassium 3.6 Chloride 84 L Carbon Dioxide 27 Anion Gap 19 BUN 103 H Creatinine 2.4 H Estimated GFR/1.73 m2 21 BUN/Creatinine Ratio 43 Glucose 133 H Calculated Osmolality 295 Calcium 9.1 Total Bilirubin 0.66 AST 22 ALT 12 Alkaline Phosphatase 108 H Creatine Kinase Creatine Kinase Index CK-MB (CK-2) Troponin T Eli-O-Xiyegissgek Pept Total Protein 8.0 Albumin 4.4 Globulin 3.6 Albumin/Globulin Ratio 1.2 Plasma Lactate 1.0 03/06/19 20:18 WBC RBC Hgb Hct MCV MCH MCHC RDW Std Deviation Plt Count MPV Immature Gran % (Auto) Neut % (Auto) Lymph % (Auto) [place] % (Auto) Eos % (Auto) Baso % (Auto) Immature Gran # (Auto) Neut # (Auto) Lymph # (Auto) [place] # (Auto) Eos # (Auto) Baso # (Auto) PT INR PTT (Actin FS) Sodium Potassium Chloride Carbon Dioxide Anion Gap BUN Creatinine Estimated GFR/1.73 m2 BUN/Creatinine Ratio Glucose Calculated Osmolality Calcium Total Bilirubin AST ALT Alkaline Phosphatase Creatine Kinase Creatine Kinase Index CK-MB (CK-2) Troponin T Uot-V-Rjnknpqrhnm Pept 4939 H Total Protein Albumin Globulin Albumin/Globulin Ratio Plasma Lactate Orders Category Date Time Status Cardiac Monitoring DIRECTED Care 03/06/19 20:02 Active CHEST-2 VIEWS [RAD] Stat Exams 03/06/19 21:45 Completed C DIFF ANTIGEN [STOOL] Stat Lab 03/06/19 22:00 Uncollected C DIFF TOXIN [STOOL] Stat Lab 03/06/19 21:44 Uncollected C DIFF TOXIN [STOOL] Stat Lab 03/06/19 22:00 Uncollected CBC WITH ELECTRONIC DIFF [HEME] Stat Lab 03/06/19 20:18 Completed CK PROFILE [SP CHEM] Stat Lab 03/06/19 20:18 Completed COMPREHENSIVE METABOLIC PANEL [CHEM] Stat Lab 03/06/19 20:18 Completed LACTATE, PLASMA [CHEM] Stat Lab 03/06/19 20:18 Completed OVA AND PARASITE W/TRICHROME [STOOL] Stat Lab 03/06/19 22:01 Uncollected PRO B-NATRIURETIC PEPTIDE Stat Lab 03/06/19 20:18 Completed PROTIME WITH INR [COAG] Stat Lab 03/06/19 20:18 Completed PTT [COAG] Stat Lab 03/06/19 20:18 Completed STOOL CULTURE [RM] Stat Lab 03/06/19 22:00 Uncollected TROPONIN T Q6H Lab 03/06/19 22:35 Ordered TROPONIN T Q6H Lab 03/07/19 04:35 Ordered TROPONIN T Q6H Lab 03/07/19 10:35 Ordered TROPONIN T Stat Lab 03/06/19 20:18 Completed URINALYSIS W/POSS RFLX CULT [URINALYSIS] Stat Lab 03/06/19 19:15 Uncollected WBC STOOL [STOOL] Stat Lab 03/06/19 22:00 Uncollected 0.9% Sodium Chloride Inj [Ns] 1,000 ml Med 03/06/19 19:14 Discontinued IV 999 mls/hr Acetaminophen [Tylenol] Med 03/06/19 20:03 Discontinued 1,000 mg PO NOW ONE Aspirin Med 03/06/19 21:08 Discontinued 325 mg PO NOW ONE Nitroglycerin Med 03/06/19 21:09 Discontinued 1 inch TOP NOW ONE Ondansetron [Zofran] Med 03/06/19 20:03 Discontinued 8 mg IV NOW ONE Transfer/Admit Order [TRANSFER] Routine Transfer 03/06/19 22:03 Ordered Pt's ED course is as follows - elevated troponin 1.5, with acute elevation in Bun/Cr since December, in addition to multiple episodes of diarrhea reported. Concern for c.diff, particularly given her recent hospitalization. EKGs are paced. Spoke with both Dr. Griffin, hostel manager information services assistant as well as the pt's regular hostel manager, who agrees with admission and states he will see him in the AM. Dr. Burks was made aware, and agrees to accept the patient for admission. Result Diagrams: 03/06/19 20:18 03/06/19 20:18 - XRAY 1 XRAY Study: Chest Impression: Normal, See EMR Report Departure - Departure Date of Disposition Decision: 03/06/19 Time of Disposition Decision: 22:47 DIAGNOSIS: Elevated troponin, Acute exacerbation of CHF (congestive heart failure) Disposition: ADMITTED INPATIENT 09 Certified Medical Emergency: Emergent Condition: Fair Referrals and Follow-Ups: Kelsey Davis MD [Primary Care Provider] - - Critical Care Note This patient required my direct & personal management of CC.: No Attestation - Physician/ NANNETTE Attestation Patient care was provided by Advanced Practice Provider:: No The physician spent face to face time with patient:: Yes Advanced Practice Provider documentation review:: Supervising physician onsite and consulted in the evaluation and care of this patient. The physician did have a face to face encounter with the patient.
[2019-03-06] MEDS ORDERED: TYLENOL PO ONE (20:03)
[2019-03-06] MEDS ORDERED: ZOFRAN IV ONE (20:03)
[2019-03-06 20:33] LABS: BASO# 0.05 X1000 (0.0-0.2); BASO% 0.5 % (0.0-0.8); EOS# 0.08 X1000 (0.0-0.7); EOS% 0.8 % (0.0-10.0); HEMATOCRIT 32.3 % (37.0-47.0); HEMOGLOBIN 11.5 g/dL (12.0-16.0); LYMPH# 1.85 X1000 (1.2-3.4); LYMPH% 19.1 % (20.5-51.1); MCH 32.2 PG (27-31); MCHC 35.6 g/dL (33-37); MCV 90.5 FL (81-99); MONO# 0.81 X1000 (0.11-0.59); MONO% 8.4 % (1.7-9.3); MPV 9.4 FL (7.4-10.4); NEUT# 6.89 X1000 (1.4-6.5); NEUT% 71.2 % (42.2-75.2); PLT 285 X1000 (130-400); RBC 3.57 XMIL (4.2-5.4); WBC 9.68 X1000 (4.8-10.8)
[2019-03-06 20:39] LABS: INR 1.09; PROTIME 14.2 Seconds (11.0-16.0)
[2019-03-06 20:40] LABS: PTT 28.9 Seconds (22.3-41.8)
[2019-03-06 21:04] LABS: ALB/GLOB RATIO 1.2; ALBUMIN 4.4 g/dL (3.5-5.0); CALCIUM 9.1 mg/dL (8.8-10.2); CREATININE 2.4 mg/dL (0.5-0.9); POTASSIUM 3.6 mmol/L (3.5-5.1); TOTAL BILIRUBIN 0.66 mg/dL (0.20-1.00)
[2019-03-06] MEDS ORDERED: ASPIRIN PO ONE (21:08)
[2019-03-06] MEDS ORDERED: NITROGLYCERIN TOP ONE (21:09)
[2019-03-06 21:15] LABS: CK INDEX 4.8 (0.0-2.5); CK-MB 8.76 ng/mL (0.0-5.0)
--- NOTE | 2019-03-06 22:12 | Diag Imaging Result Doc PS360 ---
EXAM: CHEST-2 VIEWS HISTORY: SOB TECHNIQUE: Chest two views COMPARISON: 12/18/2018 FINDINGS: The lungs are hyperexpanded. The heart is not enlarged. Left pacemaker. The vessels are not distended. There are no infiltrates. No pleural effusions. IMPRESSION: No acute abnormality. Electronically signed by Valerio Adan 03/06/2019 10:09 PM
[2019-03-07] MEDS ORDERED: HEPARIN SUBQ SCH (01:17)
[2019-03-07] MEDS ORDERED: ZOFRAN IV PRN (01:17)
--- NOTE | 2019-03-07 01:39 | EKG Report ---
Test Performed on : 03/06/2019 7:11:45 PM Test Reason : chest pain Blood Pressure : / mmHG Vent. Rate : 078 BPM Atrial Rate : 078 BPM P-R Int : 170 ms QRS Dur : 170 ms QT Int : 466 ms P-R-T Axes : 077 -28 161 degrees QTc Int : 531 ms Atrial-sensed ventricular-paced rhythm Abnormal ECG When compared with ECG of 14-DEC-2018 18:13, Vent. rate has increased BY 13 BPM Unconfirmed Result
[2019-03-07] MEDS ORDERED: LEVOPHED 8 MG in D5 1/2 NS 250 ML IV SCH (02:30)
[2019-03-07] MEDS: NICODERM PATCH TD SCH (03:44)
[2019-03-07] MEDS: NORCO-10 PO PRN ×2 (04:18→18:36)
[2019-03-07 04:22] LABS: ALLEN TEST YES; BE 4.9 mmoll (-3.0-3.0); BLOOD TYPE ARTERIAL; HCO3-(ACT) 28.7 mmoll (20.0-26.0); O2(CT) 13.1 mL/dL (15.0-23.0); O2HB 91.5 % (95.0-99.0); PCO2(98.6) 45 mmHg (35-45); PO2(98.6) 76 mmHg (60-100); SAMPLE BLOOD; SAO2 100.5 % (95.0-100.0); THB 10.1 g/dL (11.5-17.4); pH(98.6) 7.43 (7.35-7.45)
[2019-03-07 04:22] LABS: BASO# 0.03 X1000 (0.0-0.2); BASO% 0.4 % (0.0-0.8); EOS% 1.2 % (0.0-10.0); HEMATOCRIT 29.6 % (37.0-47.0); HEMOGLOBIN 10.4 g/dL (12.0-16.0); IMM GRAN# 0.02 X1000 (0.0-0.04); IMM GRAN% 0.2 % (0.0-0.5); LYMPH# 2.18 X1000 (1.2-3.4); LYMPH% 25.9 % (20.5-51.1); MCH 31.8 PG (27-31); MCHC 35.1 g/dL (33-37); MCV 90.5 FL (81-99); MONO# 0.73 X1000 (0.11-0.59); MONO% 8.7 % (1.7-9.3); MPV 9.1 FL (7.4-10.4); NEUT# 5.37 X1000 (1.4-6.5); NEUT% 63.6 % (42.2-75.2); PLT 246 X1000 (130-400); RBC 3.27 XMIL (4.2-5.4); RDW 12.8 % (11.5-14.5); WBC 8.43 X1000 (4.8-10.8)
[2019-03-07 04:29] LABS: MODALITY ROOM AIR
[2019-03-07 04:37] LABS: INR 1.13; PROTIME 14.7 Seconds (11.0-16.0)
[2019-03-07 04:50] LABS: ALB/GLOB RATIO 1.2; ALBUMIN 3.9 g/dL (3.5-5.0); CREATININE 2.5 mg/dL (0.5-0.9); POTASSIUM 3.4 mmol/L (3.5-5.1); TOTAL BILIRUBIN 0.62 mg/dL (0.20-1.00); TOTAL PROTEIN 7.1 g/dL (6.3-8.3)
[2019-03-07] MEDS ORDERED: KLOR-CON PO ONE (05:10)
[2019-03-07 07:03] LABS: URINE SOURCE CLEAN CATCH
[2019-03-07 07:10] LABS: BILIRUBIN URINE NEGATIVE (NEGATIVE); BLOOD URINE MODERATE (NEGATIVE); COLOR YELLOW; GLUCOSE URINE NEGATIVE (NEGATIVE); KETONE URINE NEGATIVE (NEGATIVE); LEUKOCYTES URINE LARGE (NEGATIVE); NITRITE URINE NEGATIVE (NEGATIVE); PH URINE 7.5; PROTEIN URINE TRACE mg/dL (NEGATIVE); SP GRAVITY URINE 1.011; TURBIDITY URINE HAZY (CLEAR); UR EPITHELIAL CELLS <10 /HPF (<10); URINE BACTERIA 4+ /HPF; URINE RBC <10 /HPF (<10); URINE WBC TNTC /HPF (<10); UROBILINOGEN URINE NORMAL (NORMAL)
--- NOTE | 2019-03-07 08:17 | HISTORY AND PHYSICAL ---
PRIMARY CARE PHYSICIAN: Dr. Kelsey Davis. PRIMARY PIPELINE TECHNICIAN: Dr. Griffin. CHIEF COMPLAINT: Diarrhea and chest pressure HISTORY OF PRESENT ILLNESS: This is a 53-year-old female very well known to our service with past medical history of chronic systolic heart failure with ejection fraction of 52%, diabetes mellitus, and ischemic cardiomyopathy, who presented to the emergency department complaining of feeling weak and diarrhea of 2 weeks duration. She reports that she had between 5 to 10 watery diarrhea with no blood on it along with abdominal pain and cramping all over on and off. The patient reports she did not seek for any medical attention. For the last few days, she noticed some chest pressure-like some thing heavy was on his chest that was going on and off. Sometimes, this has being getting worse when she coughs and sometimes not related to any physical activity. Here upon ER evaluation, she was found to have a creatinine of 2.4 with troponin peak of 1.35. The patient is being admitted for acute diarrhea and for rule out acute coronary syndrome. PAST MEDICAL HISTORY: 1. Systolic congestive heart failure with ejection fraction of 15 to 20 percent. 2. Cardiac cirrhosis. 3. Diabetes mellitus type 2. 4. Ischemic cardiomyopathy. 5. Hyperlipidemia. 6. Hypertensive heart disease. 7. COPD. 8. Active smoking. 9. Prior history of cervical cancer. PAST SURGICAL HISTORY: 1. Implantable cardioverter-defibrillator placement. 2. Left toe amputation. 3. Vascular stenting of the left leg. 4. Left knee exploration. 5. Breast reduction. 6. C-spine fusion. 7. Lumpectomy. 8. Left hallux amputation. SOCIAL HISTORY: Patient continues to smoke 1 pack per day. No alcohol or illicit drugs reported. The patient is and lives with her . ALLERGIES: No known drug allergies. FAMILY HISTORY: Notable for heart disease, kidney disease and diabetes. PHYSICAL EXAMINATION: VITAL SIGNS: Temperature 97.3 degrees, heart rate 75, respiratory rate 16, blood pressure 98/47, and O2 saturation 99% on room air. GENERAL: This is a 54-year-old female lying in bed in no acute distress. HEENT: Head is normocephalic and atraumatic. Pupils are equal, round, and reactive to light and accommodation. Anicteric sclerae. Pale conjunctivae. NECK: No JVD noted. No carotid bruits. No lymphadenopathy. CARDIOVASCULAR: S1 and S2 heard. No murmurs, gallops, or rubs. Regular rate and rhythm. RESPIRATORY: Decreased breath sounds globally. Some minimal crackles noted in both pulmonary bases. Patient not using any accessory muscles or having work of breathing. ABDOMEN: Soft, a little bit distended. Bowel sounds present. Hyperactive. No signs of peritoneal irritation. EXTREMITIES: No clubbing, cyanosis, or edema. Peripheral pulses present in both legs. NEUROLOGIC: Patient is alert and oriented x3. Moves all 4 extremities. LABORATORY DATA: White cell count 9.63, hemoglobin 11.5, hematocrit 32.3 and platelets 285,000 with sodium 130, creatinine 2.4. Troponin 1.350 with elevated pro BNP of 4929. ASSESSMENT AND PLAN: 1. Chest pain with elevated troponin's. Patient has history of ischemic cardiomyopathy. She came in with chest pressure, atypical chest pain and very elevated troponin's. At this point, ER has talked with Cardiology and they are okay accepting this patient over here. We will consult them tomorrow morning. We will check troponin's 3 times. We will repeat an echocardiogram to evaluate wall motion abnormalities. 2. Acute on chronic kidney disease. Creatinine has been in the range of 1.4 and 1.6. We will continue to monitor BMP daily. 3. Acute diarrhea. The patient has had diarrhea for a couple of weeks. We will check stool studies and C. Diff. We will continue to monitor. 4. Hypertensive heart disease. We will continue with home medications. 5. Diabetes mellitus type 2. We will continue with sliding scale insulin, Ac cu-Chek before meals and also at bedtime. 6. Tobacco abuse. Patient encouraged to stop smoking. 7. Disposition: We will transfer this patient to [facility]. cc: Boubacar Elaine MD
[2019-03-07] MEDS ORDERED: ENTRESTO 24 MG-26 MG TABLET PO SCH (09:00)
[2019-03-07] MEDS ORDERED: LANOXIN PO SCH (09:00)
[2019-03-07] MEDS ORDERED: ZAROXOLYN PO SCH (09:00)
[2019-03-07] MEDS ORDERED: LASIX PO SCH (09:00)
[2019-03-07] MEDS ORDERED: ALDACTONE PO SCH (09:00)
[2019-03-07] MEDS ORDERED: NORCO-7.5 PO PRN (09:04)
[2019-03-07 09:28] LABS: CALCIUM 9.1 mg/dL (8.8-10.2); CREATININE 2.5 mg/dL (0.5-0.9); PHOSPHORUS 4.3 mg/dL (2.7-4.5); POTASSIUM 3.5 mmol/L (3.5-5.1)
[2019-03-07 09:45] LABS: CHOLESTEROL 102 mg/dL (0-200); HDL 39 mg/dL (45-65); LDL 33 mg/dL; TRIGLYCERIDES 152 mg/dL (35-135); VLDL 30 mg/dL
--- NOTE | 2019-03-07 09:53 | Diag Imaging Result Doc PS360 ---
ABDOMEN FLAT/UPRIGHT - 03/07/2019 INDICATION: abdominal pain COMPARISON: 01/09/2018 FINDINGS: There is a nonobstructive bowel gas pattern. No free air or abdominal calcifications. IMPRESSION: No acute disease. Electronically signed by Kelvin Cobos 03/07/2019 9:50 AM
[2019-03-07] MEDS: ASPIRIN PO SCH (10:13)
[2019-03-07] MEDS: LOVENOX SUBQ SCH (10:13)
[2019-03-07] MEDS: PLAVIX PO SCH (10:13)
[2019-03-07] MEDS: PRILOSEC PO SCH (10:13)
[2019-03-07] MEDS: NS 1,000 ML IV SCH ×2 (10:14→22:41)
[2019-03-07] MEDS: ROCEPHIN 1 GM in NS 50 ML IV SCH (10:14)
[2019-03-07] MEDS: COREG PO SCH ×2 (12:30→20:30)
[2019-03-07] MEDS: ROBAXIN PO PRN ×2 (12:30→18:36)
--- NOTE | 2019-03-07 16:02 | Diag Imaging Result Doc PS360 ---
EXAM: US RENAL 2 (RETROPER) COMPLETE 03/07/2019 HISTORY: nae/arf TECHNIQUE: Renal ultrasound COMMENT: The right kidney is 11.2 x 5.1 x 4.8 cm the left is 10.6 x 5 x 5.5 cm. There is no evidence of hydronephrosis or mass. The urinary bladder is unremarkable. IMPRESSION: Normal renal ultrasound. Electronically signed by Benny Tello 03/07/2019 4:00 PM
--- NOTE | 2019-03-07 17:29 | ECHO REPORT ---
ORDER DATE: 03/07/2019 INTERPRETING PHYSICIAN: Bernardo Grififn MD. ECHOCARDIOGRAPHIC MEASUREMENTS: 1. Interventricular septum 1.0. 2. Left ventricular posterior wall 0.9. 3. Diastolic diameter 6.8. 4. Left atrium 4.1. 5. Aorta 3.5. SUMMARY OF THE 2-DIMENSIONAL FINDINGS: 1. Dilated left ventricle with severely reduced systolic function. Estimated ejection fraction of 20 to 25 percent. There is severe global hypokinesis. There is diastolic dysfunction. 2. Left atrium was enlarged. 3. Mitral valve was normal. 4. Tricuspid valve was normal. 5. Aortic valve leaflets were trileaflet. 6. Pulmonic valve was normal. There is mild mitral regurgitation. 7. Mild tricuspid regurgitation. Peak velocity across the tricuspid valve was 2.8 m/sec. 8. Pulmonary artery systolic pressure of 40 mmHg. 9. There is no aortic stenosis or regurgitation. 10. Pacing leads are noted in the right chamber. 11. There is no pericardial effusion, or obvious intracardiac mass or thrombus seen. cc: MD Boubacar Walters MD
--- NOTE | 2019-03-07 18:21 | CONSULTATION ---
DATE OF CONSULTATION: 03/07/2019 IMPRESSIONS: 1. Abnormal troponin. Patient has history of extended chest discomfort for 2 days last week. Consider the possibility of small myocardial infarction last week. 2. Severe cardiomyopathy. 3. Ischemic heart disease. 4. Hypertension. 5. Chronic obstructive pulmonary disease. 6. Chronic ongoing cigarette use. RECOMMENDATIONS: 1. Echocardiography. 2. Venous Doppler study. 3. Agree with intravenous fluid replacement given patient appears to be intravascularly volume depleted. 4. Conservative cardiovascular management overall. HISTORY: This 54-year-old white female with a past history of severe cardiomyopathy, ischemic heart disease, previous coronary angioplasty/stenting of right coronary artery in the past, implantable defibrillator, hypertension, COPD, type 2 diabetes mellitus, and chronic ongoing cigarette use was admitted because of low blood pressure. She was visited by her home health nurse who noted her blood pressure to be quite low with systolic blood pressure in the 70s. She was referred to the hospital and has been admitted. Over the last six months or so she has been diuresed rather aggressively with over 50 pound weight reduction with her diuresis. Last week she experienced heaviness in the chest that lasted for about 2 days and has not recurred. She has had some modest diarrhea. There has been no vomiting. There has been no orthopnea. There have been no palpitations. She was noted to have markers of intravascular volume depletion with markedly elevated BUN and elevated creatinine above baseline. She has been receiving intravenous fluids as her heart failure medicines were held due to low blood pressure. Troponin was elevated, prompting Cardiology consultation. PAST MEDICAL HISTORY: 1. Severe cardiomyopathy with left ventricular ejection fraction of 15 to 20%. 2. Ischemic heart disease with previous coronary angioplasty/stenting. 3. Hypertension. 4. Hyperlipidemia. 5. Type 2 diabetes mellitus. 6. COPD. 7. Peripheral artery disease. 8. Cervical cancer. PAST SURGICAL HISTORY: Implantable defibrillator, left toe amputation, left lower extremity arterial stents, unspecified left knee surgery, breast reduction surgery, cervical spine fusion, and lumpectomy. She is also status post left hallux amputation. ALLERGIES: She has no known drug allergies. MEDICATIONS PRIOR TO ADMISSION: As listed. SOCIAL HISTORY: She continues to smoke cigarettes. Denies alcohol or illicit drug use. FAMILY HISTORY: Positive for coronary disease. REVIEW OF SYSTEMS: Pulmonary: Negative. Gastrointestinal: Noteworthy for some modest diarrhea, otherwise negative. Constitutional: Noncontributory beyond history of present illness. Remainder of review of systems negative/noncontributory beyond history present illness with 14 total systems reviewed. PHYSICAL EXAMINATION: General: Reveals a middle-aged white female who appears older than stated age, in no distress. Vital signs: Blood pressure 128/74, heart rate 66 and regular. HEENT: Extraocular muscles appear intact. Mucous membranes are moist. Neck: Supple without jugular venous distention. There are no carotid bruits. Chest: Clear to auscultation bilaterally. Cardiac Exam: Reveals a regular rate and rhythm without appreciable. No murmur or gallop. Abdomen: Soft. Bowel sounds normal. Extremities: Without edema. Neurologic: Reveals her to be alert and fully oriented. Speech is fluent. She moves all 4 extremities equally well. Skin: Warm and dry. Psychiatric: Reveals her to be somewhat anxious. LABORATORY DATA: Includes a sodium 131, potassium 3.5, chloride 89, carbon dioxide 22, BUN 104, creatinine 2.5, glucose 98. CPK 181. Troponin T 1.350, 1.370, and 1.180. White blood cell count 8.43, hematocrit 29.6, hemoglobin 10.4, platelet count 246,000. ECG demonstrates atrial sensed ventricular paced rhythm with occasional premature ventricular complex. cc: Harsha Ballesteros MD
[2019-03-07] MEDS: VANCOCIN PO SCH ×2 (18:36→20:30)
[2019-03-07] MEDS: DESYREL PO SCH (20:31)
[2019-03-07] MEDS: GRALISE PO SCH (20:31)
--- NOTE | 2019-03-07 22:19 | NEPHROLOGY CONSULTATION ---
DATE: 03/07/2019 REASON FOR ADMISSION: Nausea associated with heavy chest pressure that is intermittent. REASON FOR CONSULT: Acute kidney injury. CONSULTING PHYSICIAN: Dr. Elina Whitfield. HPI: Ms. Patel is a 53-year-old white female with known medical problems associated with chronic systolic heart failure, known ejection fraction of 15 to 20 percent noted in December 2017. The patient had not been feeling well. She is a known CKD patient with a baseline creatinine of 1.2 in 2018. She has had multiple admissions, last seen by us in the hospital in September 2018. At that time, her baseline creatinine was 1.8 to 2. It had returned to 1.4 on discharge. The patient presented to the emergency room complaining of weakness, diarrhea x2 weeks duration, watery diarrheal, no blood noted, abdominal cramping. She had heavy chest pressure that waxed and waned. No diaphoresis associated with this. No emesis, but slight nausea. States that she had a cough with increased work of breathing with any physical exertion. In the emergency room, she was found to have a creatinine of 2.4. Her troponin was elevated at 1.35. The patient was admitted to the ICU for further workup and evaluation. Her creatinine remains elevated without any improvement. During her hospital stay, the patient has been hypotensive, started on Levophed drip in the ICU. Chest pain still continues to wax and wane. She is in the process of getting an echocardiogram completed. states that she has been under the care of a stucco plasterer at [facility]. She has been recommended for an LVAD. Workup remains in process. She had increased work of breathing with some edema. They had felt that she needed to be hospitalized last time she was at [facility]. Patient felt that she could come home and control this on an outpatient basis. Her abdominal x-ray was negative on admission. Chest x-ray was essentially negative without infiltrates or pneumonia. She has had 0 recorded out, 21 mL in. Complains of continued chronic lower extremity swelling. PAST MEDICAL HISTORY: Congestive heart failure systolic in nature with an ejection fraction of 15 to 20 percent. Repeat echocardiogram today, cardiac cirrhosis, diabetes mellitus type 2, ischemic cardiomyopathy, hyperlipidemia, hypertensive heart disease, COPD, prior history of cervical cancer, CKD stage 3a, baseline creatinine 1.2 to 1.4. Active smoker. PAST SURGICAL HISTORY: The patient has an implantable cardioverter- defibrillator placement, left toe amputation, vascular stenting of the left leg, left knee exploration, breast reduction, C- spine fusion, lumpectomy, left hallux amputation. SOCIAL HISTORY: She is . She lives with her spouse. She continues to smoke 1 pack per day. No alcohol or illicit drug use. FAMILY HISTORY: Notable for heart disease, kidney disease and diabetes. ALLERGIES: Listed as no known drug allergies. HOME MEDICATIONS: Plavix, Entresto, trazodone, Aldactone, Robaxin, Lanoxin, hydrocodone, gabapentin, furosemide, Coreg, NicoDerm patch, and Zaroxolyn. REVIEW OF SYSTEMS: Times 10 with pertinent positives listed above in the HPI. VITAL SIGNS: The patient's most recent vital signs: Temperature 98.1 degrees, blood pressure 109/68, heart rate 74, respirations 22. She is on room air. Last recorded saturation 99%. She remains on Levophed. LABORATORY DATA: Sodium 131.3, chloride 88, CO2 22, BUN 104, creatinine 2.5, glucose 98. Her anion gap is 17, calcium 3.9. White count 8.43, hemoglobin 10.4, hematocrit 29.6 with a platelet count of 246,000. Troponin is now down to 1.3. Abdominal x-ray is negative for acute disease. Chest x-ray was negative for acute disease. Echocardiogram is currently being performed. PHYSICAL EXAMINATION: General: This is a 54-year-old white female. She is resting quietly in bed. She appears chronically ill, in no acute distress. Skin: Warm and dry. HEENT: Normocephalic, atraumatic. Conjunctiva is pale. She has JOHNNY. Mucous membranes are dry. Neck: Supple. Trachea midline. Unable to determine JVD in the patient's lying position. Cardiovascular: S1, S2 noted. No appreciable murmur. Lungs: Diminished breath sounds globally. Shallow inspiratory effort. She is currently on room air. Abdomen: Soft, slightly distended. Hypoactive bowel sounds. Genitourinary: Not inspected. Extremities: No edema. No clubbing or cyanosis. Neurological: She is alert and oriented x3. She does move all extremities well. Able to follow commands. ASSESSMENT AND PLAN: 1. Acute on chronic kidney disease. Patient's baseline creatinine is 1.2 to 1.4 earlier this year. Creatinine remains stable at 2.5. We will check urine electrolytes. Renal ultrasound. We will evaluate the patient's results of her urine studies and renal ultrasound. The patient has currently had her nephrotoxic medications stopped. She is off of her Lasix and her Entresto. Remains on Levophed secondary to hypotension. Agree with fluids and recheck in AM. 2. Electrolytes and acid-base balance. The patient has mild hyponatremia more than likely secondary to #1. 3. Acid-base balance. This is stable. 4. Anemia. This is stable with a hemoglobin of 10.4. 5. Chest pain with elevated troponins. She is followed by Cardiology. 6. Possible cardiogenic shock. The patient is currently on Levophed. Blood pressure remains. Low ejection fraction is noted. I would like to thank you for allowing us to follow with this patient. Dictated by MERT Valdez for Garfield Jay MD Face to face encounter, data reviewed, discussed with Farrah Cross on 03/07/19. I agree with the above assessment and plan of care. cc: MERT Valdez MD [facility]
[2019-03-08] MEDS: NORCO-10 PO PRN (01:46)
[2019-03-08] MEDS: ROBAXIN PO PRN (01:47)
--- NOTE | 2019-03-08 02:20 | PROGRESS NOTE ---
DATE: 03/07/2019 SUBJECTIVE: The patient complains of a headache. She did complain of earlier chest tightness upon admission. OBJECTIVE: Vital Signs: Temperature 97.3 degrees, blood pressure 119/71, heart rate 75, respirations 18, O2 saturation 96% on room air. General: This is a chronically ill-appearing elderly female lying in bed, in no acute distress. Heart: S1, S2 normal. Regular rate and rhythm. Lungs: Equal air entry bilaterally. No wheezing. No rales. No rhonchi. Abdomen: Positive bowel sounds. Soft, nontender, nondistended. Extremities: No edema. No cyanosis. No calf tenderness. Neurologic: The patient is alert and oriented x4. LABS: White blood cell count 8.4, hemoglobin 10, hematocrit 29, platelets 246,000. Sodium 131, potassium 3.5, chloride 89, CO2 of 22, BUN 104, creatinine 2.5. Glucose 98, AST 18, ALT 9, alkaline phosphatase 95. CK 152. C difficile antigen positive and C diff toxin positive. ASSESSMENT AND PLAN: 1. NSTEMI. Continue on the current treatment regimen as directed by the metal smelter. 2. Severe cardiomyopathy. The patient has an ejection fraction of 20 to 25 percent. She was evaluated at [facility]. She will likely need to follow up at [facility] upon discharge. 3. Clostridium difficile colitis. We will start the patient on oral vancomycin and lactobacillus. 4. Acute kidney injury on chronic kidney disease. The patient appears to be volume depleted. We will hold diuretic therapy at this time, and start the patient on gentle IV fluid hydration. We will also check urine studies and consult with Nephrology for further recommendations. 5. Tobacco dependence. The patient has been counseled about smoking cessation. 6. Chronic obstructive pulmonary disease. Stable. 7. History of cervical cancer. Aware. 8. Gastroesophageal reflux disease. Continue on Prilosec. 9. Urinary tract infection. The patient is currently on Rocephin. Will follow up on the urine culture results. cc: Elina Whitfield MD MTDD
[2019-03-08] MEDS: VANCOCIN PO SCH ×4 (02:33→20:07)
[2019-03-08 05:12] LABS: UR CREAT RANDOM 34.3 mg/dL (11-20); UR PROT RANDOM 10.2 mg/dL
[2019-03-08 05:18] LABS: UR AMPHETAMINES QUAL NONE DETECTED (NONE DETECT); UR BARBITUATES QUAL NONE DETECTED (NONE DETECT); UR BENZODIAZEPIN QUAL NONE DETECTED (NONE DETECT); UR CANNABINOIDS QUAL NONE DETECTED (NONE DETECT); UR COCAINE QUAL NONE DETECTED (NONE DETECT); UR METHADONE QUAL NONE DETECTED (NONE DETECT); UR OPIATES QUAL PRESUMPTIVE POSITIVE (NONE DETECT); UR OXYCODONE QUAL NONE DETECTED (NONE DETECT); UR PCP QUAL NONE DETECTED (NONE DETECT)
[2019-03-08] MEDS: NICODERM PATCH TD SCH (06:16)
[2019-03-08 07:15] LABS: HEMATOCRIT 29.7 % (37.0-47.0); HEMOGLOBIN 10.4 g/dL (12.0-16.0); MCH 32.2 PG (27-31); MPV 9.6 FL (7.4-10.4); RBC 3.23 XMIL (4.2-5.4); RDW 12.8 % (11.5-14.5); WBC 7.38 X1000 (4.8-10.8)
[2019-03-08 07:40] LABS: ALBUMIN 3.9 g/dL (3.5-5.0); CALCIUM 9.3 mg/dL (8.8-10.2); CREATININE 1.9 mg/dL (0.5-0.9); POTASSIUM 3.7 mmol/L (3.5-5.1)
[2019-03-08] MEDS: ROCEPHIN 1 GM in NS 50 ML IV SCH (07:50)
[2019-03-08] MEDS: ASPIRIN PO SCH (08:00)
[2019-03-08] MEDS: PRILOSEC PO SCH (08:00)
[2019-03-08] MEDS: PLAVIX PO SCH (08:01)
[2019-03-08] MEDS: COREG PO SCH (08:01)
[2019-03-08] MEDS ORDERED: ASPIRIN ONE (08:12)
[2019-03-08] MEDS: LOVENOX SUBQ SCH (08:41)
--- NOTE | 2019-03-08 15:57 | NEPHROLOGY PROGRESS NOTE ---
DATE: 03/08/2019 TIME SEEN: 0650. SUBJECTIVE: Ms. Patel is currently in bed. She has had IV fluids started for resuscitation during the night secondary to a low fractionated urea score. States that she is feeling slightly better. No increased work of breathing. OBJECTIVE: Vital Signs: Temperature 98 degrees, blood pressure 98/56, heart rate 65, respirations 12. She is on room air. Last recorded saturation 98%. She has had 1,261 in, 1,550 out. Labs: Sodium is 135. Her potassium is 3.7, chloride 94, CO2 25. Her BUN is 89, creatinine 1.04. Her anion gap is 16. Her calcium is 9.3, albumin is 3.9, with a phosphorus of 3. The patient has a white count of 7.34, hemoglobin 10.4, hematocrit 29.7, with a platelet count of 245,000. PHYSICAL EXAMINATION: General: This is a 54-year-old white female. She is resting quietly in bed. She appears chronically ill, no acute distress. Skin: Warm and dry. HEENT: Normocephalic, atraumatic. Conjunctiva is pale pink. She has JOHNNY. Mucous membranes are dry. Neck: Supple. Unable to determine JVD in patient's position. Cardiovascular: She is regular rate and rhythm on the monitor. No murmur or gallop is appreciated. Lungs: Clear to auscultation bilaterally. Equal excursion. On room air. Abdomen: Soft, round, nontender. Positive bowel sounds. Genitourinary: Not inspected. Patient has a Garcia catheter with adequate urine out. Extremities: Have no edema. No clubbing or cyanosis. Neurological: Alert and oriented x3. ASSESSMENT AND PLAN: 1. Acute on chronic kidney disease. Patient's baseline creatinine is 1.2 to 1.4. BUN is down to 89 with a creatinine of 1.9. Adequate urine output has been documented. No indications for intervention. We will stop her IV fluids at this time. 2. Electrolytes and acid-base balance. This has improved. 3. Anemia. Hemoglobin is stable at 10.4. 4. Chest pain with elevated troponin. Followed by Cardiology. Now off her Levophed. Blood pressure is stable. I would like to thank you for allowing us to follow with this patient. Dictated by MERT Valdez for Garfield Jay MD Face to face encounter, data reviewed, discussed with Farrah Cross on 03/08/19. I agree with the above assessment and plan of care. cc: MERT Valdez MD [facility]
--- NOTE | 2019-03-08 18:11 | CARDIOLOGY PROGRESS NOTE ---
DATE: 03/08/2019 SUBJECTIVE: Patient reports feeling better. She denies chest discomfort or shortness of breath. Blood pressure has been stable and pressures have been discontinued. OBJECTIVE: Blood pressure 85/45, heart rate 67, oxygen saturation 96% on room air. There is no significant jugular venous distention.Chest: Clear to auscultation. Cardiac: Regular rate and rhythm without appreciable murmur or gallop. Extremities: Without edema. LABORATORY AND DIAGNOSTIC DATA: Includes a white blood cell count of 7.38, hematocrit 29.7, hemoglobin 10.4, platelet count 245,000. Sodium 135, potassium 3.7, chloride 94, carbon dioxide 25, BUN 89, creatinine 1.9, glucose 104. Echocardiography performed yesterday, reports left ventricular ejection fraction of 20 to 25 percent. IMPRESSION: 1. Abnormal troponin, possibly due to small non-ST elevation myocardial infarction last week. 2. Severe cardiomyopathy. Left ventricular ejection fraction around 20 percent, unchanged on recent echocardiography. 3. Ischemic heart disease. 4. Acute renal dysfunction, likely related to intravascular volume depletion. This is improving with hydration. No signs of heart failure. 5. Hypertension. 6. Chronic obstructive pulmonary disease. 7. Chronic ongoing cigarette use. Patient is reluctant to stop smoking. RECOMMENDATIONS: 1. Continue to hold diuretic therapy. 2. Continue medical management of patient's cardiomyopathy and ischemic heart disease. Given tendency for lower blood pressure, suggest discontinuing carvedilol and starting on low-dose metoprolol succinate. Entresto currently on hold given low blood pressure. We will hope to ultimately resume this. cc: Harsha Ballesteros MD
[2019-03-08] MEDS: DESYREL PO SCH (20:07)
[2019-03-08] MEDS: GRALISE PO SCH (20:08)
--- NOTE | 2019-03-08 20:19 | PROGRESS NOTE ---
DATE: 03/08/2019 SUBJECTIVE: The patient is sitting up at the edge of the bed. She states that she feels a lot better. She has not had any episodes of diarrhea today. She denies having any chest pain or headache at this time. OBJECTIVE: Vital Signs: Temperature 98.7 degrees, blood pressure 100/49, heart rate 81, respirations 25, O2 saturation 95% on room air, intake 1.8 L, output 3 L. General: This is a chronically ill-appearing elderly female sitting at the edge of the bed in no acute distress. Heart: S1, S2 normal. Regular rate and rhythm. Lungs: Equal air entry bilaterally. No wheezing. No rales. No rhonchi. Abdomen: Positive. Bowel sounds soft, nontender, nondistended. Extremities: No edema. No cyanosis. No calf tenderness. Neurologic: The patient is alert and oriented x4. No focal neurologic deficits noted. LABS: White blood cell count 7.3, hemoglobin 10, hematocrit 29, platelets 245,000. Sodium 135, potassium 3.7, chloride 94, CO2 25, BUN 89, creatinine 1.9, glucose 104. ASSESSMENT AND PLAN: 1. NSTEMI. The patient is currently chest pain free. We will continue on the current medications as ordered. 2. Urinary tract infection. The urine culture is growing gram-negative rods. We will continue on Rocephin. 3. Acute kidney injury on chronic kidney disease. Improved. The patient's IV fluids have been discontinued. We will continue to monitor closely. Nephrology is following. 4. Clostridium difficile colitis. Today is day 2 of treatment with an oral vancomycin. The patient will need to complete a total of 10 days of therapy. Continue with lactobacillus. 5. Chronic obstructive pulmonary disease. Stable. 6. Tobacco dependence. The patient has been counseled about smoking cessation. 7. Chronic systolic congestive heart failure. Stable. 8. Severe cardiomyopathy. Aware. The patient is scheduled to follow up at the [facility] this month. 9. History of cervical cancer. Aware. 10. Gastroesophageal reflux disease. Continue on Prilosec. 11. Deep vein thrombosis prophylaxis. The patient is currently on full dose Lovenox. cc: MD LIANA Ramsey
--- NOTE | 2019-03-08 22:04 | Extremity Venous Study ---
PROCEDURE NAME: Venous U/S Bilateral Legs - 03/07/2019 REQUESTING PROVIDER: ALEXANDRIA Mckeon TILE MECHANIC: Jay. INDICATIONS: Dyspnea. EQUIPMENT: Phantom Vivid E9 ultrasound system with a 9L-D transducer. FINDINGS: Images of the bilateral lower extremity venous systems were obtained in both sagittal and transverse planes. Doppler was used to evaluate veins for spontaneity, phasicity, respiratory excursion and digital augmentation. Results: Normal venous compression, normal venous flow. No obvious superficial or deep venous thrombosis noted. INTERPRETATION: Essentially normal bilateral lower extremity venous study. cc: MD Griselda Alicea PA
[2019-03-09] MEDS: NORCO-10 PO PRN (01:18)
[2019-03-09] MEDS ORDERED: ROBAXIN PO PRN (01:22)
[2019-03-09] MEDS: VANCOCIN PO SCH ×4 (01:30→21:06)
[2019-03-09 06:55] LABS: HEMOGLOBIN 9.6 g/dL (12.0-16.0); MCH 31.6 PG (27-31); MCHC 34.3 g/dL (33-37); MCV 92.1 FL (81-99); MPV 9.6 FL (7.4-10.4); RBC 3.04 XMIL (4.2-5.4); RDW 12.9 % (11.5-14.5); WBC 5.69 X1000 (4.8-10.8)
--- NOTE | 2019-03-09 06:55 | EKG Report ---
Test Performed on : 03/07/2019 07:19:25 AM Test Reason : chest pain Blood Pressure : / mmHG Vent. Rate : 068 BPM Atrial Rate : 068 BPM P-R Int : 172 ms QRS Dur : 172 ms QT Int : 456 ms P-R-T Axes : 076 -59 160 degrees QTc Int : 484 ms Atrial-sensed ventricular-paced rhythm with occasional premature ventricular complexes. Abnormal ECG When compared with ECG of 06-MAR-2019 19:11, (Unconfirmed) premature ventricular complexes. are now present Vent. rate has decreased BY 10 BPM Confirmed by Keesha FLORIAN, Andrzej Melissa ([id number]) on 03/09/2019 6:55:56 AM
[2019-03-09 07:23] LABS: HEMOGLOBIN A1C 8.9 % (4.8-6.0)
[2019-03-09 07:25] LABS: ALBUMIN 3.7 g/dL (3.5-5.0); CALCIUM 9.1 mg/dL (8.8-10.2); CREATININE 1.9 mg/dL (0.5-0.9); PHOSPHORUS 2.4 mg/dL (2.7-4.5)
[2019-03-09] MEDS: TOPROL XL PO SCH (08:23)
[2019-03-09] MEDS: PRILOSEC PO SCH (08:23)
[2019-03-09] MEDS: PLAVIX PO SCH (08:23)
[2019-03-09] MEDS: KEFLEX PO SCH ×2 (08:23→21:06)
[2019-03-09] MEDS: ASPIRIN PO SCH (08:23)
[2019-03-09] MEDS: LOVENOX SUBQ SCH (08:24)
[2019-03-09] MEDS: NICODERM PATCH TD SCH (09:52)
[2019-03-09] MEDS: HUMULIN R SUBQ SCH ×3 (11:53→21:09)
--- NOTE | 2019-03-09 15:13 | NEPHROLOGY PROGRESS NOTE ---
DATE: 03/09/2019 SUBJECTIVE: She is sleeping, but does not have any new complaints today. OBJECTIVE: Vital Signs: Blood pressure 122/71, heart rate 69, respirations 15, afebrile. Intake 600 mL. Output 1.3 liters. General: On physical exam, in no acute distress. Skin: Warm and dry. Neck: The neck veins are not distended. Cardiovascular: Heart is regular. Lungs: Equal. No crackles. Abdomen: Soft, nontender. Bowel sounds present. Extremities: No edema, clubbing or cyanosis. IMPRESSION: Acute kidney injury. Creatinine today is 1.9, which is the same as yesterday. Baseline creatinine 1.4. BUN continues to improve. We will allow her to hydrate orally. No more intravenous fluids should be necessary. Electrolytes/acid base in target. cc: Garfield Jay MD
--- NOTE | 2019-03-09 18:13 | PROGRESS NOTE ---
DATE: 03/09/2019 SUBJECTIVE: Patient continues without chest discomfort or shortness of breath on room air. She very much wishes to go home soon. OBJECTIVE: Vital Signs: Blood pressure 124/54, heart rate 65, oxygen saturation 100% on room air. There is no significant jugular venous distention. Chest: Clear to auscultation. Cardiac Exam: Reveals a regular rate and rhythm without appreciable murmur or gallop. Extremities: Without edema. LABORATORY DATA: Includes a white blood cell count of 5.69, hematocrit 28.0, hemoglobin 9.6, platelet count 216. Sodium 134, potassium 4.2, chloride 95, carbon dioxide 26, BUN 75, creatinine 1.9. Glucose 222. IMPRESSION: 1. Abnormal troponin possibly due to small non-ST elevation myocardial infarction the week before hospitalization. Patient continues without angina. 2. Severe cardiomyopathy with left ejection fraction of 20%. Unchanged on recent echocardiography. 3. Ischemic heart disease. 4. Acute renal dysfunction likely related to intravascular volume depletion. This is gradually improving with hydration. Patient currently on oral hydration regimen. No signs of congestive heart failure. 5. Hypertension. 6. Chronic obstructive pulmonary disease. 7. Chronic ongoing cigarette use. Patient is expressively reluctant to stop smoking. RECOMMENDATIONS: 1. Continue beta [place]. Current dose. 2. Reasonable for patient to be discharged soon. I would resume Lasix at 40 mg daily. Until renal function back to baseline, I would hold contrast Entresto. She will need close followup in the Cardiology Clinic in approximately 7 to 10 days. Once renal function back to baseline, Entresto to be resumed. cc: Harsha Ballesteros MD
--- NOTE | 2019-03-09 19:28 | PROGRESS NOTE ---
DATE: 03/09/2019 SUBJECTIVE: The patient is resting comfortably in bed. She states that her stool is no longer liquid. It is soft in consistency. She denies having any chest pain, shortness of breath, headache or dizziness. OBJECTIVE: Vital Signs: Temperature 98 degrees, blood pressure 124/54, heart rate 65, respirations 18, O2 saturation is 100% on room air. General: This is an elderly female lying in bed in no acute distress. Heart: S1, S2 normal. Regular rate and rhythm. Lungs: Equal air entry bilaterally. No wheezing. No rales. No rhonchi. Abdomen: Positive bowel sounds. Soft, nontender, nondistended. Extremities: No edema. No cyanosis. Neurologic: The patient is alert and oriented x4. LABORATORY DATA: Hemoglobin 9.6, hematocrit 28, platelets 216,000. Sodium 134, potassium 4, chloride 95, CO2 is 26, BUN 75, creatinine 1.9, glucose 220, phosphorus 2.4. ASSESSMENT AND PLAN: 1. NSTEMI. Continue on the current medications. 2. Urinary tract infection secondary to Escherichia coli. We will start the patient on Keflex and discontinue the Rocephin. 3. Clostridium difficile colitis. Continue on oral vancomycin. 4. Hypophosphatemia. We will replace the patient's phosphorus. 5. Chronic obstructive pulmonary disease. Stable. 6. Chronic systolic congestive heart failure. Stable. 7. Severe cardiomyopathy. Aware. The patient will follow up at [facility] this month as scheduled. 8. History of cervical cancer. Aware. 9. Acute kidney injury on chronic kidney disease. Slowly improving. Continue to monitor closely. 10. Gastroesophageal reflux disease. Continue on Prilosec. 11. Deep vein thrombosis prophylaxis. The patient is currently on full-dose Lovenox. 12. Disposition. The patient can be discharged home once cleared by the commercial loan coordinator. cc: MD LIANA Ramsey
[2019-03-09] MEDS: DESYREL PO SCH (21:06)
[2019-03-09] MEDS: GRALISE PO SCH (21:07)
[2019-03-10] MEDS: VANCOCIN PO SCH ×3 (01:11→15:18)
[2019-03-10] MEDS: NICODERM PATCH TD SCH (06:19)
[2019-03-10] MEDS: HUMULIN R SUBQ SCH ×3 (06:25→17:02)
[2019-03-10 06:48] LABS: HEMOGLOBIN 9.3 g/dL (12.0-16.0); MCH 31.8 PG (27-31); MCHC 34.4 g/dL (33-37); MCV 92.5 FL (81-99); MPV 9.5 FL (7.4-10.4); RBC 2.92 XMIL (4.2-5.4); RDW 12.9 % (11.5-14.5); WBC 6.69 X1000 (4.8-10.8)
[2019-03-10 07:01] LABS: ALBUMIN 3.5 g/dL (3.5-5.0); CALCIUM 8.9 mg/dL (8.8-10.2); CREATININE 1.7 mg/dL (0.5-0.9); PHOSPHORUS 2.9 mg/dL (2.7-4.5); POTASSIUM 4.2 mmol/L (3.5-5.1)
[2019-03-10] MEDS ORDERED: JANUVIA PO SCH (09:00)
[2019-03-10] MEDS: LOVENOX SUBQ SCH (09:32)
[2019-03-10] MEDS: TOPROL XL PO SCH (09:33)
[2019-03-10] MEDS: PLAVIX PO SCH (09:33)
[2019-03-10] MEDS: ASPIRIN PO SCH (09:33)
[2019-03-10] MEDS: KEFLEX PO SCH (09:33)
[2019-03-10] MEDS: PRILOSEC PO SCH (09:33)
[2019-03-10 14:13] LABS: HEMATOCRIT 31.2 % (37.0-47.0); HEMOGLOBIN 10.7 g/dL (12.0-16.0)
[2019-03-10 14:15] LABS: INR 1.05; PROTIME 13.8 Seconds (11.0-16.0); PTT 40.3 Seconds (22.3-41.8)
[2019-03-10 15:25] VITALS: BP 110/54
--- NOTE | 2019-03-10 17:53 | PROGRESS NOTE ---
DATE: 03/10/2019 SUBJECTIVE: The patient states that she feels good today. She has no complaints. She denies having any chest pain, shortness of breath, headache, or diarrhea. OBJECTIVE: Vital Signs: Temperature 97.6, blood pressure 110/54, heart rate 65, respirations 18, O2 saturation 100% on room air. General: This is an elderly female standing at the foot of the bed in no acute distress. Heart: S1, S2 normal. Regular rate and rhythm. Lungs: Clear to auscultation bilaterally. Abdomen: Positive bowel sounds. Soft, nontender, nondistended. Extremities: No edema, no cyanosis. Neurologic: The patient is alert and oriented x3. LABS: Sodium 135, potassium 4.2, chloride 97. CO2 is 26, BUN 69, creatinine 1.7, glucose 280. ASSESSMENT AND PLAN: 1. NSTEMI. Continue aspirin, Plavix and Toprol XL. The patient will follow up with Dr. Ballesteros as scheduled, as well as the at the [facility]. 2. Urinary tract infection secondary to Escherichia coli. The patient will be discharged on Keflex. 3. Clostridium difficile colitis. Continue on oral vancomycin for a total of 10 days. 4. Chronic obstructive pulmonary disease. Stable. 5. Chronic systolic congestive heart failure. Stable. 6. Severe cardiomyopathy. Aware. The patient is followed by the [facility]. The patient states that she has an appointment scheduled with them this month. 7. Acute kidney injury on chronic kidney disease. Improved. The patient will follow up with Dr. Jay as an outpatient. 8. Gastroesophageal reflux disease. Continue on Prilosec. 9. Disposition. Will plan to discharge the patient home today. cc: MD LIANA Ramsey
--- NOTE | 2019-03-10 18:03 | GENERAL SURGERY CONSULTATION ---
DATE: 03/10/2019 REASON FOR CONSULTATION: Bleeding from abdominal wall Lovenox injection site. HISTORY OF PRESENT ILLNESS: This is a 54-year-old female who presented with a non ST-elevated myocardial infarction. She has C difficile, UTI, COPD, congestive heart failure, cardiomyopathy, history of cervical cancer, chronic kidney disease, gastroesophageal reflux disease, history of DVT on Lovenox. She was getting ready go home. They gave her injection of her therapeutic Lovenox and she developed bleeding from the injection site over the last couple hours. It was very low volume and low pressure, but persistent and failed to stop with several minutes of direct pressure. MEDICAL HISTORY: As noted in HPI. SURGICAL HISTORY: She has had toe amputations, breast reduction, knee surgery, peripheral vascular stents, cardiac defibrillator placement, C-spine, lumpectomy. SOCIAL HISTORY: She does smoke. FAMILY HISTORY: Reviewed, noncontributory. REVIEW OF SYSTEMS: Ten-point review of systems was performed and negative unless otherwise mentioned in HPI. She is afebrile. Pulse 65, blood pressure 110/65, oxygen saturation 100%. PHYSICAL EXAMINATION: General: She is alert. HEENT: No scleral icterus. Cardiovascular: Normal rate. Pulmonary: No increased work of breathing. Abdomen: Soft. There is bleeding from her right lower quadrant injection site. There is no hematoma. It is soft with only a very punctate area of slow bleeding. Peripheral vascular: Well perfused. There is lower extremity edema. LABORATORY DATA: White count 6 hematocrit 31. This is actually up from what it has been since her admission. Her INR is 1.05. Creatinine is 1.7. MEDICATIONS: I reviewed her medications. Significant for Plavix 75 mg p.o. daily, aspirin 81 mg p.o. daily, Lovenox 70 mg daily. ASSESSMENT AND PLAN: This is a 54-year-old female with bleeding from a Lovenox injection site. I do not suspect any hematoma. It is coming purely from the skin. Given this, I have elected to not place a [id number] suture, as I am aware my needle hole will be larger than the Lovenox injection needle. I placed a very focal pressure dressing. This seems to have stopped. We will observe her for the next hour. I encouraged her to leave the pressure dressing on, holding any further Lovenox. Unfortunately, she is on anti-platelet therapy, which she does need, and would be high risk for reversal. Suspect after the Lovenox wears off that this will stop, and it seems to have stopped at this juncture. She wants to go home. I have given her some Surgicel prothrombotic gauze to apply to the wound at home if it does continue to ooze. She will call with any swelling or worsening. cc: Catina Aragon MD
--- NOTE | 2019-03-15 06:46 | DISCHARGE SUMMARY ---
ADMISSION DATE: 03/06/2019 DISCHARGE DATE: 03/10/2019 FINAL DISCHARGE DIAGNOSES: 1. Jek-OG-[id number] myocardial infarction. 2. Urinary tract infection secondary to Escherichia coli. 3. Clostridium difficile colitis. 4. Chronic obstructive pulmonary disease. 5. Chronic systolic congestive heart failure. 6. Severe cardiomyopathy. 7. Acute kidney injury on chronic kidney disease. 8. Tobacco dependence. 9. Diabetes mellitus type 2 CONSULTATIONS: 1. Cardiology consultation with Dr. Ballesteros. 2. Nephrology consultation with Dr. Jay. 3. General Surgery consultation with Dr. Aragon. IMAGIN. Echocardiogram which revealed an EF of 20 to 25 percent. 2. Abdominal x-ray which revealed no acute disease. 3. Chest x-ray which revealed no acute abnormality. HOSPITAL COURSE: Ms. Patel is a 54-year-old female with a history of dilated cardiomyopathy with an ejection fraction of 20 to 25 percent, chronic kidney disease and tobacco dependence, who presented to the ER with a chief complaint of diarrhea and chest pressure. On admission, the patient was noted to have elevated troponins suggestive of a non ST-elevation OK. The patient was admitted to the ICU and Cardiology was consulted. The patient was placed on full dose Lovenox, and monitored closely in the ICU. The patient was initially on Levophed which was eventually weaned off. Adjustments were made to the patient's cardiac regimen. The patient was also noted to have diarrhea so stool studies were obtained, and the patient came back positive for C. Difficile colitis. She was then started on oral vancomycin. She was also noted to have acute kidney injury superimposed on chronic kidney disease, and was treated briefly with gentle IV fluid hydration which resulted in improvement in her renal function. The patient was again counseled about the importance of smoking cessation. Slowly, over the course of the hospitalization, the patient's diarrhea resolved. She was ultimately transferred out of the ICU to the PVC unit. She continued to improve clinically. She was ultimately cleared for discharge home on 03/10/2019. DISCHARGE MEDICATIONS: 1. Vancomycin 125 mg oral every 6 hours. 2. Trazodone 50 mg oral at bedtime. 3. Furosemide 20 mg oral twice a day. 4. Aspirin 81 mg p.o. daily. 5. Lipitor 40 mg p.o. at bedtime. 6. Plavix 75 mg p.o. daily. 7. Cymbalta 60 mg p.o. daily. 8. Keflex 500 mg oral every 12 hours. 9. Toprol-XL 25 mg p.o. daily. 10. Lasix 40 mg p.o. daily. 11. Januvia 25 mg oral daily. 12. Gabapentin 600 mg p.o. at bedtime. 13. Ativan 0.5 mg oral every 6 hours p.r.n. 14. Levsin 0.125 mg oral every 6 hours p.r.n. 15. NicoDerm patch 21 mg transdermal daily. DISCHARGE DIET: 1800 ADA diet. ACTIVITY: As tolerated. FOLLOWUP INSTRUCTIONS: The patient has been advised to follow up with Dr. Ballesteros as scheduled by his clinic. The patient will also need to follow up with Dr. Jay as scheduled by his clinic. The patient will need to follow up with Dr. Simon in 1 to 2 weeks. cc: Elina Whitfield MD MTDD
== END 2019-03-10 17:55 | disposition home health service (06) | DRG 280 ==
LOC: ED 18:44 → EDIPHOLD 23:15 → SUATTDRO 23:15 → ICU 03-07 02:30 → 2N 03-09 12:46
PROVIDERS: ATTEND Internal Medicine

== ENCOUNTER 2019-04-17 15:39 | Inpatient (IN) ==
[2019-04-17] MEDS ORDERED: ASPIRIN PO ONE ×2 (15:49→17:04)
--- NOTE | 2019-04-17 15:58 | PROVIDER DOCUMENTATION ---
HPI-General Adult - General Chief Complaint: Shortness of Breath Stated Complaint: DR CHAVEZ REFERRED Time Seen by Provider: 04/17/19 15:56 Source: patient Allergies/Adverse Reactions: Patient Allergies Allergy/AdvReac Type Severity Reaction Status Date / Time No Known Allergies Allergy Verified 04/17/19 17:28 Home Medications: Home Medication List Medication Instructions Recorded Confirmed Last Taken Type Clopidogrel [Plavix] 75 mg PO DAILY #30 tablet 11/12/16 04/17/19 03/06/19 Rx Trazodone HCl 50 mg PO HS 12/09/17 04/17/19 03/05/19 History Methocarbamol [Robaxin-750] 750 mg PO TID PRN 01/09/18 04/17/19 03/06/19 History Gabapentin [Gralise] 600 mg PO HS #0 09/30/18 04/17/19 03/06/19 Rx Aspirin 81 mg PO DAILY #30 chewtab 03/09/19 04/17/19 Unknown Rx Atorvastatin Calcium 40 mg PO QHS 03/09/19 04/17/19 03/05/19 History Duloxetine HCl 60 mg PO DAILY 03/09/19 04/17/19 03/06/19 History Hydrocodone/Acetaminophen 1 ea PO Q8HR 03/09/19 04/17/19 03/06/19 History [Hydrocodone-Acetamin 7.5-325] Hyoscyamine [Levsin] 0.125 mg PO Q4HR 03/09/19 04/17/19 02/23/19 History Lorazepam [Ativan] 0.5 mg PO Q6H PRN PRN 03/09/19 04/17/19 10/08/18 History Metoprolol Succinate E.r. [Toprol 25 mg PO DAILY #30 tab 03/09/19 04/17/19 Unknown Rx Xl] Sitagliptin Phosphate [Januvia] 25 mg PO DAILY #30 tab 03/10/19 04/17/19 Unknown Rx Metolazone 2.5 mg PO DAILY 04/17/19 04/17/19 Unknown History Torsemide [Demadex] 100 mg PO DAILY 04/17/19 04/17/19 Unknown History - History of Present Illness -Gen Adult Nature of Presenting Problems: 54yo female who presents with CC of shortness of breath. The patient was sent in by her cardiology Dr. Chavez due to increase swelling and 40lb weight gain over the last month. The patient reports progressive shortness of breath and difficulty breathing especially with laying flat. The patient denies any current chest pain, but does report that does sometimes have chest pain. The patient does report an episode of nausea. She denies fevers. The patient does report coughing. Review of Systems - Adult - REVIEW OF SYSTEMS - ADULT Constitutional: denies: fever Eyes: reports: no symptoms reported. denies: eye pain Ears, Nose, Mouth & Throat: reports: no symptoms reported. denies: throat pain Cardiovascular: reports: see HPI, edema. denies: chest pain Respiratory: reports: cough, shortness of breath Gastrointestinal: reports: see HPI, nausea Genitourinary: reports: no symptoms reported. denies: flank pain Musculoskeletal: reports: no symptoms reported. denies: back pain Integumentary: reports: no symptoms reported Neurological: reports: headache/migraines Psychiatric: reports: no symptoms reported Endocrine: reports: no symptoms reported Hematologic/Lymphatic: reports: no symptoms reported, other (no blood or bleeding noted) Allergic/Immunologic: reports: no symptoms reported Past History - Adult - PAST MEDICAL HISTORY-ADULT Review of Records: reports: Old Records Reviewed Major Childhood Illnesses: reports: denies history Cardiovascular: reports: CAD, CHF, HTN, hyperlipidemia, NH, pacemaker, other (ACID) Respiratory: reports: COPD Gastrointestinal: reports: denies history Obstetrical/Gynecological: reports: denies history, other (cervical cancer) Genitourinary: reports: denies history Musculoskeletal: reports: cancer (cervical) Neurological: reports: denies history Endocrine/Immune: reports: Diabetes Other Conditions: reports: denies history, MRSA - PRIOR SURGERIES/PROCEDURES Surgical/Procedure History: reports: pacemaker, hysterectomy, orthopedic (extremity) (arthroscopy), other (ACID/BREAST REDUCTION/CERVICAL FUSION; L 1st toe amputation) - IMMUNIZATION STATUS Childhood Immunizations: See Nurse Assessment Flu Vaccine: See Nurse Assessment - FAMILY HISTORY Family History: diabetes, other (CAD) - SOCIAL HISTORY Smoking: cigarettes, less than 1 pack/day Provider spent 3-5 mins advising pt. on dangers of tobacco.: Recomended cessation Substance Use: none/never Alcohol Use Frequency: never Physical Exam-General - PHYSICAL EXAM-ADULT Initial Vital Signs Reviewed: Yes - CONSTITUTIONAL General Appearance: appears well, alert - EYES Eyes: negative: conjuctival exudate, photophobia, sclera injected - HEAD, EARS, NOSE, MOUTH & THROAT HENMT: normocephalic/atraumatic, moist mucous membranes, pharynx normal - NECK Neck: normal inspection - RESPIRATORY Respiratory: respiratory distress (mild), rales (bilateral lower lobes) - CARDIOVASCULAR Cardiovascular: regular rate, rhythm, JVD (bilaterally), other (2+ bilateral LE edema pitting) - GASTROINTESTINAL (ABDOMEN) Abdominal Exam: non tender, soft - MUSCULOSKELETAL Extremity: non-tender - SKIN Integumentary: warm/dry, other (venous stasis changes in LE bilaterally) - NEUROLOGIC Neurologic: grossly normal - PSYCHIATRIC Psych/Mental Status: normal mood/affect, normal thought content, normal thought process Progress - PLAN OF CARE/RESULTS Progress/Plan/Lab Results: Vital Signs - 8 hr 04/17/19 15:42 Temperature 97.9 F Pulse Rate 84 Respiratory Rate 18 Blood Pressure 106/68 O2 Sat by Pulse Oximetry 100 Orders Category Date Time Status Cardiac Monitoring DIRECTED Care 04/17/19 15:49 Active Oxygen Therapy- ED Nursing DIRECTED Care 04/17/19 15:49 Active Saline Loc NOW Care 04/17/19 15:49 Active CHEST-2 VIEWS [RAD] Stat Exams 04/17/19 15:49 Ordered CBC WITH ELECTRONIC DIFF [HEME] Stat Lab 04/17/19 15:49 Uncollected CK PROFILE [SP CHEM] Stat Lab 04/17/19 15:49 Uncollected COMPREHENSIVE METABOLIC PANEL [CHEM] Stat Lab 04/17/19 15:49 Uncollected PRO B-NATRIURETIC PEPTIDE Stat Lab 04/17/19 15:49 Uncollected PROTIME WITH INR [COAG] Stat Lab 04/17/19 15:49 Uncollected PTT [COAG] Stat Lab 04/17/19 15:49 Uncollected TROPONIN T Stat Lab 04/17/19 15:49 Uncollected Aspirin Med 04/17/19 15:49 Discontinued 325 mg PO NOW ONE CP/SOB/Palp >45 yrs of Age Stat Oth 04/17/19 15:49 Ordered EKG [EKG] Stat Ther 04/17/19 15:49 Ordered Result Diagrams: 04/17/19 16:00 04/17/19 16:00 - REASSESSMENT Reassessment #1 Time Reassessed: 17:42 Status: other (Discussed case with Dr. Chavez who recomended 80mg lasix IV and admission to the hospitalist team. Hospitalist team paged awaiting call back.) Reassessment #2 Time Reassessed: 18:23 Status: other (Discussed case with the hosptialist team who has accepted the patient.) - EKG 1 Rate: 80 Rhythm: ventricular paced [place]: left QRS: other (ventricular paced) TX Interval: normal ST Wave: non-specific ST changes Prior EKG Comparison: unchanged from prior (no significant changes noted for ventricular paced rhythm) Departure - Departure Date of Disposition Decision: 04/17/19 Time of Disposition Decision: 18:23 DIAGNOSIS: Elevated troponin Acute exacerbation of CHF (congestive heart failure) Qualifiers: Heart failure type: systolic Qualified Code(s): I50.23 - Acute on chronic systolic (congestive) heart failure Dyspnea Qualifiers: Dyspnea type: shortness of breath Qualified Code(s): R06.02 - Shortness of breath Disposition: ADMITTED INPATIENT 09 Certified Medical Emergency: Emergent Condition: Fair Referrals and Follow-Ups: Kelsey Davis MD [Primary Care Provider] - - Critical Care Note This patient required my direct & personal management of CC.: No Attestation - Physician/ NANNETTE Attestation Patient care was provided by Advanced Practice Provider:: No The physician spent face to face time with patient:: Yes Advanced Practice Provider documentation review:: Supervising physician onsite and consulted in the evaluation and care of this patient. The physician did have a face to face encounter with the patient.
--- NOTE | 2019-04-17 16:05 | EKG Report ---
Test Performed on : 04/17/2019 3:59:50 PM Test Reason : SOB Blood Pressure : / mmHG Vent. Rate : 080 BPM Atrial Rate : 080 BPM P-R Int : 150 ms QRS Dur : 170 ms QT Int : 502 ms P-R-T Axes : 048 -51 133 degrees QTc Int : 578 ms Atrial-sensed ventricular-paced rhythm Abnormal ECG When compared with ECG of 07-MAR-2019 07:19, premature ventricular complexes. are no longer present Vent. rate has increased BY 12 BPM Unconfirmed Result
[2019-04-17 16:27] LABS: BASO# 0.04 X1000 (0.0-0.2); BASO% 0.8 % (0.0-0.8); EOS# 0.02 X1000 (0.0-0.7); EOS% 0.4 % (0.0-10.0); HEMATOCRIT 33.3 % (37.0-47.0); HEMOGLOBIN 10.4 g/dL (12.0-16.0); LYMPH# 1.53 X1000 (1.2-3.4); LYMPH% 30.7 % (20.5-51.1); MCH 31.4 PG (27-31); MCHC 31.2 g/dL (33-37); MCV 100.6 FL (81-99); MONO# 0.33 X1000 (0.11-0.59); MONO% 6.6 % (1.7-9.3); NEUT# 3.06 X1000 (1.4-6.5); NEUT% 61.5 % (42.2-75.2); PLT 158 X1000 (130-400); RBC 3.31 XMIL (4.2-5.4); WBC 4.98 X1000 (4.8-10.8)
--- NOTE | 2019-04-17 16:27 | Diag Imaging Result Doc PS360 ---
CHEST-2 VIEWS - 04/17/2019 INDICATION: SOB COMPARISON: 03/06/2019 FINDINGS: There is a new left-sided biventricular pacemaker. There is severe cardiomegaly which has changed since prior. Pulmonary vascularity is top normal. No infiltrates or obvious edema. No pneumothorax or pleural effusion. IMPRESSION: Severe, new cardiomegaly. This may represent cardiac dysfunction or pericardial effusion. Electronically signed by Kelvin Cobos 04/17/2019 4:24 PM
[2019-04-17 16:43] LABS: INR 1.32; PROTIME 16.6 Seconds (11.0-16.0)
[2019-04-17 16:44] LABS: PTT 31.1 Seconds (22.3-41.8)
[2019-04-17 16:50] LABS: ALB/GLOB RATIO 1.6; ALBUMIN 3.9 g/dL (3.5-5.0); CALCIUM 8.8 mg/dL (8.8-10.2); CREATININE 1.6 mg/dL (0.5-0.9); POTASSIUM 4.3 mmol/L (3.5-5.1); TOTAL BILIRUBIN 0.7 mg/dL (0.20-1.00); TOTAL PROTEIN 6.3 g/dL (6.3-8.3)
[2019-04-17 17:20] LABS: CK INDEX 4.4 (0.0-2.5); CK-MB 9.45 ng/mL (0.0-5.0)
[2019-04-17] MEDS ORDERED: LASIX IV ONE (17:36)
[2019-04-17] MEDS ORDERED: ATIVAN PO PRN (20:48)
[2019-04-17] MEDS ORDERED: NICODERM PATCH TD PRN (20:48)
--- NOTE | 2019-04-17 20:51 | HISTORY AND PHYSICAL ---
PRIMARY CARE PROVIDER: Kelsey Davis MD CAMPUS SUPERVISOR: Bernardo Griffin MD CHIEF COMPLAINT: Shortness of breath, 40-pound weight gain. HISTORY OF PRESENT ILLNESS: Ms. Patel is an unfortunate 54-year-old female with a history of ischemic cardiomyopathy, congestive heart failure with a known EF of 15%, who was evaluated by the [facility] and I believe was deemed not a candidate secondary to continued smoking, CA with stent placement, AICD placement, pulmonary arterial hypertension, diabetes mellitus, renal insufficiency, who was previously admitted to our service early March and discharged secondary to a non-STEMI, urinary tract infection, and C difficile colitis. She reports in a month's time that she has gained about 40 pounds. She did follow up with Dr. Griffin. He did try to admit her to the hospital over a week ago; however, [email or web address] [place] and refused to be admitted. He did place her on metolazone to try to help with her symptoms; however, she continued to be short of breath. She can no longer lie down flat. She is unable to walk 10 to 15 feet without having to stop and rest. Workup in the ED showed a proBNP greater than 22,000, a troponin of 0.180, acute on chronic kidney disease. She was given 80 of IV Lasix. Her vital signs are currently stable. She is not on any supplemental O2, oxygenating well. Her chest x-ray does show a more severe cardiomegaly, possible pericardial effusion. We will repeat her chest x-ray in the a.m., as well as get a limited echocardiogram, and after speaking with Dr. Griffin, we will continue with 80 of Lasix q.8 h. PAST MEDICAL HISTORY: 1. Ischemic cardiomyopathy with EF 15-20% 2. Coronary artery disease status post CA and stent placement. 3. AICD placement. 4. Chronic systolic congestive heart failure. 5. Pulmonary arterial hypertension. 6. Hypertension. 7. Hyperlipidemia. 8. Diabetes mellitus type 2 9. Peripheral neuropathy. 10. Peripheral vascular disease. 11. Renal insufficiency. 12. History of abscess in the thigh. 13. COPD 14. Tobacco dependence PAST SURGICAL HISTORY: 1. AICD placement. 2. Stent placement. 3. Left toe amputation. 4. Vascular stenting of the left leg. 5. Left knee exploration. 6. Breast reduction. 7. C-spine fusion. 8. Left lumpectomy. 9. Left hallux amputation. SOCIAL HISTORY: She continues to smoke less than a pack of cigarettes per day. No alcohol or illicit drug use. She is and lives with her . ALLERGIES: No known drug allergies. FAMILY HISTORY: Notable for heart disease and kidney disease and diabetes. HOME MEDICATIONS: 1. Aspirin. 2. Atorvastatin calcium. 3. Plavix. 4. Duloxetine. 5. Gabapentin. 6. [place]. 7. Levsin. 8. Ativan. 9. Robaxin. 10. Metolazone. 11. Toprol. 12. Januvia. 13. Torsemide. 14. Trazodone. PHYSICAL EXAMINATION: VITAL SIGNS: Temperature is 97.9 degrees, heart rate 81, respirations 18, blood pressure 121/76, O2 is 98% on room air. GENERAL: Ms. Patel is a 54-year-old female, who is sitting up in the bed in no acute distress. HEENT: Atraumatic, normocephalic. PERRL. NECK: Supple. Trachea midline. CARDIOVASCULAR: S1, S2 appreciated. Did appreciate JVD. 2+ lower extremity pitting edema. RESPIRATORY: Bilateral lower lobe rales, but no rhonchi or wheezes. GASTROINTESTINAL: Soft, nontender, somewhat distended from fluid. Positive bowel sounds 4 quadrants. SKIN: Warm, dry, intact. Venous stasis to lower extremities bilaterally. NEUROLOGIC: No focal deficits noted. DIAGNOSTIC DATA: EKG shows atrial sensed, V-paced at 80 beats per minute. Chest x-ray: Severe new cardiomegaly. This may represent cardiac dysfunction or pericardial effusion. LABORATORY DATA: White count 4, hemoglobin 10, hematocrit 33, platelet count is 158,000. Sodium 135, potassium 4.3, BUN 44, creatinine 1.6, blood glucose is 106. CK 215, CK of 4.4, CK-MB 9.45, troponin 0.180. ProBNP was 22,538. ASSESSMENT AND PLAN: 1. Acute on chronic systolic congestive heart failure exacerbation. The patient has had a 40- pound weight gain in a month. She is unable to lie flat. She can only take 10 to 15 steps before she has to stop and rest. Workup in the ED revealed a proBNP of greater than 22,000. Chest x-ray showed severe cardiomegaly. She was given a high dose of IV Lasix, and we will continue with IV Lasix at 80 q.8 h. Recheck a proBNP and chest x-ray in the a.m. We have consulted Dr. Griffin. 2. Transaminitis. The patient reports that she does have an intermittent chest tightness that has been ongoing for some time now. We will continue to trend her troponins. 3. Chronic renal insufficiency. Aware. 4. Ischemic cardiomyopathy with a severely decreased ejection fraction at 15% to 20% with the AICD placement. She has been evaluated in [place] [facility]; however, she continues to smoke less than a pack cigarettes per day. She is noncompliant with fluid. She continues to drink soda. She states that she tries to watch her sodium intake; however, she does not do it closely. 5. Diabetes mellitus type 2. We will continue with patterned blood sugars and sliding scale. 6. Hypertension. We will continue on home medications. Further recommendation to follow physician evaluation and laboratory and diagnostic data. Dictated by MERT Jeffries for Elina Whitfield MD cc: MD Kelsey Walters MD Katherine Takundwa, MD I performed a face to face encounter on the patient. I reviewed all labs and imaging on the patient. I agree with the assessment and plan as dictated. is a 54 year old female with a history of ischemic cardiomyopathy, COPD, Diabetes mellitus type 2, and chronic systolic congestive heart failure who presented to the Er with severe swelling in her legs. On exam, the patient is alert and oriented x 4. Her lung sounds are clear but diminished at the bases. She has 3+ edema in the lower extremities. The patient will be admitted as dictated above. [facility]
[2019-04-17] MEDS: HUMALOG SUBQ SCH (21:49)
--- NOTE | 2019-04-17 22:30 | EKG Report ---
Test Performed on : 04/17/2019 10:09:15 PM Test Reason : Heart Failure Admission Blood Pressure : / mmHG Vent. Rate : 082 BPM Atrial Rate : 082 BPM P-R Int : 170 ms QRS Dur : 210 ms QT Int : 494 ms P-R-T Axes : 057 -47 137 degrees QTc Int : 577 ms Atrial-sensed ventricular-paced rhythm Abnormal ECG Unconfirmed Result
[2019-04-17] MEDS: NORCO-7.5 PO SCH (23:04)
[2019-04-17] MEDS: GRALISE PO SCH (23:04)
[2019-04-17] MEDS: DESYREL PO SCH (23:04)
[2019-04-18] MEDS: LASIX IV SCH ×3 (02:23→20:46)
[2019-04-18 05:14] LABS: HEMATOCRIT 31.1 % (37.0-47.0); HEMOGLOBIN 9.7 g/dL (12.0-16.0); MCH 31.4 PG (27-31); MCHC 31.2 g/dL (33-37); MCV 100.6 FL (81-99); MPV 10.7 FL (7.4-10.4); RBC 3.09 XMIL (4.2-5.4); WBC 4.63 X1000 (4.8-10.8)
[2019-04-18 05:56] LABS: CALCIUM 8.9 mg/dL (8.8-10.2); CREATININE 1.6 mg/dL (0.5-0.9); MAGNESIUM 1.8 mg/dL (1.5-2.7); POTASSIUM 4.2 mmol/L (3.5-5.1)
[2019-04-18] MEDS: NORCO-7.5 PO SCH ×3 (06:15→20:37)
[2019-04-18] MEDS: HUMALOG SUBQ SCH ×4 (06:16→20:39)
[2019-04-18] MEDS: PLAVIX PO SCH (08:29)
[2019-04-18] MEDS: ASPIRIN PO SCH (08:29)
[2019-04-18] MEDS ORDERED: TOPROL XL PO SCH (09:00)
[2019-04-18 12:25] LABS: PREALBUMIN 14.8 mg/dL (20-40); RA TEST < 10 IU/mL (0-14)
[2019-04-18 12:37] LABS: IRON SATURATION 19 %; TIBC 335 ug/dL; TOTAL IRON 63 ug/dL (49-151); UNBOUND IRON 272 ug/dL (112-346)
[2019-04-18] MEDS: LANOXIN IV SCH ×2 (13:16→17:26)
--- NOTE | 2019-04-18 14:42 | ECHO REPORT ---
ORDER DATE: 04/18/2019 INTERPRETING PHYSICIAN: Dr. Bernardo Griffin. ECHOCARDIOGRAPHIC MEASUREMENTS: 1. Interventricular septum: 1.0 cm. 2. Left ventricular posterior wall: 1.0 cm. 3. Diastolic diameter: 6.2 cm. 4. Left atrium: 4 cm. 5. Aorta: 3.2 cm. SUMMARY OF THE 2-DIMENSIONAL IMAGIN. Left ventricle is dilated with severely reduced systolic function. Estimated ejection fraction of 15%. There is diastolic dysfunction. 2. Pacing leads are noted in the right chamber. 3. There is moderate mitral regurgitation. Mitral valve leaflets are normal. 4. Aortic valve leaflets are trileaflet. 5. Pulmonic valve was normal. 6. There is mild pulmonary regurgitation. 7. There is moderate tricuspid regurgitation. Peak velocity across the tricuspid valve was 2.9 m/sec. 8. Pulmonary artery systolic pressure of 48 mmHg. 9. There is no pericardial effusion or obvious intracardiac mass or thrombus seen. 10. There is no aortic stenosis. There is mild aortic regurgitation. 11. Anterior echo-free space suggestive of pericardial fat pad noted. Cannot rule out trace anterior pericardial effusion. cc: Bernardo Griffin MD
--- NOTE | 2019-04-18 17:49 | CARDIOLOGY CONSULTATION ---
DATE: 04/18/2019 CONSULTATION REQUESTED BY: Hospitalist Service. REASON FOR CONSULTATION: Decompensated CHF, swelling of the legs. CHIEF COMPLAINT: Shortness of breath and swelling. HISTORY: Ms. Patel is 54-year-old, female, who has a known case of congestive heart failure. She follows with multiple services including the [facility] in [place] and also the CHF Clinic at [facility]. The patient had called Dr. Griffin's office stating that she has developed swelling of both legs with some petechial rash and it has gotten worse lately. She ended up coming to the ER yesterday. Upon presentation, they did a proBNP level that is reported at 22,538. BUN was 44, creatinine 1.6. A chest x-ray shows severe cardiomegaly and it raised concern for possible pericardial effusion. For some reason, the radiologist says that is new, when this patient has a known case of bad systolic heart failure. Her electrocardiogram done at 3:59 p.m. on April 17, indicates atrial-sensed, ventricular- paced rhythm. At any rate, the patient has been given some Lasix and she is just resting in bed. Additional recent history is that she had an episode of C. difficile colitis, admitted in March 2019, treated for several weeks with antibiotics. She has had issues with hypoglycemia also in the past, which has raised concern. In September 2018, she had a CT of the chest that did not show any pericardial effusion. The patient says that she does have some rash, which is something that she has noted before. She says that sometimes the rash evolves into blisters. It is not itching. PAST HISTORY: Positive for severe coronary artery disease, acute myocardial infarction in 2014, coronary intervention at that time. She has received a biventricular pacemaker before, in October 2015. She has had a previous pulmonary embolism. She has had chronic kidney disease. She has hyperlipidemia, diabetes mellitus type 2. SURGICAL HISTORY: She had neck surgery, bladder surgery, colon surgery, hysterectomy, lumpectomy. SOCIAL HISTORY: The patient lives with . However, she is going to be moving to live with her mother here in [place]. She smokes less than half a pack of cigarettes a day. She has no children. She is unemployed. She used to work at a warehouse. She does not drink alcohol. HOME MEDICATIONS: At this time include aspirin 81 daily, atorvastatin 40 daily, Plavix 75 daily, duloxetine 60 mg daily, gabapentin 300 at bedtime, hydrocodone/acetaminophen every 8 hours, hyoscyamine (Levsin) 0.125 as needed, Ativan, Robaxin, metolazone, metoprolol, sitagliptin, torsemide, and trazodone. She tells me that torsemide has been put on hold and she has been switched to furosemide ever since she had a recent admission to the hospital in March 2019. REVIEW OF SYSTEMS: She is chronically short of breath. She chronically has swelling of the legs. Her functional capacity is a limited. Sometimes she vomits. Her appetite is not good. PHYSICAL EXAMINATION: Blood pressure is 106/73, temperature 98 degrees, pulse 71, respirations 17. She is awake, alert, oriented, in no distress.HEENT: Unremarkable. Chest: Diminished breath sounds at both bases. Heart sounds are regular, rhythmic. I do not hear a gallop or murmur. Abdomen: Soft, nontender. Extremities: Edema 2+ with a petechial rash in both shins. Neurologic: She follows commands. Moves all 4 extremities. LABORATORY DATA: Blood work today: Sodium 137, potassium 4.2, BUN 46, creatinine 1.6. ProBNP was 20,151. Her troponin level has been checked twice, 0.25 and 0.180. At the time of prior admission, there was a concern about the same issue, that she could have some possible non-ST myocardial infarction based on elevation of troponin level. Back then, her troponin went up to 1.37, but it was a time when she had the Clostridium difficile infection. IMPRESSION: 1. Patient presented with decompensated chronic systolic heart failure. Ejection fraction on prior echocardiograms have been in the range of 20 to 25 percent back in June 2018, and subsequently has been in the 15 to 20 percent range. 2. Petechial rash in the legs. Question of vasculitis. 3. Chronic kidney disease. 4. Diabetes mellitus type 2. 5. History of previous coronary artery disease, previous myocardial infarction. 6. Elevation of troponin. This is probably nonspecific. Rule out chronic myocardial ischemia. 7. Tobacco user. 8. History of previous biventricular implantable cardioverter defibrillator. 9. History of pulmonary embolism. RECOMMENDATIONS: At this time, we will order some testing to make sure that there is no ongoing inflammatory process with her. We will make her Lasix twice daily, preceded by metolazone in the mornings. If her blood pressure drops and she appears to need some pressor support, we will put her in the PVC with an infusion of dobutamine plus dopamine. We may have to put a PICC line to allow us to do that. We will continue to follow her. Her prognosis is really quite poor given her multiorgan dysfunction. cc: Junior Worthington MD
--- NOTE | 2019-04-18 18:59 | PROGRESS NOTE ---
DATE: 04/18/2019 SUBJECTIVE: The patient is resting in bed. She complains of tightness in her legs. She denies having any shortness of breath. OBJECTIVE: Vital signs: Temperature 97.9 degrees, blood pressure 112/61, heart rate 70, respirations 17, O2 saturation 98% on room air.General: This is an elderly female lying in bed in no acute distress. Heart: S1, S2 normal. Regular rate and rhythm. Lungs: Equal air entry bilaterally. No wheezing. No rales. No rhonchi. Abdomen: Positive bowel sounds. Soft, nontender, nondistended. Extremities: Edema 3+ up to the thighs. Neurologic: The patient is alert and oriented x4. LABORATORY DATA: White blood cell count 4.6, hemoglobin 9.7, hematocrit 31, platelets 145,000. Sodium 137, potassium 4.2, chloride 97, CO2 is 25, BUN 46, creatinine 1.6, glucose 124. ASSESSMENT AND PLAN: 1. Acute on chronic systolic congestive heart failure exacerbation. Management as per the marketing and development coordinator. 2. Severe ischemic cardiomyopathy. Aware. Continue on the current cardiac medications. 3. Tobacco dependence. The patient still continues to smoke. She has been counseled about cessation. 4. Diabetes mellitus type 2. Continue on sliding scale insulin. 5. Diabetic neuropathy. Continue on gabapentin. 6. Acute kidney injury on chronic kidney disease. Continue to monitor. 7. Deep vein thrombosis prophylaxis. We will start the patient on heparin. cc: Elina Whitfield MD MTDD
[2019-04-18] MEDS: COREG PO SCH (20:37)
[2019-04-18] MEDS: DESYREL PO SCH (20:38)
[2019-04-18] MEDS: GRALISE PO SCH (20:39)
[2019-04-18] MEDS: HEPARIN SUBQ SCH ×2 (20:46→20:49)
[2019-04-19] MEDS: LANOXIN IV SCH (00:17)
[2019-04-19] MEDS: NORCO-7.5 PO SCH ×3 (05:02→20:53)
[2019-04-19 05:07] LABS: HEMATOCRIT 31.5 % (37.0-47.0); HEMOGLOBIN 9.7 g/dL (12.0-16.0); MCHC 30.8 g/dL (33-37); MCV 100.6 FL (81-99); MPV 10.9 FL (7.4-10.4); RBC 3.13 XMIL (4.2-5.4); RDW 13.7 % (11.5-14.5); WBC 4.65 X1000 (4.8-10.8)
[2019-04-19 05:15] LABS: CALCIUM 8.5 mg/dL (8.8-10.2); CREATININE 1.9 mg/dL (0.5-0.9); POTASSIUM 4.5 mmol/L (3.5-5.1)
[2019-04-19] MEDS: ZAROXOLYN PO SCH (08:53)
[2019-04-19] MEDS: ASPIRIN PO SCH (08:54)
[2019-04-19] MEDS: PLAVIX PO SCH (08:54)
[2019-04-19] MEDS: HEPARIN SUBQ SCH ×3 (08:54→20:54)
[2019-04-19] MEDS: LANOXIN PO SCH (08:54)
[2019-04-19] MEDS: COREG PO SCH ×2 (08:54→20:53)
[2019-04-19] MEDS: LASIX IV SCH ×2 (10:26→20:53)
[2019-04-19] MEDS: DILAUDID IV PRN (18:48)
[2019-04-19] MEDS: GRALISE PO SCH (20:53)
[2019-04-19] MEDS: DESYREL PO SCH (20:53)
[2019-04-19 22:16] LABS: URINE SOURCE CATH
[2019-04-19 22:21] LABS: BILIRUBIN URINE NEGATIVE (NEGATIVE); BLOOD URINE TRACE (NEGATIVE); COLOR STRAW; GLUCOSE URINE NEGATIVE (NEGATIVE); KETONE URINE NEGATIVE (NEGATIVE); LEUKOCYTES URINE TRACE (NEGATIVE); NITRITE URINE NEGATIVE (NEGATIVE); PH URINE 6.5; PROTEIN URINE NEGATIVE (NEGATIVE); SP GRAVITY URINE 1.008; TURBIDITY URINE CLEAR (CLEAR); UROBILINOGEN URINE NORMAL (NORMAL)
[2019-04-19 22:22] LABS: UR EPITHELIAL CELLS <10 /HPF (<10); URINE BACTERIA NEGATIVE /HPF; URINE RBC <10 /HPF (<10); URINE WBC <10 /HPF (<10)
[2019-04-19 22:30] LABS: UR CREAT RANDOM 20.1 mg/dL (11-20); UR PROT RANDOM 7.4 mg/dL
[2019-04-20] MEDS: DILAUDID IV PRN ×3 (00:55→20:18)
--- NOTE | 2019-04-20 03:46 | PROGRESS NOTE ---
DATE: 04/19/2019 SUBJECTIVE: The patient is resting in bed. She complains of severe pain in her legs. OBJECTIVE: Vital Signs: Temperature 97.2 degrees, blood pressure 129/71, heart rate 65, respirations 17, O2 saturations 100% on room air. Intake 360; output 1.5 L. General: This is a chronically ill-appearing, elderly female, lying in bed in no acute distress. Heart: S1, S2 normal. Regular rate and rhythm. Lungs: Equal air entry bilaterally. No wheezing. No rales. Abdomen: Positive bowel sounds. Soft, nontender, nondistended. Extremities: 3+ edema bilaterally with petechiae on both lower extremities. Neurologic: The patient is alert and oriented x4. LABS: Hemoglobin 9.7, hematocrit 31, platelets 141,000. Sodium 138, potassium 4.5, chloride 99, CO2 25, BUN 48, creatinine 1.9, glucose 72. ASSESSMENT AND PLAN: 1. Acute on chronic systolic congestive heart failure exacerbation. Continue with the current management as directed by the asp developer. 2. Severe ischemic cardiomyopathy. Aware. 3. Chronic obstructive pulmonary disease. Stable. 4. Hypertension. Stable. 5. Diabetes mellitus type 2. Continue on sliding scale insulin. 6. Tobacco dependence. The patient has been counseled about smoking cessation. 7. Acute kidney injury on chronic kidney disease. The patient's BUN and creatinine are slowly rising; however, the patient is on diuretic therapy. 8. Deep vein thrombosis prophylaxis. Continue on heparin. cc: Elina Whitfield MD MTDD
[2019-04-20] MEDS: NORCO-7.5 PO SCH ×3 (04:58→21:39)
[2019-04-20 05:14] LABS: HEMATOCRIT 30.8 % (37.0-47.0); HEMOGLOBIN 9.8 g/dL (12.0-16.0); MCH 32.1 PG (27-31); MCHC 31.8 g/dL (33-37); MPV 10.9 FL (7.4-10.4); RBC 3.05 XMIL (4.2-5.4); RDW 13.8 % (11.5-14.5); WBC 6.08 X1000 (4.8-10.8)
[2019-04-20 05:52] LABS: CALCIUM 8.7 mg/dL (8.8-10.2); CREATININE 1.7 mg/dL (0.5-0.9); POTASSIUM 4.3 mmol/L (3.5-5.1)
[2019-04-20] MEDS: COREG PO SCH ×2 (10:14→21:40)
[2019-04-20] MEDS: LASIX IV SCH ×2 (10:14→21:40)
[2019-04-20] MEDS: HEPARIN SUBQ SCH ×4 (10:14→21:49)
[2019-04-20] MEDS: LANOXIN PO SCH (10:14)
[2019-04-20] MEDS: ZAROXOLYN PO SCH (10:14)
[2019-04-20] MEDS: PLAVIX PO SCH (10:14)
[2019-04-20] MEDS: ASPIRIN PO SCH (10:14)
--- NOTE | 2019-04-20 14:26 | PROGRESS NOTE ---
DATE: 04/20/2019 SUBJECTIVE: The patient is resting comfortably. She complains of continued pain in her legs, they are also still swollen. She is refusing her DVT prophylaxis. OBJECTIVE: Vital Signs: Temperature 97.7 degrees, blood pressure 123/70, heart rate 64, respirations 12, O2 saturation 98% on room air, intake 900 mL, output 2.4 L. General: This is a chronically ill-appearing elderly female lying in bed in no acute distress. Heart: S1, S2 normal. Regular rate. Lungs: Lungs equal air entry bilaterally. No crackles. No rales. Abdomen: Positive bowel sounds. Soft, nontender, nondistended. Extremities: 3+ edema with petechiae on both lower extremities. Neuro: The patient is alert and oriented x4. LABS: White blood cell count 6, hemoglobin 9.8, hematocrit 30, platelets 152,000. Sodium 134, potassium 4.3, chloride 95, CO2 26, BUN 46, creatinine 1.7, glucose 143. ASSESSMENT AND PLAN: 1. Acute on chronic systolic congestive heart failure exacerbation. Continue with the current management as directed by the anesthesiology resident. 2. Severe ischemic dilated cardiomyopathy. Aware. 3. Chronic obstructive pulmonary disease. Stable. 4. Diabetes mellitus type 2. Continue on sliding scale insulin. 5. Hypertension. Stable. 6. Tobacco dependence. The patient has been counseled about smoking cessation. 7. Acute kidney injury on chronic kidney disease. Stable. Continue to monitor while the patient is on diuretic therapy. 8. Anemia. Stable. 9. Deep vein thrombosis prophylaxis. The patient is refusing her heparin injections. The patient was advised about the risk of developing a deep vein thrombosis without DVT prophylaxis on board. She states that she is willing to take the risk of developing clots in her legs. cc: Elina Whitfield MD
--- NOTE | 2019-04-20 15:21 | CARDIOLOGY PROGRESS NOTE ---
DATE: 04/20/2019 CHIEF COMPLAINT: Shortness of breath. SUBJECTIVE: Mrs. Patel is still complaining of swelling of her legs. She is still a little short of breath. She has no new complaints. She is not very happy with the way she is doing. OBJECTIVE: Blood pressure is 123/70, temperature 97.7 degrees, pulse 64, respirations 12. She is awake, alert, oriented, in no distress. HEENT: Unremarkable. Chest: Sounds relatively clear to auscultation and percussion. Heart sounds are regular and rhythmic. I do not hear any gallop or murmur. Abdomen: Nontender. Extremities: Show petechial rash in both lower extremities. Neurologic: Exam is unremarkable. IMPRESSION: 1. Patient who presents with swelling and petechial rash in the legs. Decompensated congestive heart failure, chronic systolic. 2. History of coronary heart disease, single vessel. Previous myocardial infarction with stent. 3. Diabetes mellitus type 2. 4. Chronic kidney disease. 5. Tobacco user. RECOMMENDATIONS: At this time I will continue to prescribe diuretics at the current doses. We will see how she does over the course of the next few days. I may want to get a serum protein electrophoresis on her. I am really concerned about the rash she has in the legs, that could still be some sort of vasculitis. But, we will discuss with primary service. cc: Junior Worthington MD
[2019-04-20] MEDS: DESYREL PO SCH (21:40)
[2019-04-20] MEDS: GRALISE PO SCH (21:45)
[2019-04-21] MEDS: DILAUDID IV PRN ×3 (00:33→20:14)
[2019-04-21] MEDS: NORCO-7.5 PO SCH ×3 (04:18→21:55)
[2019-04-21 05:20] LABS: URINE SOURCE CATH
[2019-04-21 05:25] LABS: BILIRUBIN URINE NEGATIVE (NEGATIVE); BLOOD URINE TRACE (NEGATIVE); COLOR STRAW; GLUCOSE URINE NEGATIVE (NEGATIVE); KETONE URINE NEGATIVE (NEGATIVE); LEUKOCYTES URINE MODERATE (NEGATIVE); NITRITE URINE NEGATIVE (NEGATIVE); PH URINE 6.5; PROTEIN URINE NEGATIVE (NEGATIVE); SP GRAVITY URINE 1.007; TURBIDITY URINE CLEAR (CLEAR); UROBILINOGEN URINE NORMAL (NORMAL)
[2019-04-21 05:26] LABS: UR EPITHELIAL CELLS <10 /HPF (<10); URINE BACTERIA NEGATIVE /HPF; URINE RBC <10 /HPF (<10); URINE WBC <10 /HPF (<10)
[2019-04-21 07:23] LABS: CALCIUM 8.4 mg/dL (8.8-10.2); CREATININE 1.7 mg/dL (0.5-0.9); POTASSIUM 4.1 mmol/L (3.5-5.1)
[2019-04-21] MEDS: PLAVIX PO SCH (09:03)
[2019-04-21] MEDS: LANOXIN PO SCH (09:03)
[2019-04-21] MEDS: ZAROXOLYN PO SCH (09:03)
[2019-04-21] MEDS: ASPIRIN PO SCH (09:03)
[2019-04-21] MEDS: COREG PO SCH ×2 (09:04→21:56)
[2019-04-21] MEDS: HEPARIN SUBQ SCH ×2 (09:04→21:56)
[2019-04-21] MEDS: LASIX IV SCH ×2 (09:32→21:56)
--- NOTE | 2019-04-21 18:03 | PROGRESS NOTE ---
DATE: 04/21/2019 SUBJECTIVE: The patient is complaining of abdominal pain. She denies having any chest pain. She also complains of pain in both of her legs which are still swollen. OBJECTIVE: Vital Signs: Temperature 98 degrees blood pressure 140/69, heart rate 65, respirations 16, O2 saturation 96% on room air. Intake 1.3 L, output 4.1 L. General: This is a chronically ill-appearing elderly female lying in bed in no acute distress. Heart: S1, S2 normal. Lungs: Equal air entry bilaterally. No wheezing. No rales. Abdomen: Positive bowel sounds. Soft, nontender, nondistended. Extremities: Edema 3+ with petechiae on both lower extremities. Neurologic: The patient is alert and oriented x4. LABORATORY DATA: Sodium 132, potassium 4.1, chloride 93, CO2 is 25, BUN 47, creatinine 1.7, glucose 168. ASSESSMENT AND PLAN: 1. Acute on chronic systolic congestive heart failure exacerbation. Continue on the current regimen as directed by the lapper. 2. Severe ischemic dilated cardiomyopathy with an ejection fraction of 15%. Continue on the current cardiac medications. 3. Chronic obstructive pulmonary disease. Stable. 4. Diabetes mellitus type 2. Continue on sliding scale insulin. 5. Tobacco dependence. The patient has been counseled about smoking cessation. 6. Chronic kidney disease stage 3. Stable. Continue to monitor closely while on diuretic therapy. 7. Hyponatremia. Continue to monitor closely. 8. Tobacco dependence. The patient has been counseled about smoking cessation. 9. Anemia. Stable. 10. Abnormal protein electrophoresis assay. We will consult with the absorber operator. 11. Deep vein thrombosis prophylaxis. The patient is refusing anticoagulation. cc: Elina Whitfield MD [facility]
[2019-04-21] MEDS: GRALISE PO SCH (21:56)
[2019-04-21] MEDS: DESYREL PO SCH (21:56)
[2019-04-22] MEDS: DILAUDID IV PRN ×3 (01:07→20:07)
[2019-04-22] MEDS: NORCO-7.5 PO SCH ×3 (04:37→22:16)
[2019-04-22 06:28] LABS: ALBUMIN 3.4 g/dL (3.5-5.0); CALCIUM 8.6 mg/dL (8.8-10.2); CREATININE 1.7 mg/dL (0.5-0.9); PHOSPHORUS 3.4 mg/dL (2.7-4.5)
[2019-04-22 06:37] LABS: HEMATOCRIT 29.4 % (37.0-47.0); HEMOGLOBIN 9.5 g/dL (12.0-16.0); MCH 31.9 PG (27-31); MCHC 32.3 g/dL (33-37); MCV 98.7 FL (81-99); MPV 10.7 FL (7.4-10.4); RBC 2.98 XMIL (4.2-5.4); RDW 13.6 % (11.5-14.5); WBC 5.13 X1000 (4.8-10.8)
[2019-04-22] MEDS ORDERED: SAMSCA PO ONE (06:57)
[2019-04-22] MEDS: COREG PO SCH ×2 (08:32→20:08)
[2019-04-22] MEDS: PLAVIX PO SCH (08:32)
[2019-04-22] MEDS: ZAROXOLYN PO SCH (08:32)
[2019-04-22] MEDS: LANOXIN PO SCH (08:32)
[2019-04-22] MEDS: HEPARIN SUBQ SCH ×2 (08:33→20:09)
[2019-04-22] MEDS: ASPIRIN PO SCH (08:33)
[2019-04-22] MEDS: LASIX IV SCH ×2 (10:10→22:16)
[2019-04-22] MEDS: DOBUTAMINE 250 MG/D5W 250 MG/250 ML IV.SOLN IV SCH (14:32)
--- NOTE | 2019-04-22 15:11 | HEMO/ONC CONSULTATION ---
DATE: 04/22/2019 REQUESTING PHYSICIAN: Dr. Whitfield. REASON FOR CONSULTATION: Monoclonal gammopathy. HISTORY OF PRESENT ILLNESS: Patient is a 54-year-old female who was admitted with shortness of breath and 40 pound weight gain. She was diagnosed to have acute on chronic systolic congestive heart failure exacerbation. She has been started on diuresis and has been doing well. She also has a history of diabetes, hypertension, and chronic renal insufficiency. She was noted to be anemic. Labs revealed a positive SPEP with a small IgG kappa and IgG lambda monoclonal bands. I have been asked to consult. PAST MEDICAL HISTORY: 1. Nonischemic cardiomyopathy. 2. CAD status post DE and stent placement. 3. AICD placement. 4. Congestive heart failure. 5. Pulmonary arterial hypertension. 6. Hypertension. 7. Hyperlipidemia. 8. Diabetes with peripheral neuropathy. 9. Peripheral vascular disease. 10. Renal insufficiency. PAST SURGICAL HISTORY: AICD placement, stent placement, vascular stenting of the left leg, left toe amputation, and breast reduction. ALLERGIES: No known drug allergies. SOCIAL HISTORY: Patient is a chronic smoker. She denies alcohol or substance abuse. She is and lives with her in [place]. FAMILY HISTORY: Positive for diabetes, kidney disease, and heart disease. CURRENT MEDICATIONS: [place], aspirin, Coreg, Plavix, Lanoxin, Lasix, heparin, Dilaudid, Ativan, Zaroxolyn, NicoDerm, and Desyrel. REVIEW OF SYSTEMS: Patient reports mild exertional shortness of breath. She denies cough or chest pain. She denies nausea, vomiting, abdominal pain. She denies new bone pain. All other review of systems are negative. PHYSICAL EXAMINATION: General: Patient is a well-developed, well-nourished female, in no acute distress. Vital Signs: Temperature 97.9 degrees, pulse 65, blood pressure, blood pressure 113/63. Eyes: EOMI. PERRLA. Anicteric. Mucous membranes are moist. Neck: Supple without JVD, thyromegaly, or nodules. Cardiac Exam: Regular rate and rhythm. Normal S1, S2. Chest: Clear to auscultation. No wheezing or crackles. Abdomen: Soft, nontender, without hepatosplenomegaly or masses. Extremities: Reveal 2+ edema in both lower extremities. Neurological: Alert and oriented x3. No focal motor deficits. LABORATORY DATA: White count 5.1, hemoglobin 9.5, hematocrit 29, MCV 90, platelets 168,000. BUN 48, creatinine 1.7. CRP 10.3. SPEP reveals 2 bands measuring 0.15 and 0.22 g/dL. CASSIDY reveals IgG kappa and IgG lambda monoclonal bands. IgG 1064, IgA 330, IgM 83. ASSESSMENT AND PLAN: 1. Monoclonal gammopathy of undetermined significance: She has very small monoclonal bands. I do not think this is myeloma. 24 hour UPEP has been ordered. Results will be out in a week or so. We will follow up on these results outpatient. 2. Congestive heart failure: She is on diureses and feeling better. 3. Deep venous thrombosis prophylaxis: On heparin. 4. Normocytic anemia: Likely multifactorial. Right now her CRP is elevated and her iron profile will be falsely abnormal. We will try to check anemia profile outpatient. Her chronic renal insufficiency and other medical disorders could be contributing to her anemia as well. cc: Adalberto Jean MD
--- NOTE | 2019-04-22 19:06 | PROGRESS NOTE ---
DATE: 04/22/2019 SUBJECTIVE: The patient is sitting up in bed. She states that she feels okay. She denies having any shortness of breath. She states that she feels like her legs are less swollen. OBJECTIVE: Vital Signs: Temperature 97.8 degrees, blood pressure 147/81, heart rate 65, respirations 18, O2 saturation 97% on room air. Intake 800, output 3.1 L. General: This is a chronically ill-appearing elderly female sitting at the edge of the bed in no acute distress. Head normocephalic, atraumatic. Heart: S1, S2 normal. Regular rate and rhythm. Lungs: Equal air entry bilaterally. No wheezing, no rales, no rhonchi. Abdomen: Positive bowel sounds. Soft, nontender, nondistended. Extremities: 3+ edema in the lower extremities with petechiae on both legs. Neuro: The patient is alert and oriented x4. LABS: White blood cell count 5, hemoglobin 9.5, hematocrit 29, platelets 168,000. Sodium 129, potassium 4, chloride 92, CO2 25, BUN 48, creatinine 1.7, glucose 132, calcium 8.6, phosphorus 3.4. ASSESSMENT AND PLAN: 1. Acute on chronic systolic congestive heart failure exacerbation. Continue on the current regimen as directed by the transmission superintendent. 2. Severe ischemic dilated cardiomyopathy. The patient has an ejection fraction of 15%. Continue on the current cardiac medications. 3. Chronic obstructive pulmonary disease. Stable. 4. Monoclonal gammopathy of unknown significance. The patient was seen by Dr. Jean today and he will monitor the patient closely as outpatient. 5. Tobacco dependence. The patient has been counseled about smoking cessation. 6. Diabetes mellitus type 2. Continue on sliding scale insulin. 7. Chronic kidney disease stage 3. Stable. 8. Hyponatremia. Will give the patient a dose of [place] and monitor her response. 9. Anemia. Stable. 10. Deep vein thrombosis prophylaxis. The patient continues to refuse her heparin injections. cc: Elina Whitfield MD MTDD
[2019-04-22] MEDS: DESYREL PO SCH (20:08)
[2019-04-22] MEDS: GRALISE PO SCH (20:09)
[2019-04-22] MEDS: ENTRESTO 24 MG-26 MG TABLET PO SCH (20:09)
[2019-04-23] MEDS: DILAUDID IV PRN ×2 (01:35→19:25)
[2019-04-23] MEDS: DOBUTAMINE 250 MG/D5W 250 MG/250 ML IV.SOLN IV SCH (04:24)
[2019-04-23] MEDS: NORCO-7.5 PO SCH ×3 (04:36→20:12)
[2019-04-23 06:13] LABS: HEMATOCRIT 28.1 % (37.0-47.0); HEMOGLOBIN 9.2 g/dL (12.0-16.0); MCH 31.8 PG (27-31); MCHC 32.7 g/dL (33-37); MCV 97.2 FL (81-99); MPV 10.3 FL (7.4-10.4); RBC 2.89 XMIL (4.2-5.4); RDW 13.5 % (11.5-14.5); WBC 5.33 X1000 (4.8-10.8)
[2019-04-23 06:37] LABS: ALBUMIN 3.3 g/dL (3.5-5.0); CALCIUM 8.3 mg/dL (8.8-10.2); CREATININE 1.7 mg/dL (0.5-0.9); PHOSPHORUS 3.5 mg/dL (2.7-4.5); POTASSIUM 3.8 mmol/L (3.5-5.1)
[2019-04-23] MEDS ORDERED: NS NEB INH SCH (07:45)
[2019-04-23] MEDS: XOPENEX NEB INH SCH ×4 (08:21→22:07)
--- NOTE | 2019-04-23 08:29 | CARDIOLOGY PROGRESS NOTE ---
DATE: 04/23/2019 CHIEF COMPLAINT: Shortness of breath, swelling of legs, rash. SUBJECTIVE: The patient is feeling better. She is not having any significant discomfort; however, she still sounds very congested in the chest. OBJECTIVE: Her blood pressure today is 113/50, temperature 98.3, pulse 65, respirations 18. She is awake, alert, in no distress. Pale, chronically ill. Chest: Bilateral rhonchi. Prolonged end expiratory phase. Heart sounds are distant, regular. No gallop or murmur. Abdomen is nontender. Extremities showed petechial rash in both legs, less edema. Neurologic: Follows commands, moves all 4 extremities. DIAGNOSTIC DATA: Her SPEP from 04/18/2019 showed weak monoclonal bands present in the gamma region. He has monoclonal bands of IgG kappa and IgG lambda specificity. Oncology has been consulted. His additional blood work today shows sodium 129, potassium 3.8, BUN is 48, creatinine 1.7. Albumin is 3.3. IMPRESSION: 1. The patient presented with decompensated congestive heart failure which is chronic systolic. In part related to ischemic heart disease, but there is also a component of idiopathic LV dysfunction. 2. Chronic kidney disease. 3. Diabetes mellitus type 2. 4. Question of non-ST myocardial infarction. 5. Petechial rash in the legs, question of vasculitis. RECOMMENDATIONS: At this time, we will continue present therapy. Dr. Griffin over the weekend has put the patient on dobutamine infusion as well as Entresto. We will see how she does with that. I am going to add Xopenex because of her respiratory symptoms. We will follow her along. cc: Junior Worthington MD
[2019-04-23] MEDS: LASIX IV SCH ×3 (09:26→20:43)
[2019-04-23] MEDS: LEVAQUIN PO SCH (09:26)
[2019-04-23] MEDS: COREG PO SCH ×2 (09:26→20:12)
[2019-04-23] MEDS: LANOXIN PO SCH (09:26)
[2019-04-23] MEDS: ASPIRIN PO SCH (09:26)
[2019-04-23] MEDS: HEPARIN SUBQ SCH ×3 (09:26→20:12)
[2019-04-23] MEDS: ZAROXOLYN PO SCH (09:26)
[2019-04-23] MEDS: PLAVIX PO SCH (09:26)
[2019-04-23 11:38] LABS: ANTINEUTROPHIL CYTOPLASMIC AB SEE COMMENTS
[2019-04-23] MEDS: ENTRESTO 24 MG-26 MG TABLET PO SCH ×2 (12:13→20:12)
[2019-04-23] MEDS ORDERED: DOBUTAMINE 250 MG/D5W 250 MG/250 ML IV.SOLN IV SCH (19:00)
[2019-04-23] MEDS: GRALISE PO SCH (20:12)
[2019-04-23] MEDS: DESYREL PO SCH (20:12)
[2019-04-24] MEDS: DILAUDID IV PRN ×2 (02:11→07:48)
[2019-04-24] MEDS: XOPENEX NEB INH SCH ×4 (03:27→23:05)
--- NOTE | 2019-04-24 03:53 | PROGRESS NOTE ---
DATE: 04/23/2019 SUBJECTIVE: The patient is sitting in bed. She states that the swelling his decreased in her legs. She is currently on a dobutamine drip. OBJECTIVE: Vital Signs: Temperature 97.2 degrees, blood pressure 134/75, heart rate 65, respirations 16, O2 saturation 97% on room air. General: This is a chronically ill-appearing, elderly female sitting in bed in no acute distress. Heart: S1, S2. Normal. Lungs: Diminished breath sounds bilaterally. No wheezing. Abdomen: Positive bowel sounds. Soft, nontender, and nondistended. Extremities: 1+ edema bilaterally with petechiae in both lower extremities. Neurologic: The patient is alert and oriented x4. LABORATORY DATA: White blood cell count 5.3, hemoglobin 9.2, hematocrit 28, platelets 176,000. Sodium 129, potassium 3.8, chloride 90, CO2 27, BUN 48, creatinine 1.7, glucose 120. ASSESSMENT AND PLAN: 1. Acute on chronic systolic congestive heart failure exacerbation. The patient is currently on dobutamine drip as well as high dose diuretic therapy. Further management as per the sustainability officer. 2. Severe ischemic dilated cardiomyopathy. Continue on the current cardiac medications. 3. Chronic obstructive pulmonary disease. Continue the bronchodilator therapy. 4. Monoclonal gammopathy of unknown significance. Aware. The patient will follow up with Dr. Jean as outpatient. 5. Tobacco dependence. The patient has been counseled about smoking cessation. 6. Diabetes mellitus type 2. Continue with sliding scale insulin. 7. Chronic kidney disease, stage 3. Stable. 8. Hyponatremia. Unchanged. Continue to monitor closely. 9. Anemia. Stable. 10. Deep vein thrombosis prophylaxis. The patient continues to refuse heparin injections. cc: Elina Whitfield MD
--- NOTE | 2019-04-24 05:33 | Extremity Venous Study ---
PROCEDURE NAME: Venous U/S Bilateral Legs - 04/20/2019 CUSHION ASSEMBLER: Jay. REQUESTING PHYSICIAN: Elina Whitfield MD. INDICATION: Swelling. FINDINGS: The deep superficial veins of the bilateral lower extremities were visualized along their course. All vessels appear compressible with forward flow and no evidence of intraluminal thrombus. SUMMARY: No deep or superficial venous thrombosis in the bilateral lower extremities. cc: MD Elina Woods MD
[2019-04-24 06:16] LABS: HEMOGLOBIN 9.3 g/dL (12.0-16.0); MCH 31.8 PG (27-31); MCHC 33.2 g/dL (33-37); MCV 95.9 FL (81-99); RBC 2.92 XMIL (4.2-5.4); RDW 13.2 % (11.5-14.5); WBC 4.93 X1000 (4.8-10.8)
[2019-04-24] MEDS: NORCO-7.5 PO SCH ×3 (06:21→20:55)
[2019-04-24 06:43] LABS: ALBUMIN 3.1 g/dL (3.5-5.0); CALCIUM 8.5 mg/dL (8.8-10.2); CREATININE 1.5 mg/dL (0.5-0.9); PHOSPHORUS 3.1 mg/dL (2.7-4.5); POTASSIUM 3.6 mmol/L (3.5-5.1)
--- NOTE | 2019-04-24 07:14 | Diag Imaging Result Doc PS360 ---
EXAM: CHEST-PORTABLE 04/24/2019 HISTORY: dyspnea TECHNIQUE: AP portable semiupright at 0521 COMMENT: The inspiration is less optimal than on 04/17/2019. There is cardiomegaly. Compared to 04/17/2019 considering differences in technique and inspiration there has been no significant change. IMPRESSION: Cardiomegaly. Mild interstitial pulmonary edema. Electronically signed by Benny Tello 04/24/2019 7:11 AM
[2019-04-24] MEDS: LANOXIN PO SCH (08:32)
[2019-04-24] MEDS: HEPARIN SUBQ SCH (08:33)
[2019-04-24] MEDS: ZAROXOLYN PO SCH (08:33)
[2019-04-24] MEDS: ASPIRIN PO SCH (08:33)
[2019-04-24] MEDS: PLAVIX PO SCH (08:33)
[2019-04-24] MEDS: COREG PO SCH ×2 (08:33→20:56)
[2019-04-24] MEDS: LEVAQUIN PO SCH (08:34)
[2019-04-24] MEDS: ENTRESTO 24 MG-26 MG TABLET PO SCH ×2 (08:34→20:55)
[2019-04-24] MEDS: LASIX IV SCH (08:34)
[2019-04-24 09:58] LABS: CRYOGLOBULIN SEE COMMENTS
[2019-04-24] MEDS ORDERED: LEVSIN PO PRN (10:58)
[2019-04-24] MEDS ORDERED: SAMSCA PO ONE (11:20)
--- NOTE | 2019-04-24 14:08 | CARDIOLOGY PROGRESS NOTE ---
DATE: 04/24/2019 CHIEF COMPLAINT: Shortness of breath, swelling, rash. SUBJECTIVE: Mrs. Patel is generally feeling better. She is breathing more comfortably. Her chest x-ray today shows cardiomegaly with mild interstitial pulmonary edema. She really wants to go home. OBJECTIVE: Vital signs: Blood pressure is 104/54, respiratory rate is 16, pulse is 65, temperature is 97.2. General: She is awake, alert, appears to be chronically ill. HEENT: Unremarkable. Chest: Some scattered rhonchi bilaterally. Heart: Sounds are regular and rhythmic. No definite gallop or murmur noted. Abdomen: Nontender. Extremities: Showed some petechial rash, trace edema. It looks much better than before. Neurologic exam: Follows commands, moves all 4 extremities. BLOOD WORK: Sodium 126, potassium 3.6, BUN 43, creatinine 1.5. Her albumin is 3.1. Hemoglobin is 9.3. IMPRESSION: 1. Patient who presented with decompensated congestive heart failure systolic chronic. 2. Urinary tract infection Enterococcus faecalis. 3. Chronic kidney disease. 4. Diabetes mellitus type 2. 5. Petechial rash in the legs with abnormal serum protein electrophoresis. Question of vasculitis still remaining. RECOMMENDATIONS: At this time, I would suggest to continue present medical therapy. We are going to stop the dobutamine infusion. She may continue with low-dose carvedilol, digoxin, switch her over to furosemide p.o. She needs to follow up with us at the office. Will probably go ahead and give her a dose of Samsca before going home to minimize the hyponatremia. Thank you again for asking us to participate in her evaluation. cc: Junior Worthington MD
--- NOTE | 2019-04-24 14:23 | PROGRESS NOTE ---
DATE: 04/24/2019 INTERVAL HISTORY: No acute events overnight. Her vitals have been unremarkable. Her cardiology team had evaluated her in the morning time. Her dobutamine has been stopped. After discussion with the cardiology team, I have decided to stop the IV Lasix and start her on oral furosemide. The patient is in agreement. It looks like she has also been ordered a dose of tolvaptan by Cardiology team. She does have hyponatremia, hypochloremia, CKD stage 3. SUBJECTIVE: She states she really wants to go down in the [place] and smoke and I discussed with her about the nature of her health condition and I also offered her nicotine patch and nicotine gum or lozenges if needed. However, she states that she does not want them. We discussed about monitoring her in the hospital for another 24 hours to see her response to oral Lasix. VITALS: Temperature is 98.2 degrees, pulse 86, respiratory 13, blood pressure 114/59, saturating 96% on room air. PHYSICAL EXAMINATION: She is not in any acute distress. Oral cavity is moist.Lungs: Air entry bilaterally equal. No wheeze, rhonchi, or crackles. Cardiovascular: S1, S2 normal. She appears to have a paced rhythm on bedside monitor. No murmur, rub, or gallop. Abdomen: Soft. She does have elevated jugular venous pressure and positive hepatojugular reflex. She does have bilateral lower extremity edema and bilateral erythema without any warmth or real tenderness. Input and output suggest -4.6 L yesterday. Since presentation, she has -18 L. LABS: Suggestive of normal hemoglobin. She does have hyponatremia, hypochloremia, CKD stage 3. Sugars have been unremarkable. Urine culture performed on April 20 and has been growing Enterococcus faecalis group D for which she has been started on levofloxacin. Chest x-ray performed today had cardiomegaly and mild interstitial pulmonary edema. ASSESSMENT AND PLAN: 1. Acute on chronic systolic congestive heart failure exacerbation with ischemic cardiomyopathy with reduced EF, likely due to dietary noncompliance, status post intravenous dobutamine and intravenous diuretic. She does have history of severe ischemic dilated cardiomyopathy requiring stent in 2014 with ejection fraction of 15% status post AICD. I will continue oral Lasix, carvedilol, aspirin, Plavix, atorvastatin, digoxin, and Crestor as per Cardiology recommendation. She should have outpatient Cardiology evaluation within 2 to 3 weeks after discharge. 2. Enterococcus faecalis group D urinary tract infection. Considering she was on Lasix, it was hard to evaluate for symptoms of urgency or frequency. She also had prior history of C difficile colitis in March. I will give her short course of antibiotics unless until her symptoms resolve. She is denying any abdominal pain. She does not have leukocytosis or fever. 3. Monoclonal gammopathy of undetermined significance. She needs to follow up with Oncology, which I made her aware of outpatient. 4. Others. She was counseled about tobacco cessation; she does have diabetes mellitus type 2 and chronic kidney disease stage 3 and anemia, which are currently stable. She also has history of chronic pain for which I will continue her home duloxetine, gabapentin, and lorazepam with trazodone. DISPOSITION: I will transfer patient to medical floor. I will discontinue telemetry as requested by the patient. If she responds okay on oral Lasix, my plan would be to discharge in next 24 hours. Plan of care discussed with her. All questions were answered satisfactorily. cc: Lincoln Juarez MD MTDD
[2019-04-24] MEDS: LASIX PO SCH (20:56)
[2019-04-24] MEDS: DESYREL PO SCH (20:56)
[2019-04-24] MEDS ORDERED: LIPITOR PO SCH (21:00)
[2019-04-24] MEDS: GRALISE PO SCH (21:47)
--- NOTE | 2019-04-24 22:19 | EKG Report ---
Test Performed on : 04/24/2019 10:11:47 PM Test Reason : Follow up ST T changes Blood Pressure : / mmHG Vent. Rate : 065 BPM Atrial Rate : 065 BPM P-R Int : 232 ms QRS Dur : 176 ms QT Int : 470 ms P-R-T Axes : 045 -59 153 degrees QTc Int : 488 ms AV dual-paced rhythm with prolonged AV conduction Abnormal ECG When compared with ECG of 17-APR-2019 22:09, Vent. rate has decreased BY 17 BPM Confirmed by Efren FLORIAN, P.J.M ([id number]) on 04/25/2019 7:57:49 PM
[2019-04-25] MEDS: XOPENEX NEB INH SCH (03:38)
[2019-04-25 08:14] VITALS: BP 99/59
[2019-04-25 08:14] LABS: ALBUMIN 3.4 g/dL (3.5-5.0); CALCIUM 8.9 mg/dL (8.8-10.2); CREATININE 1.6 mg/dL (0.5-0.9); PHOSPHORUS 3.3 mg/dL (2.7-4.5); POTASSIUM 3.6 mmol/L (3.5-5.1)
[2019-04-25] MEDS: ENTRESTO 24 MG-26 MG TABLET PO SCH (08:19)
[2019-04-25] MEDS: LEVAQUIN PO SCH (08:19)
[2019-04-25] MEDS: NORCO-7.5 PO SCH (08:20)
[2019-04-25] MEDS: PLAVIX PO SCH (08:20)
[2019-04-25] MEDS: ZAROXOLYN PO SCH (08:20)
[2019-04-25] MEDS: LASIX PO SCH (08:20)
[2019-04-25] MEDS: LANOXIN PO SCH (08:20)
[2019-04-25] MEDS: COREG PO SCH (08:21)
[2019-04-25] MEDS: ASPIRIN PO SCH (08:21)
[2019-04-25] MEDS ORDERED: CYMBALTA PO SCH (09:00)
--- NOTE | 2019-04-26 08:55 | DISCHARGE SUMMARY ---
ADMISSION DATE: 04/17/2019 DISCHARGE DATE: 04/25/2019 DISCHARGE DISPOSITION: Home. DISCHARGE CONDITION: Hemodynamically stable. She is tolerating oral Lasix well with adequate urine output. She does have low sodium level. However, she is asymptomatic, and it has been rather stable over the last few days. She was advised to get a repeat BMP studies done. VITAL SIGNS: Temperature 98.1 degrees, pulse 65, respiratory rate 14, blood pressure 99/59 and saturating 100% on room air. DISCHARGE DIAGNOSES: 1. Acute on chronic systolic congestive heart failure exacerbation due to dietary indiscretion requiring dobutamine drip and intravenous diuretics. 2. History of ischemic cardiomyopathy with ejection fraction of 15% status post AICD. 3. History of myocardial infarction requiring stent in 2014. 4. Enterococcus faecalis group D urinary tract infection. 5. Monoclonal gammopathy of undetermined significance. 6. Active tobacco abuse. 7. Chronic kidney disease stage 3. OTHER DIAGNOSES: 1. History of chronic pain. 2. History of pulmonary arterial hypertension. 3. Essential hypertension and hyperlipidemia. 4. Diabetes with peripheral neuropathy. 5. [id number]. DISCHARGE MEDICATIONS: 1. Atorvastatin 40 mg at nighttime. 2. Levsin 0.1 25 mg every 4 hours as needed for abdominal pain. 3. Hydrocodone acetaminophen 7.5 mg every 8 hours. 4. Lorazepam 0.5 mg every 6 hours as needed for anxiety. 5. Duloxetine 60 mg daily. 6. Metolazone 2.5 mg daily. 7. Methocarbamol 750 mg t.i.d. as needed for muscle spasm. 8. Trazodone 50 mg at nighttime. 9. Aspirin 81 mg daily. 10. Entresto 24 26 mg tablet b.i.d. 11. Gabapentin 600 mg at nighttime. 12. Sitagliptin 25 mg daily. 13. Digoxin 125 mcg daily. 14. Furosemide 80 mg b.i.d. 15. Levofloxacin 500 mg daily 2 tablets have been prescribed. 16. Clopidogrel 75 mg daily. 17. Metoprolol succinate 25 mg daily. CONSULTATIONS DURING HOSPITAL ADMISSION AND DISCHARGE: 1. Environmental Adviser Dr. Worthington. 2. Oncologist Dr. Jean. DISCHARGE PHYSICAL EXAMINATION: The patient does not appear in acute distress. Oral cavity is moist. Air entry bilaterally equal. No wheezing, rhonchi or crackles. S1, S2 normal. No murmur, rub, or gallop. Abdomen is soft and nontender. Mild lower extremity edema with erythema, which has significantly improved since presentation. Since hospital admission, patient was -21 L. SIGNIFICANT LABS AT TIME OF DISCHARGE: WBC 4.9, hemoglobin 9.3, and platelets 190,000. Sodium 125, chloride 88, BUN 44, creatinine 1.6. Blood glucose 128. MICROBIOLOGY: Urine culture was growing Enterococcus faecalis group D which was sensitive to levofloxacin. SIGNIFICANT IMAGING DURING HOSPITAL ADMISSION: 1. Chest x-ray on admission had severe cardiomegaly. 2. Extremity venous study had no deep or superficial venous thrombosis in bilateral lower extremities. 3. Chest x-ray on 04/24 had cardiomegaly, mild interstitial pulmonary edema. 4. Electrocardiogram on admission had atrial sensed ventricularly paced rhythm. HOSPITAL COURSE SUMMARY: Ms. Patel is a 54 year old lady who presented on 04/17/2019 with chief complaints of shortness of breath and 40 pounds weight gain. Apparently, patient is active tobacco abuser and continues to drink soda contrary to what was advised to her. She had history of myocardial infarction requiring stent in 2014 and ischemic cardiomyopathy. Heart failure with reduced ejection fraction of 15% status post AICD. She had seen her armature winder repair 7 days prior to current presentation in the office, and she was advised to be admitted for IV diuresis at that time. However, she had refused to be admitted since she wanted to watch a football game so she was started on metolazone which did not completely help with her symptoms. It was decided to come to the hospital. In the hospital, she was presented with proBNP that was greater than 22,000. Flat trend of troponin as high as 0.180 and chronic kidney disease stage 3. She was started on IV diuresis. Medication regimen was modified according to Cardiology recommendation. Digoxin and Crestor were added. Later on, her IV diuresis were changed to oral diuretics, which she tolerated well with adequate urine output. At the time of discharge, she was advised to get repeat electrolytes and kidney function tests done within 5 days after discharge and have a follow-up visit with her armature winder repair and regular physician within 7 to 14 days. TIME SPENT: More than 30 minute spent in discharging this patient. Plan of care was discussed with her. All of her questions were answered. She was also advised to have follow-up with Dr. Jean for her monoclonal gammopathy of undetermined significance. cc: Lincoln Juarez MD
== END 2019-04-25 10:13 | disposition home health service (06) | DRG 292 ==
LOC: ED 15:39 → SUATTDRO 20:00 → 1N 20:00 → 2N 04-20 18:52 → 3N 04-24 14:41
PROVIDERS: ATTEND Internal Medicine